=== PATIENT | female | born 1940 | race Caucasian/White ===

== ENCOUNTER 2023-11-26 23:47 | Inpatient (IN) | payer MEDICARE ==
--- NOTE | 2023-11-27 00:02 | ED ---
General Adult HPI - General Chief complaint: Chest Pain Stated complaint: chest pain Time Seen by Provider: 11/26/23 23:49 Source: patient, RN notes reviewed, old records reviewed Mode of arrival: EMS Limitations: no limitations - History of Present Illness Initial comments: 83-year-old female presenting for evaluation of intermittent chest pain over the past 1 week. This is associated with dyspnea. She has a history of COPD, she denies history of CHF. She does report trying both diuretics and albuterol without significant relief. She states her pain is minimal at the time my evaluation. No abdominal pain. She denies vomiting. Denies fever. Denies diaphoresis. - Related Data Allergies Allergy/AdvReac Type Severity Reaction Status Date / Time No Known Allergies Allergy Verified 11/26/23 23:58 Review of Systems ROS Statement: Those systems with pertinent positive or pertinent negative responses have been documented in the HPI. ROS Other: All systems not noted in ROS Statement are negative. Past Medical History Past Medical History: COPD, Hypertension History of Any Multi-Drug Resistant Organisms: None Reported Past Surgical History: Hysterectomy Past Psychological History: Anxiety, Depression Smoking Status: Current every day smoker Past Alcohol Use History: None Reported Past Drug Use History: None Reported General Exam Limitations: no limitations General appearance: alert, in no apparent distress Head exam: Present: atraumatic, normocephalic Eye exam: Present: normal appearance, PERRL Neck exam: Present: normal inspection. Absent: tenderness Respiratory exam: Present: rales, decreased breath sounds. Absent: respiratory distress Cardiovascular Exam: Present: normal rhythm, tachycardia GI/Abdominal exam: Present: soft. Absent: distended, tenderness Extremities exam: Present: pedal edema. Absent: calf tenderness Neurological exam: Present: alert, oriented X3 Psychiatric exam: Present: normal affect, normal mood Skin exam: Present: warm, dry, intact Course Vital Signs 11/26/23 11/26/23 11/27/23 23:49 23:58 01:17 Temperature 97.7 F 97.7 F Pulse Rate 97 101 H 95 Respiratory 18 18 18 Rate Blood Pressure 187/110 187/110 151/101 O2 Sat by Pulse 93 L 92 L 94 L Oximetry - Reevaluation(s) Reevaluation #1: 11/27/23 01:30 Patient had been given aspirin by paramedics during transport Medical Decision Making - Medical Decision Making Was pt. sent in by a medical professional or institution ([facility], [facility], urgent care, hospital, or half-way...) When possible be specific @ -No Did you speak to anyone other than the patient for history (EMS, parent, family, police, friend...)? What history was obtained from this source @ -No Did you review nursing and triage notes (agree or disagree)? Why? @ -I reviewed and agree with nursing and triage notes Were old charts reviewed (outside hosp., previous admission, EMS record, old EKG, old radiological studies, urgent care reports/EKG's, half-way records)? Report findings @ -No old charts were reviewed Differential Diagnosis (chest pain, altered mental status, abdominal pain women, abdominal pain men, vaginal bleeding, weakness, fever, dyspnea, syncope, headache, dizziness, GI bleed, back pain, seizure, CVA, palpatations, mental health, musculoskeletal)? @ -Differential Dyspnea: Coronary syndrome, arrhythmia, tamponade, asthma, COPD, pulmonary embolism, pneumonia, pneumothorax, pulmonary effusion, anaphylaxis, diabetic ketoacidosis, flailed chest, pulmonary contusion, diaphragmatic rupture, anemia, neuromuscular, this is not meant to be an all-inclusive list. EKG interpreted by me (3pts min.). @ -Sinus tachycardia rate of 103, AK interval 164, QRS duration 94, QTc [address] segment elevation, ST segment depression in the lateral precordial leads. X-rays interpreted by me (1pt min.). @Chest x-ray showing venous congestion, CHF CT interpreted by me (1pt min.). @ -None done U/S interpreted by me (1pt. min.). @ -None done What testing was considered but not performed or refused? (CT, X-rays, U/S, labs)? Why? @ -None What meds were considered but not given or refused? Why? @ -None Did you discuss the management of the patient with other professionals (professionals i.e. [facility], [facility], lab, RT, psych nurse, social media community manager, cement production plant operator, teacher, investigation officer, case specialist)? Give summary @ -No Was smoking cessation discussed for >3mins.? @ -No Was critical care preformed (if so, how long)? @ -[Yes, 35 minutes Were there social determinants of health that impacted care today? How? (Homelessness, low income, unemployed, alcoholism, drug addiction, transportation, low edu. Level, literacy, decrease access to med. care, [place] [facility], rehab)? @ -No Was there de-escalation of care discussed even if they declined (Discuss DNR or withdrawal of care, Hospice)? DNR status @ -No What co-morbidities impacted this encounter? (DM, HTN, Smoking, COPD, CAD, Cancer, CVA, ARF, Chemo, Hep., AIDS, mental health diagnosis, sleep apnea, morbid obesity)? @ -[Hypertension, COPD Was patient admitted / discharged? Hospital course, mention meds given and route, prescriptions, significant lab abnormalities, going to OR and other pertinent info. @ -83-year-old female with intermittent chest pain over the past 1 week. Patient is hypertensive and hypoxic on arrival. Requiring supplemental oxygen. Given Lasix, and nitroglycerin. Had been given aspirin by paramedics. She has no chest pain at the time my evaluation. EKG shows ST segment depression in the lateral precordial leads, no ST segment elevation. Chest x-ray shows CHF. Patient has stable hemoglobin, hypokalemia which is corrected orally. Patient's troponin is elevated 0.118 consistent with non-ST segment elevated DE. Patient is continued on nitroglycerin, heparin is initiated in the emergency department. She will be admitted to internal medicine with cardiology on consultation. Undiagnosed new problem with uncertain prognosis? @ -No Drug Therapy requiring intensive monitoring for toxicity (Heparin, Nitro, Insulin, Cardizem)? @ -No Were any procedures done? @ -No Diagnosis/symptom? @ -[NSTEMI, CHF Acute, or Chronic, or Acute on Chronic? @ -Acute Uncomplicated (without systemic symptoms) or Complicated (systemic symptoms)? @ -[default Side effects of treatment? @ -No Exacerbation, Progression, or Severe Exacerbation? @ -No Poses a threat to life or bodily function? How? (Chest pain, USA, DE, pneumonia, PE, COPD, DKA, ARF, appy, cholecystitis, CVA, Diverticulitis, Homicidal, Suicidal, threat to staff... and all critical care pts) @ -[Yes, ACS - Lab Data Result diagrams: 11/27/23 00:03 11/27/23 00:03 Lab Results 11/27/23 11/27/23 11/27/23 Range/Units 00:03 00:03 00:03 WBC 13.3 H (3.8-10.6) k/uL RBC 4.93 (3.80-5.40) m/uL Hgb 15.4 (11.4-16.0) gm/dL Hct 47.4 H (34.0-46.0) % MCV 96.1 (80.0-100.0) fL MCH 31.3 (25.0-35.0) pg MCHC 32.6 (31.0-37.0) g/dL RDW 14.9 (11.5-15.5) % Plt Count 222 (150-450) k/uL MPV 8.7 Neutrophils % 79 % Lymphocytes % 12 % Monocytes % 7 % Eosinophils % 1 % Basophils % 0 % Neutrophils # 10.4 H (1.3-7.7) k/uL Lymphocytes # 1.5 (1.0-4.8) k/uL Monocytes # 0.9 (0-1.0) k/uL Eosinophils # 0.1 (0-0.7) k/uL Basophils # 0.0 (0-0.2) k/uL PT 10.4 (10.0-12.5) sec INR 0.9 (<1.2) APTT 23.6 (22.0-30.0) sec Sodium 133 L (137-145) mmol/L Potassium 3.2 L (3.5-5.1) mmol/L Chloride 91 L (98-107) mmol/L Carbon Dioxide 36 H (22-30) mmol/L Anion Gap 6 mmol/L BUN 22 H (7-17) mg/dL Creatinine 0.62 (0.52-1.04) mg/dL Est GFR (CKD-EPI)AfAm >90 (>60 ml/min/1.73 sqM) Est GFR (CKD-EPI)NonAf 85 (>60 ml/min/1.73 sqM) Glucose 131 H (74-99) mg/dL Calcium 9.3 (8.4-10.2) mg/dL Magnesium 1.8 (1.6-2.3) mg/dL Total Bilirubin 0.9 (0.2-1.3) mg/dL AST 30 (14-36) U/L ALT 18 (4-34) U/L Alkaline Phosphatase 83 (38-126) U/L Troponin I (0.000-0.034) ng/mL NT-Pro-B Natriuret Pep 842 pg/mL Total Protein 6.7 (6.3-8.2) g/dL Albumin 3.5 (3.5-5.0) g/dL 11/27/23 Range/Units 00:03 WBC (3.8-10.6) k/uL RBC (3.80-5.40) m/uL Hgb (11.4-16.0) gm/dL Hct (34.0-46.0) % MCV (80.0-100.0) fL MCH (25.0-35.0) pg MCHC (31.0-37.0) g/dL RDW (11.5-15.5) % Plt Count (150-450) k/uL MPV Neutrophils % % Lymphocytes % % Monocytes % % Eosinophils % % Basophils % % Neutrophils # (1.3-7.7) k/uL Lymphocytes # (1.0-4.8) k/uL Monocytes # (0-1.0) k/uL Eosinophils # (0-0.7) k/uL Basophils # (0-0.2) k/uL PT (10.0-12.5) sec INR (<1.2) APTT (22.0-30.0) sec Sodium (137-145) mmol/L Potassium (3.5-5.1) mmol/L Chloride (98-107) mmol/L Carbon Dioxide (22-30) mmol/L Anion Gap mmol/L BUN (7-17) mg/dL Creatinine (0.52-1.04) mg/dL Est GFR (CKD-EPI)AfAm (>60 ml/min/1.73 sqM) Est GFR (CKD-EPI)NonAf (>60 ml/min/1.73 sqM) Glucose (74-99) mg/dL Calcium (8.4-10.2) mg/dL Magnesium (1.6-2.3) mg/dL Total Bilirubin (0.2-1.3) mg/dL AST (14-36) U/L ALT (4-34) U/L Alkaline Phosphatase (38-126) U/L Troponin I 0.118 H* (0.000-0.034) ng/mL NT-Pro-B Natriuret Pep pg/mL Total Protein (6.3-8.2) g/dL Albumin (3.5-5.0) g/dL Critical Care Time Critical Care Time: Yes Total Critical Care Time: 35 Disposition Clinical Impression: Acute non-ST elevation myocardial infarction (NSTEMI) Disposition: ADMITTED IP TO THIS HOSP Condition: Stable Is patient prescribed a controlled substance at d/c from ED?: No Referrals: Christopher Wood DO [Primary Care Provider] - 1-2 days Time of Disposition: 01:32
[2023-11-27 00:25] LABS: Basophils % (A) 0 %; Eosinophils # (A) 0.1 k/uL (0-0.7); Eosinophils % (A) 1 %; HCT 47.4 % (34.0-46.0); HGB 15.4 gm/dL (11.4-16.0); Lymphocytes # (A) 1.5 k/uL (1.0-4.8); Lymphocytes % (A) 12 %; MCH 31.3 pg (25.0-35.0); MCHC 32.6 g/dL (31.0-37.0); MCV 96.1 fL (80.0-100.0); Mean Platelet Volume 8.7; Monocytes # (A) 0.9 k/uL (0-1.0); Monocytes % (A) 7 %; Neutrophils # (A) 10.4 k/uL (1.3-7.7); Neutrophils % (A) 79 %; Platelet Count 222 k/uL (150-450); RBC 4.93 m/uL (3.80-5.40); RDW 14.9 % (11.5-15.5); WBC 13.3 k/uL (3.8-10.6)
[2023-11-27] MEDS: FUROSEMIDE 10 MG/ML 4 ML VIAL IV STA (00:32)
[2023-11-27] MEDS: NITROGLYCERIN SL TABS 0.4 MG TAB SUBLINGUAL PRN (00:33)
[2023-11-27 00:38] LABS: ALT 18 U/L (4-34); AST 30 U/L (14-36); African American GFR (CKD) >90 (>60 ml/min/1.73 sqM); Albumin 3.5 g/dL (3.5-5.0); Alkaline Phosphatase 83 U/L (38-126); Blood Urea Nitrogen 22 mg/dL (7-17); Calcium 9.3 mg/dL (8.4-10.2); Chloride 91 mmol/L (98-107); Glucose 131 mg/dL (74-99); Magnesium 1.8 mg/dL (1.6-2.3); Non-African American GFR(CKD) 85 (>60 ml/min/1.73 sqM); Potassium 3.2 mmol/L (3.5-5.1); Sodium 133 mmol/L (137-145); Total Bilirubin 0.9 mg/dL (0.2-1.3); Total Protein 6.7 g/dL (6.3-8.2)
[2023-11-27 00:44] LABS: Anion Gap 6 mmol/L; Carbon Dioxide 36 mmol/L (22-30)
[2023-11-27 00:45] LABS: NT-Pro-B-Type Natriuretic Pept 842 pg/mL
--- NOTE | 2023-11-27 00:47 | XR ---
EXAM: XR Chest, 2 Views CLINICAL HISTORY: ITS.REASON XR Reason: Chest Pain TECHNIQUE: Frontal and lateral views of the chest. COMPARISON: No relevant prior studies available. FINDINGS: Lungs: No consolidation or mass. Mild vascular congestion Pleural space: No effusion. Heart: No cardiomegaly. Bones/joints: No acute findings. IMPRESSION: Mild vascular congestion
[2023-11-27 00:48] LABS: INR 0.9 (<1.2); Partial Thromboplastin Time 23.6 sec (22.0-30.0); Prothrombin Time 10.4 sec (10.0-12.5)
[2023-11-27] MEDS: POTASSIUM CHLORIDE ER 20 MEQ TAB.ER PO STA (01:47)
[2023-11-27] MEDS: HEPARIN SODIUM 1,000 UN/ML (10ML VL) IV ONE (01:50)
[2023-11-27] MEDS: HEPARIN SOD,PORK IN 0.45% NACL 25,000 UNIT in 0.45% NACL 1 250ML.BAG IV SCH (01:52)
--- NOTE | 2023-11-27 02:57 | P.HPIM ---
History of Present Illness H&P Date: 11/27/23 Patient is a 83-year-old female with a PMH of COPD and hypertension who presents to the emergency room with complaints of chest pain and shortness of breath. Patient reports experiencing substernal chest tightness with associated shortness of breath over the past 1 week, nonpleuritic, nonexertional, lasting for several minutes at a time and then resolving spontaneously, increasing in frequency over the past few days. She also reports experiencing mild bilateral lower extremity edema which is new for her. She denies experiencing cough, fever, chills, abdominal pain, diarrhea. Chest x-ray in the emergency room revealed mild vascular congestion with EKG showing sinus tachycardia at 103 bpm with a left anterior fascicular block as reviewed by me. Laboratory evaluation was remarkable for WBC count 13.3, troponin 0.118, proBNP 842, sodium 133, potassium 3.2, chloride 91, CO2 36, BUN 22, and creatinine 0.62. ED documentation reviewed and case discussed with ED provider. Review of systems: Pertinent positives and negatives as discussed in HPI, a complete review of systems was performed and all other systems are negative. Physical examination: Vital signs reviewed General: non toxic, no distress, appears at stated age, obese Derm: no unusual rashes/lesions, warm Head: atraumatic, normocephalic, symmetric Eyes: EOMI, no lid lag, anicteric sclera, pupils equal round reactive to light ENT: Nose and ears atraumatic Neck: No cervical lymphadenopathy, trachea midline, supple Mouth: no lip lesion, mucus membranes moist Cardiovascular: S1S2 reg, no murmur, positive dorsalis pedis pulse bilateral, 1+ bilateral lower extremity pitting edema Lungs: Bibasilar rales with some wheezing, no accessory muscle use Abdominal: soft, nontender to palpation, no guarding Ext: muscle strength 5 out of 5 in all 4 extremities grossly, no gross muscle atrophy, no contractures, Neuro: CN II-XI grossly intact, no gross focal neuro deficits Psych: Alert, oriented, appropriate affect Assessment: Non-ST elevation MD CHF exacerbation, newly diagnosed Hypokalemia Leukocytosis, likely due to acute stressor, rule out pneumonia Alkalosis, suspect due to chronic hypercapnia in setting of COPD Chronic conditions: COPD, hypertension Imaging: Chest x-ray in the emergency room revealed mild vascular congestion with EKG showing sinus tachycardia at 103 bpm with a left anterior fascicular block as reviewed by me. Data Review: Laboratory evaluation was remarkable for WBC count 13.3, troponin 0.118, proBNP 842, sodium 133, potassium 3.2, chloride 91, CO2 36, BUN 22, and creatinine 0.62. Plan: Continue with heparin infusion Continue aspirin Cardiology consulted Cardiac monitoring Obtain echocardiogram Trend troponin Continue with Lasix 40 mg IV every 12 hourly Intake and output Daily weights Replace potassium Follow-up procalcitonin levels DVT prophylaxis: Heparin infusion The patient is admitted with an anticipated greater than 2 midnight stay for evaluation of non-ST elevation MD CODE STATUS: Full Code Discussed with: Patient Anticipated discharge place: Home Past Medical History Past Medical History: COPD, Hypertension History of Any Multi-Drug Resistant Organisms: None Reported Past Surgical History: Hysterectomy Past Psychological History: Anxiety, Depression Smoking Status: Current every day smoker Past Alcohol Use History: None Reported Past Drug Use History: None Reported Medications and Allergies Allergies Allergy/AdvReac Type Severity Reaction Status Date / Time No Known Allergies Allergy Verified 11/26/23 23:58 Physical Exam Vitals: Vital Signs Temp Pulse Resp BP Pulse Ox 11/27/23 02:02 97.8 F 96 18 148/90 97 11/27/23 01:17 95 18 151/101 94 L 11/26/23 23:58 97.7 F 101 H 18 187/110 92 L 11/26/23 23:49 97.7 F 97 18 187/110 93 L Intake and Output 11/26/23 11/26/23 11/27/23 14:59 22:59 06:59 Other: Weight 72.575 kg Results CBC & Chem 7: 11/27/23 00:03 11/27/23 00:03 Labs: Abnormal Lab Results - Last 24 Hours (Table) 11/27/23 11/27/23 11/27/23 Range/Units 00:03 00:03 00:03 WBC 13.3 H (3.8-10.6) k/uL Hct 47.4 H (34.0-46.0) % Neutrophils # 10.4 H (1.3-7.7) k/uL Sodium 133 L (137-145) mmol/L Potassium 3.2 L (3.5-5.1) mmol/L Chloride 91 L (98-107) mmol/L Carbon Dioxide 36 H (22-30) mmol/L BUN 22 H (7-17) mg/dL Glucose 131 H (74-99) mg/dL Troponin I 0.118 H* (0.000-0.034) ng/mL
[2023-11-27 03:56] LABS: African American GFR (CKD) >90 (>60 ml/min/1.73 sqM); Blood Urea Nitrogen 20 mg/dL (7-17); Chloride 90 mmol/L (98-107); Glucose 129 mg/dL (74-99); Non-African American GFR(CKD) 84 (>60 ml/min/1.73 sqM); Potassium 3.4 mmol/L (3.5-5.1); Sodium 135 mmol/L (137-145)
[2023-11-27 04:02] LABS: Anion Gap 7 mmol/L; Carbon Dioxide 38 mmol/L (22-30)
[2023-11-27 04:03] LABS: HGB 15.9 gm/dL (11.4-16.0); MCH 31.4 pg (25.0-35.0); MCHC 32.4 g/dL (31.0-37.0); MCV 97.1 fL (80.0-100.0); Mean Platelet Volume 8.5; Platelet Count 233 k/uL (150-450); RBC 5.04 m/uL (3.80-5.40); RDW 14.6 % (11.5-15.5); WBC 14.1 k/uL (3.8-10.6)
[2023-11-27] MEDS: NITROGLYCERIN OINT 1 INCH/GM PACKET TOPICAL SCH (05:01)
[2023-11-27] MEDS: IPRATROPIUM-ALBUTEROL 3 ML NEB INHALATION SCH (07:58)
[2023-11-27] MEDS: FUROSEMIDE 10 MG/ML 4 ML VIAL IV SCH (09:10)
--- NOTE | 2023-11-27 10:14 | CA ---
Transthoracic Echo Report Name: Gavi Avila Age: 83 Gender: F : 1940 Exam Date: 11/27/2023 08:26 Exam Location: [facility] Ht (in): 61 Wt (lb): 160 Ordering Physician: Olegario Lay MD Attending/Referring Phys: [id number], Rosanne Cold Roll Operator Hilda Montalvo RDCS Procedure CPT: Indications: nstemi Cardiac Hx: smoker, COPD, HTN Technical Quality: Fair Contrast 1: Total Dose (mL): Contrast 2: Total Dose (mL): MEASUREMENTS (Male / Female) Normal Values 2D ECHO LV Diastolic Diameter PLAX 3.3 cm 4.2 - 5.9 / 3.9 - 5.3 cm LV Systolic Diameter PLAX 2.2 cm IVS Diastolic Thickness 1.2 cm 0.6 - 1.0 / 0.6 - 0.9 cm LVPW Diastolic Thickness 1.3 cm 0.6 - 1.0 / 0.6 - 0.9 cm LV Relative Wall Thickness 0.8 RV Internal Dim ED PLAX 3.3 cm LA Systolic Diameter LX 3.5 cm 3.0 - 4.0 / 2.7 - 3.8 cm LV Diastolic Volume MOD 4C 97.5 cm??? LV Systolic Volume MOD 4C 46.6 cm??? LV Ejection Fraction MOD 4C 52.2 % LV Cardiac Index MOD 4C 2662.7 cm???/min???m??? LV Diastolic Length 4C 7.7 cm LV Systolic Length 4C 6.1 cm LV Diastolic Volume MOD 2C 92.8 cm??? LV Systolic Volume MOD 2C 47.8 cm??? LV Ejection Fraction MOD 2C 48.5 % LV Cardiac Index MOD 2C 2357.5 cm???/min???m??? LV Diastolic Length 2C 8.4 cm LV Systolic Length 2C 7.2 cm LA Volume 45.7 cm??? 18 - 58 / 22 - 52 cm??? LA Volume Index 25.5 cm???/m??? 16 - 28 cm???/m??? DOPPLER AV Peak Velocity 143.3 cm/s AV Peak Gradient 8.2 mmHg MV Area PHT 2.8 cm??? Mitral E Point Velocity 96.3 cm/s Mitral A Point Velocity 163.3 cm/s Mitral E to A Ratio 0.6 MV Deceleration Time 270.4 ms FINDINGS Left Ventricle Left ventricular ejection fraction is estimated at 55-60 %. Small left ventricular cavity. Mildly increased septal wall thickness. Mildly increased posterior wall thickness. No obvious regional wall motion abnormalities. Right Ventricle Normal right ventricular size. Unable to estimate the right ventricular systolic pressure. Right Atrium Normal right atrial size. Left Atrium Normal left atrial size. Mitral Valve Mitral valve thickened. Mild mitral annular calcification. No mitral stenosis, regurgitation or prolapse. Aortic Valve Trileaflet aortic valve. Thickened aortic valve without stenosis. Tricuspid Valve Structurally normal tricuspid valve. No tricuspid stenosis, regurgitation or prolapse. Pulmonic Valve Structurally normal pulmonic valve. No pulmonic regurgitation. Pericardium No pericardial effusion. Aorta Normal size aortic root and proximal ascending aorta. CONCLUSIONS Normal LV function Mitral annular calcification Aortic sclerosis without any stenosis Previewed by: Dr. Cristobal Lacy MD (Electronically Signed) Final Date: 27 November 2023 10:14
[2023-11-27] MEDS: HEPARIN SODIUM 1,000 UN/ML (10ML VL) IV PRN (10:34)
[2023-11-27] MEDS ORDERED: NITROGLYCERIN SL TABS 0.4 MG TAB SUBLINGUAL PRN (13:12)
--- NOTE | 2023-11-27 13:14 | P.CRDCN ---
History of Present Illness Consult date: 11/27/23 Reason for Consult (text): NSTEMI History of present illness: History of present illness: This is an 85-year-old female with past medical history of hypertension, COPD. We have been asked to evaluate the patient for non-ST elevated myocardial infarction. Patient presented to the hospital due to chest pain and shortness of breath. Patient gives history that she has had chest pain over the past month on and off that is getting more severe and occurring more often especially for the past 3 days. She also has sweats and increased lower extremity edema. She has had no previous stents or heart surgery. She denies history of diabetes. She is an active smoker. Patient is status post IV Lasix 40 mg times once and continued on every 12 hours, started on heparin drip, potassium replaced and 1 Nitrostat given. Discussed option of cardiac catheterization and patient is agreeable and this will be scheduled for tomorrow. EKG sinus rhythm 103 bpm Chest x-ray: Mild vascular congestion. WBC 14.1, hemoglobin 15.9, platelet count 233. Sodium 135, potassium 3.4, chloride 90, CO2 38, BUN 20 creatinine 0.64. Blood sugar 129. Troponin 0.118 and 2.2 Echocardiogram performed 11/27/2023 reveals EF 55 to 60%, mitral annular calcification, aortic sclerosis without stenosis. Home cardiac medications: Coreg 6.25 mg twice daily, Bumex 0.5 mg daily. Review Of Systems: At the time of my exam: CONSTITUTIONAL: Denies fever or chills. HEENT: Denies blurred vision, vision changes, or eye pain. Denies hemoptysis CARDIOVASCULAR: Denies chest pain. Denies orthopnea. Denies PND. Denies palpitations RESPIRATORY: Denies shortness of breath. GASTROINTESTINAL: Denies abdominal pain. Denies nausea or vomiting. HEMATOLOGIC: Denies bleeding disorders. GENITOURINARY: Denies any blood in urine. SKIN: Denies pruitis. Denies rash. Physical examination: Gen: This is an 83-year-old female in no acute distress VS: reviewed HEENT: Head is atraumatic, normocephalic. Pupils equal, round. Sclerae is anicteric. NECK: Supple. No JVD. LUNGS: Bilateral crackles. No intercostal retractions. HEART: Regular rate and rhythm. No murmur. ABDOMEN: Soft No tenderness. EXTREMITIES: No pedal edema. No calf tenderness. NEUROLOGICAL: Patient is awake, alert and oriented x3. Assessment: Non-ST elevated myocardial infarction Acute heart failure Hypokalemia status post replacement Leukocytosis Hypertension COPD Plan: Resume patient's home cardiac medications Continue aspirin changed to 81 mg daily, atorvastatin 40 mg daily Continue IV Lasix 40 mg every 12 hours Continue heparin drip another 24 hours Schedule patient for cardiac catheterization tomorrow with Dr. Davalos Monitor I&O, daily weights, electrolytes and renal function Further recommendations to follow based upon clinical course Thank you kindly for this consultation. Nurse practitioner note has been reviewed, I agree with documented findings and plan of care. Patient was seen and examined. 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 History of Any Multi-Drug Resistant Organisms: None Reported Past Surgical History: Hysterectomy Past Psychological History: Anxiety, Depression Smoking Status: Current every day smoker Past Alcohol Use History: None Reported Past Drug Use History: None Reported Additional Drug Use History / Comment(s): 10-15 a day - Past Family History Mother Family Medical History: Myocardial Infarction (CT) Father Family Medical History: CVA/TIA Medications and Allergies Home Medications Medication Instructions Recorded Confirmed Type Bumetanide [BUMEX] 0.5 mg PO DAILY 11/27/23 11/27/23 History carvediloL [Coreg] 6.25 tablet PO BID 11/27/23 11/27/23 History Allergies Allergy/AdvReac Type Severity Reaction Status Date / Time codeine AdvReac Itching Verified 11/27/23 08:48 Physical Exam Vitals: Vital Signs Temp Pulse Resp BP BP Pulse Ox 11/27/23 04:05 24 11/27/23 02:56 97.8 F 22 154/95 95 11/27/23 02:02 97.8 F 96 18 148/90 97 11/27/23 01:17 95 18 151/101 94 L 11/26/23 23:58 97.7 F 101 H 18 187/110 92 L 11/26/23 23:49 97.7 F 97 18 187/110 93 L Intake and Output 11/26/23 11/27/23 11/27/23 22:59 06:59 14:59 Other: Voiding Method Toilet # Voids 1 Weight 75.5 kg Results 11/27/23 03:30 11/27/23 03:30 Cardiac Enzymes 11/27/23 11/27/23 11/27/23 Range/Units 00:03 00:03 03:30 AST 30 (14-36) U/L Troponin I 0.118 H* 2.200 H* (0.000-0.034) ng/mL Coagulation 11/27/23 Range/Units 00:03 PT 10.4 (10.0-12.5) sec APTT 23.6 (22.0-30.0) sec CBC 11/27/23 11/27/23 Range/Units 00:03 03:30 WBC 13.3 H 14.1 H (3.8-10.6) k/uL RBC 4.93 5.04 (3.80-5.40) m/uL Hgb 15.4 15.9 (11.4-16.0) gm/dL Hct 47.4 H 49.0 H (34.0-46.0) % Plt Count 222 233 (150-450) k/uL Comprehensive Metabolic Panel 11/27/23 11/27/23 Range/Units 00:03 03:30 Sodium 133 L 135 L (137-145) mmol/L Potassium 3.2 L 3.4 L (3.5-5.1) mmol/L Chloride 91 L 90 L (98-107) mmol/L Carbon Dioxide 36 H 38 H (22-30) mmol/L BUN 22 H 20 H (7-17) mg/dL Creatinine 0.62 0.64 (0.52-1.04) mg/dL Glucose 131 H 129 H (74-99) mg/dL Calcium 9.3 9.0 (8.4-10.2) mg/dL AST 30 (14-36) U/L ALT 18 (4-34) U/L Alkaline Phosphatase 83 (38-126) U/L Total Protein 6.7 (6.3-8.2) g/dL Albumin 3.5 (3.5-5.0) g/dL Current Medications Generic Name Dose Route Start Last Admin Trade Name Freq PRN Reason Stop Dose Admin Albuterol/Ipratropium 3 ml 11/27/23 04:00 Ipratropium-Albuterol 3 Ml Neb INHALATION RT-Q4H [facility] Aspirin 325 mg 11/28/23 09:00 Aspirin 325 Mg Tab PO DAILY [facility] Atorvastatin Calcium 40 mg 11/27/23 21:00 Atorvastatin 40 Mg Tab PO HS [facility] Furosemide 40 mg 11/27/23 09:00 Furosemide 10 Mg/Ml 4 Ml Vial IV Q12HR [facility] Heparin Sodium/Sodium Chloride 250 mls @ 8.709 mls/hr 11/27/23 01:30 11/27/23 01:52 25,000 unit/ Sodium Chloride IV 12 units/kg/hr .Q24H EMPERATRIZ 8.709 mls/hr Administration Protocol 12 UNITS/KG/HR Nitroglycerin 1 inch 11/27/23 06:00 11/27/23 05:01 Nitroglycerin Oint 1 Inch/Gm Packet TOPICAL Not Given Q6HR [facility] Intake and Output 11/26/23 11/27/23 11/27/23 22:59 06:59 14:59 Other: Voiding Method Toilet # Voids 1 Weight 75.5 kg 11/27/23 03:30 11/27/23 03:30
[2023-11-27] MEDS: ALBUTEROL HFA INHALER INHALATION SCH (16:06)
[2023-11-27] MEDS: ONDANSETRON 4 MG/2 ML VIAL IVP PRN (18:25)
[2023-11-27] MEDS: ATORVASTATIN 40 MG TAB PO SCH (19:54)
[2023-11-27] MEDS: ALPRAZolam 0.25 MG TAB PO PRN (23:30)
[2023-11-28] MEDS: ASPIRIN 325 MG TAB PO ONE (06:29)
[2023-11-28] MEDS: ATORVASTATIN 80 MG TAB PO ONE (06:29)
[2023-11-28] MEDS ORDERED: HEPARIN SODIUM,PORCINE 10,000 UNIT in SODIUM CHLORIDE 0.9% 1,000 ML IRRIGATION PRN (07:00)
[2023-11-28] MEDS ORDERED: HEPARIN SODIUM,PORCINE (1 ML) 2,500 UNIT in SODIUM CHLORIDE 0.9% 250 ML IRRIGATION PRN (07:00)
[2023-11-28 07:15] LABS: HCT 44.6 % (34.0-46.0); HGB 14.4 gm/dL (11.4-16.0); MCH 31.9 pg (25.0-35.0); MCHC 32.3 g/dL (31.0-37.0); MCV 98.6 fL (80.0-100.0); Mean Platelet Volume 8.5; Platelet Count 213 k/uL (150-450); RBC 4.53 m/uL (3.80-5.40); RDW 14.6 % (11.5-15.5); WBC 14.8 k/uL (3.8-10.6)
[2023-11-28 07:47] LABS: African American GFR (CKD) 87 (>60 ml/min/1.73 sqM); Blood Urea Nitrogen 26 mg/dL (7-17); Calcium 8.9 mg/dL (8.4-10.2); Chloride 88 mmol/L (98-107); Glucose 106 mg/dL (74-99); Non-African American GFR(CKD) 75 (>60 ml/min/1.73 sqM); Potassium 3.4 mmol/L (3.5-5.1); Sodium 134 mmol/L (137-145)
[2023-11-28] MEDS: TIOTROPIUM 2.5 MCG INHALER INHALATION SCH (07:50)
[2023-11-28 07:55] LABS: Anion Gap 8 mmol/L
[2023-11-28] MEDS: ASPIRIN 81 MG PO SCH (07:58)
[2023-11-28 08:08] LABS: Carbon Dioxide 38 mmol/L (22-30)
[2023-11-28] MEDS ORDERED: ASPIRIN 325 MG TAB PO SCH (09:00)
[2023-11-28] MEDS: POTASSIUM CHLORIDE ER 20 MEQ TAB.ER PO STA (09:30)
[2023-11-28] MEDS: dexAMETHasone 2 MG TAB PO SCH (09:30)
--- NOTE | 2023-11-28 12:15 | P.PN ---
Subjective Progress Note Date: 11/28/23 Patient is a 83-year-old female with a PMH of COPD and hypertension who presents to the emergency room with complaints of chest pain and shortness of breath. Patient reports experiencing substernal chest tightness with associated shortness of breath over the past 1 week. She also reports experiencing mild bilateral lower extremity edema which is new for her. Chest x-ray in the emergency room revealed mild vascular congestion with EKG showing sinus tachycardia at 103 bpm with a left anterior fascicular block. Laboratory evaluation was remarkable for WBC count 13.3, troponin 0.118, proBNP 842, sodium 133, potassium 3.2, chloride 91, CO2 36, BUN 22, and creatinine 0.62. Patient was started on a Heparin drip and Lasix IV, admitted for NSTEMI and CHF exacerbation. Troponin 2.200, 4.780. Echocardiogram showed EF 55-60% with no regional wall motion abnormalities. Cardiology consulted, cardiac cath scheduled for . COVID 19 test ordered and positive. Patient was started on Decadron. Patient was seen and examined. No more chest pain. SOB improving. Daughter at bedside. CBC WBC 14.8. APTT 37.6. BMP Na 134, K 3.4, Cl 88, bicarb 38, BUN 26, glu 106. Plans for cardiac cath today. Vital signs reviewed General: Nontoxic, no distress, appears at stated age Cardiovascular: S1S2 reg, no murmur Lungs: Decreased bs bilateral, no rhonchi, no rales, no accessory muscle use Abdominal: Soft, nontender to palpation, no guarding Ext: No gross muscle atrophy, 2+ edema b/l lower extremities, no contractures Neuro: no focal neuro deficits Psych: Alert, oriented, appropriate affect Based on my assessment of this patient, this patient meets a high complexity level of care. Patient has an acute diagnosis of NSTEMI with AHRF secondary to pulmonary edema and COVID 19 that poses a threat to life or bodily function. Non-ST elevation [place]: Continue Heparin drip at 12 units/kg/hr. ASA 81 mg PO QD. Lipitor 40 mg PO QHS. Telemetry monitoring. Echo shows EF 60-65% without regional wall motion abnormalities. Plans for cardiac cath. Cardiology consult. Acute hypoxic respiratory failure due to below. COVID 19: Decadron 6 mg PO QD. CHF exacerbation, newly diagnosed: Lasix 40 mg IV BID. Strict intake and outtake. Daily weights. Hypokalemia: KCl 40 meq PO x 1. Monitor while on Lasix. Leukocytosis, likely due to acute stressor, rule out pneumonia: Procal negative. Alkalosis, suspect due to chronic hypercapnia in setting of COPD Chronic conditions: COPD, hypertension CODE STATUS: FULL CODE DVT Prophylaxis: Heparin drip GI Prophylaxis: Designated medical POA if patient is not able to make medical decisions for themselves: Daughter. I have reviewed the following tour consultant notes: Cardiology. I have reviewed the results of the following tests: Echo. CBC, BMP. APTT. I have ordered the following tests: CBC, BMP. APTT. I have discussed the care of this patient with the following independent historian: Discussed with BRIDGER Ledesma. I have independently interpreted the following test below: I have discussed the management of this patient with the following physician: Objective - Vital Signs Vital signs: Vital Signs Temp 98.7 F 11/28/23 04:00 Pulse 89 11/28/23 04:00 Resp 19 11/28/23 04:00 BP 146/95 11/28/23 04:00 Pulse Ox 94 L 11/28/23 08:01 FiO2 Intake & Output 11/27/23 11/28/23 11/28/23 18:59 06:59 18:59 Intake Total 914.607 175.393 Balance 914.607 175.393 Weight 75.5 kg 74.5 kg Intake: Intake, IV Titration 74.607 175.393 Amount Heparin Sod,Pork in 0.45% 74.607 175.393 NaCl 25,000 unit In 0.45 % NaCl 1 250ml.bag @ 12 UNITS/KG/HR 8.709 mls/hr IV .Q24H [facility] Rx#: [id number] Oral 840 Other: # Voids 1 - Labs CBC & Chem 7: 11/28/23 06:57 11/28/23 06:57 Labs: Abnormal Lab Results - Last 24 Hours (Table) 11/27/23 11/27/23 11/28/23 Range/Units 13:38 16:28 06:57 WBC (3.8-10.6) k/uL APTT 62.8 H 37.6 H (22.0-30.0) sec Sodium (137-145) mmol/L Potassium (3.5-5.1) mmol/L Chloride (98-107) mmol/L Carbon Dioxide (22-30) mmol/L BUN (7-17) mg/dL Glucose (74-99) mg/dL SARS-CoV-2 (PCR) Detected A (Not Detectd) 11/28/23 11/28/23 Range/Units 06:57 06:57 WBC 14.8 H (3.8-10.6) k/uL APTT (22.0-30.0) sec Sodium 134 L (137-145) mmol/L Potassium 3.4 L (3.5-5.1) mmol/L Chloride 88 L (98-107) mmol/L Carbon Dioxide 38 H (22-30) mmol/L BUN 26 H (7-17) mg/dL Glucose 106 H (74-99) mg/dL SARS-CoV-2 (PCR) (Not Detectd)
--- NOTE | 2023-11-28 13:19 | P.PN ---
Subjective Progress Note Date: 11/28/23 Reason for Consult (text): NSTEMI History of present illness: History of present illness: This is an 85-year-old female with past medical history of hypertension, COPD. We have been asked to evaluate the patient for non-ST elevated myocardial infarction. Patient presented to the hospital due to chest pain and shortness of breath. Patient gives history that she has had chest pain over the past month on and off that is getting more severe and occurring more often especially for the past 3 days. She also has sweats and increased lower extremity edema. She has had no previous stents or heart surgery. She denies history of diabetes. She is an active smoker. Patient is status post IV Lasix 40 mg times once and continued on every 12 hours, started on heparin drip, potassium replaced and 1 Nitrostat given. Discussed option of cardiac catheterization and patient is agreeable and this will be scheduled for tomorrow. EKG sinus rhythm 103 bpm Chest x-ray: Mild vascular congestion. WBC 14.1, hemoglobin 15.9, platelet count 233. Sodium 135, potassium 3.4, chloride 90, CO2 38, BUN 20 creatinine 0.64. Blood sugar 129. Troponin 0.118 and 2.2 Echocardiogram performed 11/27/2023 reveals EF 55 to 60%, mitral annular calcification, aortic sclerosis without stenosis. Home cardiac medications: Coreg 6.25 mg twice daily, Bumex 0.5 mg daily. Patient is scheduled for cardiac catheterization today with Dr. Davalos. Blood pressure 125/70, heart rate in the 80s. Repeat blood work reveals WBC 13.8, hemoglobin 14.4. Sodium 134, potassium 3.4, chloride 88, CO2 38. BUN 26 and creatinine is 0.75. Physical examination: Gen: This is an 83-year-old female in no acute distress VS: reviewed HEENT: Head is atraumatic, normocephalic. Pupils equal, round. Sclerae is anicteric. NECK: Supple. No JVD. LUNGS: Bilateral crackles. No intercostal retractions. HEART: Regular rate and rhythm. No murmur. ABDOMEN: Soft No tenderness. EXTREMITIES: No pedal edema. No calf tenderness. NEUROLOGICAL: Patient is awake, alert and oriented x3. Assessment: Non-ST elevated myocardial infarction Acute heart failure Hypokalemia status post replacement Leukocytosis Hypertension COPD Plan: Continue patient's home cardiac medications Continue aspirin delete 81 mg daily, atorvastatin 40 mg daily Continue IV Lasix 40 mg every 12 hours Continue heparin drip another 24 hours Schedule patient for cardiac catheterization with Dr. Davalos Monitor I&O, daily weights, electrolytes and renal function Further recommendations to follow based upon clinical course Nurse practitioner note has been reviewed, I agree with documented findings and plan of care. Patient was seen and examined. Objective - Vital Signs Vital signs: Vital Signs Temp 98.7 F 11/28/23 04:00 Pulse 89 11/28/23 04:00 Resp 19 11/28/23 04:00 BP 146/95 11/28/23 04:00 Pulse Ox 94 L 11/28/23 08:01 FiO2 Intake & Output 11/27/23 11/28/23 11/28/23 18:59 06:59 18:59 Intake Total 914.607 Balance 914.607 Weight 75.5 kg 74.5 kg Intake: Intake, IV Titration 74.607 Amount Heparin Sod,Pork in 0.45% 74.607 NaCl 25,000 unit In 0.45 % NaCl 1 250ml.bag @ 12 UNITS/KG/HR 8.709 mls/hr IV .Q24H [facility] Rx#: [id number] Oral 840 - Labs CBC & Chem 7: 11/28/23 06:57 11/28/23 06:57 Labs: Abnormal Lab Results - Last 24 Hours (Table) 11/27/23 11/27/23 11/27/23 Range/Units 08:17 08:17 13:38 WBC (3.8-10.6) k/uL APTT 35.1 H (22.0-30.0) sec Sodium (137-145) mmol/L Potassium (3.5-5.1) mmol/L Chloride (98-107) mmol/L Carbon Dioxide (22-30) mmol/L BUN (7-17) mg/dL Glucose (74-99) mg/dL Troponin I 4.780 H* (0.000-0.034) ng/mL SARS-CoV-2 (PCR) Detected A (Not Detectd) 11/27/23 11/28/23 11/28/23 Range/Units 16:28 06:57 06:57 WBC 14.8 H (3.8-10.6) k/uL APTT 62.8 H 37.6 H (22.0-30.0) sec Sodium (137-145) mmol/L Potassium (3.5-5.1) mmol/L Chloride (98-107) mmol/L Carbon Dioxide (22-30) mmol/L BUN (7-17) mg/dL Glucose (74-99) mg/dL Troponin I (0.000-0.034) ng/mL SARS-CoV-2 (PCR) (Not Detectd) 11/28/23 Range/Units 06:57 WBC (3.8-10.6) k/uL APTT (22.0-30.0) sec Sodium 134 L (137-145) mmol/L Potassium 3.4 L (3.5-5.1) mmol/L Chloride 88 L (98-107) mmol/L Carbon Dioxide 38 H (22-30) mmol/L BUN 26 H (7-17) mg/dL Glucose 106 H (74-99) mg/dL Troponin I (0.000-0.034) ng/mL SARS-CoV-2 (PCR) (Not Detectd)
[2023-11-28 16:07] LABS: LDL Cholesterol,Calculated 88.6 mg/dL (0.0-131.0); VLDL Calculation 19.48 mg/dL (5.00-40.00)
[2023-11-28] MEDS ORDERED: ZINC OXIDE PASTE (Z-GUARD) 1 APPLIC TOPICAL PRN (19:05)
[2023-11-29 00:05] LABS: Appearance,Urine Clear (Clear); Bacteria,Urine Rare /hpf; Bilirubin,Urine Negative (Negative); Blood,Urine Negative (Negative); Color,Urine Colorless; Glucose,Urine (UA) Negative (Negative); Ketones,Urine Negative (Negative); Leukocyte Esterase,Urine Negative (Negative); Nitrite,Urine Positive (Negative); PH, Urine 7.5 (5.0-8.0); Protein,Urine Negative (Negative); RBC,Urine 1 /hpf (0-5); Specific Gravity,Urine 1.006 (1.001-1.035); Squamous Epithelial Cell,Urine 1 /hpf (0-4); Urobilinogen,Urine <2.0 mg/dL (<2.0); WBC,Urine <1 /hpf (0-5)
[2023-11-29] MEDS: ALPRAZolam 0.5 MG TAB PO PRN (01:21)
[2023-11-29] MEDS: ATORVASTATIN 80 MG TAB PO ONE (06:11)
[2023-11-29] MEDS: ASPIRIN 81 MG PO ONE (06:12)
[2023-11-29 09:33] LABS: HCT 42.7 % (34.0-46.0); HGB 14.3 gm/dL (11.4-16.0); MCH 32.3 pg (25.0-35.0); MCHC 33.4 g/dL (31.0-37.0); MCV 96.7 fL (80.0-100.0); Mean Platelet Volume 8.8; Platelet Count 212 k/uL (150-450); RBC 4.41 m/uL (3.80-5.40); RDW 15.1 % (11.5-15.5); WBC 15.1 k/uL (3.8-10.6)
[2023-11-29 09:42] LABS: African American GFR (CKD) >90 (>60 ml/min/1.73 sqM); Blood Urea Nitrogen 29 mg/dL (7-17); Calcium 8.8 mg/dL (8.4-10.2); Chloride 91 mmol/L (98-107); Glucose 119 mg/dL (74-99); Non-African American GFR(CKD) 82 (>60 ml/min/1.73 sqM); Potassium 3.7 mmol/L (3.5-5.1); Sodium 131 mmol/L (137-145)
[2023-11-29 09:51] LABS: Anion Gap 2 mmol/L
[2023-11-29 09:56] LABS: Carbon Dioxide 38 mmol/L (22-30)
[2023-11-29] MEDS ORDERED: LIDOCAINE 1% INJ 10MG/ML (20 ML MDV) ONE (09:59)
[2023-11-29] MEDS ORDERED: VERAPAMIL 2.5 MG/ML 2 ML AMP ONE (09:59)
[2023-11-29] MEDS ORDERED: HEPARIN SODIUM 1,000 UN/ML (10ML VL) ONE (10:14)
[2023-11-29] MEDS: IV FLUID CONTINUATION 1,000 ML IV ONE (10:15)
[2023-11-29] MEDS ORDERED: fentaNYL (PF) 50 MCG/ML 2 ML AMP ONE (10:38)
[2023-11-29] MEDS: MIDAZOLAM 2 MG/2 ML VIAL IVP ONE (10:38)
[2023-11-29] MEDS: fentaNYL (PF) 50 MCG/ML 2 ML AMP IVP ONE (10:38)
[2023-11-29] MEDS: LIDOCAINE 1% INJ 10MG/ML (5 ML VIAL-PF) SQ ONE (10:40)
[2023-11-29] MEDS: HEPARIN SODIUM 1,000 UN/ML (10ML VL) IV ONE (10:50)
[2023-11-29] MEDS ORDERED: FUROSEMIDE 10 MG/ML 4 ML VIAL ONE (11:05)
[2023-11-29] MEDS ORDERED: MORPHINE SULFATE 4 MG/ML SYRINGE ONE (11:06)
[2023-11-29] MEDS: FUROSEMIDE 10 MG/ML 4 ML VIAL IVP ONE (11:08)
[2023-11-29] MEDS: MORPHINE SULFATE 4 MG/ML SYRINGE IVP ONE (11:08)
[2023-11-29] MEDS ORDERED: CLOPIDOGREL 75 MG TAB ONE (11:12)
[2023-11-29] MEDS: CLOPIDOGREL 75 MG TAB PO ONE (11:19)
[2023-11-29] MEDS: IOPAMIDOL-370 100ML BTL INJ ONE ×2 (11:37→11:54)
[2023-11-29] MEDS ORDERED: MAG HYDROX/AL HYDROX/SIMETH 30 ML CUP PO PRN (12:07)
[2023-11-29] MEDS ORDERED: RX INFO: IV CONTRAST WAS GIVEN 1 EACH MISC MISCELLANE PRN (12:07)
[2023-11-29] MEDS ORDERED: ZOLPIDEM 5 MG TAB PO PRN (12:07)
[2023-11-29] MEDS ORDERED: ATROPINE SULFATE 0.1 MG/ML 10ML SYRINGE IV PRN (12:07)
--- NOTE | 2023-11-29 13:04 | P.PN ---
Subjective Progress Note Date: 11/29/23 Reason for Consult (text): NSTEMI History of present illness: History of present illness: This is an 85-year-old female with past medical history of hypertension, COPD. We have been asked to evaluate the patient for non-ST elevated myocardial infarction. Patient presented to the hospital due to chest pain and shortness of breath. Patient gives history that she has had chest pain over the past month on and off that is getting more severe and occurring more often especially for the past 3 days. She also has sweats and increased lower extremity edema. She has had no previous stents or heart surgery. She denies history of diabetes. She is an active smoker. Patient is status post IV Lasix 40 mg times once and continued on every 12 hours, started on heparin drip, potassium replaced and 1 Nitrostat given. Discussed option of cardiac catheterization and patient is agreeable and this will be scheduled for tomorrow. EKG sinus rhythm 103 bpm Chest x-ray: Mild vascular congestion. WBC 14.1, hemoglobin 15.9, platelet count 233. Sodium 135, potassium 3.4, chloride 90, CO2 38, BUN 20 creatinine 0.64. Blood sugar 129. Troponin 0.118 and 2.2 Echocardiogram performed 11/27/2023 reveals EF 55 to 60%, mitral annular calcification, aortic sclerosis without stenosis. Home cardiac medications: Coreg 6.25 mg twice daily, Bumex 0.5 mg daily. Patient is scheduled for cardiac catheterization today with Dr. Davalos. Blood pressure 125/70, heart rate in the 80s. Repeat blood work reveals WBC 13.8, hemoglobin 14.4. Sodium 134, potassium 3.4, chloride 88, CO2 38. BUN 26 and creatinine is 0.75. 12/28 Patient is scheduled for cardiac catheterization today. Blood pressure 132/72, heart rate 82, pulse ox 90% on 4 L nasal cannula. BUN 29, creatinine 0.7, potassium 3.7, WBC 15.1, hemoglobin 14.3. Physical examination: Gen: This is an 83-year-old female in no acute distress VS: reviewed HEENT: Head is atraumatic, normocephalic. Pupils equal, round. Sclerae is anicteric. NECK: Supple. No JVD. LUNGS: Bilateral crackles. No intercostal retractions. HEART: Regular rate and rhythm. No murmur. ABDOMEN: Soft No tenderness. EXTREMITIES: No pedal edema. No calf tenderness. NEUROLOGICAL: Patient is awake, alert and oriented x3. Assessment: Non-ST elevated myocardial infarction Acute heart failure Hypokalemia status post replacement Leukocytosis Hypertension COPD Plan: Continue patient's home cardiac medications Continue aspirin delete 81 mg daily, atorvastatin 40 mg daily Continue IV Lasix 40 mg every 12 hours Continue heparin drip another 24 hours Schedule patient for cardiac catheterization with Dr. Davalos Monitor I&O, daily weights, electrolytes and renal function Further recommendations to follow based upon clinical course Nurse practitioner note has been reviewed, I agree with documented findings and plan of care. Patient was seen and examined. Objective - Vital Signs Vital signs: Vital Signs Temp 98.1 F 11/29/23 08:00 Pulse 82 11/29/23 08:00 Resp 18 11/29/23 08:00 BP 132/73 11/29/23 08:00 Pulse Ox 90 L 11/29/23 08:00 FiO2 Intake & Output 11/28/23 11/29/23 11/29/23 18:59 06:59 18:59 Intake Total 209.147 200 Balance 209.147 200 Weight 72 kg 72 kg Intake: IV 200 Intake, IV Titration 209.147 Amount Heparin Sod,Pork in 0.45% 209.147 NaCl 25,000 unit In 0.45 % NaCl 1 250ml.bag @ 12 UNITS/KG/HR 8.709 mls/hr IV .Q24H [facility] Rx#: [id number] Other: Voiding Method Bedside Commode Bedside Commode # Voids 2 1 # Bowel Movements 1 - Labs CBC & Chem 7: 11/29/23 08:57 11/29/23 08:57 Labs: Abnormal Lab Results - Last 24 Hours (Table) 11/28/23 11/28/23 11/29/23 Range/Units 18:10 18:37 08:57 WBC 15.1 H (3.8-10.6) k/uL APTT 51.7 H (22.0-30.0) sec Sodium (137-145) mmol/L Chloride (98-107) mmol/L Carbon Dioxide (22-30) mmol/L BUN (7-17) mg/dL Glucose (74-99) mg/dL Urine Nitrite Positive H (Negative) Urine Bacteria Rare H (None) /hpf 11/29/23 Range/Units 08:57 WBC (3.8-10.6) k/uL APTT (22.0-30.0) sec Sodium 131 L (137-145) mmol/L Chloride 91 L (98-107) mmol/L Carbon Dioxide 38 H (22-30) mmol/L BUN 29 H (7-17) mg/dL Glucose 119 H (74-99) mg/dL Urine Nitrite (Negative) Urine Bacteria (None) /hpf
--- NOTE | 2023-11-29 15:32 | P.PN ---
Subjective Progress Note Date: 11/29/23 Patient is a 83-year-old female with a PMH of COPD and hypertension who presents to the emergency room with complaints of chest pain and shortness of breath. Patient reports experiencing substernal chest tightness with associated shortness of breath over the past 1 week. She also reports experiencing mild bilateral lower extremity edema which is new for her. Chest x-ray in the emergency room revealed mild vascular congestion with EKG showing sinus tachycardia at 103 bpm with a left anterior fascicular block. Laboratory evaluation was remarkable for WBC count 13.3, troponin 0.118, proBNP 842, sodium 133, potassium 3.2, chloride 91, CO2 36, BUN 22, and creatinine 0.62. Patient was started on a Heparin drip and Lasix IV, admitted for NSTEMI and CHF exacerbation. Troponin 2.200, 4.780. Echocardiogram showed EF 55-60% with no regional wall motion abnormalities. Cardiology consulted, cardiac cath scheduled for . COVID 19 test ordered and positive. Patient was started on Decadron. Patient was seen and examined. No more chest pain. SOB improving. Daughter at bedside. CBC WBC 14.8. APTT 37.6. BMP Na 134, K 3.4, Cl 88, bicarb 38, BUN 26, glu 106. Plans for cardiac cath today. 11/28 Patient was seen and examined. No more chest pain. Underwent cardiac cath, official report pending but stents were placed. Still on 4L NC. UA + nitrite. CBC WBC 15.1. BMP Na 131, Cl 91, bicarb 38, BUN 29, glu 119. Vital signs reviewed General: Nontoxic, no distress, appears at stated age Cardiovascular: S1S2 reg, no murmur Lungs: Decreased bs bilateral, no rhonchi, no rales, no accessory muscle use Abdominal: Soft, nontender to palpation, no guarding Ext: No gross muscle atrophy, 2+ edema b/l lower extremities, no contractures Neuro: no focal neuro deficits Psych: Alert, oriented, appropriate affect Based on my assessment of this patient, this patient meets a high complexity level of care. Patient has an acute diagnosis of NSTEMI with AHRF secondary to pulmonary edema and COVID 19 that poses a threat to life or bodily function. Non-ST elevation [place]: Underwent cardiac cath 11/28. ASA 81 mg PO QD. Lipitor 40 mg PO QHS. Metoprolol 25 mg PO BID. Telemetry monitoring. Echo shows EF 60-65% without regional wall motion abnormalities. Cardiology consult. Acute hypoxic respiratory failure due to below. Obtain D-Dimer. COVID 19: Decadron 6 mg PO QD. Leukocytosis: Steroid induced. Meets SIRS criteria. UA + nitrite. Empirically start Rocephin 2g IV QD. Follow UCx. CHF exacerbation, newly diagnosed: Lasix 40 mg IV BID. Strict intake and outtake. Daily weights. Alkalosis, suspect due to chronic hypercapnia in setting of COPD Chronic conditions: COPD, hypertension CODE STATUS: FULL CODE DVT Prophylaxis: Lovenox. GI Prophylaxis: Designated medical POA if patient is not able to make medical decisions for themselves: Daughter. I have reviewed the following licensed tax consultant notes: Cardiology. Cath report I have reviewed the results of the following tests: BMP I have ordered the following tests: BMP. D-Dimer I have discussed the care of this patient with the following independent histo irish: Discussed with BRIDGER Ledesma. I have independently interpreted the following test below: I have discussed the management of this patient with the following physician: Objective - Vital Signs Vital signs: Vital Signs Temp 98.1 F 11/29/23 08:00 Pulse 82 11/29/23 08:00 Resp 18 11/29/23 13:54 BP 128/75 11/29/23 13:23 Pulse Ox 90 L 11/29/23 13:23 FiO2 Intake & Output 11/28/23 11/29/23 11/29/23 18:59 06:59 18:59 Intake Total 209.147 200 Balance 209.147 200 Weight 72 kg 72 kg Intake: IV 200 Intake, IV Titration 209.147 Amount Heparin Sod,Pork in 0.45% 209.147 NaCl 25,000 unit In 0.45 % NaCl 1 250ml.bag @ 12 UNITS/KG/HR 8.709 mls/hr IV .Q24H [facility] Rx#: [id number] Other: Voiding Method Bedside Commode Bedside Commode # Voids 2 1 3 # Bowel Movements 1 - Labs CBC & Chem 7: 11/29/23 08:57 11/29/23 08:57 Labs: Abnormal Lab Results - Last 24 Hours (Table) 11/28/23 11/28/23 11/29/23 Range/Units 18:10 18:37 08:57 WBC 15.1 H (3.8-10.6) k/uL APTT 51.7 H (22.0-30.0) sec Sodium (137-145) mmol/L Chloride (98-107) mmol/L Carbon Dioxide (22-30) mmol/L BUN (7-17) mg/dL Glucose (74-99) mg/dL Urine Nitrite Positive H (Negative) Urine Bacteria Rare H (None) /hpf 11/29/23 Range/Units 08:57 WBC (3.8-10.6) k/uL APTT (22.0-30.0) sec Sodium 131 L (137-145) mmol/L Chloride 91 L (98-107) mmol/L Carbon Dioxide 38 H (22-30) mmol/L BUN 29 H (7-17) mg/dL Glucose 119 H (74-99) mg/dL Urine Nitrite (Negative) Urine Bacteria (None) /hpf
[2023-11-29] MEDS: SODIUM CHLORIDE 0.9% 1,000 ML in EMPTY BAG 1 BAG IV SCH (19:56)
[2023-11-29] MEDS: METOPROLOL TARTRATE 25 MG TAB PO SCH (19:59)
[2023-11-30] MEDS: ENOXAPARIN 40 MG/0.4 ML SYRINGE SQ SCH (08:16)
[2023-11-30] MEDS: CLOPIDOGREL 75 MG TAB PO SCH (08:16)
[2023-11-30] MEDS: ALBUTEROL HFA INHALER INHALATION SCH (08:28)
[2023-11-30 09:05] LABS: Basophils # (A) 0.1 k/uL (0-0.2); Basophils % (A) 0 %; Eosinophils % (A) 0 %; HCT 45.3 % (34.0-46.0); HGB 14.8 gm/dL (11.4-16.0); Lymphocytes # (A) 2.1 k/uL (1.0-4.8); Lymphocytes % (A) 14 %; MCH 31.7 pg (25.0-35.0); MCHC 32.6 g/dL (31.0-37.0); MCV 97.3 fL (80.0-100.0); Mean Platelet Volume 8.5; Monocytes # (A) 1.2 k/uL (0-1.0); Monocytes % (A) 8 %; Neutrophils # (A) 11.6 k/uL (1.3-7.7); Neutrophils % (A) 76 %; Platelet Count 228 k/uL (150-450); RBC 4.66 m/uL (3.80-5.40); RDW 14.7 % (11.5-15.5); WBC 15.3 k/uL (3.8-10.6)
[2023-11-30 09:06] LABS: HCT 43.8 % (34.0-46.0); HGB 14.1 gm/dL (11.4-16.0); MCH 31.4 pg (25.0-35.0); MCHC 32.3 g/dL (31.0-37.0); MCV 97.3 fL (80.0-100.0); Mean Platelet Volume 8.7; Platelet Count 238 k/uL (150-450); RDW 14.8 % (11.5-15.5); WBC 17.5 k/uL (3.8-10.6)
--- NOTE | 2023-11-30 09:07 | XR ---
EXAMINATION TYPE: XR chest 1V portable DATE OF EXAM: 11/30/2023 CLINICAL HISTORY: Difficulty breathing and hypoxia. TECHNIQUE: Single AP portable upright view of the chest is obtained. COMPARISON: Chest x-ray from 3 days earlier FINDINGS: Elevated left hemidiaphragm redemonstrated. New left basilar opacity. Right lung remains c lear. Cardiac silhouette size stable and within normal limits with atherosclerotic thoracic aorta red emonstrated. Osseous structures are intact. IMPRESSION: New Left basilar atelectasis and/or developing acute infiltrate.
--- NOTE | 2023-11-30 09:17 | P.PN ---
Subjective Progress Note Date: 11/30/23 Principal diagnosis: ACS The patient is a pleasant 83-year-old female patient with hypertension and dyslipidemia who was admitted to the hospital with acute coronary syndrome comp licated by heart failure. She underwent a heart catheterization yesterday and stenting of the right coronary artery and PLV branch of the RCA. The echo showed normal LV systolic function. November 30, 2023 The patient was seen and evaluated this morning. Overall she is doing slightly better but she continues to have shortness of breath and she continues to have congestion on examination. No pain in the chest and no dizziness or lightheadedness and no feeling of heart racing or fluttering. She has been maintaining normal sinus mechanism. She continues to be on dual antiplatelet therapy along with a statin. The examination revealed crackles bilateral and diminished breathing sounds over the left lung base with regular rate and rhythm and mild bilateral lower extremities edema Assessment Acute coronary syndrome Status post PCI of the RCA as described above Heart failure with preserved ejection fraction Multiple comorbid conditions including hypertension and dyslipidemia Plan Continue the current medical regimen Continue Lasix IV for additional 24 hours Continue monitor the kidney function and electrolyte Continue antibiotic by the internal medicine Follow-up with the patient Objective - Vital Signs Vital signs: Vital Signs Temp 98.1 F 11/29/23 08:00 Pulse 86 11/30/23 03:59 Resp 16 11/30/23 03:59 BP 146/86 11/30/23 03:59 Pulse Ox 90 L 11/30/23 03:59 FiO2 Intake & Output 11/29/23 11/30/23 11/30/23 18:59 06:59 18:59 Intake Total 200 Balance 200 Weight 72 kg 69.2 kg Intake: IV 200 Other: Voiding Method Bedside Commode Bedside Commode # Voids 3 2 # Bowel Movements 1 - Labs CBC & Chem 7: 11/30/23 07:58 11/29/23 08:57 Labs: Abnormal Lab Results - Last 24 Hours (Table) 11/29/23 11/29/23 11/30/23 Range/Units 08:57 08:57 07:58 WBC 15.1 H 17.5 H (3.8-10.6) k/uL D-Dimer (<0.60) mg/L FEU Sodium 131 L (137-145) mmol/L Chloride 91 L (98-107) mmol/L Carbon Dioxide 38 H (22-30) mmol/L BUN 29 H (7-17) mg/dL Glucose 119 H (74-99) mg/dL 11/30/23 Range/Units 07:58 WBC (3.8-10.6) k/uL D-Dimer 0.84 H (<0.60) mg/L FEU Sodium (137-145) mmol/L Chloride (98-107) mmol/L Carbon Dioxide (22-30) mmol/L BUN (7-17) mg/dL Glucose (74-99) mg/dL
[2023-11-30 09:20] LABS: African American GFR (CKD) 79 (>60 ml/min/1.73 sqM); Anion Gap 7 mmol/L; Blood Urea Nitrogen 33 mg/dL (7-17); Carbon Dioxide 38 mmol/L (22-30); Chloride 85 mmol/L (98-107); Glucose 168 mg/dL (74-99); Non-African American GFR(CKD) 69 (>60 ml/min/1.73 sqM); Potassium 3.5 mmol/L (3.5-5.1); Sodium 130 mmol/L (137-145)
--- NOTE | 2023-11-30 11:38 | P.PN ---
Subjective Progress Note Date: 11/30/23 Patient is a 83-year-old female with a PMH of COPD and hypertension who presents to the emergency room with complaints of chest pain and shortness of breath. Patient reports experiencing substernal chest tightness with associated shortness of breath over the past 1 week. She also reports experiencing mild bilateral lower extremity edema which is new for her. Chest x-ray in the emergency room revealed mild vascular congestion with EKG showing sinus tachycardia at 103 bpm with a left anterior fascicular block. Laboratory evaluation was remarkable for WBC count 13.3, troponin 0.118, proBNP 842, sodium 133, potassium 3.2, chloride 91, CO2 36, BUN 22, and creatinine 0.62. Patient was started on a Heparin drip and Lasix IV, admitted for NSTEMI and CHF exacerbation. Troponin 2.200, 4.780. Echocardiogram showed EF 55-60% with no regional wall motion abnormalities. Cardiology consulted, cardiac cath scheduled for . COVID 19 test ordered and positive. Patient was started on Decadron. Patient was seen and examined. No more chest pain. SOB improving. Daughter at bedside. CBC WBC 14.8. APTT 37.6. BMP Na 134, K 3.4, Cl 88, bicarb 38, BUN 26, glu 106. Plans for cardiac cath today. 11/28 Patient was seen and examined. No more chest pain. Underwent cardiac cath, official report pending but stents were placed. Still on 4L NC. UA + nitrite. CBC WBC 15.1. BMP Na 131, Cl 91, bicarb 38, BUN 29, glu 119. 11/29 Patient was seen and examined. Currently on 6L NC with O2 saturation of 90%. Underwent stenting of the right coronary artery and PLV branch of the RCA yesterday. D-Dimer slightly elevated at 0.84, we will obtain CTA chest to rule out PE. Started on Rocephin 2g IV QD yesterday for possible UTI. CBC WBC 15.3. BMP Na 130, Cl 85, bicarb 38, BUN 33, glu 168. CXR shows left basilar in filtrate. Case discussed extensively with daughter. She does not believe the patient has decision making capacity and is safe to live at home by herself. She reports her house is cluttered and has mold. Willing for her mom to move in with her but patient seems reluctant. Willing to apply for guardianship. We will consult psychiatry for decision making capacity. Vital signs reviewed General: Nontoxic, no distress, appears at stated age Cardiovascular: S1S2 reg, no murmur Lungs: Decreased bs bilateral, no rhonchi, no rales, no accessory muscle use Abdominal: Soft, nontender to palpation, no guarding Ext: No gross muscle atrophy, 2+ edema b/l lower extremities, no contractures Neuro: no focal neuro deficits Psych: Alert, oriented, appropriate affect Based on my assessment of this patient, this patient meets a high complexity level of care. Patient has an acute diagnosis of NSTEMI with AHRF secondary to pulmonary edema and COVID 19 that poses a threat to life or bodily function. Non-ST elevation [place]: Underwent cardiac cath 11/28. ASA 81 mg PO QD. Lipitor 40 mg PO QHS. Metoprolol 25 mg PO BID. Telemetry monitoring. Echo shows EF 60-65% without regional wall motion abnormalities. Cardiology consult. Acute hypoxic respiratory failure due to below. Obtain CTA chest to rule out PE. COVID 19: Decadron 6 mg PO QD. Albuterol PRN for SOB/wheezing. Leukocytosis: Steroid induced. Meets SIRS criteria. UA + nitrite. Empirically start Rocephin 2g IV QD. Follow UCx. CHF exacerbation, newly diagnosed: Lasix 40 mg IV BID. Strict intake and outtake. Daily weights. Alkalosis, suspect due to chronic hypercapnia in setting of COPD Chronic conditions: COPD, hypertension CODE STATUS: FULL CODE DVT Prophylaxis: Lovenox. GI Prophylaxis: Designated medical POA if patient is not able to make medical decisions for themselves: Daughter. I have reviewed the following senior product consultant notes: Cardiology. I have reviewed the results of the following tests: CBC, BMP, D-Dimer I have ordered the following tests: CTA chest I have discussed the care of this patient with the following independent his polly: Daughter. I have independently interpreted the following test below: CXR. I have discussed the management of this patient with the following physician: Objective - Vital Signs Vital signs: Vital Signs Temp 98.1 F 11/29/23 08:00 Pulse 86 11/30/23 03:59 Resp 16 11/30/23 03:59 BP 146/86 11/30/23 03:59 Pulse Ox 90 L 11/30/23 03:59 FiO2 Intake & Output 11/29/23 11/30/23 11/30/23 18:59 06:59 18:59 Intake Total 200 Balance 200 Weight 72 kg 69.2 kg Intake: IV 200 Other: Voiding Method Bedside Commode Bedside Commode # Voids 3 2 # Bowel Movements 1 - Labs CBC & Chem 7: 11/30/23 07:58 11/30/23 07:58 Labs: Abnormal Lab Results - Last 24 Hours (Table) 11/29/23 11/29/23 Range/Units 08:57 08:57 WBC 15.1 H (3.8-10.6) k/uL Sodium 131 L (137-145) mmol/L Chloride 91 L (98-107) mmol/L Carbon Dioxide 38 H (22-30) mmol/L BUN 29 H (7-17) mg/dL Glucose 119 H (74-99) mg/dL
[2023-11-30] MEDS: NICOTINE 14MG/24HR PATCH TRANSDERM SCH (12:08)
--- NOTE | 2023-11-30 12:49 | CT ---
EXAMINATION TYPE: CT chest angio for PE DATE OF EXAM: 11/30/2023 COMPARISON: Chest x-ray earlier today HISTORY: Hypoxia, covid CT DLP: 269.8 mGycm. Automated Exposure Control for Dose Reduction was Utilized. CONTRAST: CTA scan of the thorax is performed with IV Contrast, patient injected with 100 mL of Isovue 300, pul monary embolism protocol. MIP Images are created on CT scanner and reviewed. FINDINGS: LUNGS: There is dependent right basilar atelectasis and/or consolidation. Lingula has 2 areas of grou ndglass opacity and organizing consolidation. Left lower lobe has linear scarring and/or atelectasis with more prominent atelectasis and/or consolidation in the posterior lung base. No pleural effusion or pneumothorax is seen bilaterally. Upper lungs are clear with mild edematous change. MEDIASTINUM: There is satisfactory enhancement of the pulmonary artery and its branches, there is no CT evidence for pulmonary embolism. There are no greater than 1 cm hilar or mediastinal lymph nodes. No cardiomegaly or pericardial effusion is seen. Severe coronary artery calcification and/or stent s are present. Some contrast opacification of the aorta with mild to moderate peripheral plaque but n o dissection. Ascending aorta measures up to 3.7 cm in diameter. OTHER: Low-density thickening of both adrenal glands suggests bilateral hyperplasia. There are 2 near 1.0 cm round low density lesions in the left hepatic lobe presumed simple cysts. Some benign calcifi cations centrally are present. There is a partially exophytic 1.7 cm simple appearing thin-walled cys t posteriorly in the upper pole right kidney. There is S-shaped scoliosis in the spine with multileve l spurring and disc space narrowing greatest in the lower thoracic levels. IMPRESSION: 1. No CT evidence for acute pulmonary embolism. 2. Mild emphysematous change with areas of scarring and/or atelectasis seen bilaterally. Lingula has 2 focal areas of groundglass opacity and organizing consolidation suspicious for acute infectious pro cess.
[2023-12-01] MEDS: AZITHROMYCIN 500 MG in SODIUM CHLORIDE 0.9% 250 ML IVPB SCH (08:46)
--- NOTE | 2023-12-01 10:21 | P.PN ---
Subjective Progress Note Date: 12/01/23 Principal diagnosis: ACS The patient is a pleasant 83-year-old female patient with hypertension and dyslipidemia who was admitted to the hospital with acute coronary syndrome comp licated by heart failure. She underwent a heart catheterization yesterday and stenting of the right coronary artery and PLV branch of the RCA. The echo showed normal LV systolic function. November 30, 2023 The patient was seen and evaluated this morning. Overall she is doing slightly better but she continues to have shortness of breath and she continues to have congestion on examination. No pain in the chest and no dizziness or lightheadedness and no feeling of heart racing or fluttering. She has been maintaining normal sinus mechanism. She continues to be on dual antiplatelet therapy along with a statin. The examination revealed crackles bilateral and diminished breathing sounds over the left lung base with regular rate and rhythm and mild bilateral lower extremities edema December 01, 2023 The patient was seen and evaluated this morning she continues to be on oxygen and she continues to have shortness of breath with exertion which has not improved. She underwent a CT scan of the chest yesterday and that showed no evidence of pulmonary embolism. No pain in the chest. Hemodynamically she is stable. She is on dual antiplatelet therapy along with a statin and she continues to be on Lasix IV as well. On examination she has extensive bilateral expiratory wheezing noted. She has very mild bilateral lower extremities edema. Please note that the patient also tested positive for COVID. The echo showed normal LV systolic function. Assessment Acute coronary syndrome Status post PCI of the RCA as described above Heart failure with preserved ejection fraction Multiple comorbid conditions including hypertension and dyslipidemia COVID-19 infection Plan Continue the current medical regimen Continue Lasix IV for additional 24 hours Continue monitor the kidney function and electrolyte Continue antibiotic by the internal medicine Follow-up with the patient Objective - Vital Signs Vital signs: Vital Signs Temp 98.0 F 12/01/23 08:42 Pulse 104 H 12/01/23 08:42 Resp 20 12/01/23 08:42 BP 111/69 12/01/23 08:42 Pulse Ox 90 L 12/01/23 09:43 FiO2 Intake & Output 11/30/23 12/01/23 12/01/23 18:59 06:59 18:59 Intake Total 956 598 Output Total 1050 Balance -94 598 Intake: Oral 956 598 Output: Urine 1050 Other: Voiding Method Bedside Commode Bedside Commode # Voids 1 1 # Bowel Movements 1 - Labs CBC & Chem 7: 11/30/23 07:58 11/30/23 07:58
[2023-12-01 12:39] LABS: African American GFR (CKD) 70 (>60 ml/min/1.73 sqM); Blood Urea Nitrogen 36 mg/dL (7-17); Calcium 8.8 mg/dL (8.4-10.2); Chloride 84 mmol/L (98-107); Glucose 90 mg/dL (74-99); Non-African American GFR(CKD) 60 (>60 ml/min/1.73 sqM); Potassium 3.3 mmol/L (3.5-5.1); Sodium 130 mmol/L (137-145)
[2023-12-01 12:47] LABS: Anion Gap 7 mmol/L; Carbon Dioxide 39 mmol/L (22-30)
--- NOTE | 2023-12-01 14:18 | P.PN ---
Subjective Progress Note Date: 12/01/23 Patient is a 83-year-old female with a PMH of COPD and hypertension who presents to the emergency room with complaints of chest pain and shortness of breath. Patient reports experiencing substernal chest tightness with associated shortness of breath over the past 1 week. She also reports experiencing mild bilateral lower extremity edema which is new for her. Chest x-ray in the emergency room revealed mild vascular congestion with EKG showing sinus tachycardia at 103 bpm with a left anterior fascicular block. Laboratory evaluation was remarkable for WBC count 13.3, troponin 0.118, proBNP 842, sodium 133, potassium 3.2, chloride 91, CO2 36, BUN 22, and creatinine 0.62. Patient was started on a Heparin drip and Lasix IV, admitted for NSTEMI and CHF exacerbation. Troponin 2.200, 4.780. Echocardiogram showed EF 55-60% with no regional wall motion abnormalities. Cardiology consulted, cardiac cath scheduled for . COVID 19 test ordered and positive. Patient was started on Decadron. Patient was seen and examined. No more chest pain. SOB improving. Daughter at bedside. CBC WBC 14.8. APTT 37.6. BMP Na 134, K 3.4, Cl 88, bicarb 38, BUN 26, glu 106. Plans for cardiac cath today. 11/28 Patient was seen and examined. No more chest pain. Underwent cardiac cath, official report pending but stents were placed. Still on 4L NC. UA + nitrite. CBC WBC 15.1. BMP Na 131, Cl 91, bicarb 38, BUN 29, glu 119. 11/29 Patient was seen and examined. Currently on 6L NC with O2 saturation of 90%. Underwent stenting of the right coronary artery and PLV branch of the RCA yesterday. D-Dimer slightly elevated at 0.84, we will obtain CTA chest to rule out PE. Started on Rocephin 2g IV QD yesterday for possible UTI. CBC WBC 15.3. BMP Na 130, Cl 85, bicarb 38, BUN 33, glu 168. CXR shows left basilar in filtrate. Case discussed extensively with daughter. She does not believe the patient has decision making capacity and is safe to live at home by herself. She reports her house is cluttered and has mold. Willing for her mom to move in with her but patient seems reluctant. Willing to apply for guardianship. We will consult psychiatry for decision making capacity. 11/30 Patient was seen and examined. Currently on 6L with O2 saturation of 90%. Cardiology recommends continuing Lasix. BMP Na 130, K 3.3, Cl 84, bicarb 39, BUN 36. CTA chest negative for PE, 2 areas of ground glass opacity and organizing consolidation suspicious for acute process. Started on Azithromycin 500 mg IV QD. Vital signs reviewed General: Nontoxic, no distress, appears at stated age Cardiovascular: S1S2 reg, no murmur Lungs: Decreased bs bilateral, no rhonchi, no rales, no accessory muscle use Abdominal: Soft, nontender to palpation, no guarding Ext: No gross muscle atrophy, 2+ edema b/l lower extremities, no contractures Neuro: no focal neuro deficits Psych: Alert, oriented, appropriate affect Based on my assessment of this patient, this patient meets a high complexity level of care. Patient has an acute diagnosis of NSTEMI with AHRF secondary to pulmonary edema and COVID 19 that poses a threat to life or bodily function. Non-ST elevation [place]: Underwent cardiac cath 11/28. ASA 81 mg PO QD. Lipitor 40 mg PO QHS. Metoprolol 25 mg PO BID. Telemetry monitoring. Echo shows EF 60-65% without regional wall motion abnormalities. Cardiology consult. Acute hypoxic respiratory failure due to below. PE ruled out. COVID 19: Decadron 6 mg PO QD. Albuterol PRN for SOB/wheezing. Leukocytosis: Steroid induced. Meets SIRS criteria. UA + nitrite. Empirically start Rocephin 2g IV QD. Ass Azithromycin 500 mg IV QD. Obtain repeat procal. Follow UCx. CHF exacerbation, newly diagnosed: Lasix 40 mg IV BID. Strict intake and outtake. Daily weights. Alkalosis, suspect due to chronic hypercapnia in setting of COPD Chronic conditions: COPD, hypertension CODE STATUS: FULL CODE DVT Prophylaxis: Lovenox. GI Prophylaxis: Designated medical POA if patient is not able to make medical decisions for themselves: Daughter. I have reviewed the following dynamics ax consultant notes: Cardiology. I have reviewed the results of the following tests: CBC, BMP, CTA chest I have ordered the following tests: BMP. I have discussed the care of this patient with the following independent historian: Daughter. I have independently interpreted the following test below: I have discussed the management of this patient with the following physician: Objective - Vital Signs Vital signs: Vital Signs Temp 97.9 F 12/01/23 12:27 Pulse 78 12/01/23 12:27 Resp 22 12/01/23 12:27 BP 139/78 12/01/23 12:27 Pulse Ox 90 L 12/01/23 12:30 FiO2 Intake & Output 11/30/23 12/01/23 12/01/23 18:59 06:59 18:59 Intake Total 956 716 Output Total 1050 1050 Balance -94 -334 Intake: Oral 956 716 Output: Urine 1050 1050 Other: Voiding Method Bedside Commode Bedside Commode Bedside Commode # Voids 1 1 # Bowel Movements 1 - Labs CBC & Chem 7: 11/30/23 07:58 12/01/23 11:50 Labs: Abnormal Lab Results - Last 24 Hours (Table) 12/01/23 Range/Units 11:50 Sodium 130 L (137-145) mmol/L Potassium 3.3 L (3.5-5.1) mmol/L Chloride 84 L (98-107) mmol/L Carbon Dioxide 39 H (22-30) mmol/L BUN 36 H (7-17) mg/dL
[2023-12-01] MEDS: POTASSIUM CHLORIDE ER 20 MEQ TAB.ER PO STA (15:43)
--- NOTE | 2023-12-02 00:15 | P.CN ---
Psychiatric Consult - . Consult date: 12/01/23 Consult:: IDENTIFYING DATA: This patient is an 83 year old female with 2 living adult daughters, who lives alone in a trailer home. REASON FOR REFERRAL: Psychiatry was consulted for "decision making capacity". HISTORY OF PRESENT ILLNESS: Per medical note by Dr. Mckenzie dated 11/30/23, patient is a "83-year-old female with a PMH of COPD and hypertension who presents to the emergency room with complaints of chest pain and shortness of breath. Patient reports experiencing substernal chest tightness with associated shortness of breath over the past 1 week. She also reports experiencing mild bilateral lower extremity edema which is new for her. Chest x-ray in the emergency room revealed mild vascular congestion with EKG showing sinus tachycardia at 103 bpm with a left anterior fascicular block. Laboratory evaluation was remarkable for WBC count 13.3, troponin 0.118, proBNP 842, sodium 133, potassium 3.2, chloride 91, CO2 36, BUN 22, and creatinine 0.62. Patient was started on a Heparin drip and Lasix IV, admitted for NSTEMI and CHF exacerbation. Troponin 2.200, 4.780. Echocardiogram showed EF 55-60% with no regional wall motion abnormalities. Cardiology consulted, cardiac cath scheduled for . COVID 19 test ordered and positive. Patient was started on Decadron. Patient was seen and examined. No more chest pain. SOB improving. Daughter at bedside. CBC WBC 14.8. APTT 37.6. BMP Na 134, K 3.4, Cl 88, bicarb 38, BUN 26, glu 106. Plans for cardiac cath today. 11/28 Patient was seen and examined. No more chest pain. Underwent cardiac cath, official report pending but stents were placed. Still on 4L NC. UA + nitrite. CBC WBC 15.1. BMP Na 131, Cl 91, bicarb 38, BUN 29, glu 119. 11/29 Patient was seen and examined. Currently on 6L NC with O2 saturation of 90%. Underwent stenting of the right coronary artery and PLV branch of the RCA yesterday. D-Dimer slightly elevated at 0.84, we will obtain CTA chest to rule out PE. Started on Rocephin 2g IV QD yesterday for possible UTI. CBC WBC 15.3. BMP Na 130, Cl 85, bicarb 38, BUN 33, glu 168. CXR shows left basilar infiltrate. Case discussed extensively with daughter. She does not believe the patient has decision making capacity and is safe to live at home by herself. She reports her house is cluttered and has mold. Willing for her mom to move in with her but patient seems reluctant. Willing to apply for guardianship. We will consult psychiatry for decision making capacity." I evaluated patient this afternoon on the medical floor. She was found sitting up in bed just having finished eating a meal. She appears disheveled, is wearing O2 nasal cannula. She is pleasant and attempts to cooperate, but also appears easily confused and distracted. She appears to be a fair historian. She is alert and oriented to person, place, time and situation. She was provided with a IVORY (Self-Administered Gerocognitive Examination) and given sufficient time to complete it but had difficulty performing the more complex tasks, became flustered at times, and scored 12/22, indicating a more severe memory or thinking impairment. In regards to her understanding of her medical condition, she states is in the hospital because she had a "stroke", but later is able to state she has a "heart problem" and "had 3 stents put in yesterday". She states she and her doctor have not discussed discharge plans yet or where she would go after discharge. She states her goal is to "go home" to her own house where she has supportive neighbors, and is not ready to give up her "independence", does not want to go to a "facility". Per chart, she had chest pain for a week prior to coming to the hospital, and called her neighbor who then called 911. When asked why she waited a week to notify someone she was having chest pain, she could not provide an answer and derailed to another topic. She eventually does admit that she feels too weak to go straight home if she were to discharge soon, and would be agreeable to go to a rehab, facility or stay with her daughter for the short term until she is stronger, however she does not want to go to a facility permanently. She claims she is still "capable of taking care of myself", and would like to be able to get in her car and go to the grocery store. She has some insight into her current mental state, repeatedly states she is not herself currently because she is getting over COVID and other medical ailments that are causing to be confused. In regards to her living conditions at home, she believes her mobile is cluttered due to the amount of food people brought to her house to show their support, so she has a lot of cleaning to do when she gets home. She appears to overestimate her physical abilities to go up the steps of her mobile home, to clean her home, and to perform her ADLs since she appears very frail currently. In regards to the mold in her home, she reports she had black mold at one point but she had that fixed and there is currently no black mold in her home. She currently states she is willing to work with her doctor to identify the appropriate step-down level of care for her for after discharge. She denies depressed mood. She states she wants to keep on living. She is future-oriented. She does admit to a long history of anxiety, takes Xanax as needed, and talks to a therapist on the phone about every 2 weeks. She denies any suicidal or homicidal ideations, intent or plan. She denies any auditory, visual hallucinations, and denies any paranoia or delusions. Patients denies any drug or alcohol use. She does smoke about 10-15 cigarettes today. PAST PSYCHIATRIC HISTORY: Patient has a a history of anxiety. She denies having a history of depression but depression is listed in her Psychiatric medications: Xanax as needed, has taken for many years, states she takes it rarely. Has been taking it about 1-2 times daily here in the hospital. Patient denies any previous psychiatric hospitalizations. Patient denies any psychiatric outpatient follow-up. She does talk to therapist over the phone every 2 weeks. Patient denies any history of suicide attempts in the past. PAST MEDICAL HISTORY: Past Medical History: COPD, Hypertension History of Any Multi-Drug Resistant Organisms: None Reported Past Surgical History: Hysterectomy Past Psychological History: Anxiety, Depression Smoking Status: Current every day smoker Past Alcohol Use History: None Reported Past Drug Use History: None Reported ALLERGIES: as per EMR. CHEMICAL DEPENDENCY HISTORY: as per HPI. FAMILY PSYCHIATRIC/SUBSTANCE USE HISTORY: One daughter with bipolar disorder. SOCIAL HISTORY: twice. Had three adult daughters, one in 2011 due to motorcycle accident. Lives alone in a mobile home. Reports neighbors are supportive. Daughter Karo Nickerson lives about 20 minutes away. She has grandkids that she would like to see more often. MENTAL STATUS EXAM: General Appearance: Patient appears to be stated age, disheveled, fair hygiene and grooming, wearing hospital gown, with good eye contact. Behavior: Patient is calmly sitting up in bed without any agitated behavior. Speech: Patient's speech is fluent and non-pressured. Mood/Affect: Patient reports their mood is "good", affect is congruent Suicidality/Homicidality: Patient denies having any suicidal or homicidal ideation intent or plan. Perceptions: Patient denies any visual hallucinations and denies any auditory hallucinations. Though content/process: There is no evidence of any delusional thought content and thought process derails frequently. Memory and concentration: She is alert and oriented to person, place, time and situation, however she has impaired immediate and recent recall. Has difficulty concentrating. Judgment and insight: Fair IMPRESSIONS: Delirium, multifactorial (NSTEMI with acute heart failure s/p stent placement, acute hypoxic respiratory failure, COPD, COVID-19 requiring steroid treatment, Xanax use, polypharmacy) Unspecified anxiety disorder Rule out unspecified depressive disorder Tobacco use disorder PLAN: -At this time patient DOES NOT meet criteria for inpatient psychiatric admission. -Patient DOES NOT have decision making capacity at this time due to the severity of her delirium related to her multiple underlying co-morbidities. At this time, patient is unable to fully reason through the risks of continuing to live independently since she appears to overestimate her physical abilities at this time. -While physicians may determine capacity for medical decision making, only a block mechanic can determine competency and need for a guardian. -Delirium precautions recommended with patient including - avoiding use of narcotics and CORPORATE REPRESENTATIVE sedatives, limit anticholinergic medications when possible, frequent re-orientation, minimize use of restraints, open window shades during the day and close them at night -Continue to treat underlying medical conditions as you are. -Would recommend the following medication changes/additions: Taper down Xanax due to risk of falls and memory impairment. Discontinue Xanax 0.5 mg Q6H PRN and can continue Xanax 0.25 mg Q6H PRN for anxiety for now, with plan to gradually taper and discontinue on an outpatient basis. -Continue to reevaluate safety and instate sitter if safety concerns arise. -Falls precaution. -Cannot leave AMA at this time. Patient will need a petition and certification if attempting to leave AMA. -Recommend PT/OT evaluation. -Recommend family meeting with patient, daughter and doctor to discuss discharge options to physical rehab, etc. -Psychiatry will sign off at this time, however please feel free to contact us with questions or notify us if condition worsens or fails to improve. -Please contact with any questions.
--- NOTE | 2023-12-02 07:50 | PTCA ---
PERCUTANEOUSTRANS CORORONARY ANGIOGRAPHY PERFORMING PHYSICIAN: Urban Davalos MD. PROCEDURES PERFORMED: 1. Selective right and left coronary angiogram. 2. Left heart catheterization. 3. Successful stenting of the mid and proximal right coronary artery using 3.5 x 48 and 4.0 x 15 mm Xience drug-eluting stent with excellent angiographic results. 4. Successful stenting of the PLV branch of the right coronary artery using 3.0 x 15 mm Xience drug-eluting stent with an excellent angiographic result. 5. Intravascular ultrasound of the right coronary artery. 6. Ultrasound-guided access of the right radial artery. INDICATIONS: Acute [id number]-oebttiiyc myocardial infarction. COMPLICATION: None. LEVEL OF SEDATION: Moderate, with sedation length of 74 minutes. PROCEDURE DESCRIPTION: After obtaining informed consent, the patient was brought to cardiac research laboratory manager. The right radial artery was cannulated using micropuncture technique under ultrasound guidance, the micropuncture wire passed easily. Then I placed a 6-Kazakh at the right radial artery and gave the patient 2 mg of verapamil intra-arterial and 5000 units of heparin intravenous. Continuous ACT monitoring was performed throughout the case. Selective right and left coronary angiogram performed using JR4 and JL3.5 catheters. After that, left heart catheterization was performed using the JR4 catheter. After that, I did intervene on the right coronary artery. The procedure was completed with no complication. SELECTIVE CORONARY ANGIOGRAM: 1. The right coronary artery is a large-caliber vessel and a dominant vessel and calcified vessel with tight lesion involving the ostium and midportion. The PLV branch of the RCA has a critical lesion. 2. The left main has mild disease only. It bifurcates into LCX and LAD. 3. The LCX is a medium caliber vessel, nondominant vessel with [id number] diffuse disease. 4. The LAD is a large-caliber vessel also with [id number] diffuse disease as well. Gives rise into a large diagonal branch which seems to be angiographically normal. HEMODYNAMICS: 1. The LVEDP was 24 mmHg. 2. PCI of the RCA. 3. Anticoagulation was initiated using heparin with continuous ACT monitoring. Subsequently, I did engage the left RCA using JR4 guiding catheter. I did wire the RCA from the distal using 2 wires including run-through and whisper wire knowing how tortuous and calcified. Predilatation was performed using 3-mm balloon and subsequently 3.5 mm noncompliant balloon. After that, I was able to deploy 3.5 x 48 and 4.0 x 15 mm stent in the mid and ostial/proximal RCA. Postdilatation was performed using 4-mm noncompliant balloon. After that, I did balloon angioplasty of the PLV branch using 3-mm balloon before I deployed 3.0 x 15 mm stent. Final angiogram showed excellent angiographic results and the procedure was completed without complication. POSTPROCEDURE MANAGEMENT: 1. Dual anti-platelet therapy using aspirin and Plavix for 1 year. 2. Aggressive cholesterol control. 3. Risk factor modifications. MMODL / IJN: [id number] /
[2023-12-02 12:35] VITALS: BMI 30.4
--- NOTE | 2023-12-02 13:26 | P.PN ---
Subjective Progress Note Date: 12/02/23 Patient is a 83-year-old female with a PMH of COPD and hypertension who presents to the emergency room with complaints of chest pain and shortness of breath. Patient reports experiencing substernal chest tightness with associated shortness of breath over the past 1 week. She also reports experiencing mild bilateral lower extremity edema which is new for her. Chest x-ray in the emergency room revealed mild vascular congestion with EKG showing sinus tachycardia at 103 bpm with a left anterior fascicular block. Laboratory evaluation was remarkable for WBC count 13.3, troponin 0.118, proBNP 842, sodium 133, potassium 3.2, chloride 91, CO2 36, BUN 22, and creatinine 0.62. Patient was started on a Heparin drip and Lasix IV, admitted for NSTEMI and CHF exacerbation. Troponin 2.200, 4.780. Echocardiogram showed EF 55-60% with no regional wall motion abnormalities. Cardiology consulted, underwent stenting of the right coronary artery and PLV branch of the RCA on 11/28. COVID 19 test ordered and positive. Patient was started on Decadron. Due to persistent need for O2 6-8L, D-Dimer was ordered and was positive. CTA chest negative for PE, 2 areas of ground glass opacity and organizing consolidation suspicious for acute process. Started on Rocephin and Azithromycin and repeat pro-calcitonin was ordered. Case discussed extensively with daughter. She does not believe the patient has decision making capacity and is safe to live at home by herself. She reports her house is cluttered and has mold. Willing for her mom to move in with her but patient seems reluctant. Willing to apply for guardianship. Psychiatry was consulted for decision making capacity. Psychiatry determined that patient does not have decision making capacity at this time. 12/01 Patient was seen and examined. Niece at bedside. Advised to inform her aunt about the Psyc evaluation and need for medial POA/guardianship. Tentative plan is for SNF on discharge, hopefully family can convince the patient. She is currently on 8L HFNC. Continued on Decadron for treatment of COVID 19 and Rocephin/Azithromycin for treatment of pneumonia while repeat pro-boston is pending. Vital signs reviewed General: Nontoxic, no distress, appears at stated age Cardiovascular: S1S2 reg, no murmur Lungs: Decreased bs bilateral, no rhonchi, no rales, no accessory muscle use Abdominal: Soft, nontender to palpation, no guarding Ext: No gross muscle atrophy, 1+ edema b/l lower extremities, no contractures Neuro: no focal neuro deficits Psych: Alert, oriented, appropriate affect Based on my assessment of this patient, this patient meets a moderate complexity level of care. Patient has an acute diagnosis of NSTEMI with AHRF secondary to pulmonary edema and COVID 19 that poses a threat to life or bodily function. Non-ST elevation KS: Underwent cardiac cath 11/28, stenting of the right coronary artery and PLV branch of the RCA. ASA 81 mg PO QD. Lipitor 40 mg PO QHS. Metoprolol 25 mg PO BID. Telemetry monitoring. Echo shows EF 60-65% without regional wall motion abnormalities. Cardiology on board. Acute hypoxic respiratory failure due to below. PE ruled out. COVID 19: Decadron 6 mg PO QD. Albuterol PRN for SOB/wheezing. Leukocytosis: Steroid induced. Meets SIRS criteria. UA + nitrite. Empirically start Rocephin 2g IV QD and Azithromycin 500 mg IV QD. Obtain repeat procal. Follow UCx. CHF exacerbation, newly diagnosed: Lasix 40 mg IV BID discontinued today by Cardiology. Strict intake and outtake. Daily weights. Alkalosis, suspect due to chronic hypercapnia in setting of COPD Chronic conditions: COPD, hypertension CODE STATUS: FULL CODE DVT Prophylaxis: Lovenox. GI Prophylaxis: Designated medical POA if patient is not able to make medical decisions for themselves: Daughter. I have reviewed the following managed services consultant notes: Cardiology, Psychiatry. I have ordered the following tests: CBC, BMP. Procal is pending. I have discussed the care of this patient with the following independent historian: Pj. Case management. Objective - Vital Signs Vital signs: Vital Signs Temp 97.7 F 12/02/23 11:22 Pulse 76 12/02/23 11:22 Resp 20 12/02/23 11:22 BP 108/68 12/02/23 11:22 Pulse Ox 93 L 12/02/23 11:22 FiO2 Intake & Output 12/01/23 12/02/23 12/02/23 18:59 06:59 18:59 Intake Total 716 460 Output Total 1050 1800 600 Balance -334 -1340 -600 Weight 70.7 kg 70.7 kg Intake: Oral 716 460 Output: Urine 1050 1800 600 Other: Voiding Method Bedside Commode Bedside Commode Bedside Commode # Bowel Movements 1 - Labs CBC & Chem 7: 11/30/23 07:58 12/01/23 11:50
--- NOTE | 2023-12-02 14:24 | P.PN ---
Subjective HISTORY OF PRESENT ILLNESS: The patient is a pleasant 83-year-old female patient with hypertension and dyslipidemia who was admitted to the hospital with acute coronary syndrome complicated by heart failure. She underwent a heart catheterization yesterday and stenting of the right coronary artery and PLV branch of the RCA. The echo showed normal LV systolic function. November 30, 2023 The patient was seen and evaluated this morning. Overall she is doing slightly better but she continues to have shortness of breath and she continues to have congestion on examination. No pain in the chest and no dizziness or lightheadedness and no feeling of heart racing or fluttering. She has been maintaining normal sinus mechanism. She continues to be on dual antiplatelet therapy along with a statin. The examination revealed crackles bilateral and diminished breathing sounds over the left lung base with regular rate and rhythm and mild bilateral lower extremities edema December 01, 2023 The patient was seen and evaluated this morning she continues to be on oxygen and she continues to have shortness of breath with exertion which has not improved. She underwent a CT scan of the chest yesterday and that showed no evidence of pulmonary embolism. No pain in the chest. Hemodynamically she is stable. She is on dual antiplatelet therapy along with a statin and she continues to be on Lasix IV as well. On examination she has extensive bilateral expiratory wheezing noted. She has very mild bilateral lower extremities edema. Please note that the patient also tested positive for COVID. The echo showed normal LV systolic function. 12/02/2023 Patient examined this morning at the bedside. Patient currently denies chest pain or pressure. She denies shortness of breath. She remains on IV diuretics. BUN 36. Creatinine 0.90. Vital signs are stable. She remains on 8 L high flow nasal cannula with oxygen saturations greater than 92%. Blood pressure 108/68. PHYSICAL EXAM: VITAL SIGNS: Reviewed. GENERAL: Well-developed in no acute distress. NECK: Supple. No JVD or thyromegaly LUNGS: Respirations even and unlabored. Lungs essentially clear to auscultation bilaterally. HEART: Regular rate and rhythm. S1 and S2 heard. EXTREMITIES: Normal range of motion. No clubbing or cyanosis. Peripheral pulses intact. No lower extremity edema ASSESSMENT: Non-STEMI, status post cardiac catheterization with stenting of the RCA and PLV branch of the RCA Acute heart failure with preserved EF COVID-19 Acute hypoxic respiratory failure, currently on 8 L Hypertension Hyperlipidemia Nicotine dependence Hyponatremia Hypokalemia PLAN: Discontinue IV diuretics. Resume home dose of Bumex Continue dual antiplatelet therapy with aspirin and Plavix Continue additional cardiac medications Wean oxygen as tolerated to maintain oxygen saturations greater than 92% Walking cessation encouraged Patient is stable from a cardiac perspective Patient is to follow-up postdischarge with Dr. Davalos Nurse practitioner note has been reviewed by physician. Signing provider agrees with the documented findings, assessment, and plan of care documented by GUYLINE OPERATOR as a scribe. Objective - Vital Signs Vital signs: Vital Signs Temp 97.7 F 12/02/23 11:22 Pulse 76 12/02/23 11:22 Resp 20 12/02/23 11:22 BP 108/68 12/02/23 11:22 Pulse Ox 93 L 12/02/23 11:22 FiO2 Intake & Output 12/01/23 12/02/23 12/02/23 18:59 06:59 18:59 Intake Total 716 460 240 Output Total 1050 1800 1300 Balance -334 -1340 -1060 Weight 70.7 kg 70.7 kg Intake: Oral 716 460 240 Output: Urine 1050 1800 1300 Other: Voiding Method Bedside Commode Bedside Commode Bedside Commode # Bowel Movements 1 - Labs CBC & Chem 7: 11/30/23 07:58 12/01/23 11:50
[2023-12-02] MEDS: POTASSIUM CHLORIDE ER 20 MEQ TAB.ER PO STA (15:50)
[2023-12-02] MEDS: NYSTATIN 100,000 UNIT/GM POWD 15 GM TOPICAL SCH (19:59)
[2023-12-03] MEDS: BUMETANIDE 0.5 MG TABLET PO SCH (09:32)
[2023-12-03 10:00] LABS: HGB 13.5 gm/dL (11.4-16.0); MCV 97.1 fL (80.0-100.0); Mean Platelet Volume 9.3; Platelet Count 210 k/uL (150-450); RBC 4.23 m/uL (3.80-5.40); RDW 14.5 % (11.5-15.5)
[2023-12-03 10:08] LABS: African American GFR (CKD) 83 (>60 ml/min/1.73 sqM); Anion Gap 4 mmol/L; Blood Urea Nitrogen 35 mg/dL (7-17); Calcium 9.1 mg/dL (8.4-10.2); Carbon Dioxide 37 mmol/L (22-30); Chloride 89 mmol/L (98-107); Glucose 156 mg/dL (74-99); Non-African American GFR(CKD) 72 (>60 ml/min/1.73 sqM); Potassium 3.6 mmol/L (3.5-5.1); Sodium 130 mmol/L (137-145)
--- NOTE | 2023-12-03 12:41 | P.PN ---
Subjective HISTORY OF PRESENT ILLNESS: The patient is a pleasant 83-year-old female patient with hypertension and dyslipidemia who was admitted to the hospital with acute coronary syndrome complicated by heart failure. She underwent a heart catheterization yesterday and stenting of the right coronary artery and PLV branch of the RCA. The echo showed normal LV systolic function. November 30, 2023 The patient was seen and evaluated this morning. Overall she is doing slightly better but she continues to have shortness of breath and she continues to have congestion on examination. No pain in the chest and no dizziness or lightheadedness and no feeling of heart racing or fluttering. She has been maintaining normal sinus mechanism. She continues to be on dual antiplatelet therapy along with a statin. The examination revealed crackles bilateral and diminished breathing sounds over the left lung base with regular rate and rhythm and mild bilateral lower extremities edema December 01, 2023 The patient was seen and evaluated this morning she continues to be on oxygen and she continues to have shortness of breath with exertion which has not improved. She underwent a CT scan of the chest yesterday and that showed no evidence of pulmonary embolism. No pain in the chest. Hemodynamically she is stable. She is on dual antiplatelet therapy along with a statin and she continues to be on Lasix IV as well. On examination she has extensive bilateral expiratory wheezing noted. She has very mild bilateral lower extremities edema. Please note that the patient also tested positive for COVID. The echo showed normal LV systolic function. 12/02/2023 Patient examined this morning at the bedside. Patient currently denies chest pain or pressure. She denies shortness of breath. She remains on IV diuretics. BUN 36. Creatinine 0.90. Vital signs are stable. She remains on 8 L high flow nasal cannula with oxygen saturations greater than 92%. Blood pressure 108/68. 12/03/2023 Patient examined this morning at the bedside. Patient currently denies chest pain or pressure. She denies shortness of breath. She remains on oral diuretics. Vital signs are stable. PHYSICAL EXAM: VITAL SIGNS: Reviewed. GENERAL: Well-developed in no acute distress. NECK: Supple. No JVD or thyromegaly LUNGS: Respirations even and unlabored. Lungs essentially clear to auscultation bilaterally. HEART: Regular rate and rhythm. S1 and S2 heard. EXTREMITIES: Normal range of motion. No clubbing or cyanosis. Peripheral pulses intact. No lower extremity edema ASSESSMENT: Non-STEMI, status post cardiac catheterization with stenting of the RCA and PLV branch of the RCA Acute heart failure with preserved EF COVID-19 Acute hypoxic respiratory failure, currently on 8 L Hypertension Hyperlipidemia Nicotine dependence Hyponatremia Hypokalemia PLAN: Continue dual antiplatelet therapy with aspirin and Plavix Continue additional cardiac medications Wean oxygen as tolerated to maintain oxygen saturations greater than 92% Smoking cessation encouraged Patient is stable from a cardiac perspective Patient is to follow-up postdischarge with Dr. Davalos We will sign off. Please reconsult if needed. Nurse practitioner note has been reviewed by physician. Signing provider agrees with the documented findings, assessment, and plan of care documented by [employer]ICE OFFICER as a scribe. Objective - Vital Signs Vital signs: Vital Signs Temp 98.3 F 12/03/23 09:27 Pulse 69 12/03/23 11:53 Resp 20 12/03/23 11:53 BP 136/79 12/03/23 11:53 Pulse Ox 95 12/03/23 11:53 FiO2 Intake & Output 12/02/23 12/03/23 12/03/23 18:59 06:59 18:59 Intake Total 240 118 Output Total 1300 Balance -1060 118 Weight 70.7 kg 72.892 kg Intake: Oral 240 118 Output: Urine 1300 Other: Voiding Method Bedside Commode Bedside Commode Bedside Commode # Bowel Movements 1 - Labs CBC & Chem 7: 12/03/23 09:39 12/03/23 09:39 Labs: Abnormal Lab Results - Last 24 Hours (Table) 12/03/23 12/03/23 Range/Units 09:39 09:39 WBC 16.0 H (3.8-10.6) k/uL Sodium 130 L (137-145) mmol/L Chloride 89 L (98-107) mmol/L Carbon Dioxide 37 H (22-30) mmol/L BUN 35 H (7-17) mg/dL Glucose 156 H (74-99) mg/dL
--- NOTE | 2023-12-03 13:59 | P.PN ---
Subjective Progress Note Date: 12/03/23 Hospital course Patient is a 83-year-old female with a PMH of COPD and hypertension who presents to the emergency room with complaints of chest pain and shortness of breath. Patient reports experiencing substernal chest tightness with associated shortness of breath over the past 1 week. She also reports experiencing mild bilateral lower extremity edema which is new for her. Chest x-ray in the emergency room revealed mild vascular congestion with EKG showing sinus tachycardia at 103 bpm with a left anterior fascicular block. Laboratory evaluation was remarkable for WBC count 13.3, troponin 0.118, proBNP 842, sodium 133, potassium 3.2, chloride 91, CO2 36, BUN 22, and creatinine 0.62. Patient was started on a Heparin drip and Lasix IV, admitted for NSTEMI and CHF exacerbation. Patient's echocardiogram showed EF of 55 to 60%. Patient had a heart catheterization done and underwent stenting of the right coronary artery and PLV branch of the RCA on 11/28. Patient also found to be positive for COVID-19. Patient started on Decadron. CTA chest was negative for PE. It did show 2 areas of groundglass opacity with organizing consolidation suspicious for acute process. Patient was started on Rocephin and azithromycin for possible superimposed bacterial pneumonia. Patient was seen today. She is complaining that she feels weak and tired. She also states that the bed is uncomfortable and causing her to have back pain. She states that she is also not sleeping well at night. She is requesting for something to help her sleep. 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 Assessment and plan Acute hypoxic respiratory failure COVID-19 Superimposed bacterial pneumonia Continue with Decadron 6 mg daily Continue with inhalers as needed Continue with current antibiotics Rocephin and azithromycin Patient currently on 8 L nasal cannula Pulmonology consult Patient denies being on home oxygen I instructed to nurse to titrate patient's oxygen to keep goal above 92% Non-ST elevation [place] Status post PCI on this admission Continue dual antiplatelet therapy aspirin Plavix Patient counseled on medication compliance Acute on chronic diastolic heart failure Patient currently on oral Bumex 0.5 mg p.o. daily Metabolic alkalosis likely due to diuretics Continue to monitor BMP Acute on chronic debility Patient wants to go home Family believes that she needs to go to half-way facility Per psychiatry patient does not have capacity to make medical decisions Insomnia Patient on Xanax as needed for anxiety Will start the patient on melatonin Chronic conditions COPD and hypertension -Stable CODE STATUS: FULL CODE DVT Prophylaxis: Lovenox. Objective - Vital Signs Vital signs: Vital Signs Temp 98.3 F 12/03/23 09:27 Pulse 69 12/03/23 11:53 Resp 20 12/03/23 11:53 BP 136/79 12/03/23 11:53 Pulse Ox 95 12/03/23 11:53 FiO2 Intake & Output 12/02/23 12/03/23 12/03/23 18:59 06:59 18:59 Intake Total 240 118 Output Total 1300 Balance -1060 118 Weight 70.7 kg 72.892 kg Intake: Oral 240 118 Output: Urine 1300 Other: Voiding Method Bedside Commode Bedside Commode Bedside Commode # Bowel Movements 1 - Labs CBC & Chem 7: 12/03/23 09:39 12/03/23 09:39 Labs: Abnormal Lab Results - Last 24 Hours (Table) 12/03/23 12/03/23 Range/Units 09:39 09:39 WBC 16.0 H (3.8-10.6) k/uL Sodium 130 L (137-145) mmol/L Chloride 89 L (98-107) mmol/L Carbon Dioxide 37 H (22-30) mmol/L BUN 35 H (7-17) mg/dL Glucose 156 H (74-99) mg/dL
--- NOTE | 2023-12-03 14:54 | P.CNPUL ---
History of Present Illness Consult date: 12/03/23 Reason for consult: pneumonia Chief complaint: Chest pain and shortness of breath History of present illness: This is AN 83-year-old female known history of hypertension and COPD, patient was admitted on 01/26/2024, when she presented with chest pain and shortness of breath. Apparently her pain has been going on over the past month on and off, and became worse 3 days prior to her admission. Patient was also complaining of increased swelling in her lower extremities. Patient is an active smoker, patient was seen by cardiology on consultation, felt that the patient had non-ST elevation myocardial infarction and acute congestive heart failure with preserved LV function. Hence the patient was placed on Lasix 40 mg IV push every 12 hours, she was also placed on heparin initially, scheduled to undergo cardiac catheterization which was done on 11/29/2023, patient underwent successful stenting of the mid and proximal right coronary artery. She also had stenting of PLV branch of the right coronary artery, and she was advised to continue dual antiplatelet therapy using aspirin and Plavix for 1 year. 11/30/2023, patient continues to have shortness of breath and she had a CT angiogram of the chest which showed no evidence of pulmonary embolism, but she did have mild emphysematous changes and scarring bilaterally, with nonspecific groundglass opacity in the lingula. The finding is very limited, could be secondary to pneumonia. Hence this consult was initiated. In the meantime the patient is receiving Rocephin empirically. Patient clearly describes intermittent cough and wheezing, cough is dry cough mostly, no fever no chills no hemoptysis. In addition to her cardiac meds, patient is receiving bronchodilators in the form of Symbicort which we added today, she is also on albuterol updraft 4 times daily and as needed, and on Spiriva Respimat which is an appropriate regimen for her underlying COPD. Review of Systems CONSTITUTIONAL: No fever no chills no weight loss no major constitutional symptoms HEENT: Negative. CARDIOVASCULAR: As noted in HPI RESPIRATORY: As noted in HPI mostly shortness of breath, intermittent cough and wheezing GASTROINTESTINAL: Negative. 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 History of Any Multi-Drug Resistant Organisms: None Reported Past Surgical History: Hysterectomy Past Psychological History: Anxiety, Depression Smoking Status: Current every day smoker Past Alcohol Use History: None Reported Past Drug Use History: None Reported Additional Drug Use History / Comment(s): 10-15 a day - Past Family History Mother Family Medical History: Myocardial Infarction ([place]) Father Family Medical History: CVA/TIA Medications and Allergies Home Medications Medication Instructions Recorded Confirmed Type Bumetanide [BUMEX] 0.5 mg PO DAILY 11/27/23 11/27/23 History carvediloL [Coreg] 6.25 tablet PO BID 11/27/23 11/27/23 History Allergies Allergy/AdvReac Type Severity Reaction Status Date / Time codeine AdvReac Itching Verified 11/27/23 08:48 Physical Exam Vitals: Vital Signs Temp Pulse Resp BP Pulse Ox 12/03/23 11:53 69 20 136/79 95 12/03/23 09:27 98.3 F 96 20 99/64 94 L 12/03/23 04:00 98.1 F 70 20 133/75 95 12/03/23 02:00 84 20 12/03/23 00:44 92 L 12/03/23 00:00 84 20 118/68 92 L 12/02/23 20:00 97.7 F 90 20 147/71 94 L 12/02/23 15:30 97.9 F 90 20 122/72 93 L Intake and Output 12/02/23 12/03/23 12/03/23 22:59 06:59 14:59 Intake Total 118 Balance 118 Intake: Oral 118 Other: Voiding Method Bedside Commode Bedside Commode Bedside Commode Weight 72.892 kg General: Revealed 83-year-old female in no distress, on 7 L high flow nasal cannula O2 saturation 95% Skin: Skin is warm and dry and no rashes or lesions are noted. Eye: Pupils are equal, round and reactive to light, extra-ocular movements are intact; there is normal conjunctiva bilaterally. Ears, nose, mouth and throat: There are moist mucous membranes and no oral lesions. Neck: The neck is supple, there is no tenderness or JVD. Cardiovascular: There is a regular rate and rhythm. No murmur, rub or gallop is appreciated. Respiratory: Clear and wheezes noted bilaterally. Gastrointestinal: Soft, non-distended, non-tender abdomen without masses or organomegaly noted. There is no rebound or guarding present. Bowel sounds are unremarkable. Back: There is no tenderness to palpation in the midline. There is no obvious deformity. Musculoskeletal: Normal ROM, no tenderness, There is no pedal edema. There is no calf tenderness or swelling. No cords were appreciated. Neurological: CN II-XII intact, Cranial nerves III through XII are intact. There are no obvious motor or sensory deficits. Coordination appears grossly intact. Speech is normal. Psychiatric: Cooperative, appropriate mood & affect, normal judgment. Results - Laboratory Findings CBC and BMP: 12/03/23 09:39 12/03/23 09:39 PT/INR, D-dimer PT 10.4 sec (10.0-12.5) 11/27/23 00:03 INR 0.9 (<1.2) 11/27/23 00:03 D-Dimer 0.84 mg/L FEU (<0.60) H 11/30/23 07:58 Abnormal lab findings: Abnormal Labs 11/27/23 11/27/23 11/27/23 00:03 00:03 00:03 WBC 13.3 H Hct 47.4 H Neutrophils # 10.4 H Monocytes # APTT D-Dimer Sodium 133 L Potassium 3.2 L Chloride 91 L Carbon Dioxide 36 H BUN 22 H Glucose 131 H Troponin I 0.118 H* Urine Nitrite Urine Bacteria SARS-CoV-2 (PCR) 11/27/23 11/27/23 11/27/23 03:30 03:30 03:30 WBC 14.1 H Hct 49.0 H Neutrophils # Monocytes # APTT D-Dimer Sodium 135 L Potassium 3.4 L Chloride 90 L Carbon Dioxide 38 H BUN 20 H Glucose 129 H Troponin I 2.200 H* Urine Nitrite Urine Bacteria SARS-CoV-2 (PCR) 11/27/23 11/27/23 11/27/23 08:17 08:17 13:38 WBC Hct Neutrophils # Monocytes # APTT 35.1 H D-Dimer Sodium Potassium Chloride Carbon Dioxide BUN Glucose Troponin I 4.780 H* Urine Nitrite Urine Bacteria SARS-CoV-2 (PCR) Detected A 11/27/23 11/28/23 11/28/23 16:28 06:57 06:57 WBC 14.8 H Hct Neutrophils # Monocytes # APTT 62.8 H 37.6 H D-Dimer Sodium Potassium Chloride Carbon Dioxide BUN Glucose Troponin I Urine Nitrite Urine Bacteria SARS-CoV-2 (PCR) 11/28/23 11/28/23 11/28/23 06:57 18:10 18:37 WBC Hct Neutrophils # Monocytes # APTT 51.7 H D-Dimer Sodium 134 L Potassium 3.4 L Chloride 88 L Carbon Dioxide 38 H BUN 26 H Glucose 106 H Troponin I Urine Nitrite Positive H Urine Bacteria Rare H SARS-CoV-2 (PCR) 11/29/23 11/29/23 11/30/23 08:57 08:57 07:58 WBC 15.1 H 17.5 H Hct Neutrophils # Monocytes # APTT D-Dimer Sodium 131 L Potassium Chloride 91 L Carbon Dioxide 38 H BUN 29 H Glucose 119 H Troponin I Urine Nitrite Urine Bacteria SARS-CoV-2 (PCR) 11/30/23 11/30/23 11/30/23 07:58 07:58 07:58 WBC 15.3 H Hct Neutrophils # 11.6 H Monocytes # 1.2 H APTT D-Dimer 0.84 H Sodium 130 L Potassium Chloride 85 L Carbon Dioxide 38 H BUN 33 H Glucose 168 H Troponin I Urine Nitrite Urine Bacteria SARS-CoV-2 (PCR) 12/01/23 12/03/23 12/03/23 11:50 09:39 09:39 WBC 16.0 H Hct Neutrophils # Monocytes # APTT D-Dimer Sodium 130 L 130 L Potassium 3.3 L Chloride 84 L 89 L Carbon Dioxide 39 H 37 H BUN 36 H 35 H Glucose 156 H Troponin I Urine Nitrite Urine Bacteria SARS-CoV-2 (PCR) - Diagnostic Findings CT scan - chest: image reviewed (As noted in HPI) Assessment and Plan Assessment: Impression: Acute hypoxic respiratory failure Acute exacerbation of COPD Suspect community-acquired pneumonia involving the lingula Acute COVID-19 infection, diagnosis was made on 11/27, doubt pneumonia secondary to COVID-19 infection Acute non-ST elevation myocardial infarction Acute diastolic congestive heart failure Benign essential hypertension Coronary arteriosclerosis Tobacco dependence syndrome Status post cardiac catheterization on this admission and multiple stents placement Recommendation: Agree with the present treatment plan Continue diuretics Continue antibiotics/Rocephin Continue bronchodilators including albuterol, Spiriva, Symbicort was added Add steroids, patient is already on Decadron, will go ahead and increase the dose to 6 mg twice daily Continue aspirin and Plavix and atorvastatin Will continue to follow Titrate oxygen accordingly. Time with Patient: Greater than 30
[2023-12-03] MEDS: MELATONIN 3 MG TABLET PO SCH (20:33)
[2023-12-03] MEDS: dexAMETHasone 2 MG TAB PO SCH (20:33)
[2023-12-04] MEDS: SYMBICORT 160-4.5 MCG INHALER INHALATION SCH (00:24)
[2023-12-04 09:17] LABS: Basophils % (A) 0 %; Eosinophils # (A) 0.1 k/uL (0-0.7); Eosinophils % (A) 0 %; HCT 38.7 % (34.0-46.0); HGB 13.1 gm/dL (11.4-16.0); Lymphocytes % (A) 13 %; MCH 32.7 pg (25.0-35.0); MCHC 33.7 g/dL (31.0-37.0); MCV 97.1 fL (80.0-100.0); Mean Platelet Volume 9.5; Monocytes # (A) 1.1 k/uL (0-1.0); Monocytes % (A) 7 %; Neutrophils # (A) 12.2 k/uL (1.3-7.7); Neutrophils % (A) 78 %; Platelet Count 196 k/uL (150-450); RBC 3.99 m/uL (3.80-5.40); RDW 14.3 % (11.5-15.5); WBC 15.7 k/uL (3.8-10.6)
[2023-12-04 09:42] LABS: African American GFR (CKD) >90 (>60 ml/min/1.73 sqM); Anion Gap 5 mmol/L; Blood Urea Nitrogen 39 mg/dL (7-17); Calcium 8.8 mg/dL (8.4-10.2); Carbon Dioxide 34 mmol/L (22-30); Chloride 92 mmol/L (98-107); Glucose 80 mg/dL (74-99); Magnesium 1.8 mg/dL (1.6-2.3); Non-African American GFR(CKD) 82 (>60 ml/min/1.73 sqM); Potassium 4.1 mmol/L (3.5-5.1); Sodium 131 mmol/L (137-145)
--- NOTE | 2023-12-04 13:23 | P.PN ---
Subjective Progress Note Date: 12/04/23 Hospital course Patient is a 83-year-old female with a PMH of COPD and hypertension who presents to the emergency room with complaints of chest pain and shortness of breath. Patient reports experiencing substernal chest tightness with associated shortness of breath over the past 1 week. She also reports experiencing mild bilateral lower extremity edema which is new for her. Chest x-ray in the emergency room revealed mild vascular congestion with EKG showing sinus tachycardia at 103 bpm with a left anterior fascicular block. Laboratory evaluation was remarkable for WBC count 13.3, troponin 0.118, proBNP 842, sodium 133, potassium 3.2, chloride 91, CO2 36, BUN 22, and creatinine 0.62. Patient was started on a Heparin drip and Lasix IV, admitted for NSTEMI and CHF exacerbation. Patient's echocardiogram showed EF of 55 to 60%. Patient had a heart catheterization done and underwent stenting of the right coronary artery and PLV branch of the RCA on 11/28. Patient also found to be positive for COVID-19. Patient started on Decadron. CTA chest was negative for PE. It did show 2 areas of groundglass opacity with organizing consolidation suspicious for acute process. Patient was started on Rocephin and azithromycin for possible superimposed bacterial pneumonia. Patient seen this morning. She states that she still feels very tired. While resting in bed she is denying any shortness of breath. She states that yesterday she did sit in the chair for a few hours. 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 Patient was on 8 L nasal cannula yesterday Pulmonology following Patient denies being on home oxygen I instructed to nurse to titrate patient's oxygen to keep goal above 92% Non-ST elevation [place] Status post PCI on this admission Continue dual antiplatelet therapy aspirin Plavix Patient counseled on medication compliance Acute on chronic diastolic heart failure Patient currently on oral Bumex 0.5 mg p.o. daily Metabolic alkalosis likely due to diuretics Continue to monitor BMP Acute on chronic debility Patient wants to go home Family believes that she needs to go to custodial facility Per psychiatry patient does not have capacity to make medical decisions Insomnia Patient on Xanax as needed for anxiety Will start the patient on melatonin Chronic conditions COPD and hypertension -Stable CODE STATUS: FULL CODE DVT Prophylaxis: Lovenox. Objective - Vital Signs Vital signs: Vital Signs Temp 97.4 F L 12/04/23 11:20 Pulse 79 12/04/23 11:20 Resp 18 12/04/23 11:20 BP 109/66 12/04/23 11:20 Pulse Ox 92 L 12/04/23 11:20 FiO2 Intake & Output 12/03/23 12/04/23 12/04/23 18:59 06:59 18:59 Intake Total 476 358 Balance 476 358 Intake: Oral 476 358 Other: Voiding Method Bedside Commode Bedside Commode Toilet # Voids 1 # Bowel Movements 1 - Labs CBC & Chem 7: 12/04/23 08:05 12/04/23 08:05 Labs: Abnormal Lab Results - Last 24 Hours (Table) 12/04/23 12/04/23 Range/Units 08:05 08:05 WBC 15.7 H (3.8-10.6) k/uL Neutrophils # 12.2 H (1.3-7.7) k/uL Monocytes # 1.1 H (0-1.0) k/uL Sodium 131 L (137-145) mmol/L Chloride 92 L (98-107) mmol/L Carbon Dioxide 34 H (22-30) mmol/L BUN 39 H (7-17) mg/dL
--- NOTE | 2023-12-04 15:26 | P.PN ---
Subjective Progress Note Date: 12/04/23 Principal diagnosis: Acute hypoxic respiratory failure secondary to COPD exacerbation and community- acquired pneumonia as well as COVID-19 infection but no clear-cut evidence of CO VID-19 pneumonia This is AN 83-year-old female known history of hypertension and COPD, patient was admitted on 01/26/2024, when she presented with chest pain and shortness of breath. Apparently her pain has been going on over the past month on and off, and became worse 3 days prior to her admission. Patient was also complaining of increased swelling in her lower extremities. Patient is an active smoker, patient was seen by cardiology on consultation, felt that the patient had non-ST elevation myocardial infarction and acute congestive heart failure with preserved LV function. Hence the patient was placed on Lasix 40 mg IV push every 12 hours, she was also placed on heparin initially, scheduled to undergo cardiac catheterization which was done on 11/29/2023, patient underwent successful stenting of the mid and proximal right coronary artery. She also had stenting of PLV branch of the right coronary artery, and she was advised to continue dual antiplatelet therapy using aspirin and Plavix for 1 year. 11/30/2023, patient continues to have shortness of breath and she had a CT angiogram of the chest which showed no evidence of pulmonary embolism, but she did have mild emphysematous changes and scarring bilaterally, with nonspecific groundglass opacity in the lingula. The finding is very limited, could be secondary to pneumonia. Hence this consult was initiated. In the meantime the patient is receiving Rocephin empirically. Patient clearly describes intermittent cough and wheezing, cough is dry cough mostly, no fever no chills no hemoptysis. In addition to her cardiac meds, patient is receiving bronchodilators in the form of Symbicort which we added today, she is also on albuterol updraft 4 times daily and as needed, and on Spiriva Respimat which is an appropriate regimen for her underlying COPD. Patient was reevaluated today on 12/04/2023, patient is feeling better, breathing easier, does not seem to be in much distress. However the patient remains on relatively high flow oxygen at 7 L/min with O2 sats of 92% hardly any cough, less wheezing, WBC count is 15.7 hemoglobin 13.1 basic metabolic profile is normal except for sodium of 131 and her renal profile showed a BUN of 39 creatinine 0.68. Patient remains on antibiotics bronchodilators and she is also on Decadron. Antibiotics ramos she is on Rocephin. Objective - Vital Signs Vital signs: Vital Signs Temp 97.4 F L 12/04/23 11:20 Pulse 79 12/04/23 11:20 Resp 18 12/04/23 11:20 BP 109/66 12/04/23 11:20 Pulse Ox 92 L 12/04/23 11:20 FiO2 Intake & Output 12/03/23 12/04/23 12/04/23 18:59 06:59 18:59 Intake Total 476 476 Balance 476 476 Intake: Oral 476 476 Other: Voiding Method Bedside Commode Bedside Commode Toilet # Voids 1 # Bowel Movements 1 - Exam General: Revealed 83-year-old female in no distress, on 7 L high flow nasal cannula O2 saturation 95% Skin: Skin is warm and dry and no rashes or lesions are noted. Eye: Pupils are equal, round and reactive to light, extra-ocular movements are intact; there is normal conjunctiva bilaterally. Ears, nose, mouth and throat: There are moist mucous membranes and no oral lesions. Neck: The neck is supple, there is no tenderness or JVD. Cardiovascular: There is a regular rate and rhythm. No murmur, rub or gallop is appreciated. Respiratory: Clear today, no crackles rhonchi or wheezes Gastrointestinal: Soft, non-distended, non-tender abdomen without masses or organomegaly noted. There is no rebound or guarding present. Bowel sounds are unremarkable. Back: There is no tenderness to palpation in the midline. There is no obvious deformity. Musculoskeletal: Normal ROM, no tenderness, There is no pedal edema. There is no calf tenderness or swelling. No cords were appreciated. Neurological: CN II-XII intact, Cranial nerves III through XII are intact. T here are no obvious motor or sensory deficits. Coordination appears grossly intact. Speech is normal. Psychiatric: Cooperative, appropriate mood & affect, normal judgment. - Labs CBC & Chem 7: 12/04/23 08:05 12/04/23 08:05 Labs: Abnormal Lab Results - Last 24 Hours (Table) 12/04/23 12/04/23 Range/Units 08:05 08:05 WBC 15.7 H (3.8-10.6) k/uL Neutrophils # 12.2 H (1.3-7.7) k/uL Monocytes # 1.1 H (0-1.0) k/uL Sodium 131 L (137-145) mmol/L Chloride 92 L (98-107) mmol/L Carbon Dioxide 34 H (22-30) mmol/L BUN 39 H (7-17) mg/dL Assessment and Plan Assessment: Impression: Acute hypoxic respiratory failure Acute exacerbation of COPD Suspect community-acquired pneumonia involving the lingula Acute COVID-19 infection, diagnosis was made on 11/27, doubt pneumonia secondary to COVID-19 infection Acute non-ST elevation myocardial infarction Acute diastolic congestive heart failure Benign essential hypertension Coronary arteriosclerosis Tobacco dependence syndrome Status post cardiac catheterization on this admission and multiple stents placement Recommendation: Continue diuretics Continue antibiotics/Rocephin Continue bronchodilators including albuterol, Spiriva, Symbicort Continue Decadron at 6 mg IV push twice daily for now Continue aspirin and Plavix and atorvastatin Will continue to follow Titrate oxygen accordingly. Need to get her FiO2 down to 5 L at least. Time with Patient: Less than 30
[2023-12-05 09:45] LABS: Basophils % (A) 0 %; Eosinophils % (A) 0 %; HGB 13.9 gm/dL (11.4-16.0); Lymphocytes # (A) 1.2 k/uL (1.0-4.8); Lymphocytes % (A) 8 %; MCH 31.4 pg (25.0-35.0); MCHC 31.7 g/dL (31.0-37.0); Mean Platelet Volume 9.6; Monocytes # (A) 0.7 k/uL (0-1.0); Monocytes % (A) 4 %; Neutrophils % (A) 87 %; Platelet Count 230 k/uL (150-450); RBC 4.44 m/uL (3.80-5.40); RDW 14.3 % (11.5-15.5); WBC 16.1 k/uL (3.8-10.6)
[2023-12-05 10:18] LABS: African American GFR (CKD) >90 (>60 ml/min/1.73 sqM); Anion Gap 4 mmol/L; Blood Urea Nitrogen 37 mg/dL (7-17); Calcium 8.9 mg/dL (8.4-10.2); Carbon Dioxide 34 mmol/L (22-30); Chloride 91 mmol/L (98-107); Glucose 235 mg/dL (74-99); Non-African American GFR(CKD) 83 (>60 ml/min/1.73 sqM); Potassium 4.9 mmol/L (3.5-5.1); Sodium 129 mmol/L (137-145)
--- NOTE | 2023-12-05 10:47 | P.PN ---
Subjective Progress Note Date: 12/05/23 No new complaints today. Breathing is stable in terms of oxygenation and symptoms. Gen: In NAD, non-toxic HEENT: normocephalic, atraumatic, hearing acuity is intant, mucous membranes moist CVS: perfusing all extremities well, no pitting edema, Respiratory: symmetric chest expansion, no accessory muscle use, GI: soft, NTTP, ND, : no suprapubic tenderness, no CVA tenderness MSK/Derm: no rashes, cyanosis Neuro: CN II-XII intact, no motor weakness, Psych: cooperative, euthymic mood, judgment and insight is intact Hospital course Patient is a 83-year-old female with a PMH of COPD and hypertension who presents to the emergency room with complaints of chest pain and shortness of breath. Patient reports experiencing substernal chest tightness with associated shortness of breath over the past 1 week. She also reports experiencing mild bilateral lower extremity edema which is new for her. Chest x-ray in the emergency room revealed mild vascular congestion with EKG showing sinus tachycardia at 103 bpm with a left anterior fascicular block. Laboratory evaluation was remarkable for WBC count 13.3, troponin 0.118, proBNP 842, sodium 133, potassium 3.2, chloride 91, CO2 36, BUN 22, and creatinine 0.62. Patient was started on a Heparin drip and Lasix IV, admitted for NSTEMI and CHF exacerbation. Patient's echocardiogram showed EF of 55 to 60%. Patient had a heart catheterization done and underwent stenting of the right coronary artery and PLV branch of the RCA on 11/28. Patient also found to be positive for COVID-19. Patient started on Decadron. CTA chest was negative for PE. It did show 2 areas of groundglass opacity with organizing consolidation suspicious for acute process. Patient was started on Rocephin and azithromycin for possible superimposed bacterial pneumonia. Assessment and plan Acute hypoxic respiratory failure COVID-19 Superimposed bacterial pneumonia Pulmonology increase Decadron to 6 mg twice daily Continue with inhalers as needed Continue with current antibiotics Rocephin and azithromycin Patient currently on 7 L nasal cannula, wean as tolerated Pulmonology following Patient denies being on home oxygen I instructed to nurse to titrate patient's oxygen to keep goal above 92% Non-ST elevation [place] Status post PCI on this admission Continue dual antiplatelet therapy aspirin Plavix Patient counseled on medication compliance Acute on chronic diastolic heart failure Patient currently on oral Bumex 0.5 mg p.o. daily Metabolic alkalosis likely due to diuretics Continue to monitor BMP Acute on chronic debility Patient wants to go home Family believes that she needs to go to [facility] facility Per psychiatry patient does not have capacity to make medical decisions Insomnia Patient on Xanax as needed for anxiety Will start the patient on melatonin Chronic conditions COPD and hypertension -Stable CODE STATUS: FULL CODE DVT Prophylaxis: Lovenox. Objective - Vital Signs Vital signs: Vital Signs Temp 97.9 F 12/05/23 08:00 Pulse 92 12/05/23 08:00 Resp 20 12/05/23 08:00 BP 113/78 12/05/23 08:00 Pulse Ox 93 L 12/05/23 08:00 FiO2 Intake & Output 12/04/23 12/05/23 12/05/23 18:59 06:59 18:59 Intake Total 594 120 Balance 594 120 Intake: Oral 594 120 Other: Voiding Method Toilet Toilet Toilet # Voids 3 1 # Bowel Movements 1 - Labs CBC & Chem 7: 12/05/23 08:31 12/05/23 08:31 Labs: Abnormal Lab Results - Last 24 Hours (Table) 12/05/23 12/05/23 Range/Units 08:31 08:31 WBC 16.1 H (3.8-10.6) k/uL Neutrophils # 14.0 H (1.3-7.7) k/uL Sodium 129 L (137-145) mmol/L Chloride 91 L (98-107) mmol/L Carbon Dioxide 34 H (22-30) mmol/L BUN 37 H (7-17) mg/dL Glucose 235 H (74-99) mg/dL
--- NOTE | 2023-12-05 11:05 | XR ---
EXAMINATION TYPE: XR chest 1V portable DATE OF EXAM: 12/05/2023 Comparison: 11/30/2023 Clinical History: 83-year-old female Pneumonia, Covid Findings: Heart upper limits of normal in size. Mild patchy bibasilar opacities are present. Visualized upper a nd mid lungs are clear. Tortuous thoracic aorta. No pleural effusion. Impression: Mild patchy bibasilar atelectasis versus infiltrates.
[2023-12-05 11:21] LABS: Basophils % (A) 0 %; Eosinophils % (A) 0 %; HCT 41.2 % (34.0-46.0); HGB 13.5 gm/dL (11.4-16.0); Lymphocytes # (A) 1.1 k/uL (1.0-4.8); Lymphocytes % (A) 6 %; MCH 32.3 pg (25.0-35.0); MCHC 32.9 g/dL (31.0-37.0); MCV 98.1 fL (80.0-100.0); Mean Platelet Volume 9.6; Monocytes # (A) 1.1 k/uL (0-1.0); Monocytes % (A) 6 %; Neutrophils # (A) 15.6 k/uL (1.3-7.7); Neutrophils % (A) 87 %; Platelet Count 204 k/uL (150-450); RDW 14.3 % (11.5-15.5); WBC 17.9 k/uL (3.8-10.6)
[2023-12-05 11:41] LABS: African American GFR (CKD) >90 (>60 ml/min/1.73 sqM); Anion Gap 6 mmol/L; Blood Urea Nitrogen 39 mg/dL (7-17); Calcium 8.9 mg/dL (8.4-10.2); Carbon Dioxide 32 mmol/L (22-30); Chloride 92 mmol/L (98-107); Glucose 219 mg/dL (74-99); Non-African American GFR(CKD) 82 (>60 ml/min/1.73 sqM); Sodium 130 mmol/L (137-145)
--- NOTE | 2023-12-05 15:10 | P.PN ---
Subjective Progress Note Date: 12/05/23 Principal diagnosis: Acute hypoxic respiratory failure secondary to COPD exacerbation and community- acquired pneumonia as well as COVID-19 infection but no clear-cut evidence of CO VID-19 pneumonia This is AN 83-year-old female known history of hypertension and COPD, patient was admitted on 01/26/2024, when she presented with chest pain and shortness of breath. Apparently her pain has been going on over the past month on and off, and became worse 3 days prior to her admission. Patient was also complaining of increased swelling in her lower extremities. Patient is an active smoker, patient was seen by cardiology on consultation, felt that the patient had non-ST elevation myocardial infarction and acute congestive heart failure with preserved LV function. Hence the patient was placed on Lasix 40 mg IV push every 12 hours, she was also placed on heparin initially, scheduled to undergo cardiac catheterization which was done on 11/29/2023, patient underwent successful stenting of the mid and proximal right coronary artery. She also had stenting of PLV branch of the right coronary artery, and she was advised to continue dual antiplatelet therapy using aspirin and Plavix for 1 year. 11/30/2023, patient continues to have shortness of breath and she had a CT angiogram of the chest which showed no evidence of pulmonary embolism, but she did have mild emphysematous changes and scarring bilaterally, with nonspecific groundglass opacity in the lingula. The finding is very limited, could be secondary to pneumonia. Hence this consult was initiated. In the meantime the patient is receiving Rocephin empirically. Patient clearly describes intermittent cough and wheezing, cough is dry cough mostly, no fever no chills no hemoptysis. In addition to her cardiac meds, patient is receiving bronchodilators in the form of Symbicort which we added today, she is also on albuterol updraft 4 times daily and as needed, and on Spiriva Respimat which is an appropriate regimen for her underlying COPD. Patient was reevaluated today on 12/04/2023, patient is feeling better, breathing easier, does not seem to be in much distress. However the patient remains on relatively high flow oxygen at 7 L/min with O2 sats of 92% hardly any cough, less wheezing, WBC count is 15.7 hemoglobin 13.1 basic metabolic profile is normal except for sodium of 131 and her renal profile showed a BUN of 39 creatinine 0.68. Patient remains on antibiotics bronchodilators and she is also on Decadron. Antibiotics ramos she is on Rocephin. Patient was reevaluated today on 12/05/2023, patient is gradually getting better, breathing easier, I was able to titrate the patient down to 5 L nasal cannula, and she maintained O2 saturation above 96%, patient could be titrated further down, and she will eventually possibly require home O2 for a while. Meantime the patient is receiving treatment for her underlying COPD, and receiving treatment for presumptive pneumonia in addition to her COVID-19 infection and pneumonia, patient had acute diastolic congestive heart failure, and has been diuresed. Overall I believe the patient is making a significant progress, and the plan is to continue titrating her oxygen down and decide whether she needs to be on oxygen upon dischargeWBC count today is 17.9 hemoglobin is 13.5 basic metabolic profile is normal sodium remains a bit low at 130 Objective - Vital Signs Vital signs: Vital Signs Temp 97.6 F 12/05/23 11:18 Pulse 72 12/05/23 11:18 Resp 20 12/05/23 11:18 BP 148/82 12/05/23 11:18 Pulse Ox 98 12/05/23 11:47 FiO2 Intake & Output 12/04/23 12/05/23 12/05/23 18:59 06:59 18:59 Intake Total 594 120 Output Total 1 Balance 594 119 Intake: Oral 594 120 Output: Urine 1 Other: Voiding Method Toilet Toilet Toilet # Voids 3 1 # Bowel Movements 1 - Exam General: Revealed 83-year-old female in no distress, on 5 L nasal cannula with O2 sats of 98% Skin: Skin is warm and dry and no rashes or lesions are noted. Eye: Pupils are equal, round and reactive to light, extra-ocular movements are intact; there is normal conjunctiva bilaterally. Ears, nose, mouth and throat: There are moist mucous membranes and no oral lesions. Neck: The neck is supple, there is no tenderness or JVD. Cardiovascular: There is a regular rate and rhythm. No murmur, rub or gallop is appreciated. Respiratory: Diminished breath sound bilaterally no rhonchi no wheezes Gastrointestinal: Soft, non-distended, non-tender abdomen without masses or organomegaly noted. There is no rebound or guarding present. Bowel sounds are unremarkable. Back: There is no tenderness to palpation in the midline. There is no obvious deformity. Musculoskeletal: Normal ROM, no tenderness, There is no pedal edema. There is no calf tenderness or swelling. No cords were appreciated. Neurological: CN II-XII intact, Cranial nerves III through XII are intact. There are no obvious motor or sensory deficits. Coordination appears grossly intact. Speech is normal. Psychiatric: Cooperative, appropriate mood & affect, normal judgment. - Labs CBC & Chem 7: 12/05/23 10:52 12/05/23 10:52 Labs: Abnormal Lab Results - Last 24 Hours (Table) 12/05/23 12/05/23 12/05/23 Range/Units 08:31 08:31 10:52 WBC 16.1 H 17.9 H (3.8-10.6) k/uL Neutrophils # 14.0 H 15.6 H (1.3-7.7) k/uL Monocytes # 1.1 H (0-1.0) k/uL Sodium 129 L (137-145) mmol/L Chloride 91 L (98-107) mmol/L Carbon Dioxide 34 H (22-30) mmol/L BUN 37 H (7-17) mg/dL Glucose 235 H (74-99) mg/dL 12/05/23 Range/Units 10:52 WBC (3.8-10.6) k/uL Neutrophils # (1.3-7.7) k/uL Monocytes # (0-1.0) k/uL Sodium 130 L (137-145) mmol/L Chloride 92 L (98-107) mmol/L Carbon Dioxide 32 H (22-30) mmol/L BUN 39 H (7-17) mg/dL Glucose 219 H (74-99) mg/dL Assessment and Plan Assessment: Impression: Acute hypoxic respiratory failure Acute exacerbation of COPD Suspect community-acquired pneumonia involving the lingula Acute COVID-19 infection, diagnosis was made on 11/27, doubt pneumonia secondary to COVID-19 infection Acute non-ST elevation myocardial infarction Acute diastolic congestive heart failure Benign essential hypertension Coronary arteriosclerosis Tobacco dependence syndrome Status post cardiac catheterization on this admission and multiple stents placement Recommendation: Continue to titrate oxygen down as tolerated maintaining O2 saturation of 90% Continue diuretics Continue antibiotics/Rocephin Continue bronchodilators including albuterol, Spiriva, Symbicort Continue Decadron Continue aspirin and Plavix and atorvastatin Will continue to follow Consider possible discharge in the next 24 hours Time with Patient: Less than 30
[2023-12-06] MEDS: dexAMETHasone 2 MG TAB PO SCH (08:07)
[2023-12-06 09:42] LABS: Basophils % (A) 0 %; Eosinophils # (A) 0.1 k/uL (0-0.7); Eosinophils % (A) 0 %; HCT 38.5 % (34.0-46.0); HGB 13.3 gm/dL (11.4-16.0); Lymphocytes # (A) 2.1 k/uL (1.0-4.8); Lymphocytes % (A) 11 %; MCH 33.3 pg (25.0-35.0); MCHC 34.6 g/dL (31.0-37.0); MCV 96.2 fL (80.0-100.0); Mean Platelet Volume 10.3; Monocytes # (A) 1.4 k/uL (0-1.0); Monocytes % (A) 7 %; Neutrophils # (A) 14.8 k/uL (1.3-7.7); Neutrophils % (A) 80 %; Platelet Count 217 k/uL (150-450); RBC 4.01 m/uL (3.80-5.40); RDW 14.6 % (11.5-15.5); WBC 18.6 k/uL (3.8-10.6)
[2023-12-06 09:52] LABS: African American GFR (CKD) 80 (>60 ml/min/1.73 sqM); Anion Gap 7 mmol/L; Blood Urea Nitrogen 47 mg/dL (7-17); Calcium 8.8 mg/dL (8.4-10.2); Carbon Dioxide 32 mmol/L (22-30); Chloride 90 mmol/L (98-107); Glucose 97 mg/dL (74-99); Magnesium 1.9 mg/dL (1.6-2.3); Non-African American GFR(CKD) 70 (>60 ml/min/1.73 sqM); Potassium 4.3 mmol/L (3.5-5.1); Sodium 129 mmol/L (137-145)
[2023-12-06] MEDS: SODIUM CHLORIDE 0.9% 1,000 ML IV ONE (11:33)
--- NOTE | 2023-12-06 13:16 | P.PN ---
Subjective Progress Note Date: 12/06/23 Principal diagnosis: Acute hypoxic respiratory failure secondary to COPD exacerbation and community- acquired pneumonia as well as COVID-19 infection but no clear-cut evidence of CO VID-19 pneumonia This is AN 83-year-old female known history of hypertension and COPD, patient was admitted on 01/26/2024, when she presented with chest pain and shortness of breath. Apparently her pain has been going on over the past month on and off, and became worse 3 days prior to her admission. Patient was also complaining of increased swelling in her lower extremities. Patient is an active smoker, patient was seen by cardiology on consultation, felt that the patient had non-ST elevation myocardial infarction and acute congestive heart failure with preserved LV function. Hence the patient was placed on Lasix 40 mg IV push every 12 hours, she was also placed on heparin initially, scheduled to undergo cardiac catheterization which was done on 11/29/2023, patient underwent successful stenting of the mid and proximal right coronary artery. She also had stenting of PLV branch of the right coronary artery, and she was advised to continue dual antiplatelet therapy using aspirin and Plavix for 1 year. 11/30/2023, patient continues to have shortness of breath and she had a CT angiogram of the chest which showed no evidence of pulmonary embolism, but she did have mild emphysematous changes and scarring bilaterally, with nonspecific groundglass opacity in the lingula. The finding is very limited, could be secondary to pneumonia. Hence this consult was initiated. In the meantime the patient is receiving Rocephin empirically. Patient clearly describes intermittent cough and wheezing, cough is dry cough mostly, no fever no chills no hemoptysis. In addition to her cardiac meds, patient is receiving bronchodilators in the form of Symbicort which we added today, she is also on albuterol updraft 4 times daily and as needed, and on Spiriva Respimat which is an appropriate regimen for her underlying COPD. Patient was reevaluated today on 12/04/2023, patient is feeling better, breathing easier, does not seem to be in much distress. However the patient remains on relatively high flow oxygen at 7 L/min with O2 sats of 92% hardly any cough, less wheezing, WBC count is 15.7 hemoglobin 13.1 basic metabolic profile is normal except for sodium of 131 and her renal profile showed a BUN of 39 creatinine 0.68. Patient remains on antibiotics bronchodilators and she is also on Decadron. Antibiotics ramos she is on Rocephin. Patient was reevaluated today on 12/05/2023, patient is gradually getting better, breathing easier, I was able to titrate the patient down to 5 L nasal cannula, and she maintained O2 saturation above 96%, patient could be titrated further down, and she will eventually possibly require home O2 for a while. Meantime the patient is receiving treatment for her underlying COPD, and receiving treatment for presumptive pneumonia in addition to her COVID-19 infection and pneumonia, patient had acute diastolic congestive heart failure, and has been diuresed. Overall I believe the patient is making a significant progress, and the plan is to continue titrating her oxygen down and decide whether she needs to be on oxygen upon dischargeWBC count today is 17.9 hemoglobin is 13.5 basic metabolic profile is normal sodium remains a bit low at 130 Patient was seen and examined today on 12/06/2023, patient is doing great. Her oxygen has been titrated down to 2 L nasal cannula, and the patient seems to be quite comfortable with 2 L O2 sat is 94% his WBC is 18.6, hemoglobin 13.3, sodium is 129, rest of the electrolytes and renal profile is normal. Patient remains on diuretics, and that is contributing to her low sodium and elevated BUN clinically however the patient is doing great, and I will clear the patient for discharge home, and follow-up on outpatient basis. Will need home O2 at least at 2 L, and this will be addressed on outpatient basis. Chest x-ray yesterday showed minimal patchy atelectasis at the bases Objective - Vital Signs Vital signs: Vital Signs Temp 98.4 F 12/06/23 07:52 Pulse 81 12/06/23 13:04 Resp 20 12/06/23 11:06 BP 111/65 12/06/23 11:06 Pulse Ox 94 L 12/06/23 11:06 FiO2 Intake & Output 12/05/23 12/06/23 12/06/23 18:59 06:59 18:59 Intake Total 230 120 Output Total 1 Balance 229 120 Intake: Oral 230 120 Output: Urine 1 Other: Voiding Method Toilet Toilet Toilet # Voids 1 1 # Bowel Movements 1 - Exam General: Revealed 83-year-old female in no distress, on 2 L nasal cannula. Skin: Skin is warm and dry and no rashes or lesions are noted. Eye: Pupils are equal, round and reactive to light, extra-ocular movements are intact; there is normal conjunctiva bilaterally. Ears, nose, mouth and throat: There are moist mucous membranes and no oral lesions. Neck: The neck is supple, there is no tenderness or JVD. Cardiovascular: There is a regular rate and rhythm. No murmur, rub or gallop is appreciated. Respiratory: Diminished breath sound bilaterally no rhonchi no wheezes Gastrointestinal: Soft, non-distended, non-tender abdomen without masses or organomegaly noted. There is no rebound or guarding present. Bowel sounds are unremarkable. Back: There is no tenderness to palpation in the midline. There is no obvious deformity. Musculoskeletal: Normal ROM, no tenderness, There is no pedal edema. There is n o calf tenderness or swelling. No cords were appreciated. Neurological: CN II-XII intact, Cranial nerves III through XII are intact. There are no obvious motor or sensory deficits. Coordination appears grossly intact. Speech is normal. Psychiatric: Cooperative, appropriate mood & affect, normal judgment. - Labs CBC & Chem 7: 12/06/23 08:24 03 08:24 Labs: Abnormal Lab Results - Last 24 Hours (Table) 12/06/23 12/06/23 Range/Units 08:24 08:24 WBC 18.6 H (3.8-10.6) k/uL Neutrophils # 14.8 H (1.3-7.7) k/uL Monocytes # 1.4 H (0-1.0) k/uL Sodium 129 L (137-145) mmol/L Chloride 90 L (98-107) mmol/L Carbon Dioxide 32 H (22-30) mmol/L BUN 47 H (7-17) mg/dL Assessment and Plan Assessment: Impression: Acute hypoxic respiratory failure Acute exacerbation of COPD Suspect community-acquired pneumonia involving the lingula Acute COVID-19 infection, diagnosis was made on 11/27, doubt pneumonia secondary to COVID-19 infection Acute non-ST elevation myocardial infarction Acute diastolic congestive heart failure Benign essential hypertension Coronary arteriosclerosis Tobacco dependence syndrome Status post cardiac catheterization on this admission and multiple stents placement Recommendation: Cleared the patient to be discharged home if cleared by other consultants Arrange for home O2 at 2 L Continue gentle diuresis Patient finished full course of antibiotics need for oral antibiotics at home Continue bronchodilators including albuterol, Spiriva, Symbicort Discontinue Decadron Continue aspirin and Plavix and atorvastatin Follow-up on outpatient basis postdischarge Time with Patient: Less than 30
--- NOTE | 2023-12-06 14:55 | P.PN ---
Subjective Progress Note Date: 12/06/23 No new complaints today. Breathing is improving, oxygen requirement is improving Gen: In NAD, non-toxic HEENT: normocephalic, atraumatic, hearing acuity is intant, mucous membranes moist CVS: perfusing all extremities well, no pitting edema, Respiratory: symmetric chest expansion, no accessory muscle use, GI: soft, NTTP, ND, : no suprapubic tenderness, no CVA tenderness MSK/Derm: no rashes, cyanosis Neuro: CN II-XII intact, no motor weakness, Psych: cooperative, euthymic mood, judgment and insight is intact Hospital course Patient is a 83-year-old female with a PMH of COPD and hypertension who presents to the emergency room with complaints of chest pain and shortness of breath. Patient reports experiencing substernal chest tightness with associated shortness of breath over the past 1 week. She also reports experiencing mild bilateral lower extremity edema which is new for her. Chest x-ray in the emergency room revealed mild vascular congestion with EKG s howing sinus tachycardia at 103 bpm with a left anterior fascicular block. Laboratory evaluation was remarkable for WBC count 13.3, troponin 0.118, proBNP 842, sodium 133, potassium 3.2, chloride 91, CO2 36, BUN 22, and creatinine 0.62. Patient was started on a Heparin drip and Lasix IV, admitted for NSTEMI and CHF exacerbation. Patient's echocardiogram showed EF of 55 to 60%. Patient had a heart catheterization done and underwent stenting of the right coronary artery and PLV branch of the RCA on 11/28. Patient also found to be positive for COVID-19. Patient started on Decadron. CTA chest was negative for PE. It did show 2 areas of groundglass opacity with organizing consolidation suspicious for acute process. Patient was started on Rocephin and azithromycin for possible superimposed bacterial pneumonia. Assessment and plan Acute hypoxic respiratory failure COVID-19 Superimposed bacterial pneumonia COPD exacerbation Pulmonology increase Decadron to 6 mg twice daily Continue with inhalers as needed Continue with current antibiotics Rocephin and azithromycin Patient currently on 3 L nasal cannula, wean as tolerated Pulmonology following Patient denies being on home oxygen I instructed to nurse to titrate patient's oxygen to keep goal above 92% Patient needs home oxygen and walker due to COPD and unsteady gait Non-ST elevation OR Status post PCI on this admission Continue dual antiplatelet therapy aspirin Plavix Patient counseled on medication compliance Acute on chronic diastolic heart failure Patient currently on oral Bumex 0.5 mg p.o. daily Metabolic alkalosis likely due to diuretics Continue to monitor BMP Acute on chronic debility Patient wants to go home Family believes that she needs to go to longterm facility Per psychiatry patient does not have capacity to make medical decisions Insomnia Patient on Xanax as needed for anxiety Will start the patient on melatonin Chronic conditions COPD and hypertension -Stable CODE STATUS: FULL CODE DVT Prophylaxis: Lovenox. Objective - Vital Signs Vital signs: Vital Signs Temp 98.4 F 12/06/23 07:52 Pulse 81 12/06/23 13:04 Resp 20 12/06/23 11:06 BP 111/65 12/06/23 11:06 Pulse Ox 93 L 12/06/23 14:00 FiO2 Intake & Output 12/05/23 12/06/23 12/06/23 18:59 06:59 18:59 Intake Total 230 120 Output Total 1 Balance 229 120 Intake: Oral 230 120 Output: Urine 1 Other: Voiding Method Toilet Toilet Toilet # Voids 1 1 # Bowel Movements 1 - Labs CBC & Chem 7: 12/06/23 08:24 12/06/23 08:24 Labs: Abnormal Lab Results - Last 24 Hours (Table) 12/06/23 12/06/23 Range/Units 08:24 08:24 WBC 18.6 H (3.8-10.6) k/uL Neutrophils # 14.8 H (1.3-7.7) k/uL Monocytes # 1.4 H (0-1.0) k/uL Sodium 129 L (137-145) mmol/L Chloride 90 L (98-107) mmol/L Carbon Dioxide 32 H (22-30) mmol/L BUN 47 H (7-17) mg/dL
[2023-12-07 05:08] VITALS: RESP 18
[2023-12-07 10:45] VITALS: BP 138/79; PULSE 90; TEMP 98.3
--- NOTE | 2023-12-07 11:01 | P.DS ---
Providers Date of admission: 11/27/23 01:27 Expected date of discharge: 12/07/23 Attending physician: Dawn Ramsey MD Consults: 11/30/23 11:36 Consult Physician Routine Consulting Provider: Felix Ledesma Consult Reason/Comments: decision making capacity Do you want consulting provider notified?: Yes 12/03/23 09:39 Consult Physician Routine Consulting Provider: Olegario Baig Consult Reason/Comments: hypoxia Do you want consulting provider notified?: Yes [facility] Course: Acute hypoxic respiratory failure COVID-19 Superimposed bacterial pneumonia COPD exacerbation Non-ST elevation CT Acute on chronic diastolic heart failure Metabolic alkalosis likely due to diuretics Acute on chronic debility Insomnia Gen: In NAD, non-toxic HEENT: normocephalic, atraumatic, hearing acuity is intant, mucous membranes moist CVS: perfusing all extremities well, no pitting edema, Respiratory: symmetric chest expansion, no accessory muscle use, GI: soft, NTTP, ND, : no suprapubic tenderness, no CVA tenderness MSK/Derm: no rashes, cyanosis Neuro: CN II-XII intact, no motor weakness, Psych: cooperative, euthymic mood, judgment and insight is intact Hospital course Patient is a 83-year-old female with a PMH of COPD and hypertension who presents to the emergency room with complaints of chest pain and shortness of breath. Patient reports experiencing substernal chest tightness with associated shortness of breath over the past 1 week. She also reports experiencing mild bilateral lower extremity edema which is new for her. Chest x-ray in the emergency room revealed mild vascular congestion with EKG showing sinus tachycardia at 103 bpm with a left anterior fascicular block. Laboratory evaluation was remarkable for WBC count 13.3, troponin 0.118, proBNP 842, sodium 133, potassium 3.2, chloride 91, CO2 36, BUN 22, and creatinine 0.62. Patient was started on a Heparin drip and Lasix IV, admitted for NSTEMI and CHF exacerbation. Patient's echocardiogram showed EF of 55 to 60%. Patient had a heart catheterization done and underwent stenting of the right coronary artery and PLV branch of the RCA on 11/28. Patient also found to be positive for COVID-19. Patient started on Decadron. CTA chest was negative for PE. It did show 2 areas of groundglass opacity with organizing consolidation suspicious for acute process. Patient was started on Rocephin and azithromycin for possible superimposed bacterial pneumonia. Pts oxygenation did improve down to 2-3L at rest, however, pt was requiring ambulatory oxygen on discharge and these supplies were arranged by CM. Pt was prescribed medications to her home pharmacy and instructed to maintain oxygen until f/u with PCP and pulmonology. I spent 40 minutes coordinating this discharge on 12/06 Patient Condition at Discharge: Stable Plan - Discharge Summary Discharge Rx Participant: Yes New Discharge Prescriptions: New Metoprolol Tartrate [Lopressor] 25 mg PO BID #60 tab Nitroglycerin Sl Tabs [Nitrostat] 0.4 mg SUBLINGUAL Q5M PRN #5 tab PRN Reason: Chest Pain Albuterol Inhaler [Ventolin Hfa Inhaler] 2 puff INHALATION RT-QID PRN #1 each PRN Reason: Dyspnea Aspirin 81 mg PO DAILY #30 tab Atorvastatin [Lipitor] 40 mg PO HS #30 tab Clopidogrel [Plavix] 75 mg PO DAILY #30 tab Tiotropium 2.5 Mcg/Puff [Spiriva Respimat 2.5 Mcg] 2 puff INHALATION RT-DAILY #1 each Budesonide-Formot 160-4.5 Mcg [Symbicort 160-4.5 Mcg Inhaler] 2 puff INHALATION RT-BID #1 each Continue Bumetanide [BUMEX] 0.5 mg PO DAILY Discontinued carvediloL [Coreg] 6.25 tablet PO BID Discharge Medication List Bumetanide [BUMEX] 0.5 mg PO DAILY 11/27/23 [History] Albuterol Inhaler [Ventolin Hfa Inhaler] 2 puff INHALATION RT-QID PRN #1 each 12/07/23 [Rx] Aspirin 81 mg PO DAILY #30 tab 12/07/23 [Rx] Atorvastatin [Lipitor] 40 mg PO HS #30 tab 12/07/23 [Rx] Budesonide-Formot 160-4.5 Mcg [Symbicort 160-4.5 Mcg Inhaler] 2 puff INHALATION RT-BID #1 each 12/07/23 [Rx] Clopidogrel [Plavix] 75 mg PO DAILY #30 tab 12/07/23 [Rx] Metoprolol Tartrate [Lopressor] 25 mg PO BID #60 tab 12/07/23 [Rx] Nitroglycerin Sl Tabs [Nitrostat] 0.4 mg SUBLINGUAL Q5M PRN #5 tab 12/07/23 [Rx] Tiotropium 2.5 Mcg/Puff [Spiriva Respimat 2.5 Mcg] 2 puff INHALATION RT-DAILY #1 each 12/07/23 [Rx] Follow up Appointment(s)/Referral(s): Chucky Horne MD [STAFF PHYSICIAN] - 1 Week Urban Davalos MD [STAFF PHYSICIAN] - 1 Week Christopher Wood DO [Primary Care Provider] - 1-2 days Patient Instructions/Handouts: Heart Attack (DC), Heart Failure (DC), Heart Healthy Diet (DC) Discharge Disposition: HOME WITH HOME HEALTH SERVICES
[2023-12-07 11:16] LABS: African American GFR (CKD) 87 (>60 ml/min/1.73 sqM); Anion Gap 9 mmol/L; Blood Urea Nitrogen 45 mg/dL (7-17); Calcium 8.5 mg/dL (8.4-10.2); Carbon Dioxide 27 mmol/L (22-30); Chloride 92 mmol/L (98-107); Glucose 177 mg/dL (74-99); Magnesium 1.7 mg/dL (1.6-2.3); Non-African American GFR(CKD) 75 (>60 ml/min/1.73 sqM); Potassium 4.2 mmol/L (3.5-5.1); Sodium 128 mmol/L (137-145)
[2023-12-07 11:58] LABS: Basophils % (A) 0 %; Eosinophils # (A) 0.1 k/uL (0-0.7); Eosinophils % (A) 1 %; HCT 38.6 % (34.0-46.0); HGB 12.8 gm/dL (11.4-16.0); Lymphocytes # (A) 2.3 k/uL (1.0-4.8); Lymphocytes % (A) 12 %; MCH 32.3 pg (25.0-35.0); MCHC 33.1 g/dL (31.0-37.0); MCV 97.6 fL (80.0-100.0); Mean Platelet Volume 10.1; Monocytes # (A) 1.2 k/uL (0-1.0); Monocytes % (A) 7 %; Neutrophils # (A) 14.5 k/uL (1.3-7.7); Neutrophils % (A) 79 %; Platelet Count 228 k/uL (150-450); RBC 3.95 m/uL (3.80-5.40); RDW 14.4 % (11.5-15.5); WBC 18.3 k/uL (3.8-10.6)
--- NOTE | 2023-12-07 13:54 | P.PN ---
Subjective Progress Note Date: 12/07/23 Principal diagnosis: Acute hypoxic respiratory failure secondary to COPD exacerbation and community- acquired pneumonia as well as COVID-19 infection but no clear-cut evidence of CO VID-19 pneumonia This is AN 83-year-old female known history of hypertension and COPD, patient was admitted on 01/26/2024, when she presented with chest pain and shortness of breath. Apparently her pain has been going on over the past month on and off, and became worse 3 days prior to her admission. Patient was also complaining of increased swelling in her lower extremities. Patient is an active smoker, patient was seen by cardiology on consultation, felt that the patient had non-ST elevation myocardial infarction and acute congestive heart failure with preserved LV function. Hence the patient was placed on Lasix 40 mg IV push every 12 hours, she was also placed on heparin initially, scheduled to undergo cardiac catheterization which was done on 11/29/2023, patient underwent successful stenting of the mid and proximal right coronary artery. She also had stenting of PLV branch of the right coronary artery, and she was advised to continue dual antiplatelet therapy using aspirin and Plavix for 1 year. 11/30/2023, patient continues to have shortness of breath and she had a CT angiogram of the chest which showed no evidence of pulmonary embolism, but she did have mild emphysematous changes and scarring bilaterally, with nonspecific groundglass opacity in the lingula. The finding is very limited, could be secondary to pneumonia. Hence this consult was initiated. In the meantime the patient is receiving Rocephin empirically. Patient clearly describes intermittent cough and wheezing, cough is dry cough mostly, no fever no chills no hemoptysis. In addition to her cardiac meds, patient is receiving bronchodilators in the form of Symbicort which we added today, she is also on albuterol updraft 4 times daily and as needed, and on Spiriva Respimat which is an appropriate regimen for her underlying COPD. Patient was reevaluated today on 12/04/2023, patient is feeling better, breathing easier, does not seem to be in much distress. However the patient remains on relatively high flow oxygen at 7 L/min with O2 sats of 92% hardly any cough, less wheezing, WBC count is 15.7 hemoglobin 13.1 basic metabolic profile is normal except for sodium of 131 and her renal profile showed a BUN of 39 creatinine 0.68. Patient remains on antibiotics bronchodilators and she is also on Decadron. Antibiotics ramos she is on Rocephin. Patient was reevaluated today on 12/05/2023, patient is gradually getting better, breathing easier, I was able to titrate the patient down to 5 L nasal cannula, and she maintained O2 saturation above 96%, patient could be titrated further down, and she will eventually possibly require home O2 for a while. Meantime the patient is receiving treatment for her underlying COPD, and receiving treatment for presumptive pneumonia in addition to her COVID-19 infection and pneumonia, patient had acute diastolic congestive heart failure, and has been diuresed. Overall I believe the patient is making a significant progress, and the plan is to continue titrating her oxygen down and decide whether she needs to be on oxygen upon dischargeWBC count today is 17.9 hemoglobin is 13.5 basic metabolic profile is normal sodium remains a bit low at 130 Patient was seen and examined today on 12/06/2023, patient is doing great. Her oxygen has been titrated down to 2 L nasal cannula, and the patient seems to be quite comfortable with 2 L O2 sat is 94% his WBC is 18.6, hemoglobin 13.3, sodium is 129, rest of the electrolytes and renal profile is normal. Patient remains on diuretics, and that is contributing to her low sodium and elevated BUN clinically however the patient is doing great, and I will clear the patient for discharge home, and follow-up on outpatient basis. Will need home O2 at least at 2 L, and this will be addressed on outpatient basis. Chest x-ray yesterday showed minimal patchy atelectasis at the bases Patient was reevaluated today on 12/07/2023, I have cleared the patient for discharge actually yesterday, for some reason there was a delay in delivering oxygen to her house or getting her oxygen equipment, patient continues to do well, she is on room air and O2 sats is 95%, patient is doing great compared to how she was few days ago. Continues to improve, and I will clear the patient again for discharge today Objective - Vital Signs Vital signs: Vital Signs Temp 98.3 F 12/07/23 08:20 Pulse 90 12/07/23 08:20 Resp 18 12/07/23 08:20 BP 138/79 12/07/23 08:20 Pulse Ox 95 12/07/23 08:20 FiO2 Intake & Output 12/06/23 12/07/23 12/07/23 18:59 06:59 18:59 Intake Total 340 480 Balance 340 480 Intake: Oral 340 480 Other: Voiding Method Toilet Toilet Toilet # Voids 1 # Bowel Movements 1 1 - Exam General: Revealed 83-year-old female in no distress, on 2 L nasal cannula. Skin: Skin is warm and dry and no rashes or lesions are noted. Eye: Pupils are equal, round and reactive to light, extra-ocular movements are intact; there is normal conjunctiva bilaterally. Ears, nose, mouth and throat: There are moist mucous membranes and no oral lesions. Neck: The neck is supple, there is no tenderness or JVD. Cardiovascular: There is a regular rate and rhythm. No murmur, rub or gallop is appreciated. Respiratory: Diminished breath sound bilaterally no rhonchi no wheezes Gastrointestinal: Soft, non-distended, non-tender abdomen without masses or organomegaly noted. There is no rebound or guarding present. Bowel sounds are unremarkable. Back: There is no tenderness to palpation in the midline. There is no obvious deformity. Musculoskeletal: Normal ROM, no tenderness, There is no pedal edema. There is no calf tenderness or swelling. No cords were appreciated. Neurological: CN II-XII intact, Cranial nerves III through XII are intact. There are no obvious motor or sensory deficits. Coordination appears grossly intact. Speech is normal. Psychiatric: Cooperative, appropriate mood & affect, normal judgment. - Labs CBC & Chem 7: 12/07/23 09:10 12/07/23 09:10 Labs: Abnormal Lab Results - Last 24 Hours (Table) 12/07/23 12/07/23 Range/Units 09:10 09:10 WBC 18.3 H (3.8-10.6) k/uL Neutrophils # 14.5 H (1.3-7.7) k/uL Monocytes # 1.2 H (0-1.0) k/uL Sodium 128 L (137-145) mmol/L Chloride 92 L (98-107) mmol/L BUN 45 H (7-17) mg/dL Glucose 177 H (74-99) mg/dL Assessment and Plan Assessment: Impression: Acute hypoxic respiratory failure Acute exacerbation of COPD Suspect community-acquired pneumonia involving the lingula Acute COVID-19 infection, diagnosis was made on 11/27, doubt pneumonia secondary to COVID-19 infection Acute non-ST elevation myocardial infarction Acute diastolic congestive heart failure Benign essential hypertension Coronary arteriosclerosis Tobacco dependence syndrome Status post cardiac catheterization on this admission and multiple stents placement Recommendation: Cleared the patient to be discharged home if cleared by other consultants Continue diuretics on outpatient basis No need for antibiotics at this point Continue bronchodilators including albuterol, Spiriva, Symbicort Continue aspirin and Plavix and atorvastatin Follow-up on outpatient basis postdischarge Time with Patient: Less than 30
== END 2023-12-07 11:46 | disposition home health service (06) | DRG 321 ==
LOC: EC 23:47 → 3SCARD 11-27 01:27
PROVIDERS: ADMIT Internal Medicine; ATTEND Internal Medicine
PROC: 027136Z Dilation of Coronary Artery, Two Arteries with Three Drug-eluting Intraluminal Devices, Percutaneous Approach (ICD-10-PCS; principal; 2023-11-29 08:30)
PROC: B240ZZ3 Ultrasonography of Single Coronary Artery, Intravascular (ICD-10-PCS; principal; 2023-11-29 08:30)
PROC: B2111ZZ Fluoroscopy of Multiple Coronary Arteries using Low Osmolar Contrast (ICD-10-PCS; principal; 2023-11-29 08:30)
PROC: 4A023N7 Measurement of Cardiac Sampling and Pressure, Left Heart, Percutaneous Approach (ICD-10-PCS; principal; 2023-11-29 08:30)
DX: I21.4 Non-ST elevation (NSTEMI) myocardial infarction (principal); I50.33 Acute on chronic diastolic (congestive) heart failure; J15.9 Unspecified bacterial pneumonia; J96.01 Acute respiratory failure with hypoxia; U07.1 COVID-19; E87.1 Hypo-osmolality and hyponatremia; E87.3 Alkalosis; J44.1 Chronic obstructive pulmonary disease with (acute) exacerbation; I11.0 Hypertensive heart disease with heart failure; I25.10 Atherosclerotic heart disease of native coronary artery without angina pectoris; F32.A Depression, unspecified; F17.200 Nicotine dependence, unspecified, uncomplicated; I70.0 Atherosclerosis of aorta; E78.5 Hyperlipidemia, unspecified; E87.6 Hypokalemia; F41.9 Anxiety disorder, unspecified; G47.00 Insomnia, unspecified; I34.81 Nonrheumatic mitral (valve) annulus calcification; I44.4 Left anterior fascicular block; D72.829 Elevated white blood cell count, unspecified; R00.0 Tachycardia, unspecified; T38.0X5A Adverse effect of glucocorticoids and synthetic analogues, initial encounter; M54.9 Dorsalgia, unspecified; T50.2X5A Adverse effect of carbonic-anhydrase inhibitors, benzothiadiazides and other diuretics, initial encounter; Z79.82 Long term (current) use of aspirin; Z79.899 Other long term (current) drug therapy; Z82.49 Family history of ischemic heart disease and other diseases of the circulatory system; Z88.5 Allergy status to narcotic agent; Z63.5 Disruption of family by separation and divorce; Z60.2 Problems related to living alone; Z85.828 Personal history of other malignant neoplasm of skin; Z81.8 Family history of other mental and behavioral disorders
CPT/HCPCS: 36415; 71045; 71046; 71275; 76937; 80048; 80053; 80061; 81001; 83735; 83880; 84145; 84484; 85025; 85027; 85379; 85610; 85730; 87449; 87636; 92978; 93005; 93306; 93458; 94640; 94760; 96374; 96375; 99291

== ENCOUNTER 2023-12-24 12:09 | Emergency (ER) | payer MEDICARE ==
--- NOTE | 2023-12-24 12:33 | ED ---
General Adult HPI - General Chief complaint: Shortness of Breath Stated complaint: DEJUAN Time Seen by Provider: 12/24/23 12:13 Source: patient, EMS, RN notes reviewed Mode of arrival: EMS Limitations: no limitations - History of Present Illness Initial comments: Patient is a pleasant 83-year-old female presenting to the emergency department with concerns with shortness of breath. Onset of symptoms was yesterday. Patient does have occasional cough, nonproductive. No fever. Patient does have some leg swelling. Patient does have history of similar symptoms previously associated with COPD. Patient was admitted last month with pneumonia and COVID and needed 3 cardiac stents. - Related Data Home Medications Medication Instructions Recorded Confirmed Bumetanide [BUMEX] 0.5 mg PO DAILY 11/27/23 12/24/23 Albuterol Nebulized [Ventolin 2.5 mg INHALATION RT-Q6H PRN 12/24/23 12/24/23 Nebulized] traZODone HCL [Desyrel] 50 - 100 mg PO DIRECTED PRN 12/24/23 12/24/23 Previous Rx's Medication Instructions Recorded Albuterol Inhaler [Ventolin Hfa 2 puff INHALATION RT-QID PRN #1 12/07/23 Inhaler] each Aspirin 81 mg PO DAILY #30 tab 12/07/23 Atorvastatin [Lipitor] 40 mg PO HS #30 tab 12/07/23 Budesonide-Formot 160-4.5 Mcg 2 puff INHALATION RT-BID #1 each 12/07/23 [Symbicort 160-4.5 Mcg Inhaler] Clopidogrel [Plavix] 75 mg PO DAILY #30 tab 12/07/23 Metoprolol Tartrate [Lopressor] 25 mg PO BID #60 tab 12/07/23 Nitroglycerin Sl Tabs [Nitrostat] 0.4 mg SUBLINGUAL Q5M PRN #5 tab 12/07/23 Tiotropium 2.5 Mcg/Puff [Spiriva 2 puff INHALATION RT-DAILY #1 each 12/07/23 Respimat 2.5 Mcg] Allergies Allergy/AdvReac Type Severity Reaction Status Date / Time codeine AdvReac Itching Verified 12/24/23 12:56 Review of Systems ROS Statement: Those systems with pertinent positive or pertinent negative responses have been documented in the HPI. ROS Other: All systems not noted in ROS Statement are negative. Constitutional: Denies: fever Eyes: Denies: eye pain ENT: Denies: ear pain Respiratory: Reports: as per HPI, cough, dyspnea Cardiovascular: Reports: edema. 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 History of Any Multi-Drug Resistant Organisms: None Reported Past Surgical History: Hysterectomy Past Psychological History: Anxiety, Depression Smoking Status: Current every day smoker Past Alcohol Use History: None Reported Past Drug Use History: None Reported Additional Drug Use History / Comment(s): 10-15 a day - Past Family History Mother Family Medical History: Myocardial Infarction ([place]) Father Family Medical History: CVA/TIA General Exam Limitations: no limitations General appearance: alert, in no apparent distress Head exam: Present: normocephalic Eye exam: Present: normal appearance Neck exam: Present: normal inspection Respiratory exam: Present: wheezes Cardiovascular Exam: Present: regular rate, normal rhythm GI/Abdominal exam: Present: soft. Absent: tenderness Extremities exam: Present: pedal edema. Absent: calf tenderness Neurological exam: Present: alert Psychiatric exam: Present: normal affect, normal mood Skin exam: Present: normal color Course Vital Signs 12/24/23 12/24/23 12:09 13:33 Temperature 97.3 F L Pulse Rate 90 86 Respiratory 22 21 Rate Blood Pressure 150/78 119/60 O2 Sat by Pulse 95 93 L Oximetry EKG Findings - EKG Results: EKG: interpreted by ERMD (Left axis. Motion artifact present.), normal QRS, normal ST/T Medical Decision Making - Medical Decision Making Was pt. sent in by a medical professional or institution (, PA, SIDE STITCHING MACHINE OPERATOR, urgent care, hospital, or prison...) When possible be specific @ -Patient was sent in by visiting nurse. Patient did not have her oxygen on Did you speak to anyone other than the patient for history (EMS, parent, family, police, friend...)? What history was obtained from this source @ -No Did you review nursing and triage notes (agree or disagree)? Why? @ -I reviewed and agree with nursing and triage notes Were old charts reviewed (outside hosp., previous admission, EMS record, old EKG, old radiological studies, urgent care reports/EKG's, prison records)? Report findings @ -Previous chest x-ray reviewed Differential Diagnosis (chest pain, altered mental status, abdominal pain women, abdominal pain men, vaginal bleeding, weakness, fever, dyspnea, syncope, headache, dizziness, GI bleed, back pain, seizure, CVA, palpatations, mental health, musculoskeletal)? @ -Differential Dyspnea: Coronary syndrome, arrhythmia, tamponade, asthma, COPD, pulmonary embolism, pneumonia, pneumothorax, pulmonary effusion, anaphylaxis, diabetic ketoacidosis, flailed chest, pulmonary contusion, diaphragmatic rupture, anemia, neuromuscu lar, this is not meant to be an all-inclusive list. EKG interpreted by me (3pts min.). @ -As above X-rays interpreted by me (1pt min.). @ -Chest x-ray shows minimal effusions, improved from previous CT interpreted by me (1pt min.). @ -None done U/S interpreted by me (1pt. min.). @ -None done What testing was considered but not performed or refused? (CT, X-rays, U/S, labs)? Why? @ -None What meds were considered but not given or refused? Why? @ -None Did you discuss the management of the patient with other professionals (professionals i.e. , PA, SIDE STITCHING MACHINE OPERATOR, lab, RT, psych nurse, criminal justice social worker, cash register balancer, teacher, fisheries enforcement officer, director case management)? Give summary @ -No Was smoking cessation discussed for >3mins.? @ -No Was critical care preformed (if so, how long)? @ -No Were there social determinants of health that impacted care today? How? (Homelessness, low income, unemployed, alcoholism, drug addiction, transportation, low edu. Level, literacy, decrease access to med. care, long-term, rehab)? @ -No Was there de-escalation of care discussed even if they declined (Discuss DNR or withdrawal of care, Hospice)? DNR status @ -No What co-morbidities impacted this encounter? (DM, HTN, Smoking, COPD, CAD, Cancer, CVA, ARF, Chemo, Hep., AIDS, mental health diagnosis, sleep apnea, morbid obesity)? @ -None Was patient admitted / discharged? Hospital course, mention meds given and route, prescriptions, significant lab abnormalities, going to OR and other pertinent info. @ -Patient reevaluated and resting comfortably in bed. Patient denies any dyspnea. Patient does feel comfortable with discharge home. Patient is updated on results and plan. Patient will be transferred home and she is agreeable to continue using her oxygen. Pulse ox is 94% on oxygen Undiagnosed new problem with uncertain prognosis? @ -No Drug Therapy requiring intensive monitoring for toxicity (Heparin, Nitro, Insulin, Cardizem)? @ -No Were any procedures done? @ -No Diagnosis/symptom? @ -COPD, dyspnea Acute, or Chronic, or Acute on Chronic? @ -Acute on chronic, acute on chronic Uncomplicated (without systemic symptoms) or Complicated (systemic symptoms)? @ -Complicated with out being on her oxygen Side effects of treatment? @ -No Exacerbation, Progression, or Severe Exacerbation? @ -No Poses a threat to life or bodily function? How? (Chest pain, [place], [place], pneumonia, PE, COPD, DKA, ARF, appy, cholecystitis, CVA, Diverticulitis, Homicidal, Suicidal, threat to staff... and all critical care pts) @ -No - Lab Data Result diagrams: 12/24/23 12:32 12/24/23 12:32 Lab Results 12/24/23 12/24/23 12/24/23 Range/Units 12:32 12:32 12:32 WBC 10.9 H (3.8-10.6) k/uL RBC 3.54 L (3.80-5.40) m/uL Hgb 11.5 (11.4-16.0) gm/dL Hct 35.4 (34.0-46.0) % MCV 100.0 (80.0-100.0) fL MCH 32.5 (25.0-35.0) pg MCHC 32.5 (31.0-37.0) g/dL RDW 16.0 H (11.5-15.5) % Plt Count 198 (150-450) k/uL MPV 8.0 Neutrophils % 76 % Lymphocytes % 16 % Monocytes % 5 % Eosinophils % 1 % Basophils % 0 % Neutrophils # 8.2 H (1.3-7.7) k/uL Lymphocytes # 1.7 (1.0-4.8) k/uL Monocytes # 0.6 (0-1.0) k/uL Eosinophils # 0.1 (0-0.7) k/uL Basophils # 0.0 (0-0.2) k/uL Hypochromasia Slight Macrocytosis Slight PT 9.7 L (10.0-12.5) sec INR 0.9 (<1.2) APTT 23.8 (22.0-30.0) sec Sodium (137-145) mmol/L Potassium (3.5-5.1) mmol/L Chloride (98-107) mmol/L Carbon Dioxide (22-30) mmol/L Anion Gap mmol/L BUN (7-17) mg/dL Creatinine (0.52-1.04) mg/dL Est GFR (CKD-EPI)AfAm (>60 ml/min/1.73 sqM) Est GFR (CKD-EPI)NonAf (>60 ml/min/1.73 sqM) Glucose (74-99) mg/dL Plasma Lactic Acid Bryan (0.7-2.0) mmol/L Calcium (8.4-10.2) mg/dL Magnesium (1.6-2.3) mg/dL Total Bilirubin (0.2-1.3) mg/dL AST (14-36) U/L ALT (4-34) U/L Alkaline Phosphatase (38-126) U/L Troponin I (0.000-0.034) ng/mL NT-Pro-B Natriuret Pep pg/mL Total Protein (6.3-8.2) g/dL Albumin (3.5-5.0) g/dL Influenza Type A (PCR) Not Detected (Not Detectd) Influenza Type B (PCR) Not Detected (Not Detectd) RSV (PCR) Not Detected (Not Detectd) SARS-CoV-2 (PCR) Not Detected (Not Detectd) 12/24/23 12/24/23 12/24/23 Range/Units 12:32 12:32 12:32 WBC (3.8-10.6) k/uL RBC (3.80-5.40) m/uL Hgb (11.4-16.0) gm/dL Hct (34.0-46.0) % MCV (80.0-100.0) fL MCH (25.0-35.0) pg MCHC (31.0-37.0) g/dL RDW (11.5-15.5) % Plt Count (150-450) k/uL MPV Neutrophils % % Lymphocytes % % Monocytes % % Eosinophils % % Basophils % % Neutrophils # (1.3-7.7) k/uL Lymphocytes # (1.0-4.8) k/uL Monocytes # (0-1.0) k/uL Eosinophils # (0-0.7) k/uL Basophils # (0-0.2) k/uL Hypochromasia Macrocytosis PT (10.0-12.5) sec INR (<1.2) APTT (22.0-30.0) sec Sodium 139 (137-145) mmol/L Potassium 4.1 (3.5-5.1) mmol/L Chloride 94 L (98-107) mmol/L Carbon Dioxide 34 H (22-30) mmol/L Anion Gap 11 mmol/L BUN 42 H (7-17) mg/dL Creatinine 0.55 (0.52-1.04) mg/dL Est GFR (CKD-EPI)AfAm >90 (>60 ml/min/1.73 sqM) Est GFR (CKD-EPI)NonAf 88 (>60 ml/min/1.73 sqM) Glucose 154 H (74-99) mg/dL Plasma Lactic Acid Bryan 1.3 (0.7-2.0) mmol/L Calcium 8.7 (8.4-10.2) mg/dL Magnesium 2.0 (1.6-2.3) mg/dL Total Bilirubin 0.7 (0.2-1.3) mg/dL AST 34 (14-36) U/L ALT 43 H (4-34) U/L Alkaline Phosphatase 94 (38-126) U/L Troponin I 0.016 (0.000-0.034) ng/mL NT-Pro-B Natriuret Pep 789 pg/mL Total Protein 6.0 L (6.3-8.2) g/dL Albumin 3.1 L (3.5-5.0) g/dL Influenza Type A (PCR) (Not Detectd) Influenza Type B (PCR) (Not Detectd) RSV (PCR) (Not Detectd) SARS-CoV-2 (PCR) (Not Detectd) Disposition Clinical Impression: Hypoxia, COPD (chronic obstructive pulmonary disease) Disposition: HOME SELF-CARE Condition: Stable Instructions (If sedation given, give patient instructions): Hypoxia (ED) Additional Instructions: Please do follow-up with your primary care physician in the next 1 or 2 days for recheck. Return for difficulty breathing, fever, worsening or changing symptoms or any other concerns. Is patient prescribed a controlled substance at d/c from ED?: No Referrals: Christopher Wood DO [Primary Care Provider] - 1-2 days Time of Disposition: 13:53
[2023-12-24 12:48] LABS: Basophils % (A) 0 %; Eosinophils # (A) 0.1 k/uL (0-0.7); Eosinophils % (A) 1 %; HCT 35.4 % (34.0-46.0); HGB 11.5 gm/dL (11.4-16.0); Hypochromasia Slight; Lymphocytes # (A) 1.7 k/uL (1.0-4.8); Lymphocytes % (A) 16 %; MCH 32.5 pg (25.0-35.0); MCHC 32.5 g/dL (31.0-37.0); Macrocytosis Slight; Monocytes # (A) 0.6 k/uL (0-1.0); Monocytes % (A) 5 %; Neutrophils # (A) 8.2 k/uL (1.3-7.7); Neutrophils % (A) 76 %; Platelet Count 198 k/uL (150-450); RBC 3.54 m/uL (3.80-5.40); WBC 10.9 k/uL (3.8-10.6)
[2023-12-24 13:02] LABS: ALT 43 U/L (4-34); AST 34 U/L (14-36); African American GFR (CKD) >90 (>60 ml/min/1.73 sqM); Albumin 3.1 g/dL (3.5-5.0); Alkaline Phosphatase 94 U/L (38-126); Blood Urea Nitrogen 42 mg/dL (7-17); Calcium 8.7 mg/dL (8.4-10.2); Chloride 94 mmol/L (98-107); Glucose 154 mg/dL (74-99); Non-African American GFR(CKD) 88 (>60 ml/min/1.73 sqM); Potassium 4.1 mmol/L (3.5-5.1); Sodium 139 mmol/L (137-145); Total Bilirubin 0.7 mg/dL (0.2-1.3)
[2023-12-24 13:04] VITALS: TEMP 97.3
[2023-12-24 13:07] LABS: Anion Gap 11 mmol/L; Carbon Dioxide 34 mmol/L (22-30)
--- NOTE | 2023-12-24 13:08 | XR ---
EXAMINATION TYPE: XR chest 2V DATE OF EXAM: 12/24/2023 COMPARISON: 12/05/2023 TECHNIQUE: PA and lateral views submitted. HISTORY: Shortness of breath FINDINGS: The lungs are clear and there is no pneumothorax, pleural effusion, or focal pneumonia. Heart size normal and no overt failure. Osseous structures demonstrate hypertrophic and degenerative changes of the spine. Atherosclerotic change aorta. Diffuse osteopenia. Limited inspiration with basilar atelect asis favored over pneumonia. IMPRESSION: 1. Improving bilateral atelectasis\infiltrate.
[2023-12-24 13:11] LABS: NT-Pro-B-Type Natriuretic Pept 789 pg/mL
[2023-12-24 13:13] LABS: INR 0.9 (<1.2); Partial Thromboplastin Time 23.8 sec (22.0-30.0); Prothrombin Time 9.7 sec (10.0-12.5)
[2023-12-24 13:41] VITALS: BP 119/60; RESP 21
[2023-12-24] MEDS: IPRATROPIUM-ALBUTEROL 3 ML NEB INHALATION STA (13:53)
[2023-12-24 14:17] VITALS: PULSE 96
== END 2023-12-24 14:26 | disposition home or self-care (01) ==
LOC: EC 12:09
DX: J44.9 Chronic obstructive pulmonary disease, unspecified (principal); R09.02 Hypoxemia; J90 Pleural effusion, not elsewhere classified; F17.200 Nicotine dependence, unspecified, uncomplicated; Z79.51 Long term (current) use of inhaled steroids; Z88.5 Allergy status to narcotic agent
CPT/HCPCS: 36415; 71046; 80053; 83605; 83735; 83880; 84484; 85025; 85610; 85730; 87636; 93005; 94640; 99285

== ENCOUNTER 2023-12-29 22:44 | Inpatient (IN) | payer MEDICARE ==
[2023-12-29 23:35] LABS: Anisocytosis Slight; Basophils # (A) 0.1 k/uL (0-0.2); Basophils % (A) 0 %; Eosinophils # (A) 0.1 k/uL (0-0.7); Eosinophils % (A) 1 %; HCT 21.6 % (34.0-46.0); Hypochromasia Moderate; Lymphocytes # (A) 1.5 k/uL (1.0-4.8); Lymphocytes % (A) 11 %; MCH 32.8 pg (25.0-35.0); MCHC 32.3 g/dL (31.0-37.0); MCV 101.7 fL (80.0-100.0); Macrocytosis Moderate; Mean Platelet Volume 8.5; Monocytes # (A) 0.7 k/uL (0-1.0); Monocytes % (A) 5 %; Neutrophils # (A) 11.5 k/uL (1.3-7.7); Neutrophils % (A) 81 %; Platelet Count 272 k/uL (150-450); Poikilocytosis Slight; RBC 2.12 m/uL (3.80-5.40); RDW 18.7 % (11.5-15.5); WBC 14.2 k/uL (3.8-10.6)
[2023-12-29 23:42] LABS: ALT 25 U/L (4-34); AST 24 U/L (14-36); African American GFR (CKD) >90 (>60 ml/min/1.73 sqM); Albumin 2.8 g/dL (3.5-5.0); Alkaline Phosphatase 75 U/L (38-126); Anion Gap 1 mmol/L; Blood Urea Nitrogen 36 mg/dL (7-17); Calcium 8.5 mg/dL (8.4-10.2); Carbon Dioxide 38 mmol/L (22-30); Chloride 97 mmol/L (98-107); Glucose 127 mg/dL (74-99); Non-African American GFR(CKD) 86 (>60 ml/min/1.73 sqM); Potassium 4.3 mmol/L (3.5-5.1); Sodium 136 mmol/L (137-145); Total Bilirubin 0.5 mg/dL (0.2-1.3); Total Protein 5.5 g/dL (6.3-8.2)
[2023-12-29 23:50] LABS: NT-Pro-B-Type Natriuretic Pept 499 pg/mL
[2023-12-29 23:51] LABS: INR 0.9 (<1.2); Prothrombin Time 9.9 sec (10.0-12.5)
[2023-12-29 23:55] LABS: Partial Thromboplastin Time 20.9 sec (22.0-30.0)
--- NOTE | 2023-12-30 02:36 | ED ---
SOB HPI - General Chief Complaint: Shortness of Breath Stated Complaint: Weakness Time Seen by Provider: 12/29/23 22:55 Source: EMS Mode of arrival: EMS - History of Present Illness Initial Comments: 83-year-old female presents to the emergency department for shortness of breath. States that she was recently hospitalized at the end of October for shortness of breath. She was diagnosed with COPD exacerbation and CHF. She required 3 stents. She was discharged home on aspirin and Plavix. She came into the emergency department on the complaining of weakness and shortness of breath. Laboratory studies were within normal limits and the patient went home. Today the patient states that she has been so weak that she was unable to get up and ambulate on her own from her chair. She has lower extremity swelling which is now starting to involve her upper extremities. She has been taking her diuretic as directed as well as her aspirin and Plavix. She denies any black or bloody stools. No hematemesis. Denies any urinary complaints. She denies that she uses her inhalers. No other alleviating, precipitating modifying factors - Related Data Home Medications Medication Instructions Recorded Confirmed Bumetanide [BUMEX] 0.5 mg PO DAILY 11/27/23 12/30/23 Albuterol Nebulized [Ventolin 2.5 mg INHALATION RT-Q6H PRN 12/24/23 12/30/23 Nebulized] traZODone HCL [Desyrel] 50 - 100 mg PO HS PRN 12/24/23 12/30/23 Nitroglycerin Sl Tabs [Nitrostat] 0.4 mg SL Q5M PRN 12/30/23 12/30/23 Previous Rx's Medication Instructions Recorded Albuterol Inhaler [Ventolin Hfa 2 puff INHALATION RT-QID PRN #1 12/07/23 Inhaler] each Aspirin 81 mg PO DAILY #30 tab 12/07/23 Atorvastatin [Lipitor] 40 mg PO HS #30 tab 12/07/23 Budesonide-Formot 160-4.5 Mcg 2 puff INHALATION RT-BID #1 each 12/07/23 [Symbicort 160-4.5 Mcg Inhaler] Clopidogrel [Plavix] 75 mg PO DAILY #30 tab 12/07/23 Metoprolol Tartrate [Lopressor] 25 mg PO BID #60 tab 12/07/23 Tiotropium 2.5 Mcg/Puff [Spiriva 2 puff INHALATION RT-DAILY #1 each 12/07/23 Respimat 2.5 Mcg] ALPRAZolam [Xanax] 0.5 mg PO BID PRN #6 tab 01/02/24 Acetaminophen Tab [Tylenol] 650 mg PO Q6HR PRN tab 01/02/24 Pantoprazole [Protonix] 40 mg PO AC-BRKFST tab 01/02/24 Allergies Allergy/AdvReac Type Severity Reaction Status Date / Time codeine AdvReac Itching Verified 12/30/23 06:27 Review of Systems ROS Statement: Those systems with pertinent positive or pertinent negative responses have been documented in the HPI. ROS Other: All systems not noted in ROS Statement are negative. 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 Absent: scleral icterus, conjunctival injection, periorbital swelling ENT exam: Present: normal exam, mucous membranes moist Neck exam: Present: normal inspection. Absent: tenderness, meningismus, lymphadenopathy Respiratory exam: Present: normal lung sounds bilaterally. Absent: respiratory distress, wheezes, rales, rhonchi, stridor Cardiovascular Exam: Present: regular rate, normal rhythm, normal heart sounds. Absent: systolic murmur, diastolic murmur, rubs, gallop, clicks GI/Abdominal exam: Present: soft, normal bowel sounds. Absent: distended, tenderness, guarding, rebound, rigid Rectal exam: Present: heme (+) stool, other (minimal stool obtained on rectal exam). Absent: black stool, bloody stool Extremities exam: Present: normal inspection, full ROM, normal capillary refill. Absent: tenderness, pedal edema, joint swelling, calf tenderness Back exam: Present: normal inspection Neurological exam: Present: alert, oriented X3, CN II-XII intact Psychiatric exam: Present: normal affect, normal mood Skin exam: Present: warm, dry, intact, normal color. Absent: rash Course Vital Signs 12/29/23 12/29/23 12/30/23 22:48 22:53 00:00 Temperature 97.7 F Pulse Rate 80 80 Respiratory 22 22 20 Rate Blood Pressure 107/70 106/61 O2 Sat by Pulse 94 L 97 Oximetry 12/30/23 12/30/23 12/30/23 03:00 04:00 05:45 Temperature 97.7 F Pulse Rate 80 77 87 Respiratory 18 18 18 Rate Blood Pressure 118/56 110/75 134/64 O2 Sat by Pulse 100 100 96 Oximetry 12/30/23 12/30/23 12/30/23 05:54 06:14 07:40 Temperature 97.5 F L 97.7 F 97.5 F L Pulse Rate 89 91 89 Respiratory 18 18 16 Rate Blood Pressure 133/67 128/63 103/52 O2 Sat by Pulse 95 95 92 L Oximetry 12/30/23 12/30/23 12/30/23 08:00 09:00 09:24 Temperature 98.1 F Pulse Rate 89 Respiratory 18 18 18 Rate Blood Pressure 113/73 132/74 O2 Sat by Pulse 97 95 Oximetry 12/30/23 12/30/23 12/30/23 09:57 11:12 12:00 Temperature 97.0 F L Pulse Rate 91 77 80 Respiratory 20 18 18 Rate Blood Pressure 156/75 118/48 95/58 O2 Sat by Pulse 98 99 94 L Oximetry 12/30/23 12/30/23 13:45 14:36 Temperature 97.5 F L Pulse Rate 87 87 Respiratory 18 18 Rate Blood Pressure 106/63 104/60 O2 Sat by Pulse 93 L 95 Oximetry Medical Decision Making - Medical Decision Making Was pt. sent in by a medical professional or institution (, PA, FEED MILL LAB TECHNICIAN, urgent care, hospital, or group home...) When possible be specific @ -No Did you speak to anyone other than the patient for history (EMS, parent, family, police, friend...)? What history was obtained from this source @ -Spoke with patient's granddaughter Did you review nursing and triage notes (agree or disagree)? Why? @ -I reviewed and agree with nursing and triage notes Were old charts reviewed (outside hosp., previous admission, EMS record, old EKG, old radiological studies, urgent care reports/EKG's, group home records)? Report findings @ -I reviewed patient's chart from recent hospitalization including her discharge summary Differential Diagnosis (chest pain, altered mental status, abdominal pain women, abdominal pain men, vaginal bleeding, weakness, fever, dyspnea, syncope, headache, dizziness, GI bleed, back pain, seizure, CVA, palpatations, mental health, musculoskeletal)? @ -Differential Dyspnea: Coronary syndrome, arrhythmia, tamponade, asthma, COPD, pulmonary embolism, pneumonia, pneumothorax, pulmonary effusion, anaphylaxis, diabetic ketoacidosis, flailed chest, pulmonary contusion, diaphragmatic rupture, anemia, neuromuscular, this is not meant to be an all-inclusive list. EKG interpreted by me (3pts min.). @ -Yes and demonstrates sinus rhythm with a rate of 82. [place] interval 191. QRS 64. QTc of 409. No acute ST segment elevation or depression. Significant baseline artifact X-rays interpreted by me (1pt min.). @ -Yes, no acute findings CT interpreted by me (1pt min.). @ -None done U/S interpreted by me (1pt. min.). @ -None done What testing was considered but not performed or refused? (CT, X-rays, U/S, labs)? Why? @ -None What meds were considered but not given or refused? Why? @ -None Did you discuss the management of the patient with other professionals (professionals i.e. , PA, [employer] M[employer] LAB TECHNICIAN, lab, RT, psych nurse, clinical social work aide, customs and immigration officer, teacher, health promotion officer, rn case mgr)? Give summary @ -Spoke with Dr. Ramsey for admission Was smoking cessation discussed for >3mins.? @ -No Was critical care preformed (if so, how long)? @ -Yes, 35 minutes for blood transfusion Were there social determinants of health that impacted care today? How? (Homelessness, low income, unemployed, alcoholism, drug addiction, transportation, low edu. Level, literacy, decrease access to med. care, nursing home, rehab)? @ -No Was there de-escalation of care discussed even if they declined (Discuss DNR or withdrawal of care, Hospice)? DNR status @ -No What co-morbidities impacted this encounter? (DM, HTN, Smoking, COPD, CAD, Cancer, CVA, ARF, Chemo, Hep., AIDS, mental health diagnosis, sleep apnea, morbid obesity)? @ -CHF, coronary disease, COPD Was patient admitted / discharged? Hospital course, mention meds given and route, prescriptions, significant lab abnormalities, going to OR and other pertinent info. @ -Upon arrival patient was seen and evaluated in room 5. Thorough history and physical exam was performed. IV was established and laboratory studies are conducted. Patient is anemic. She denies any black or bloody stools however occult is performed and does demonstrate microscopic blood. Patient will be transfused 1 unit of PRBCs. She will be admitted. Spoke with Dr. Ramsey who is agreeable to admission Undiagnosed new problem with uncertain prognosis? @ -Yes Drug Therapy requiring intensive monitoring for toxicity (Heparin, Nitro, Insulin, Cardizem)? @ -Blood products Were any procedures done? @ -No Diagnosis/symptom? @ -Acute dyspnea, acute anemia, occult positive Acute, or Chronic, or Acute on Chronic? @ -Acute Uncomplicated (without systemic symptoms) or Complicated (systemic symptoms)? @ -Complicated Side effects of treatment? @ -No Exacerbation, Progression, or Severe Exacerbation? @ -No Poses a threat to life or bodily function? How? (Chest pain, [place], [place], pneumonia, PE, COPD, DKA, ARF, appy, cholecystitis, CVA, Diverticulitis, Homicidal, Suicidal, threat to staff... and all critical care pts) @ -Yes as patient is severely anemic requiring blood transfusion - Lab Data Result diagrams: 01/02/24 12:13 01/01/24 04:54 Lab Results 12/29/23 12/29/23 12/29/23 Range/Units 22:55 22:55 22:55 WBC 14.2 H (3.8-10.6) k/uL RBC 2.12 L (3.80-5.40) m/uL Hgb 7.0 L D (11.4-16.0) gm/dL Hct 21.6 L (34.0-46.0) % MCV 101.7 H (80.0-100.0) fL MCH 32.8 (25.0-35.0) pg MCHC 32.3 (31.0-37.0) g/dL RDW 18.7 H (11.5-15.5) % Plt Count 272 (150-450) k/uL MPV 8.5 Neutrophils % 81 % Lymphocytes % 11 % Monocytes % 5 % Eosinophils % 1 % Basophils % 0 % Neutrophils # 11.5 H (1.3-7.7) k/uL Lymphocytes # 1.5 (1.0-4.8) k/uL Monocytes # 0.7 (0-1.0) k/uL Eosinophils # 0.1 (0-0.7) k/uL Basophils # 0.1 (0-0.2) k/uL Hypochromasia Moderate Poikilocytosis Slight Anisocytosis Slight Macrocytosis Moderate PT 9.9 L (10.0-12.5) sec INR 0.9 (<1.2) APTT 20.9 L (22.0-30.0) sec Sodium 136 L (137-145) mmol/L Potassium 4.3 (3.5-5.1) mmol/L Chloride 97 L (98-107) mmol/L Carbon Dioxide 38 H (22-30) mmol/L Anion Gap 1 mmol/L BUN 36 H (7-17) mg/dL Creatinine 0.59 (0.52-1.04) mg/dL Est GFR (CKD-EPI)AfAm >90 (>60 ml/min/1.73 sqM) Est GFR (CKD-EPI)NonAf 86 (>60 ml/min/1.73 sqM) Glucose 127 H (74-99) mg/dL Plasma Lactic Acid Bryan (0.7-2.0) mmol/L Calcium 8.5 (8.4-10.2) mg/dL Iron (50-170) UG/DL TIBC (228-460) UG/DL % Saturation (12.00-45.00) Transferrin (204.0-354.0) mg/dL Ferritin (10.0-291.0) ng/mL Total Bilirubin 0.5 (0.2-1.3) mg/dL AST 24 (14-36) U/L ALT 25 (4-34) U/L Alkaline Phosphatase 75 (38-126) U/L Troponin I (0.000-0.034) ng/mL NT-Pro-B Natriuret Pep 499 pg/mL Total Protein 5.5 L (6.3-8.2) g/dL Albumin 2.8 L (3.5-5.0) g/dL Stool Occult Blood (Negative) Influenza Type A (PCR) (Not Detectd) Influenza Type B (PCR) (Not Detectd) RSV (PCR) (Not Detectd) SARS-CoV-2 (PCR) (Not Detectd) Blood Type Blood Type Confirm Blood Type Recheck Bld Type Recheck Status Antibody Screen Crossmatch Spec Expiration Date 12/29/23 12/29/23 12/29/23 Range/Units 22:55 22:55 22:55 WBC (3.8-10.6) k/uL RBC (3.80-5.40) m/uL Hgb (11.4-16.0) gm/dL Hct (34.0-46.0) % MCV (80.0-100.0) fL MCH (25.0-35.0) pg MCHC (31.0-37.0) g/dL RDW (11.5-15.5) % Plt Count (150-450) k/uL MPV Neutrophils % % Lymphocytes % % Monocytes % % Eosinophils % % Basophils % % Neutrophils # (1.3-7.7) k/uL Lymphocytes # (1.0-4.8) k/uL Monocytes # (0-1.0) k/uL Eosinophils # (0-0.7) k/uL Basophils # (0-0.2) k/uL Hypochromasia Poikilocytosis Anisocytosis Macrocytosis PT (10.0-12.5) sec INR (<1.2) APTT (22.0-30.0) sec Sodium (137-145) mmol/L Potassium (3.5-5.1) mmol/L Chloride (98-107) mmol/L Carbon Dioxide (22-30) mmol/L Anion Gap mmol/L BUN (7-17) mg/dL Creatinine (0.52-1.04) mg/dL Est GFR (CKD-EPI)AfAm (>60 ml/min/1.73 sqM) Est GFR (CKD-EPI)NonAf (>60 ml/min/1.73 sqM) Glucose (74-99) mg/dL Plasma Lactic Acid Bryan 1.2 (0.7-2.0) mmol/L Calcium (8.4-10.2) mg/dL Iron 35 L (50-170) UG/DL TIBC 419 (228-460) UG/DL % Saturation 8.35 L (12.00-45.00) Transferrin 299.0 (204.0-354.0) mg/dL Ferritin 23.6 (10.0-291.0) ng/mL Total Bilirubin (0.2-1.3) mg/dL AST (14-36) U/L ALT (4-34) U/L Alkaline Phosphatase (38-126) U/L Troponin I <0.012 (0.000-0.034) ng/mL NT-Pro-B Natriuret Pep pg/mL Total Protein (6.3-8.2) g/dL Albumin (3.5-5.0) g/dL Stool Occult Blood (Negative) Influenza Type A (PCR) (Not Detectd) Influenza Type B (PCR) (Not Detectd) RSV (PCR) (Not Detectd) SARS-CoV-2 (PCR) (Not Detectd) Blood Type Blood Type Confirm Blood Type Recheck Bld Type Recheck Status Antibody Screen Crossmatch Spec Expiration Date 12/29/23 12/30/23 12/30/23 Range/Units 23:57 02:29 02:35 WBC (3.8-10.6) k/uL RBC (3.80-5.40) m/uL Hgb (11.4-16.0) gm/dL Hct (34.0-46.0) % MCV (80.0-100.0) fL MCH (25.0-35.0) pg MCHC (31.0-37.0) g/dL RDW (11.5-15.5) % Plt Count (150-450) k/uL MPV Neutrophils % % Lymphocytes % % Monocytes % % Eosinophils % % Basophils % % Neutrophils # (1.3-7.7) k/uL Lymphocytes # (1.0-4.8) k/uL Monocytes # (0-1.0) k/uL Eosinophils # (0-0.7) k/uL Basophils # (0-0.2) k/uL Hypochromasia Poikilocytosis Anisocytosis Macrocytosis PT (10.0-12.5) sec INR (<1.2) APTT (22.0-30.0) sec Sodium (137-145) mmol/L Potassium (3.5-5.1) mmol/L Chloride (98-107) mmol/L Carbon Dioxide (22-30) mmol/L Anion Gap mmol/L BUN (7-17) mg/dL Creatinine (0.52-1.04) mg/dL Est GFR (CKD-EPI)AfAm (>60 ml/min/1.73 sqM) Est GFR (CKD-EPI)NonAf (>60 ml/min/1.73 sqM) Glucose (74-99) mg/dL Plasma Lactic Acid Bryan (0.7-2.0) mmol/L Calcium (8.4-10.2) mg/dL Iron (50-170) UG/DL TIBC (228-460) UG/DL % Saturation (12.00-45.00) Transferrin (204.0-354.0) mg/dL Ferritin (10.0-291.0) ng/mL Total Bilirubin (0.2-1.3) mg/dL AST (14-36) U/L ALT (4-34) U/L Alkaline Phosphatase (38-126) U/L Troponin I (0.000-0.034) ng/mL NT-Pro-B Natriuret Pep pg/mL Total Protein (6.3-8.2) g/dL Albumin (3.5-5.0) g/dL Stool Occult Blood Positive H (Negative) Influenza Type A (PCR) Not Detected (Not Detectd) Influenza Type B (PCR) Not Detected (Not Detectd) RSV (PCR) Not Detected (Not Detectd) SARS-CoV-2 (PCR) Not Detected (Not Detectd) Blood Type AB Positive Blood Type Confirm Blood Type Recheck No Previous Record Bld Type Recheck Status CABO Indicated Antibody Screen NEGATIVE Crossmatch See Detail Spec Expiration Date 01/02/2024 - 233412/30/23 12/30/23 Range/Units 02:42 02:42 WBC 13.6 H (3.8-10.6) k/uL RBC 1.95 L (3.80-5.40) m/uL Hgb 6.3 L* (11.4-16.0) gm/dL Hct 19.9 L* (34.0-46.0) % MCV 102.4 H (80.0-100.0) fL MCH 32.2 (25.0-35.0) pg MCHC 31.4 (31.0-37.0) g/dL RDW 18.2 H (11.5-15.5) % Plt Count 255 (150-450) k/uL MPV 8.6 Neutrophils % % Lymphocytes % % Monocytes % % Eosinophils % % Basophils % % Neutrophils # (1.3-7.7) k/uL Lymphocytes # (1.0-4.8) k/uL Monocytes # (0-1.0) k/uL Eosinophils # (0-0.7) k/uL Basophils # (0-0.2) k/uL Hypochromasia Moderate Poikilocytosis Slight Anisocytosis Slight Macrocytosis Moderate PT (10.0-12.5) sec INR (<1.2) APTT (22.0-30.0) sec Sodium (137-145) mmol/L Potassium (3.5-5.1) mmol/L Chloride (98-107) mmol/L Carbon Dioxide (22-30) mmol/L Anion Gap mmol/L BUN (7-17) mg/dL Creatinine (0.52-1.04) mg/dL Est GFR (CKD-EPI)AfAm (>60 ml/min/1.73 sqM) Est GFR (CKD-EPI)NonAf (>60 ml/min/1.73 sqM) Glucose (74-99) mg/dL Plasma Lactic Acid Bryan (0.7-2.0) mmol/L Calcium (8.4-10.2) mg/dL Iron (50-170) UG/DL TIBC (228-460) UG/DL % Saturation (12.00-45.00) Transferrin (204.0-354.0) mg/dL Ferritin (10.0-291.0) ng/mL Total Bilirubin (0.2-1.3) mg/dL AST (14-36) U/L ALT (4-34) U/L Alkaline Phosphatase (38-126) U/L Troponin I (0.000-0.034) ng/mL NT-Pro-B Natriuret Pep pg/mL Total Protein (6.3-8.2) g/dL Albumin (3.5-5.0) g/dL Stool Occult Blood (Negative) Influenza Type A (PCR) (Not Detectd) Influenza Type B (PCR) (Not Detectd) RSV (PCR) (Not Detectd) SARS-CoV-2 (PCR) (Not Detectd) Blood Type Blood Type Confirm AB Positive Blood Type Recheck Bld Type Recheck Status Antibody Screen Crossmatch Spec Expiration Date Disposition Clinical Impression: Acute respiratory insufficiency, Anemia Disposition: ADMITTED IP TO THIS HOSP Condition: Good Is patient prescribed a controlled substance at d/c from ED?: No Time of Disposition: 02:48 Decision to Admit Reason: Admit from EC Decision Date: 12/30/23 Decision Time: 02:48
[2023-12-30 03:04] LABS: Anisocytosis Slight; Hypochromasia Moderate; MCH 32.2 pg (25.0-35.0); MCHC 31.4 g/dL (31.0-37.0); MCV 102.4 fL (80.0-100.0); Macrocytosis Moderate; Mean Platelet Volume 8.6; Platelet Count 255 k/uL (150-450); Poikilocytosis Slight; RBC 1.95 m/uL (3.80-5.40); RDW 18.2 % (11.5-15.5); WBC 13.6 k/uL (3.8-10.6)
[2023-12-30 03:15] LABS: HGB 6.3 gm/dL (11.4-16.0)
[2023-12-30 03:16] LABS: HCT 19.9 % (34.0-46.0)
[2023-12-30] MEDS ORDERED: NALOXONE 0.4 MG/ML 1 ML VIAL IV PRN (03:32)
--- NOTE | 2023-12-30 04:36 | P.HPIM ---
History of Present Illness H&P Date: 12/30/23 Patient is a 83-year-old female with a PMH of chronic diastolic CHF, recent non- ST elevation [place] status post 2 stents on 11/29/2023, COPD, hypertension, and chronic debility who presents to the emergency room with complaints of shortness of breath, lower extremity swelling and generalized fatigue. Patient reports the swelling has progressed quickly over the past 1 week and she also reports not having the energy to perform her ADLs which is new for her. She denied experiencing chest discomfort, nausea, vomiting, diarrhea, black tarry stools, blood in stools, diaphoresis, or dizziness. EKG in the emergency room revealed sinus rhythm at 82 bpm with APCs as reviewed by me. Chest x-ray revealed findings consistent with fluid overload as reviewed with the ED provider. Laboratory evaluation was remarkable for hemoglobin 7.0 and subsequently 6.3 (baseline 12.8 upon discharge from hospital on 12/06), proBNP 499, troponin less than 0.012, stool occult blood positive, albumin 2.8, sodium 136, chloride 97, CO2 38, BUN 36, creatinine 0.59, glucose 127. ED documentation reviewed and case discussed with ED provider. Review of systems: Pertinent positives and negatives as discussed in HPI, a complete review of systems was performed and all other systems are negative. Physical examination: Vital signs reviewed General: non toxic, no distress, appears at stated age, normal weight Derm: no unusual rashes/lesions, warm Head: atraumatic, normocephalic, symmetric Eyes: EOMI, no lid lag, anicteric sclera, pupils equal round reactive to light ENT: Nose and ears atraumatic Neck: No cervical lymphadenopathy, trachea midline, supple Mouth: no lip lesion, mucus membranes moist Cardiovascular: S1S2 reg, no murmur, positive dorsalis pedis pulse bilateral, 2+ bilateral lower extremity pitting edema to thighs Lungs: CTA bilateral, no rhonchi, no rales, no accessory muscle use Abdominal: soft, nontender to palpation, no guarding Ext: muscle strength 4 out of 5 in all 4 extremities grossly, no gross muscle atrophy, no contractures, Neuro: CN II-XI grossly intact, no gross focal neuro deficits Psych: Alert, oriented, appropriate affect Assessment: Acute diastolic CHF exacerbation Severe anemia, suspect GI bleeding Chronic conditions: CAD status post multiple recent stents, COPD, hypertension Imaging: EKG in the emergency room revealed sinus rhythm at 82 bpm with APCs as reviewed by me. Chest x-ray revealed findings consistent with fluid overload as reviewed with the ED provider. Data Review: Laboratory evaluation was remarkable for hemoglobin 7.0 and subsequently 6.3 (baseline 12.8 upon discharge from hospital on 12/06), proBNP 499, troponin less than 0.012, stool occult blood positive, albumin 2.8, sodium 136, chloride 97, CO2 38, BUN 36, creatinine 0.59, glucose 127. Plan: Continue patient on Lasix 40 mg IV every 12 hourly Cardiology consulted, c/w cardiac monitoring, daily weights Intake and output 1 unit PRBCs ordered GI consult Continue Protonix IV N.p.o. 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 History of Any Multi-Drug Resistant Organisms: None Reported Past Surgical History: Hysterectomy Past Psychological History: Anxiety, Depression Smoking Status: Current every day smoker Past Alcohol Use History: None Reported Past Drug Use History: None Reported - Past Family History Mother Family Medical History: Myocardial Infarction ([place]) Father Family Medical History: CVA/TIA Medications and Allergies Home Medications Medication Instructions Recorded Confirmed Type Bumetanide [BUMEX] 0.5 mg PO DAILY 11/27/23 12/24/23 History Albuterol Inhaler [Ventolin Hfa 2 puff INHALATION RT-QID PRN #1 12/07/23 12/24/23 Rx Inhaler] each Aspirin 81 mg PO DAILY #30 tab 12/07/23 12/24/23 Rx Atorvastatin [Lipitor] 40 mg PO HS #30 tab 12/07/23 12/24/23 Rx Budesonide-Formot 160-4.5 Mcg 2 puff INHALATION RT-BID #1 each 12/07/23 12/24/23 Rx [Symbicort 160-4.5 Mcg Inhaler] Clopidogrel [Plavix] 75 mg PO DAILY #30 tab 12/07/23 12/24/23 Rx Metoprolol Tartrate [Lopressor] 25 mg PO BID #60 tab 12/07/23 12/24/23 Rx Nitroglycerin Sl Tabs [Nitrostat] 0.4 mg SUBLINGUAL Q5M PRN #5 tab 12/07/23 12/24/23 Rx Tiotropium 2.5 Mcg/Puff [Spiriva 2 puff INHALATION RT-DAILY #1 each 12/07/23 12/24/23 Rx Respimat 2.5 Mcg] Albuterol Nebulized [Ventolin 2.5 mg INHALATION RT-Q6H PRN 12/24/23 12/24/23 History Nebulized] traZODone HCL [Desyrel] 50 - 100 mg PO DIRECTED PRN 12/24/23 12/24/23 History Allergies Allergy/AdvReac Type Severity Reaction Status Date / Time codeine AdvReac Itching Verified 12/29/23 22:51 Physical Exam Vitals: Vital Signs Temp Pulse Resp BP Pulse Ox 12/30/23 04:00 77 18 110/75 100 12/30/23 03:00 80 18 118/56 100 12/30/23 00:00 80 20 106/61 97 12/29/23 22:53 22 12/29/23 22:48 97.7 F 80 22 107/70 94 L Intake and Output 12/29/23 12/29/23 12/30/23 14:59 22:59 06:59 Other: Weight 75.296 kg Results CBC & Chem 7: 12/30/23 02:42 12/29/23 22:55 Labs: Abnormal Lab Results - Last 24 Hours (Table) 12/29/23 12/29/23 12/29/23 Range/Units 22:55 22:55 22:55 WBC 14.2 H (3.8-10.6) k/uL RBC 2.12 L (3.80-5.40) m/uL Hgb 7.0 L D (11.4-16.0) gm/dL Hct 21.6 L (34.0-46.0) % MCV 101.7 H (80.0-100.0) fL RDW 18.7 H (11.5-15.5) % Neutrophils # 11.5 H (1.3-7.7) k/uL PT 9.9 L (10.0-12.5) sec APTT 20.9 L (22.0-30.0) sec Sodium 136 L (137-145) mmol/L Chloride 97 L (98-107) mmol/L Carbon Dioxide 38 H (22-30) mmol/L BUN 36 H (7-17) mg/dL Glucose 127 H (74-99) mg/dL Total Protein 5.5 L (6.3-8.2) g/dL Albumin 2.8 L (3.5-5.0) g/dL Stool Occult Blood (Negative) Crossmatch 12/30/23 12/30/23 12/30/23 Range/Units 02:29 02:35 02:42 WBC 13.6 H (3.8-10.6) k/uL RBC 1.95 L (3.80-5.40) m/uL Hgb 6.3 L* (11.4-16.0) gm/dL Hct 19.9 L* (34.0-46.0) % MCV 102.4 H (80.0-100.0) fL RDW 18.2 H (11.5-15.5) % Neutrophils # (1.3-7.7) k/uL PT (10.0-12.5) sec APTT (22.0-30.0) sec Sodium (137-145) mmol/L Chloride (98-107) mmol/L Carbon Dioxide (22-30) mmol/L BUN (7-17) mg/dL Glucose (74-99) mg/dL Total Protein (6.3-8.2) g/dL Albumin (3.5-5.0) g/dL Stool Occult Blood Positive H (Negative) Crossmatch See Detail
[2023-12-30] MEDS: FUROSEMIDE 10 MG/ML 4 ML VIAL IV STA (05:26)
[2023-12-30] MEDS: PANTOPRAZOLE 40 MG/10 ML VIAL IVP ONE (05:29)
--- NOTE | 2023-12-30 06:33 | XR ---
EXAM: XR Chest, 2 Views CLINICAL HISTORY: difficulty breathing TECHNIQUE: Frontal and lateral views of the chest. COMPARISON: November 27, 2023 FINDINGS: Lungs: Unremarkable. No infiltration, atelectasis or mass density. Pleural space: Unremarkable. No pneumothorax. No pleural fluid. Heart: Unremarkable. No cardiomegaly. Mediastinum: Unremarkable. Normal mediastinal contour. Bones/joints: Unremarkable. No acute abnormalities. IMPRESSION: No acute findings.
[2023-12-30 06:57] LABS: Appearance,Urine Clear (Clear); Bilirubin,Urine Negative (Negative); Blood,Urine Negative (Negative); Color,Urine Colorless; Glucose,Urine (UA) Negative (Negative); Ketones,Urine Negative (Negative); Leukocyte Esterase,Urine Negative (Negative); Nitrite,Urine Negative (Negative); PH, Urine 6.5 (5.0-8.0); Protein,Urine Negative (Negative); Specific Gravity,Urine 1.009 (1.001-1.035); Urobilinogen,Urine <2.0 mg/dL (<2.0)
[2023-12-30] MEDS ORDERED: BUMETANIDE 0.5 MG TABLET PO SCH (09:00)
[2023-12-30] MEDS: PANTOPRAZOLE 40 MG/10 ML VIAL IVP SCH (09:44)
[2023-12-30] MEDS: FUROSEMIDE 10 MG/ML 4 ML VIAL IV SCH (09:44)
[2023-12-30] MEDS: METOPROLOL TARTRATE 25 MG TAB PO SCH (09:45)
--- NOTE | 2023-12-30 10:58 | P.CRDCN ---
History of Present Illness History of present illness: HISTORY OF PRESENT ILLNESS: This is a 83-year-old female with a past medical history significant for coronary artery disease with recent stenting, COPD, and hyperlipidemia. Patient follows in the office with Dr. Davalos. We have been asked to see the patient in consultation for CHF and recent stenting. Patient examined at the bedside in the emergency room. Patient was recently in the hospital and underwent cardiac catheterization on 11/27/2023 with stenting of the mid and proximal RCA and the PLV branch of the RCA. The patient was discharged home on aspirin and Plavix. She presented back to the hospital with a chief complaint of generalized weakness. Patient was found to be significantly anemic with a hemoglobin of 7.5 which is down from 11.5 on 12/24/2023. Patient reports she has been taking Aleve once or twice a week at home secondary to generalized pain. She denies having any black stools or blood in her stools. She denies having any chest pain or pressure. She denies any shortness of breath. She has been evaluated by GI service with plans to undergo endoscopy tomorrow. DIAGNOSTICS: - EKG reveals sinus mechanism. - Chest xray negative for acute process - Laboratory data: WBC 13.6. Hemoglobin 6.3. Platelet count 255. Sodium 136. Potassium 4.3. BUN 36. Creatinine 0.59. Troponin negative x 1. proBNP 499. - Current home cardiac medications include Lipitor 40 mg at night, aspirin 81 mg daily, Bumex 0.5 mg daily, metoprolol tartrate 25 mg twice a day - Most recent echocardiogram obtained in 11/23/2023 revealing ejection fraction 55 to 60% with no significant valvular abnormalities noted - Cardiac catheterization history: 11/27/2023 with stenting of the mid and proximal RCA and stenting of the PLV branch of the RCA. REVIEW OF SYSTEMS: At the time of my exam: CONSTITUTIONAL: Denies fever or chills. HEENT: Denies blurred vision, vision changes, or eye pain. Denies hemoptysis CARDIOVASCULAR: Denies chest pain. Denies orthopnea. Denies PND. Denies palpitations RESPIRATORY: Denies shortness of breath. GASTROINTESTINAL: Denies abdominal pain. Denies nausea or vomiting. HEMATOLOGIC: Denies bleeding disorders. GENITOURINARY: Denies any blood in urine. SKIN: Denies pruitis. Denies rash. PHYSICAL EXAM: VITAL SIGNS: Reviewed. GENERAL: Well-developed in no acute distress. HEENT: Head is normocephalic. Pupils are equal, round. Sclerae anicteric. Mucous membranes of the mouth are moist. Neck supple. No JVD or thyromegaly LUNGS: Respirations even and unlabored. Lungs essentially clear to auscultation bilaterally. HEART: Regular rate and rhythm. S1 and S2 heard. ABDOMEN: Soft. Nondistended. Nontender. EXTREMITIES: Normal range of motion. No clubbing or cyanosis. Peripheral pulses intact. No lower extremity edema NEUROLOGIC: Awake and alert. Oriented x 3. ASSESSMENT: Severe anemia, rule out GI bleed Coronary artery disease with recent stenting of the mid and proximal RCA and PLV branch of the RCA, 11/27/2023 Chronic heart failure with preserved EF, currently euvolemic History of hyperlipidemia History of COPD PLAN: No need to repeat echocardiogram as this was performed in October 2023 Resume aspirin. Hold Plavix. Continue additional cardiac medications Discontinue IV Lasix as patient is clinically not volume overloaded. Resume home dose of oral Bumex GI has been consulted for evaluation. Patient scheduled for endoscopy tomorrow. Further recommendations pending patient course Nurse practitioner note has been reviewed by physician. Signing provider agrees with the documented findings, assessment, and plan of care documented by METAL MELTER as a scribe. 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 History of Any Multi-Drug Resistant Organisms: None Reported Past Surgical History: Hysterectomy Past Psychological History: Anxiety, Depression Smoking Status: Current every day smoker Past Alcohol Use History: None Reported Past Drug Use History: None Reported - Past Family History Mother Family Medical History: Myocardial Infarction ([place]) Father Family Medical History: CVA/TIA Medications and Allergies Home Medications Medication Instructions Recorded Confirmed Type Bumetanide [BUMEX] 0.5 mg PO DAILY 11/27/23 12/30/23 History Albuterol Inhaler [Ventolin Hfa 2 puff INHALATION RT-QID PRN #1 12/07/23 12/30/23 Rx Inhaler] each Aspirin 81 mg PO DAILY #30 tab 12/07/23 12/30/23 Rx Atorvastatin [Lipitor] 40 mg PO HS #30 tab 12/07/23 12/30/23 Rx Budesonide-Formot 160-4.5 Mcg 2 puff INHALATION RT-BID #1 each 12/07/23 12/30/23 Rx [Symbicort 160-4.5 Mcg Inhaler] Clopidogrel [Plavix] 75 mg PO DAILY #30 tab 12/07/23 12/30/23 Rx Metoprolol Tartrate [Lopressor] 25 mg PO BID #60 tab 12/07/23 12/30/23 Rx Tiotropium 2.5 Mcg/Puff [Spiriva 2 puff INHALATION RT-DAILY #1 each 12/07/23 12/30/23 Rx Respimat 2.5 Mcg] Albuterol Nebulized [Ventolin 2.5 mg INHALATION RT-Q6H PRN 12/24/23 12/30/23 History Nebulized] traZODone HCL [Desyrel] 50 - 100 mg PO HS PRN 12/24/23 12/30/23 History ALPRAZolam [Xanax] 0.5 mg PO BID PRN 12/30/23 12/30/23 History Naproxen Sodium [Aleve] 220 mg PO BID PRN 12/30/23 12/30/23 History Nitroglycerin Sl Tabs [Nitrostat] 0.4 mg SL Q5M PRN 12/30/23 12/30/23 History Allergies Allergy/AdvReac Type Severity Reaction Status Date / Time codeine AdvReac Itching Verified 12/30/23 06:27 Physical Exam Vitals: Vital Signs Temp Pulse Resp BP Pulse Ox 12/30/23 09:57 91 20 156/75 98 12/30/23 09:24 18 12/30/23 09:00 98.1 F 89 18 132/74 95 12/30/23 08:00 18 113/73 97 12/30/23 07:40 97.5 F L 89 16 103/52 92 L 12/30/23 06:14 97.7 F 91 18 128/63 95 12/30/23 05:54 97.5 F L 89 18 133/67 95 12/30/23 05:45 97.7 F 87 18 134/64 96 12/30/23 04:00 77 18 110/75 100 12/30/23 03:00 80 18 118/56 100 12/30/23 00:00 80 20 106/61 97 03/31/24 22:53 22 12/29/23 22:48 97.7 F 80 22 107/70 94 L Intake and Output 12/29/23 12/30/23 12/30/23 22:59 06:59 14:59 Intake Total 0 310 Balance 0 310 Intake: Blood Product 0 310 Rc Irr As1 Unit 0 310 [id number] Other: Weight 75.296 kg Results 12/30/23 02:42 12/29/23 22:55 Cardiac Enzymes 12/29/23 12/29/23 Range/Units 22:55 22:55 AST 24 (14-36) U/L Troponin I <0.012 (0.000-0.034) ng/mL Coagulation 12/29/23 Range/Units 22:55 PT 9.9 L (10.0-12.5) sec APTT 20.9 L (22.0-30.0) sec CBC 12/29/23 12/30/23 Range/Units 22:55 02:42 WBC 14.2 H 13.6 H (3.8-10.6) k/uL RBC 2.12 L 1.95 L (3.80-5.40) m/uL Hgb 7.0 L D 6.3 L* (11.4-16.0) gm/dL Hct 21.6 L 19.9 L* (34.0-46.0) % Plt Count 272 255 (150-450) k/uL Comprehensive Metabolic Panel 12/29/23 Range/Units 22:55 Sodium 136 L (137-145) mmol/L Potassium 4.3 (3.5-5.1) mmol/L Chloride 97 L (98-107) mmol/L Carbon Dioxide 38 H (22-30) mmol/L BUN 36 H (7-17) mg/dL Creatinine 0.59 (0.52-1.04) mg/dL Glucose 127 H (74-99) mg/dL Calcium 8.5 (8.4-10.2) mg/dL AST 24 (14-36) U/L ALT 25 (4-34) U/L Alkaline Phosphatase 75 (38-126) U/L Total Protein 5.5 L (6.3-8.2) g/dL Albumin 2.8 L (3.5-5.0) g/dL Current Medications Generic Name Dose Route Start Last Admin Trade Name Freq PRN Reason Stop Dose Admin Acetaminophen 650 mg 12/30/23 10:03 Acetaminophen Tab 325 Mg Tab PO Q6HR PRN Fever and/ or Pain Albuterol Sulfate 2.5 mg 12/30/23 08:41 Albuterol Nebulized 2.5 Mg/3 Ml INHALATION RT-Q6H PRN Shortness Of Breath Atorvastatin Calcium 40 mg 12/30/23 21:00 Atorvastatin 40 Mg Tab PO HS EMPERATRIZ Budesonide/Formoterol Fumarate 2 puff 12/30/23 20:00 Symbicort 160-4.5 Mcg Inhaler INHALATION RT-BID EMPERATRIZ Furosemide 40 mg 12/30/23 09:00 12/30/23 09:44 Furosemide 10 Mg/Ml 4 Ml Vial IV 40 mg Q12HR EMPERATRIZ Administration Ipratropium [place] 0.5 mg 12/31/23 09:00 Ipratropium 0.5 Mg/2.5 Ml Nebu INHALATION RT-QID EMPERATRIZ Metoprolol Tartrate 25 mg 12/30/23 09:00 12/30/23 09:45 Metoprolol Tartrate 25 Mg Tab PO 25 mg BID EMPERATRIZ Administration Naloxone HCl 0.2 mg 12/30/23 03:32 Naloxone 0.4 Mg/Ml 1 Ml Vial IV Q2M PRN Opioid Reversal Ondansetron HCl 4 mg 12/30/23 10:02 Ondansetron 4 Mg/2 Ml Vial IVP Q6HR PRN Nausea And Vomiting Pantoprazole Sodium 40 mg 12/30/23 09:00 12/30/23 09:44 Pantoprazole 40 Mg/10 Ml Vial IVP 40 mg BID EMPERATRIZ Administration Intake and Output 12/29/23 12/30/23 12/30/23 22:59 06:59 14:59 Intake Total 0 310 Balance 0 310 Intake: Blood Product 0 310 Rc Irr As1 Unit 0 310 [id number] Other: Weight 75.296 kg 12/30/23 02:42 12/29/23 22:55
[2023-12-30] MEDS: ACETAMINOPHEN TAB 325 MG TAB PO PRN (11:17)
[2023-12-30] MEDS: ASPIRIN 81 MG PO SCH (11:17)
[2023-12-30] MEDS: ONDANSETRON 4 MG/2 ML VIAL IVP PRN (11:18)
--- NOTE | 2023-12-30 12:26 | P.CONS ---
History of Present Illness - Reason for Consult Consult date: 12/30/23 Anemia, positive occult stool Requesting physician: Debbie Ramos - Chief Complaint Weakness - History of Present Illness This is a pleasant 83-year-old female who presented to the emergency department early this morning with complaints of shortness of breath and weakness. She has a past medical history of COPD oxygen dependent, congestive heart failure and coronary artery disease requiring recent stenting in November of this year. She was discharged at that time on aspirin and Plavix. When she presented to the emergency department she was noted to be anemic with a hemoglobin of 7.0 with a drop in her hemoglobin to 6.3. She was transfused 1 unit of blood. She had a positive occult stool. Gastroenterology was consulted for anemia or. Patient states no history of GI bleed. She had normal hemoglobin on 12/24/2023 with her last blood draw. Denies any history of peptic ulcer disease, states last colonoscopy was 8 to 10 years ago and she had to go down to [facility] for CT colonoscopy. She did have a colonoscopy with Dr. Lacy in 2013 which was incomplete due to tortuosity and she was recommended for a CT colonography which was normal. She denies any abdominal pain, she does state that she is nauseated but no vomiting. Denies any recent significant weight loss. Unsure if she has black stool or blood in her stool as she states she does not look. She does report taking 2 Aleve daily at least 3 times a week. Review of Systems REVIEW OF SYSTEMS: CARDIOPULMONARY: No chest pain, chronic shortness of breath dependent on oxygen at home. Dyspnea with exertion. Gastrointestinal: Burning sensation in epigastric region, no associated abdominal pain. Nausea with no vomiting. No hematemesis, coffee-ground emesis. No rectal bleeding, or melena reported. GENITOURINARY: No dysuria or hematuria. MUSCULOSKELETAL: Reports normal range of motion., Joint pain. SKIN: No rashes. No jaundice. ENDOCRINE: No chills, fevers. No excessive weight gain or loss. No polydipsia or polyuria. PSYCHIATRIC: Unremarkable. NEUROLOGY: No change in mental status. Denies dizziness, headache. ENT: Vision unremarkable. CONSTITUTIONAL: No recent weight loss. No fever, chills, night sweats. 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 History of Any Multi-Drug Resistant Organisms: None Reported Past Surgical History: Hysterectomy Past Psychological History: Anxiety, Depression Smoking Status: Current every day smoker Past Alcohol Use History: None Reported Past Drug Use History: None Reported - Past Family History Mother Family Medical History: Myocardial Infarction ([place]) Father Family Medical History: CVA/TIA Medications and Allergies Home Medications Medication Instructions Recorded Confirmed Type Bumetanide [BUMEX] 0.5 mg PO DAILY 11/27/23 12/30/23 History Albuterol Inhaler [Ventolin Hfa 2 puff INHALATION RT-QID PRN #1 12/07/23 12/30/23 Rx Inhaler] each Aspirin 81 mg PO DAILY #30 tab 12/07/23 12/30/23 Rx Atorvastatin [Lipitor] 40 mg PO HS #30 tab 12/07/23 12/30/23 Rx Budesonide-Formot 160-4.5 Mcg 2 puff INHALATION RT-BID #1 each 12/07/23 12/30/23 Rx [Symbicort 160-4.5 Mcg Inhaler] Clopidogrel [Plavix] 75 mg PO DAILY #30 tab 12/07/23 12/30/23 Rx Metoprolol Tartrate [Lopressor] 25 mg PO BID #60 tab 12/07/23 12/30/23 Rx Tiotropium 2.5 Mcg/Puff [Spiriva 2 puff INHALATION RT-DAILY #1 each 12/07/23 12/30/23 Rx Respimat 2.5 Mcg] Albuterol Nebulized [Ventolin 2.5 mg INHALATION RT-Q6H PRN 12/24/23 12/30/23 History Nebulized] traZODone HCL [Desyrel] 50 - 100 mg PO HS PRN 12/24/23 12/30/23 History ALPRAZolam [Xanax] 0.5 mg PO BID PRN 12/30/23 12/30/23 History Naproxen Sodium [Aleve] 220 mg PO BID PRN 12/30/23 12/30/23 History Nitroglycerin Sl Tabs [Nitrostat] 0.4 mg SL Q5M PRN 12/30/23 12/30/23 History Allergies Allergy/AdvReac Type Severity Reaction Status Date / Time codeine AdvReac Itching Verified 12/30/23 06:27 Physical Exam Vitals: Vital Signs Temp Pulse Resp BP Pulse Ox 12/30/23 09:57 91 20 156/75 98 12/30/23 09:24 18 12/30/23 09:00 98.1 F 89 18 132/74 95 12/30/23 08:00 18 113/73 97 12/30/23 07:40 97.5 F L 89 16 103/52 92 L 12/30/23 06:14 97.7 F 91 18 128/63 95 12/30/23 05:54 97.5 F L 89 18 133/67 95 12/30/23 05:45 97.7 F 87 18 134/64 96 12/30/23 04:00 77 18 110/75 100 12/30/23 03:00 80 18 118/56 100 12/30/23 00:00 80 20 106/61 97 12/29/23 22:53 22 12/29/23 22:48 97.7 F 80 22 107/70 94 L Intake and Output 12/29/23 12/30/23 12/30/23 22:59 06:59 14:59 Intake Total 0 310 Balance 0 310 Intake: Blood Product 0 310 Rc Irr As1 Unit 0 310 [id number] Other: Weight 75.296 kg General appearance: The patient is alert, oriented, appears in no acute distress. HET: Head is normocephalic and atraumatic. Conjunctiva pink. Sclera anicteric. Neck: Supple without lymphadenopathy. Trachea midline. Heart: Regular. Lungs: Equal expansion, normal respiratory effort. Abdomen: Soft, nontender, nondistended with bowel sounds. No guarding or rigidity. Skin: No rashes. No jaundice. Extremities: Normal skin color and turgor. No pedal edema. Neurological: No focal deficits. Alert and oriented x3. Results CBC & Chem 7: 12/30/23 02:42 12/29/23 22:55 Labs: Abnormal Lab Results - Last 24 Hours (Table) 12/29/23 12/29/23 12/29/23 Range/Units 22:55 22:55 22:55 WBC 14.2 H (3.8-10.6) k/uL RBC 2.12 L (3.80-5.40) m/uL Hgb 7.0 L D (11.4-16.0) gm/dL Hct 21.6 L (34.0-46.0) % MCV 101.7 H (80.0-100.0) fL RDW 18.7 H (11.5-15.5) % Neutrophils # 11.5 H (1.3-7.7) k/uL PT 9.9 L (10.0-12.5) sec APTT 20.9 L (22.0-30.0) sec Sodium 136 L (137-145) mmol/L Chloride 97 L (98-107) mmol/L Carbon Dioxide 38 H (22-30) mmol/L BUN 36 H (7-17) mg/dL Glucose 127 H (74-99) mg/dL Total Protein 5.5 L (6.3-8.2) g/dL Albumin 2.8 L (3.5-5.0) g/dL Stool Occult Blood (Negative) Crossmatch 12/30/23 12/30/23 12/30/23 Range/Units 02:29 02:35 02:42 WBC 13.6 H (3.8-10.6) k/uL RBC 1.95 L (3.80-5.40) m/uL Hgb 6.3 L* (11.4-16.0) gm/dL Hct 19.9 L* (34.0-46.0) % MCV 102.4 H (80.0-100.0) fL RDW 18.2 H (11.5-15.5) % Neutrophils # (1.3-7.7) k/uL PT (10.0-12.5) sec APTT (22.0-30.0) sec Sodium (137-145) mmol/L Chloride (98-107) mmol/L Carbon Dioxide (22-30) mmol/L BUN (7-17) mg/dL Glucose (74-99) mg/dL Total Protein (6.3-8.2) g/dL Albumin (3.5-5.0) g/dL Stool Occult Blood Positive H (Negative) Crossmatch See Detail Assessment and Plan (1) Anemia Narrative/Plan: 83-year-old female presenting with shortness of breath and dyspnea on exertion noted to be anemic after recently starting aspirin and Plavix for recent stent placement less than a month ago. Hemoglobin with a drop down to 6.3 status post 1 unit of blood with elevated BUN and history of frequent NSAID use. Possibility dealing with an upper GI bleed and will plan to hold Plavix and proceed with upper endoscopy tomorrow. Avoid NSAIDs. Protonix 40 mg daily. Current Visit: Yes Status: Acute Code(s): D64.9 - ANEMIA, UNSPECIFIED SNOMED Code(s): 919853602 (2) Positive occult stool blood test Current Visit: Yes Status: Acute Code(s): R19.5 - OTHER FECAL ABNORMALITIES SNOMED Code(s): 77806875 (3) Coronary artery disease Narrative/Plan: Status post recent stents on aspirin 81 mg and Plavix 75 mg daily Current Visit: Yes Status: Acute Code(s): I25.10 - ATHSCL HEART DISEASE OF [place] CORONARY ARTERY W/O ANG PCTRS SNOMED Code(s): 42354612 (4) COPD (chronic obstructive pulmonary disease) Current Visit: No Status: Acute Code(s): J44.9 - CHRONIC OBSTRUCTIVE PULMONARY DISEASE, UNSPECIFIED SNOMED Code(s): 20250054 Plan: 1. Continue symptomatic and supportive care 2. Patient may have clear liquid diet, n.p.o. after midnight 3. May continue aspirin, hold Plavix 4. Avoid NSAIDs 5. Protonix 40 mg daily for GI prophylaxis 6. Zofran added for nausea 7. Plan for upper endoscopy tomorrow, if no findings to explain anemia will consider colonoscopy on Saturday. Thank you for this consultation, we will continue to follow. Dr. Audi Lacy I agree with the dictator's note, documented as a scribe by Jazmyne Lindsay.
[2023-12-30 14:15] LABS: Anisocytosis Slight; HCT 21.6 % (34.0-46.0); Hypochromasia Slight; MCH 31.1 pg (25.0-35.0); MCHC 31.8 g/dL (31.0-37.0); MCV 97.8 fL (80.0-100.0); Macrocytosis Slight; Mean Platelet Volume 8.3; Platelet Count 257 k/uL (150-450); Poikilocytosis Slight; RBC 2.21 m/uL (3.80-5.40); RDW 19.1 % (11.5-15.5); WBC 11.9 k/uL (3.8-10.6)
[2023-12-30 14:27] LABS: HGB 6.9 gm/dL (11.4-16.0)
[2023-12-30 17:15] LABS: % Iron Saturation 8.35 (12.00-45.00); Ferritin 23.6 ng/mL (10.0-291.0)
[2023-12-30] MEDS: ALPRAZolam 0.5 MG TAB PO PRN (17:46)
[2023-12-30] MEDS: ATORVASTATIN 40 MG TAB PO SCH (19:56)
[2023-12-30] MEDS: SYMBICORT 160-4.5 MCG INHALER INHALATION SCH (20:49)
[2023-12-31 08:08] LABS: Anisocytosis Moderate; Basophils % (A) 0 %; Eosinophils # (A) 0.3 k/uL (0-0.7); Eosinophils % (A) 2 %; HCT 25.6 % (34.0-46.0); Hypochromasia Slight; Lymphocytes # (A) 2.3 k/uL (1.0-4.8); Lymphocytes % (A) 22 %; MCHC 32.6 g/dL (31.0-37.0); Macrocytosis Slight; Mean Platelet Volume 8.9; Monocytes # (A) 0.8 k/uL (0-1.0); Monocytes % (A) 7 %; Neutrophils % (A) 66 %; Platelet Count 243 k/uL (150-450); Poikilocytosis Slight; RBC 2.78 m/uL (3.80-5.40); RDW 22.8 % (11.5-15.5); WBC 10.6 k/uL (3.8-10.6)
[2023-12-31] MEDS: ALBUTEROL NEBULIZED 2.5 MG/3 ML INHALATION PRN (08:08)
[2023-12-31] MEDS: IPRATROPIUM 0.5 MG/2.5 ML NEBU INHALATION SCH (08:12)
[2023-12-31 08:17] LABS: HGB 8.3 gm/dL (11.4-16.0)
[2023-12-31 08:22] LABS: African American GFR (CKD) 90 (>60 ml/min/1.73 sqM); Anion Gap 2 mmol/L; Blood Urea Nitrogen 21 mg/dL (7-17); Calcium 7.9 mg/dL (8.4-10.2); Carbon Dioxide 39 mmol/L (22-30); Chloride 89 mmol/L (98-107); Glucose 79 mg/dL (74-99); Non-African American GFR(CKD) 78 (>60 ml/min/1.73 sqM); Potassium 3.8 mmol/L (3.5-5.1); Sodium 130 mmol/L (137-145)
[2023-12-31] MEDS: BUMETANIDE 0.5 MG TABLET PO SCH (09:02)
--- NOTE | 2023-12-31 10:49 | P.PN ---
Subjective Progress Note Date: 12/31/23 83-year-old female with a PMH of chronic diastolic CHF, recent non-ST elevation [place] status post 2 stents on 11/29/2023, COPD, hypertension, and chronic debility who presents to the emergency room with complaints of shortness of breath, lower extremity swelling and generalized fatigue. Patient reports the swelling has progressed quickly over the past 1 week and she also reports not having the energy to perform her ADLs which is new for her. She denied experiencing chest discomfort, nausea, vomiting, diarrhea, black tarry stools, blood in stools, diaphoresis, or dizziness. EKG in the emergency room revealed sinus rhythm at 82 bpm with APCs. Chest x- ray revealed findings consistent with fluid overload as reviewed with the ED provider. Laboratory evaluation was remarkable for hemoglobin 7.0 and sub sequently 6.3 (baseline 12.8 upon discharge from hospital on 12/06), proBNP 499, troponin less than 0.012, stool occult blood positive, albumin 2.8, sodium 136, chloride 97, CO2 38, BUN 36, creatinine 0.59, glucose 127. Patient was started on Lasix IV BID and transfused 1 unit PRBC and admitted for further management. Cardiology consulted, Lasix discontinued. GI consulted, plans for endoscopy today and C-scope later if endoscopy unrevealing. Repeat Hg was 6.9 after 1 unit PRBC and another unit was ordered. 12/30 Patient was seen and examined. Anxiety better controlled. Complains of fatigue. Plans for endoscopy today pending pulmonary clearance. CBC Hg 8.3 Hct 25.6. BMP Na 130, Cl 89, bicarb 39, BUN 31, Ca 7.9. Iron studies shows low Fe 36, % sat 8.35. General: anxious, no distress, appears at stated age Derm: warm, dry Head: atraumatic, normocephalic, symmetric Eyes: EOMI, no lid lag, anicteric sclera Mouth: no lip lesion, mucus membranes moist Cardiovascular: S1S2 reg, no murmur Lungs: Decreased BS bilateral, no rhonchi, no rales , no accessory muscle use GI: Soft, nontender to palpation Ext: no gross muscle atrophy, no edema, no contractures Neuro: no focal neuro deficits Psych: Alert, oriented, appropriate affect Based on my assessment of this patient, this patient meets a high complexity level of care. Patient has an acute diagnosis of symptomatic anemia requiring multiple transfusions that poses a threat to life or bodily function. Symptomatic anemia: Stool occult positive. Status post 2 unit PRBC. Iron studies indicate Fe def anemia. Hold Plavix. Protonix 40 mg IV BID. Zofran 4 mg IV Q6H PRN N/V. Continue ASA 81 mg PO QD per GI. Telemetry monitoring. Plans for e ndoscopy today pending pulmonary clearance. Hyponatremia: HypoCl. Received Lasix IV on admission. Takes Bumex at home. Likely diuretic induced. Trend. Metabolic alkalosis: Could also be related to diuretics. Possible compensation for COPD. Monitor. Prerenal azotemia: Possible GI bleed. Improving. Resolved: Leukocytosis Chronic conditions: chronic diastolic CHF, recent non-ST elevation [place] status p ost 2 stents on 11/29/2023, COPD, hypertension, and chronic debility CODE STATUS: FULL CODE DVT Prophylaxis: SCD GI Prophylaxis: Protonix Designated medical POA if patient is not able to make medical decisions for themselves: I have reviewed the following medical sales consultant notes: GI, Cardiology note. I have reviewed the results of the following tests: CBC, BMP. I have ordered the following tests: CBC and BMP ordered for tomorrow morning. I have discussed the care of this patient with the following independent historian: I have independently interpreted the following test below: I have discussed the management of this patient with the following physician: Objective - Vital Signs Vital signs: Vital Signs Temp 97.6 F 12/31/23 08:00 Pulse 82 12/31/23 08:08 Resp 18 12/31/23 08:08 BP 108/65 12/31/23 08:00 Pulse Ox 99 12/31/23 08:08 FiO2 Intake & Output 12/30/23 12/31/23 12/31/23 18:59 06:59 18:59 Intake Total 310 1430 Balance 310 1430 Weight 75.296 kg 78.2 kg Intake: Oral 1120 Blood Product 310 310 Rc As-1 Unit 0 310 [id number] Rc Irr As1 Unit 310 [id number] Other: Voiding Method Toilet Toilet # Voids 1 - Labs CBC & Chem 7: 12/31/23 06:31 12/31/23 06:31 Labs: Abnormal Lab Results - Last 24 Hours (Table) 12/29/23 12/30/23 12/30/23 Range/Units 22:55 02:35 13:52 WBC 11.9 H (3.8-10.6) k/uL RBC 2.21 L (3.80-5.40) m/uL Hgb 6.9 L* (11.4-16.0) gm/dL Hct 21.6 L (34.0-46.0) % RDW 19.1 H (11.5-15.5) % Iron 35 L (50-170) UG/DL % Saturation 8.35 L (12.00-45.00) Crossmatch See Detail 12/31/23 Range/Units 06:31 WBC (3.8-10.6) k/uL RBC 2.78 L (3.80-5.40) m/uL Hgb 8.3 L (11.4-16.0) gm/dL Hct 25.6 L (34.0-46.0) % RDW 22.8 H (11.5-15.5) % Iron (50-170) UG/DL % Saturation (12.00-45.00) Crossmatch
--- NOTE | 2023-12-31 11:30 | P.PN ---
Subjective Progress Note Date: 12/31/23 Principal diagnosis: Anemia This is a pleasant 83-year-old female who presented to the emergency department early this morning with complaints of shortness of breath and weakness. She has a past medical history of COPD oxygen dependent, congestive heart failure and coronary artery disease requiring recent stenting in November of this year. She was discharged at that time on aspirin and Plavix. When she presented to the emergency department she was noted to be anemic with a hemoglobin of 7.0 with a drop in her hemoglobin to 6.3. She was transfused 1 unit of blood. She had a positive occult stool. Gastroenterology was consulted for anemia or. Patient states no history of GI bleed. She had normal hemoglobin on 12/24/2023 with her last blood draw. Denies any history of peptic ulcer disease, states last colonoscopy was 8 to 10 years ago and she had to go down to [facility] for CT colonoscopy. She did have a colonoscopy with Dr. Lacy in 2013 which was incomplete due to tortuosity and she was recommended for a CT colonography which was normal. She denies any abdominal pain, she does state that she is nauseated but no vomiting. Denies any recent significant weight loss. Unsure if she has black stool or blood in her stool as she states she does not look. She does report taking 2 Aleve daily at least 3 times a week. 01-21 Patient seen and examined today as a follow-up. She was initially scheduled to undergo EGD today however she had complaints of shortness of breath this morning and was noted to be hypoxic with her oxygen saturation in the 80s. She is currently on a nonrebreather. She did require another unit of blood as her hemoglobin had only come up to 6.9 yesterday after her first unit of blood. This morning's repeat hemoglobin 8.3. She denies any abdominal pain, no chest pain, still has some shortness of breath but better with the nonrebreather on. Objective - Vital Signs Vital signs: Vital Signs Temp 97.6 F 12/31/23 08:00 Pulse 88 12/31/23 08:18 Resp 18 12/31/23 08:18 BP 108/65 12/31/23 08:00 Pulse Ox 94 L 12/31/23 09:49 FiO2 Intake & Output 04/01/24 04/02/24 04/02/24 18:59 06:59 18:59 Intake Total 310 1430 Balance 310 1430 Weight 75.296 kg 78.2 kg Intake: Oral 1120 Blood Product 310 310 Rc As-1 Unit 0 310 [id number] Rc Irr As1 Unit 310 [id number] Other: Voiding Method Toilet Toilet # Voids 1 - Exam General appearance: The patient is alert, oriented, appears in no acute distress. HET: Head is normocephalic and atraumatic. Conjunctiva pink. Sclera anicteric. Neck: Supple without lymphadenopathy. Trachea midline. Heart: Regular. Lungs: Equal expansion, normal respiratory effort. Abdomen: Soft, nontender, nondistended. Skin: No rashes. No jaundice. Extremities: Normal skin color and turgor. No pedal edema. Neurological: No focal deficits. Alert and oriented x3. - Labs CBC & Chem 7: 12/31/23 06:31 12/31/23 06:31 Labs: Abnormal Lab Results - Last 24 Hours (Table) 12/29/23 12/30/23 12/30/23 Range/Units 22:55 02:35 13:52 WBC 11.9 H (3.8-10.6) k/uL RBC 2.21 L (3.80-5.40) m/uL Hgb 6.9 L* (11.4-16.0) gm/dL Hct 21.6 L (34.0-46.0) % RDW 19.1 H (11.5-15.5) % Sodium (137-145) mmol/L Chloride (98-107) mmol/L Carbon Dioxide (22-30) mmol/L BUN (7-17) mg/dL Calcium (8.4-10.2) mg/dL Iron 35 L (50-170) UG/DL % Saturation 8.35 L (12.00-45.00) Crossmatch See Detail 12/31/23 12/31/23 Range/Units 06:31 06:31 WBC (3.8-10.6) k/uL RBC 2.78 L (3.80-5.40) m/uL Hgb 8.3 L (11.4-16.0) gm/dL Hct 25.6 L (34.0-46.0) % RDW 22.8 H (11.5-15.5) % Sodium 130 L (137-145) mmol/L Chloride 89 L (98-107) mmol/L Carbon Dioxide 39 H (22-30) mmol/L BUN 21 H (7-17) mg/dL Calcium 7.9 L (8.4-10.2) mg/dL Iron (50-170) UG/DL % Saturation (12.00-45.00) Crossmatch Assessment and Plan (1) Anemia Narrative/Plan: 83-year-old female presenting with shortness of breath and dyspnea on exertion noted to be anemic after recently starting aspirin and Plavix for recent stent placement less than a month ago. Hemoglobin with a drop down to 6.3 status post 1 unit of blood with elevated BUN and history of frequent NSAID use. Possibility dealing with an upper GI bleed and will plan to hold Plavix and pr oceed with upper endoscopy tomorrow. Avoid NSAIDs. Protonix 40 mg daily. Current Visit: Yes Status: Acute Code(s): D64.9 - ANEMIA, UNSPECIFIED SNOMED Code(s): 095885274 (2) Positive occult stool blood test Current Visit: Yes Status: Acute Code(s): R19.5 - OTHER FECAL ABNORMALITIES SNOMED Code(s): 22830813 (3) Coronary artery disease Narrative/Plan: Status post recent stents on aspirin 81 mg and Plavix 75 mg daily Current Visit: Yes Status: Acute Code(s): I25.10 - ATHSCL HEART DISEASE OF [place] CORONARY ARTERY W/O ANG PCTRS SNOMED Code(s): 72168905 (4) COPD (chronic obstructive pulmonary disease) Narrative/Plan: Patient with shortness of breath and became hypoxic with oxygen saturations in in the 80s. Was on nonrebreather. Recommend pulmonology consultation to ev aluate if patient is stable to undergo EGD. EGD canceled and rescheduled for tomorrow Current Visit: No Status: Acute Code(s): J44.9 - CHRONIC OBSTRUCTIVE PULMONARY DISEASE, UNSPECIFIED SNOMED Code(s): 26346723 Plan: 1. Continue symptomatic and supportive care 2. Patient may have clear liquid diet, n.p.o. after midnight 3. May continue aspirin, hold Plavix 4. Avoid NSAIDs 5. Protonix 40 mg daily for GI prophylaxis 6. Zofran added for nausea 7. EGD canceled for today due to respiratory status. Rescheduled for tomorrow pending pulmonology clearance 8. Consult to pulmonology Thank you for this consultation, we will continue to follow. Dr. Audi Lacy I agree with the dictator's note, documented as a scribe by Jazmyne SINGLETON C.
--- NOTE | 2023-12-31 12:22 | P.PN ---
Subjective HISTORY OF PRESENT ILLNESS: This is a 83-year-old female with a past medical history significant for coronary artery disease with recent stenting, COPD, and hyperlipidemia. Patient follows in the office with Dr. Davalos. We have been asked to see the patient in consultation for CHF and recent stenting. Patient examined at the bedside in the emergency room. Patient was recently in the hospital and underwent cardiac catheterization on 11/27/2023 with stenting of the mid and proximal RCA and the PLV branch of the RCA. The patient was discharged home on aspirin and Plavix. She presented back to the hospital with a chief complaint of generalized weakness. Patient was found to be significantly anemic with a hemoglobin of 7.5 which is down from 11.5 on 12/24/2023. Patient reports she has been taking Aleve once or twice a week at home secondary to generalized pain. She denies having any black stools or blood in her stools. She denies having any chest pain or pressure. She denies any shortness of breath. She has been evaluated by GABE wilcox with plans to undergo endoscopy tomorrow. DIAGNOSTICS: - EKG reveals sinus mechanism. - Chest xray negative for acute process - Laboratory data: WBC 13.6. Hemoglobin 6.3. Platelet count 255. Sodium 136. Potassium 4.3. BUN 36. Creatinine 0.59. Troponin negative x 1. proBNP 499. - Current home cardiac medications include Lipitor 40 mg at night, aspirin 81 mg daily, Bumex 0.5 mg daily, metoprolol tartrate 25 mg twice a day - Most recent echocardiogram obtained in 11/23/2023 revealing ejection fraction 55 to 60% with no significant valvular abnormalities noted - Cardiac catheterization history: 11/27/2023 with stenting of the mid and proximal RCA and stenting of the PLV branch of the RCA. 12/31/2023 Patient examined this morning. She is sitting up in the chair. She continues to feel tired although improved. She denies any chest pain or pressure. Apparently overnight the patient had an episode of respiratory distress and required a nonrebreather for short period of time. However she is on a nasal cannula at this time and denies any shortness of breath. PHYSICAL EXAM: VITAL SIGNS: Reviewed. GENERAL: Well-developed in no acute distress. HEENT: Head is normocephalic. Pupils are equal, round. Sclerae anicteric. Mucous membranes of the mouth are moist. Neck supple. No JVD or thyromegaly LUNGS: Respirations even and unlabored. Lungs essentially clear to auscultation bilaterally. HEART: Regular rate and rhythm. S1 and S2 heard. ABDOMEN: Soft. Nondistended. Nontender. EXTREMITIES: Normal range of motion. No clubbing or cyanosis. Peripheral pulses intact. No lower extremity edema NEUROLOGIC: Awake and alert. Oriented x 3. ASSESSMENT: Severe anemia, rule out GI bleed Coronary artery disease with recent stenting of the mid and proximal RCA and PLV branch of the RCA, 11/27/2023 Chronic heart failure with preserved EF, currently euvolemic History of hyperlipidemia History of COPD PLAN: No need to repeat echocardiogram as this was performed in October 2023 Continue aspirin. Hold Plavix. Continue additional cardiac medications No need for IV diuresis. Continue with oral diuretics at this time GI has been consulted for evaluation. Patient scheduled for endoscopy tomorrow. Further recommendations pending patient course Nurse practitioner note has been reviewed by physician. Signing provider agrees with the documented findings, assessment, and plan of care documented by TACO MAKER as a scribe. Objective - Vital Signs Vital signs: Vital Signs Temp 97.6 F 12/31/23 11:46 Pulse 70 12/31/23 11:46 Resp 19 12/31/23 11:46 BP 103/62 12/31/23 11:46 Pulse Ox 98 12/31/23 11:46 FiO2 Intake & Output 12/30/23 12/31/23 12/31/23 18:59 06:59 18:59 Intake Total 310 1430 Balance 310 1430 Weight 75.296 kg 78.2 kg Intake: Oral 1120 Blood Product 310 310 Rc As-1 Unit 0 310 [id number] Rc Irr As1 Unit 310 [id number] Other: Voiding Method Toilet Toilet # Voids 1 - Labs CBC & Chem 7: 12/31/23 06:31 12/31/23 06:31 Labs: Abnormal Lab Results - Last 24 Hours (Table) 12/29/23 12/30/23 12/30/23 Range/Units 22:55 02:35 13:52 WBC 11.9 H (3.8-10.6) k/uL RBC 2.21 L (3.80-5.40) m/uL Hgb 6.9 L* (11.4-16.0) gm/dL Hct 21.6 L (34.0-46.0) % RDW 19.1 H (11.5-15.5) % Sodium (137-145) mmol/L Chloride (98-107) mmol/L Carbon Dioxide (22-30) mmol/L BUN (7-17) mg/dL Calcium (8.4-10.2) mg/dL Iron 35 L (50-170) UG/DL % Saturation 8.35 L (12.00-45.00) Crossmatch See Detail 12/31/23 12/31/23 Range/Units 06:31 06:31 WBC (3.8-10.6) k/uL RBC 2.78 L (3.80-5.40) m/uL Hgb 8.3 L (11.4-16.0) gm/dL Hct 25.6 L (34.0-46.0) % RDW 22.8 H (11.5-15.5) % Sodium 130 L (137-145) mmol/L Chloride 89 L (98-107) mmol/L Carbon Dioxide 39 H (22-30) mmol/L BUN 21 H (7-17) mg/dL Calcium 7.9 L (8.4-10.2) mg/dL Iron (50-170) UG/DL % Saturation (12.00-45.00) Crossmatch
--- NOTE | 2023-12-31 13:09 | P.CNPUL ---
History of Present Illness Consult date: 12/31/23 Requesting physician: Dawn Ramsey Reason for consult: dyspnea, COPD, other Chief complaint: Shortness of breath. History of present illness: Pulmonary consult dated December 31, 2023. 83-year-old female who presented to the emergency department, on December 28, complaining of shortness of breath, and weakness. The patient was recently hospitalized, for shortness of breath, CHF, COPD, and had a cardiac catheterization, and required 3 stents. The patient was recently seen in the ER, on 23 December, evaluated, and discharged. She came back in, on the , still complaining of shortness of breath, and weakness. She apparently complained of swelling, including the lower extremities and upper extremities. She was evaluated, and admitted, with a diagnosis of respiratory insufficiency, and anemia. She has a history of COPD, hypertension, skin cancer, and anxiety. The patient does continue to smoke cigarettes, but she states that she is cut back significantly. Current labs include a white count of 10.6, hemoglobin that was 6 3 on admission, but now 8.3, hematocrit 25.6, and a platelet count 243,000. Sodium 130, potassium 3.8, chlorides 89, CO2 39, BUN 21, creatinine 0.73. Calcium is 7.9. Stools for occult blood were positive. Urinalysis was negative. Chest x-ray was interpreted as normal. Review of Systems REVIEW OF SYSTEMS: CONSTITUTIONAL: Weakness. NEUROLOGIC: [ Negative.] HEENT: [ Negative.] CARDIAC: [Negative.] PULMONARY: Shortness of breath. GI: [Negative.] : [Negative.] RHEUMATOLOGIC: [ Negative.] IMMUNOLOGIC: [ Negative.] ENDOCRINE: [Negative. 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, covid Last Myocardial Infarction Date:: 11/23 History of Any Multi-Drug Resistant Organisms: None Reported Past Surgical History: Heart Catheterization With Stent, Hysterectomy Past Anesthesia/Blood Transfusion Reactions: No Reported Reaction Date of Last Stent Placement:: 11/27/23 Past Psychological History: Anxiety, Depression Smoking Status: Current some day smoker Past Alcohol Use History: None Reported Past Drug Use History: None Reported Additional Drug Use History / Comment(s): occasional smoker - Past Family History Mother Family Medical History: Myocardial Infarction ([place]) Father Family Medical History: CVA/TIA Medications and Allergies Home Medications Medication Instructions Recorded Confirmed Type Bumetanide [BUMEX] 0.5 mg PO DAILY 11/27/23 12/30/23 History Albuterol Inhaler [Ventolin Hfa 2 puff INHALATION RT-QID PRN #1 12/07/23 12/30/23 Rx Inhaler] each Aspirin 81 mg PO DAILY #30 tab 12/07/23 12/30/23 Rx Atorvastatin [Lipitor] 40 mg PO HS #30 tab 12/07/23 12/30/23 Rx Budesonide-Formot 160-4.5 Mcg 2 puff INHALATION RT-BID #1 each 12/07/23 12/30/23 Rx [Symbicort 160-4.5 Mcg Inhaler] Clopidogrel [Plavix] 75 mg PO DAILY #30 tab 12/07/23 12/30/23 Rx Metoprolol Tartrate [Lopressor] 25 mg PO BID #60 tab 12/07/23 12/30/23 Rx Tiotropium 2.5 Mcg/Puff [Spiriva 2 puff INHALATION RT-DAILY #1 each 12/07/23 12/30/23 Rx Respimat 2.5 Mcg] Albuterol Nebulized [Ventolin 2.5 mg INHALATION RT-Q6H PRN 12/24/23 12/30/23 History Nebulized] traZODone HCL [Desyrel] 50 - 100 mg PO HS PRN 12/24/23 12/30/23 History ALPRAZolam [Xanax] 0.5 mg PO BID PRN 12/30/23 12/30/23 History Naproxen Sodium [Aleve] 220 mg PO BID PRN 12/30/23 12/30/23 History Nitroglycerin Sl Tabs [Nitrostat] 0.4 mg SL Q5M PRN 12/30/23 12/30/23 History Allergies Allergy/AdvReac Type Severity Reaction Status Date / Time codeine AdvReac Itching Verified 12/30/23 06:27 Physical Exam Osteopathic Statement: *. No significant issues noted on an osteopathic structural exam other than those noted in the History and Physical/Consult. Vitals: Vital Signs Temp Pulse Pulse Resp BP BP Pulse Ox 12/31/23 11:46 97.6 F 70 19 103/62 98 12/31/23 09:49 94 L 12/31/23 08:47 88 L 12/31/23 08:18 88 18 12/31/23 08:08 82 18 99 12/31/23 08:04 71 18 12/31/23 08:00 97.6 F 71 18 108/65 100 12/31/23 04:00 97.5 F L 84 18 109/73 93 L 12/31/23 00:00 97.7 F 72 16 116/67 94 L 12/30/23 20:22 97.9 F 78 18 131/75 95 12/30/23 20:21 97.9 F 78 18 131/75 95 12/30/23 20:00 97.8 F 83 18 129/69 96 12/30/23 17:48 97.5 F L 76 20 111/54 97 12/30/23 17:28 98.3 F 85 21 117/65 12/30/23 17:18 98.5 F 84 18 132/69 93 L 12/30/23 15:30 97.7 F 84 21 123/65 95 12/30/23 14:36 87 18 104/60 95 12/30/23 13:45 97.5 F L 87 18 106/63 93 L Intake and Output 12/30/23 12/31/23 12/31/23 22:59 06:59 14:59 Intake Total 1430 Balance 1430 Intake: Oral 1120 Blood Product 310 Rc As-1 Unit 310 [id number] Other: Voiding Method Toilet Toilet # Voids 1 Weight 75.296 kg 78.2 kg No acute distress, oriented 3. The patient is currently on 5 L of oxygen, with saturations of 98%. There is no conversational dyspnea or use of accessory muscles. HEENT examination is grossly unremarkable. Mucous membranes are moist. No oral lesions. Neck supple. Full range of motion. No adenopathy thyromegaly or neck vein distention. Cardiovascular examination reveals regular rhythm rate. S1-S2 normal. No S3 or S4. No discernible murmur noted. Heart sounds are distant. Heart rate 70 bpm. Lungs reveal mostly clear breath sounds. Scattered rhonchi are noted. No wheezes or crackles. Breath sounds are equal bilaterally. 5 L saturation is 98%. Abdomen soft bowel sounds are heard. No masses or tenderness. Extremities are intact. No cyanosis or clubbing. Trace lower extremity edema is noted. Skin is without rash or lesion. Neurologic examination is brief but nonfocal. Results - Laboratory Findings CBC and BMP: 12/31/23 06:31 12/31/23 06:31 PT/INR, D-dimer PT 9.9 sec (10.0-12.5) L 12/29/23 22:55 INR 0.9 (<1.2) 12/29/23 22:55 Abnormal lab findings: Abnormal Labs 12/29/23 12/29/23 12/29/23 22:55 22:55 22:55 WBC 14.2 H RBC 2.12 L Hgb 7.0 L D Hct 21.6 L MCV 101.7 H RDW 18.7 H Neutrophils # 11.5 H PT 9.9 L APTT 20.9 L Sodium 136 L Chloride 97 L Carbon Dioxide 38 H BUN 36 H Glucose 127 H Calcium Iron % Saturation Total Protein 5.5 L Albumin 2.8 L Stool Occult Blood Crossmatch 12/29/23 12/30/23 12/30/23 22:55 02:29 02:35 WBC RBC Hgb Hct MCV RDW Neutrophils # PT APTT Sodium Chloride Carbon Dioxide BUN Glucose Calcium Iron 35 L % Saturation 8.35 L Total Protein Albumin Stool Occult Blood Positive H Crossmatch See Detail 12/30/23 12/30/23 12/31/23 02:42 13:52 06:31 WBC 13.6 H 11.9 H RBC 1.95 L 2.21 L 2.78 L Hgb 6.3 L* 6.9 L* 8.3 L Hct 19.9 L* 21.6 L 25.6 L MCV 102.4 H RDW 18.2 H 19.1 H 22.8 H Neutrophils # PT APTT Sodium Chloride Carbon Dioxide BUN Glucose Calcium Iron % Saturation Total Protein Albumin Stool Occult Blood Crossmatch 12/31/23 06:31 WBC RBC Hgb Hct MCV RDW Neutrophils # PT APTT Sodium 130 L Chloride 89 L Carbon Dioxide 39 H BUN 21 H Glucose Calcium 7.9 L Iron % Saturation Total Protein Albumin Stool Occult Blood Crossmatch - Diagnostic Findings Chest x-ray: image reviewed Assessment and Plan Assessment: Shortness of breath, likely multifactorial, in part related to COPD exacerbation, and anemia. Coronary artery disease, with recent stenting, on November 29, 2023. Ongoing tobacco use with nicotine addiction. History of hypertension. History of skin cancer. History of anxiety/depression. History of ongoing tobacco use with nicotine addiction. History of hyperlipidemia. Plan: Plan dated December 31, 2023. The patient is seen today, in room 356. The patient is currently on 5 L of oxygen, but her saturations are 98 to 99%, and the oxygen can be titrated downward. In addition, the patient is on Symbicort 160/4.5, 2 puffs twice a day, and is also receiving breathing treatments with albuterol sulfate and ipratropium bromide. In my opinion, the patient does not require corticosteroids at this time. The patient is still smoking, and she is counseled about the importance of smoking cessation. She states that she has cut down recently. She was recently in the hospital, in November, and at that time, had a PCI, with stent placement. We will continue to follow make recommendations along the way. Prognosis is guarded. Time with Patient: Greater than 30
[2023-12-31] MEDS ORDERED: LIDOCAINE 1% (10MG/ML) FOR IV START INTRADERMA PRN (18:39)
[2024-01-01] MEDS: LACTATED RINGERS 1,000 ML IV SCH (04:34)
[2024-01-01 05:14] LABS: Anisocytosis Moderate; HCT 26.9 % (34.0-46.0); HGB 8.6 gm/dL (11.4-16.0); Hypochromasia Slight; MCH 29.9 pg (25.0-35.0); MCHC 32.2 g/dL (31.0-37.0); MCV 92.9 fL (80.0-100.0); Macrocytosis Slight; Mean Platelet Volume 8.8; Platelet Count 297 k/uL (150-450); Poikilocytosis Slight; RBC 2.89 m/uL (3.80-5.40); RDW 21.4 % (11.5-15.5); WBC 10.6 k/uL (3.8-10.6)
[2024-01-01 05:24] LABS: African American GFR (CKD) 89 (>60 ml/min/1.73 sqM); Anion Gap 3 mmol/L; Blood Urea Nitrogen 14 mg/dL (7-17); Calcium 8.4 mg/dL (8.4-10.2); Carbon Dioxide 37 mmol/L (22-30); Chloride 91 mmol/L (98-107); Glucose 90 mg/dL (74-99); Non-African American GFR(CKD) 77 (>60 ml/min/1.73 sqM); Potassium 3.7 mmol/L (3.5-5.1); Sodium 131 mmol/L (137-145)
--- NOTE | 2024-01-01 06:39 | P.PN ---
Subjective Progress Note Date: 01/01/24 83-year-old female with a PMH of chronic diastolic CHF, recent non-ST elevation RI status post 2 stents on 11/29/2023, COPD, hypertension, and chronic debility who presents to the emergency room with complaints of shortness of breath, lower extremity swelling and generalized fatigue. Patient reports the swelling has progressed quickly over the past 1 week and she also reports not having the energy to perform her ADLs which is new for her. She denied experiencing chest discomfort, nausea, vomiting, diarrhea, black tarry stools, blood in stools, diaphoresis, or dizziness. EKG in the emergency room revealed sinus rhythm at 82 bpm with APCs. Chest x- ray revealed findings consistent with fluid overload as reviewed with the ED provider. Laboratory evaluation was remarkable for hemoglobin 7.0 and sub sequently 6.3 (baseline 12.8 upon discharge from hospital on 12/06), proBNP 499, troponin less than 0.012, stool occult blood positive, albumin 2.8, sodium 136, chloride 97, CO2 38, BUN 36, creatinine 0.59, glucose 127. Patient was started on Lasix IV BID and transfused 1 unit PRBC and admitted for further management. Cardiology consulted, Lasix discontinued. GI consulted, plans for endoscopy today and C-scope later if endoscopy unrevealing. Repeat Hg was 6.9 after 1 unit PRBC and another unit was ordered. 12/30 Patient was seen and examined. Anxiety better controlled. Complains of fatigue. She was on a non rebreather mask this morning for a short time for O2 saturation in the 80s. Plans for endoscopy today pending pulmonary clearance. CBC Hg 8.3 Hct 25.6. BMP Na 130, Cl 89, bicarb 39, BUN 31, Ca 7.9. Iron studies shows low Fe 36, % sat 8.35. 12/31 Patient was seen and examined. Complains of some anxiety. Endoscopy cancelled yesterday due to respiratory status. Currently on 5L NC saturating 92%. Pulmonary has been consulted. CBC Hg 8.6 Hct 26.9. BMP Na 131, Cl 91, bicarb 37. General: anxious, no distress, appears at stated age Derm: warm, dry Head: atraumatic, normocephalic, symmetric Eyes: EOMI, no lid lag, anicteric sclera Mouth: no lip lesion, mucus membranes moist Cardiovascular: S1S2 reg, no murmur Lungs: Decreased BS bilateral, scattered rhonchi, no rales , no accessory muscle use GI: Soft, nontender to palpation Ext: no gross muscle atrophy, no edema, no contractures Neuro: no focal neuro deficits Psych: Alert, oriented, appropriate affect Based on my assessment of this patient, this patient meets a high complexity level of care. Patient has an acute diagnosis of symptomatic anemia requiring multiple transfusions that poses a threat to life or bodily function. Symptomatic anemia: Stool occult positive. Status post 2 unit PRBC. Iron studies indicate Fe def anemia. Hold Plavix. Protonix 40 mg IV BID. Zofran 4 mg IV Q6H PRN N/V. Continue ASA 81 mg PO QD per GI. Telemetry monitoring. Plans for endoscopy today pending pulmonary clearance. Hyponatremia: HypoCl. Received Lasix IV on admission. Takes Bumex at home. Likely diuretic induced. Trend. Metabolic alkalosis: Could also be related to diuretics. Possible compensation for COPD. Monitor. Prerenal azotemia: Possible GI bleed. Improving. Resolved: Leukocytosis Chronic conditions: chronic diastolic CHF, recent non-ST elevation RI status post 2 stents on 11/29/2023, COPD, hypertension, and chronic debility CODE STATUS: FULL CODE DVT Prophylaxis: SCD GI Prophylaxis: Protonix Designated medical POA if patient is not able to make medical decisions for themselves: I have reviewed the following real estate consultant notes: GI, Pulmonary, Cardiology note. I have reviewed the results of the following tests: CBC, BMP. I have ordered the following tests: I have discussed the care of this patient with the following independent historian: I have independently interpreted the following test below: I have discussed the management of this patient with the following physician: Objective - Vital Signs Vital signs: Vital Signs Temp 98.0 F 12/31/23 20:00 Pulse 77 01/01/24 04:00 Resp 18 01/01/24 04:00 BP 113/65 01/01/24 04:00 Pulse Ox 92 L 01/01/24 04:00 FiO2 Intake & Output 12/31/23 12/31/23 01/01/24 06:59 18:59 06:59 Intake Total 1430 1858 480 Balance 1430 1858 480 Weight 78.2 kg Intake: Oral 1120 1858 480 Blood Product 310 Rc As-1 Unit 310 [id number] Other: Voiding Method Toilet Toilet # Voids 1 3 2 # Bowel Movements 1 1 - Labs CBC & Chem 7: 01/01/24 04:54 01/01/24 04:54 Labs: Abnormal Lab Results - Last 24 Hours (Table) 12/31/23 12/31/23 Range/Units 06:31 06:31 RBC 2.78 L (3.80-5.40) m/uL Hgb 8.3 L (11.4-16.0) gm/dL Hct 25.6 L (34.0-46.0) % RDW 22.8 H (11.5-15.5) % Sodium 130 L (137-145) mmol/L Chloride 89 L (98-107) mmol/L Carbon Dioxide 39 H (22-30) mmol/L BUN 21 H (7-17) mg/dL Calcium 7.9 L (8.4-10.2) mg/dL
--- NOTE | 2024-01-01 10:57 | P.PN ---
Subjective HISTORY OF PRESENT ILLNESS: This is a 83-year-old female with a past medical history significant for coronary artery disease with recent stenting, COPD, and hyperlipidemia. Patient follows in the office with Dr. Davalos. We have been asked to see the patient in consultation for CHF and recent stenting. Patient examined at the bedside in the emergency room. Patient was recently in the hospital and underwent cardiac catheterization on 11/27/2023 with stenting of the mid and proximal RCA and the PLV branch of the RCA. The patient was discharged home on aspirin and Plavix. She presented back to the hospital with a chief complaint of generalized weakness. Patient was found to be significantly anemic with a hemoglobin of 7.5 which is down from 11.5 on 12/24/2023. Patient reports she has been taking Aleve once or twice a week at home secondary to generalized pain. She denies having any black stools or blood in her stools. She denies having any chest pain or pressure. She denies any shortness of breath. She has been evaluated by GABE wilcox with plans to undergo endoscopy tomorrow. DIAGNOSTICS: - EKG reveals sinus mechanism. - Chest xray negative for acute process - Laboratory data: WBC 13.6. Hemoglobin 6.3. Platelet count 255. Sodium 136. Potassium 4.3. BUN 36. Creatinine 0.59. Troponin negative x 1. proBNP 499. - Current home cardiac medications include Lipitor 40 mg at night, aspirin 81 mg daily, Bumex 0.5 mg daily, metoprolol tartrate 25 mg twice a day - Most recent echocardiogram obtained in 11/23/2023 revealing ejection fraction 55 to 60% with no significant valvular abnormalities noted - Cardiac catheterization history: 11/27/2023 with stenting of the mid and proximal RCA and stenting of the PLV branch of the RCA. 12/31/2023 Patient examined this morning. She is sitting up in the chair. She continues to feel tired although improved. She denies any chest pain or pressure. Apparently overnight the patient had an episode of respiratory distress and required a nonrebreather for short period of time. However she is on a nasal cannula at this time and denies any shortness of breath. 01/01/2024 Patient examined this morning at the bedside. Patient denies chest pain or pressure. She denies shortness of breath. She remains on aspirin. Plavix continues to remain on hold. Hemoglobin is stable today 8.6. She is scheduled to undergo endoscopy today. PHYSICAL EXAM: VITAL SIGNS: Reviewed. GENERAL: Well-developed in no acute distress. HEENT: Head is normocephalic. Pupils are equal, round. Sclerae anicteric. Mucous membranes of the mouth are moist. Neck supple. No JVD or thyromegaly LUNGS: Respirations even and unlabored. Lungs essentially clear to auscultation bilaterally. HEART: Regular rate and rhythm. S1 and S2 heard. ABDOMEN: Soft. Nondistended. Nontender. EXTREMITIES: Normal range of motion. No clubbing or cyanosis. Peripheral pulses intact. No lower extremity edema NEUROLOGIC: Awake and alert. Oriented x 3. ASSESSMENT: Severe anemia, rule out GI bleed Coronary artery disease with recent stenting of the mid and proximal RCA and PLV branch of the RCA, 11/27/2023 Chronic heart failure with preserved EF, currently euvolemic History of hyperlipidemia History of COPD PLAN: No need to repeat echocardiogram as this was performed in October 2023 Continue aspirin. Hold Plavix. Continue additional cardiac medications No need for IV diuresis. Continue with oral diuretics at this time Patient scheduled for endoscopy today with GI services Further recommendations pending patient course Nurse practitioner note has been reviewed by physician. Signing provider agrees with the documented findings, assessment, and plan of care documented by REPEAT CHIEF as a scribe. Objective - Vital Signs Vital signs: Vital Signs Temp 98.0 F 01/01/24 08:00 Pulse 77 01/01/24 08:50 Resp 17 01/01/24 08:50 BP 115/70 01/01/24 08:00 Pulse Ox 93 L 01/01/24 08:00 FiO2 Intake & Output 12/31/23 01/01/24 01/01/24 18:59 06:59 18:59 Intake Total 1858 480 Balance 1858 480 Intake: Oral 1858 480 Other: Voiding Method Toilet # Voids 3 2 1 # Bowel Movements 1 1 - Labs CBC & Chem 7: 01/01/24 04:54 01/01/24 04:54 Labs: Abnormal Lab Results - Last 24 Hours (Table) 01/01/24 01/01/24 Range/Units 04:54 04:54 RBC 2.89 L (3.80-5.40) m/uL Hgb 8.6 L (11.4-16.0) gm/dL Hct 26.9 L (34.0-46.0) % RDW 21.4 H (11.5-15.5) % Sodium 131 L (137-145) mmol/L Chloride 91 L (98-107) mmol/L Carbon Dioxide 37 H (22-30) mmol/L
--- NOTE | 2024-01-01 11:09 | P.PN ---
Subjective Progress Note Date: 01/01/24 Principal diagnosis: Respiratory distress. Pulmonary consult dated December 31, 2023. 83-year-old female who presented to the emergency department, on December 28, complaining of shortness of breath, and weakness. The patient was recently hospitalized, for shortness of breath, CHF, COPD, and had a cardiac catheterization, and required 3 stents. The patient was recently seen in the ER, on 23 December, evaluated, and discharged. She came back in, on the , still complaining of shortness of breath, and weakness. She apparently complained of swelling, including the lower extremities and upper extremities. She was evaluated, and admitted, with a diagnosis of respiratory insufficiency, and anemia. She has a history of COPD, hypertension, skin cancer, and anxiety. The patient does continue to smoke cigarettes, but she states that she is cut back significantly. Current labs include a white count of 10.6, hemoglobin that was 6 3 on admission, but now 8.3, hematocrit 25.6, and a platelet count 243,000. Sodium 130, potassium 3.8, chlorides 89, CO2 39, BUN 21, creatinine 0 .73. Calcium is 7.9. Stools for occult blood were positive. Urinalysis was negative. Chest x-ray was interpreted as normal. Progress note dated January 28, 2024. The patient is seen today in room 356. She continues on oxygen by nasal cannula at 4 L. She is not receiving any IV fluids. Because of her anemia, on presentation, and her hemoglobin is 6.3, the patient is scheduled for an EGD today. Current laboratory data includes a white count 10.6, hemoglobin 8.6, hematocrit 26.9, and a platelet count of 297,000. Sodium 131, potassium 3.7, chlorides 91, CO2 37, BUN 14, creatinine 0.74. Calcium is 8.4. Objective - Vital Signs Vital signs: Vital Signs Temp 98.0 F 01/01/24 08:00 Pulse 77 01/01/24 08:50 Resp 17 01/01/24 08:50 BP 115/70 01/01/24 08:00 Pulse Ox 93 L 01/01/24 08:00 FiO2 Intake & Output 12/31/23 01/01/24 01/01/24 18:59 06:59 18:59 Intake Total 1858 480 Balance 1858 480 Intake: Oral 1858 480 Other: Voiding Method Toilet # Voids 3 2 1 # Bowel Movements 1 1 - Exam No acute distress, oriented 3. The patient is currently on 4 L of oxygen, with saturations of 95 %. There is no conversational dyspnea or use of accessory muscles. HEENT examination is grossly unremarkable. Mucous membranes are moist. No oral lesions. Neck supple. Full range of motion. No adenopathy thyromegaly or neck vein distention. Cardiovascular examination reveals regular rhythm rate. S1-S2 normal. No S3 or S4. No discernible murmur noted. Heart sounds are distant. Heart rate 77 bpm. Lungs reveal mostly clear breath sounds. Scattered rhonchi are noted. No wheezes or crackles. Breath sounds are equal bilaterally. 4 L saturation is 95%. Abdomen soft bowel sounds are heard. No masses or tenderness. Extremities are intact. No cyanosis or clubbing. Trace lower extremity edema is noted. Skin is without rash or lesion. Neurologic examination is brief but nonfocal. - Labs CBC & Chem 7: 01/01/24 04:54 01/01/24 04:54 Labs: Abnormal Lab Results - Last 24 Hours (Table) 01/01/24 01/01/24 Range/Units 04:54 04:54 RBC 2.89 L (3.80-5.40) m/uL Hgb 8.6 L (11.4-16.0) gm/dL Hct 26.9 L (34.0-46.0) % RDW 21.4 H (11.5-15.5) % Sodium 131 L (137-145) mmol/L Chloride 91 L (98-107) mmol/L Carbon Dioxide 37 H (22-30) mmol/L Assessment and Plan Assessment: Shortness of breath, likely multifactorial, in part related to COPD exacerbation, and anemia. Coronary artery disease, with recent stenting, on November 29, 2023. Ongoing tobacco use with nicotine addiction. History of hypertension. History of skin cancer. History of anxiety/depression. History of ongoing tobacco use with nicotine addiction. History of hyperlipidemia. Plan: Plan dated December 31, 2023. The patient is seen today, in room 356. The patient is currently on 5 L of oxygen, but her saturations are 98 to 99%, and the oxygen can be titrated downward. In addition, the patient is on Symbicort 160/4.5, 2 puffs twice a day, and is also receiving breathing treatments with albuterol sulfate and ipratropium bromide. In my opinion, the patient does not require corticosteroids at this time. The patient is still smoking, and she is counseled about the importance of smoking cessation. She states that she has cut down recently. She was recently in the hospital, in November, and at that time, had a PCI, with stent placement. We will continue to follow make recommendations along the way. Prognosis is guarded. Plan dated January 01, 2024. The patient is seen today in room 356. The patient is currently on 4 L of oxygen. The patient is scheduled to have an EGD today. When she was admitted, her hemoglobin was 6.3. She received 2 units of packed red blood cells. Labs, x-rays, and medications are reviewed. We will continue to follow, make recommendations along the way. From the pulmonary standpoint, the patient is on Symbicort, and albuterol, and ipratropium bromide. I did not feel the patient needed corticosteroids. Prognosis is guarded. Time with Patient: Less than 30
[2024-01-01] MEDS ORDERED: PROPOFOL 10 MG/ML 20 ML VIAL IV ONE (12:54)
[2024-01-01] MEDS ORDERED: LIDOCAINE 1% INJ 10MG/ML (20 ML MDV) ONE (12:54)
[2024-01-01] MEDS: LACTATED RINGERS 1,000 ML IV ONE (12:55)
--- NOTE | 2024-01-01 13:03 | P.PCN ---
Date of Procedure: 01/01/24 Procedure(s) Performed: BRIEF HISTORY: Patient is a 83-year-old, pleasant, white female admitted hospital with severe symptomatic anemia and hemoglobin of 6.3 g/dL. Iron indices are consistent with iron deficiency anemia. She is been having dark colored stools. Her hemoglobin was normal in November of this year. She underwent angioplasty with cardiac stent placement ,and since then has been on aspirin and Plavix.. PROCEDURE PERFORMED: Esophagogastroduodenoscopy with biopsy. PREOPERATIVE DIAGNOSIS: Severe symptomatic iron deficiency anemia. IV sedation per anesthesia. PROCEDURE: After informed consent was obtained, the patient was brought into the endoscopy unit. IV sedation was administered by Anesthesia under continuous monitoring. Initially the Olympus GIF-140 video endoscope was inserted into the mouth. Esophagus intubated without any difficulty. It was gradually advanced into the stomach and duodenum and carefully examined. The bulb and the second part of the duodenum appeared normal. The scope at this time was withdrawn to the stomach, adequately insufflated with air, and upon careful examination, mucosa of the antrum, had a 1 cm clean-based antral ulcer with no active bleeding. Scattered erosions noted in the antrum with gastritis and biopsies were done from this area. Mucosa of the body, cardia and the fundus appeared normal. The scope was then withdrawn into the esophagus.small hiatal hernia noted.The GE junction was located at 39 cm from the incisors. The esophagus appeared normal. There were no erosions or ulcerations seen and the patient tolerated the procedure well. IMPRESSION: 1. 1 cm clean-based antral ulcer with no active bleeding. 2. Antral erosive gastritis 3. Small hiatal hernia RECOMMENDATIONS: The findings of this examination were discussed with the patient as well as a family. She will continue with Protonix 40 mg daily and avoid NSAIDs. Resume aspirin and Plavix today.. Monitor CBC on a daily basis.
[2024-01-01 23:45] VITALS: RESP 16
[2024-01-02 08:57] VITALS: TEMP 97.6
--- NOTE | 2024-01-02 10:53 | P.PN ---
Subjective Progress Note Date: 01/02/24 Principal diagnosis: Respiratory distress. Pulmonary consult dated December 31, 2023. 83-year-old female who presented to the emergency department, on December 28, complaining of shortness of breath, and weakness. The patient was recently hospitalized, for shortness of breath, CHF, COPD, and had a cardiac catheterization, and required 3 stents. The patient was recently seen in the ER, on 23 December, evaluated, and discharged. She came back in, on the , still complaining of shortness of breath, and weakness. She apparently complained of swelling, including the lower extremities and upper extremities. She was evaluated, and admitted, with a diagnosis of respiratory insufficiency, and anemia. She has a history of COPD, hypertension, skin cancer, and anxiety. The patient does continue to smoke cigarettes, but she states that she is cut back significantly. Current labs include a white count of 10.6, hemoglobin that was 6 3 on admission, but now 8.3, hematocrit 25.6, and a platelet count 243,000. Sodium 130, potassium 3.8, chlorides 89, CO2 39, BUN 21, creatinine 0 .73. Calcium is 7.9. Stools for occult blood were positive. Urinalysis was negative. Chest x-ray was interpreted as normal. Progress note dated January 01, 2024. The patient is seen today in room 356. She continues on oxygen by nasal cannula at 4 L. She is not receiving any IV fluids. Because of her anemia, on presentation, and her hemoglobin is 6.3, the patient is scheduled for an EGD today. Current laboratory data includes a white count 10.6, hemoglobin 8.6, hematocrit 26.9, and a platelet count of 297,000. Sodium 131, potassium 3.7, chlorides 91, CO2 37, BUN 14, creatinine 0.74. Calcium is 8.4. Progress note dated January 02, 2024. This is an 83-year-old female seen today in room 356. The patient is currently on 4 L of oxygen. The patient is not receiving any IV fluids. Yesterday, the patient had an EGD, because of her anemia. They found a nonbleeding antral ulcer, antral gastritis, and a small hiatal hernia. The patient is clinically stable, and today's hemoglobin is pending. Her hemoglobin yesterday was 8.6. No new labs today as yet. Objective - Vital Signs Vital signs: Vital Signs Temp 97.6 F 01/02/24 08:00 Pulse 95 01/02/24 08:00 Resp 16 01/02/24 08:00 BP 125/71 01/02/24 08:00 Pulse Ox 97 01/02/24 08:00 FiO2 Intake & Output 01/01/24 01/02/24 01/02/24 18:59 06:59 18:59 Intake Total 200 540 358 Balance 200 540 358 Intake: IV 200 Oral 540 358 Other: Voiding Method Toilet Toilet # Voids 1 - Exam No acute distress, oriented 3. The patient is currently on 4 L of oxygen, with saturations of 97 %. There is no conversational dyspnea or use of accessory muscles. HEENT examination is grossly unremarkable. Mucous membranes are moist. No oral lesions. Neck supple. Full range of motion. No adenopathy thyromegaly or neck vein distention. Cardiovascular examination reveals regular rhythm rate. S1-S2 normal. No S3 or S4. No discernible murmur noted. Heart sounds are distant. Heart rate 95 bpm. Lungs reveal mostly clear breath sounds. Scattered rhonchi are noted. No wheezes or crackles. Breath sounds are equal bilaterally. 4 L saturation is 97 %. Abdomen soft bowel sounds are heard. No masses or tenderness. Extremities are intact. No cyanosis or clubbing. Trace lower extremity edema is noted. Skin is without rash or lesion. Neurologic examination is brief but nonfocal. - Labs CBC & Chem 7: 01/01/24 04:54 01/01/24 04:54 Assessment and Plan Assessment: Shortness of breath, likely multifactorial, in part related to COPD exacerb ation, and anemia. S/P EGD, which revealed antral ulcer, that was not bleeding, antral gastritis, a nd a small hiatal hernia, January 01, 2024. Coronary artery disease, with recent stenting, on November 29, 2023. Ongoing tobacco use with nicotine addiction. History of hypertension. History of skin cancer. History of anxiety/depression. History of ongoing tobacco use with nicotine addiction. History of hyperlipidemia. Plan: Plan dated December 31, 2023. The patient is seen today, in room 356. The patient is currently on 5 L of oxygen, but her saturations are 98 to 99%, and the oxygen can be titrated downward. In addition, the patient is on Symbicort 160/4.5, 2 puffs twice a day, and is also receiving breathing treatments with albuterol sulfate and ipr atropium bromide. In my opinion, the patient does not require corticosteroids at this time. The patient is still smoking, and she is counseled about the importance of smoking cessation. She states that she has cut down recently. She was recently in the hospital, in November, and at that time, had a PCI, with stent placement. We will continue to follow make recommendations along the way. Prognosis is guarded. Plan dated January 01, 2024. The patient is seen today in room 356. The patient is currently on 4 L of oxygen. The patient is scheduled to have an EGD today. When she was admitted, her hemoglobin was 6.3. She received 2 units of packed red blood cells. Labs, x-rays, and medications are reviewed. We will continue to follow, make recommendations along the way. From the pulmonary standpoint, the patient is on Symbicort, and albuterol, and ipratropium bromide. I did not feel the patient needed corticosteroids. Prognosis is guarded. Plan dated January 02, 2024. The patient had an EGD yesterday, which showed an antral ulcer, that was not actively bleeding, antral gastritis, and a small hiatal hernia. Clinically, the patient appears to be relatively stable. Her hemoglobin today is pending. Her hemoglobin yesterday was 8.6. Currently, she is on 4 L of oxygen. Saturations are 98%. Labs, x-rays, medications are reviewed. The patient's overall prognosis remains guarded. We will continue to follow the patient, make recommendations along the way. Time with Patient: Less than 30
--- NOTE | 2024-01-02 11:41 | P.PN ---
Subjective HISTORY OF PRESENT ILLNESS: This is a 83-year-old female with a past medical history significant for coronary artery disease with recent stenting, COPD, and hyperlipidemia. Patient follows in the office with Dr. Davalos. We have been asked to see the patient in consultation for CHF and recent stenting. Patient examined at the bedside in the emergency room. Patient was recently in the hospital and underwent cardiac catheterization on 11/27/2023 with stenting of the mid and proximal RCA and the PLV branch of the RCA. The patient was discharged home on aspirin and Plavix. She presented back to the hospital with a chief complaint of generalized weakness. Patient was found to be significantly anemic with a hemoglobin of 7.5 which is down from 11.5 on 12/24/2023. Patient reports she has been taking Aleve once or twice a week at home secondary to generalized pain. She denies having any black stools or blood in her stools. She denies having any chest pain or pressure. She denies any shortness of breath. She has been evaluated by GABE wilcox with plans to undergo endoscopy tomorrow. DIAGNOSTICS: - EKG reveals sinus mechanism. - Chest xray negative for acute process - Laboratory data: WBC 13.6. Hemoglobin 6.3. Platelet count 255. Sodium 136. Potassium 4.3. BUN 36. Creatinine 0.59. Troponin negative x 1. proBNP 499. - Current home cardiac medications include Lipitor 40 mg at night, aspirin 81 mg daily, Bumex 0.5 mg daily, metoprolol tartrate 25 mg twice a day - Most recent echocardiogram obtained in 11/23/2023 revealing ejection fraction 55 to 60% with no significant valvular abnormalities noted - Cardiac catheterization history: 11/27/2023 with stenting of the mid and proximal RCA and stenting of the PLV branch of the RCA. 12/31/2023 Patient examined this morning. She is sitting up in the chair. She continues to feel tired although improved. She denies any chest pain or pressure. Apparently overnight the patient had an episode of respiratory distress and required a nonrebreather for short period of time. However she is on a nasal cannula at this time and denies any shortness of breath. 01/01/2024 Patient examined this morning at the bedside. Patient denies chest pain or pressure. She denies shortness of breath. She remains on aspirin. Plavix continues to remain on hold. Hemoglobin is stable today 8.6. She is scheduled to undergo endoscopy today. 01/02/2024 Patient is status post endoscopy revealing 1 cm clean-based antral ulcer with no active bleeding. Antral erosive gastritis and small hiatal hernia. Patient has been cleared to continue with aspirin and Plavix. Plavix will be reordered for today. Patient denies chest pain or pressure. She denies shortness of breath. Vital signs are stable. PHYSICAL EXAM: VITAL SIGNS: Reviewed. GENERAL: Well-developed in no acute distress. HEENT: Head is normocephalic. Pupils are equal, round. Sclerae anicteric. Mucous membranes of the mouth are moist. Neck supple. No JVD or thyromegaly LUNGS: Respirations even and unlabored. Lungs essentially clear to auscultation bilaterally. HEART: Regular rate and rhythm. S1 and S2 heard. ABDOMEN: Soft. Nondistended. Nontender. EXTREMITIES: Normal range of motion. No clubbing or cyanosis. Peripheral pulses intact. No lower extremity edema NEUROLOGIC: Awake and alert. Oriented x 3. ASSESSMENT: Severe anemia, status post endoscopy revealing 1 cm clean-based antral ulcer with no active bleeding. Antral erosive gastritis and small hiatal hernia. Coronary artery disease with recent stenting of the mid and proximal RCA and PLV branch of the RCA, 11/27/2023 Chronic heart failure with preserved EF, currently euvolemic History of hyperlipidemia History of COPD PLAN: Continue aspirin Resume Plavix Continue additional cardiac medications Patient is stable for discharge today from a cardiac standpoint Nurse practitioner note has been reviewed by physician. Signing provider agrees with the documented findings, assessment, and plan of care documented by SAFE TECHNICIAN as a scribe. Objective - Vital Signs Vital signs: Vital Signs Temp 97.6 F 01/02/24 08:00 Pulse 92 01/02/24 11:34 Resp 16 01/02/24 08:00 BP 125/71 01/02/24 08:00 Pulse Ox 96 01/02/24 11:36 FiO2 Intake & Output 01/01/24 01/02/24 01/02/24 18:59 06:59 18:59 Intake Total 200 540 358 Balance 200 540 358 Intake: IV 200 Oral 540 358 Other: Voiding Method Toilet Toilet Toilet # Voids 1 - Labs CBC & Chem 7: 01/01/24 04:54 01/01/24 04:54
[2024-01-02] MEDS: CLOPIDOGREL 75 MG TAB PO SCH (12:30)
[2024-01-02 12:48] LABS: Anisocytosis Moderate; Basophils % (A) 0 %; Eosinophils # (A) 0.2 k/uL (0-0.7); Eosinophils % (A) 2 %; HCT 31.4 % (34.0-46.0); HGB 9.6 gm/dL (11.4-16.0); Hypochromasia Moderate; Lymphocytes # (A) 1.3 k/uL (1.0-4.8); Lymphocytes % (A) 14 %; MCH 29.8 pg (25.0-35.0); MCHC 30.5 g/dL (31.0-37.0); MCV 97.6 fL (80.0-100.0); Macrocytosis Moderate; Monocytes # (A) 0.8 k/uL (0-1.0); Monocytes % (A) 8 %; Neutrophils # (A) 7.1 k/uL (1.3-7.7); Neutrophils % (A) 74 %; Platelet Count 329 k/uL (150-450); RBC 3.22 m/uL (3.80-5.40); RDW 20.4 % (11.5-15.5); WBC 9.6 k/uL (3.8-10.6)
[2024-01-02 13:01] VITALS: BP 107/59
--- NOTE | 2024-01-02 13:33 | P.DS ---
Providers Date of admission: 12/30/23 03:32 Expected date of discharge: 01/02/24 Attending physician: Dawn Ramsey MD Consults: 12/30/23 03:32 Consult Physician Urgent Consulting Provider: Anjelica Lacy Consult Reason/Comments: acute anemia, occult positive Do you want consulting provider notified?: Yes 12/30/23 04:34 Consult Physician Urgent Consulting Provider: Urban Davalos Consult Reason/Comments: CHF, recent stents Do you want consulting provider notified?: Yes 12/31/23 07:58 Consult Physician Urgent Consulting Provider: Olegario Baig Consult Reason/Comments: COPD, shortness of breath. Clearance for EGD Do you want consulting provider notified?: Yes Primary care physician: Christopher Wood Hospital Course: Symptomatic Acute Blood Loss Anemia: Upper GI BLeed Antral Gastric Ulcer Hyponatremia Metabolic alkalosis Prerenal azotemia Chronic conditions: chronic diastolic CHF, recent non-ST elevation RI status post 2 stents on 11/29/2023, COPD, hypertension, and chronic debility Hospital Course: 83-year-old female with a PMH of chronic diastolic CHF, recent non-ST elevation RI status post 2 stents on 11/29/2023, COPD, hypertension, and chronic debility who presented to the emergency room with complaints of shortness of breath, lower extremity swelling and generalized fatigue. EKG in the emergency room revealed sinus rhythm at 82 bpm with APCs. Chest x- ray revealed findings consistent with fluid overload as reviewed with the ED provider. Laboratory evaluation was remarkable for hemoglobin 7.0 and subsequently 6.3 (baseline 12.8 upon discharge from hospital on 12/06), proBNP 499, troponin less than 0.012, stool occult blood positive, albumin 2.8, sodium 136, chloride 97, CO2 38, BUN 36, creatinine 0.59, glucose 127. Patient was started on Lasix IV BID and transfused 1 unit PRBC and admitted for further management. Cardiology consulted, Lasix discontinued. GI consulted, plans for endoscopy and C-scope later if endoscopy unrevealing. Repeat Hg was 6.9 after 1 unit PRBC and another unit was ordered. 12/30 Patient was seen and examined. Anxiety better controlled. Complains of fatigue. She was on a non rebreather mask this morning for a short time for O2 saturation in the 80s. Plans for endoscopy today pending pulmonary clearance. CBC Hg 8.3 Hct 25.6. BMP Na 130, Cl 89, bicarb 39, BUN 31, Ca 7.9. Iron studies shows low Fe 36, % sat 8.35. 12/31 Patient was seen and examined. Complains of some anxiety. Endoscopy cancelled yesterday due to respiratory status. Currently on 5L NC saturating 92%. Pulmonary has been consulted. CBC Hg 8.6 Hct 26.9. BMP Na 131, Cl 91, bicarb 37. 01/01 Patients CBC noted to be stable, and pt was cleared for discharge. Cardiology recommended resumption of DAPT. Protonix was continued on d/c. Instructions were given to patient to avoid use of all NSAIDs while on ASA/plavix. Gen: In NAD, non-toxic HEENT: normocephalic, atraumatic, hearing acuity is intant, mucous membranes moist CVS: perfusing all extremities well, no pitting edema, Respiratory: symmetric chest expansion, no accessory muscle use, GI: soft, NTTP, ND, : no suprapubic tenderness, no CVA tenderness MSK/Derm: no rashes, cyanosis Neuro: CN II-XII intact, no motor weakness, Psych: cooperative, euthymic mood, judgment and insight is intact I spent 38 minutes coordinating this discharge on 01/01 Patient Condition at Discharge: Good Plan - Discharge Summary Discharge Rx Participant: No New Discharge Prescriptions: New Pantoprazole [Protonix] 40 mg PO AC-BRKFST tab Acetaminophen Tab [Tylenol] 650 mg PO Q6HR PRN tab PRN Reason: Fever And/ Or Pain Continue Metoprolol Tartrate [Lopressor] 25 mg PO BID #60 tab Albuterol Inhaler [Ventolin Hfa Inhaler] 2 puff INHALATION RT-QID PRN #1 each PRN Reason: Dyspnea traZODone HCL [Desyrel] 50 - 100 mg PO HS PRN PRN Reason: Insomnia ALPRAZolam [Xanax] 0.5 mg PO BID PRN PRN Reason: Anxiety Bumetanide [BUMEX] 0.5 mg PO DAILY Aspirin 81 mg PO DAILY #30 tab Atorvastatin [Lipitor] 40 mg PO HS #30 tab Clopidogrel [Plavix] 75 mg PO DAILY #30 tab Tiotropium 2.5 Mcg/Puff [Spiriva Respimat 2.5 Mcg] 2 puff INHALATION RT-DAILY #1 each Budesonide-Formot 160-4.5 Mcg [Symbicort 160-4.5 Mcg Inhaler] 2 puff INHALATION RT-BID #1 each Albuterol Nebulized [Ventolin Nebulized] 2.5 mg INHALATION RT-Q6H PRN PRN Reason: Shortness Of Breath Nitroglycerin Sl Tabs [Nitrostat] 0.4 mg SL Q5M PRN PRN Reason: Chest Pain Discontinued Naproxen Sodium [Aleve] 220 mg PO BID PRN PRN Reason: Pain Discharge Medication List Bumetanide [BUMEX] 0.5 mg PO DAILY 11/27/23 [History] Albuterol Inhaler [Ventolin Hfa Inhaler] 2 puff INHALATION RT-QID PRN #1 each 12/07/23 [Rx] Aspirin 81 mg PO DAILY #30 tab 12/07/23 [Rx] Atorvastatin [Lipitor] 40 mg PO HS #30 tab 12/07/23 [Rx] Budesonide-Formot 160-4.5 Mcg [Symbicort 160-4.5 Mcg Inhaler] 2 puff INHALATION RT-BID #1 each 12/07/23 [Rx] Clopidogrel [Plavix] 75 mg PO DAILY #30 tab 12/07/23 [Rx] Metoprolol Tartrate [Lopressor] 25 mg PO BID #60 tab 12/07/23 [Rx] Tiotropium 2.5 Mcg/Puff [Spiriva Respimat 2.5 Mcg] 2 puff INHALATION RT-DAILY #1 each 12/07/23 [Rx] Albuterol Nebulized [Ventolin Nebulized] 2.5 mg INHALATION RT-Q6H PRN 12/24/23 [History] traZODone HCL [Desyrel] 50 - 100 mg PO HS PRN 12/24/23 [History] ALPRAZolam [Xanax] 0.5 mg PO BID PRN 12/30/23 [History] Nitroglycerin Sl Tabs [Nitrostat] 0.4 mg SL Q5M PRN 12/30/23 [History] Acetaminophen Tab [Tylenol] 650 mg PO Q6HR PRN tab 01/02/24 [Rx] Pantoprazole [Protonix] 40 mg PO AC-BRKFST tab 01/02/24 [Rx] Follow up Appointment(s)/Referral(s): Urban Davalos MD [STAFF PHYSICIAN] - 1 Week Christopher Wood DO [Primary Care Provider] - 1-2 days Activity/Diet/Wound Care/Special Instructions: Very very important that you do NOT use any drugs in the NSAID class while on Aspirin and Plavix. These include but are not limited to: -Ibuprofen, Motrin, Advil -Naproxen, Aleve -Indomethacin -Diclofenac -Celecoxib Discharge Disposition: TRANSFER TO SNF/ECF
[2024-01-02 15:42] VITALS: PULSE 82
[2024-01-02] MEDS ORDERED: PANTOPRAZOLE 40 MG TABLET PO SCH (17:30)
[2024-01-03] MEDS ORDERED: PANTOPRAZOLE 40 MG TABLET PO SCH (07:30)
--- NOTE | 2024-01-06 09:32 | CDI ---
Documentation Clarification Form Date: 01/06/2024 From: Mary Gruber Admit Date: 12/30/2023 03:32:00 AM Patient Name: Gavi Avila Visit Number: [id number] Discharge Date: 01/02/2024 04:55:00 PM ATTENTION: The Clinical Documentation Specialists (CDI) and [facility] Coding Staff appreciate your assistance in clarifying documentation. Please respond to the clarification below the line at the bottom and electronically sign. The CDI & [facility] Coding staff will review the response and follow-up if needed. Please note: Queries are made part of the Legal Health Record. If you have any questions, please contact the author of this message via ITS. Dr. Layla Betancur, GI bleed is documented in the H&P & DS. Additional clarification regarding the etiology of the GI bleed is requested. History/risk factors: HTN w acute on chronic diastolic CHF, COPD w acute exacerbation, HLD, hyponatremia Clinical Indicators: Presents with complaints ofshortness of breath,lower extremity swellingand generalizedfatigue. EGD/colonoscopy performed and findings:1 cm clean-basedantral ulcerwith no activebleeding. Antralerosive gastritis. Smallhiatal hernia 12/28-12/29 Labs: H/H: 7.0/21.6,6.3/19.9, 6.9/21.6 Stool Occult Blood: positive Treatment: Transfusions x 2, EGD w bx Medication: Protonix 40mg Please clarify the etiology of the GI bleed, if known: [x] GIB due to gastric ulcer [ ] GIB, etiology unknown [ ] Other, please specify [ ] Unable to determine MTDD
== END 2024-01-02 16:55 | DRG 377 ==
LOC: EC 22:44 → 3SCARD 12-30 03:32
PROVIDERS: ADMIT Internal Medicine; ATTEND Internal Medicine
PROC: 30233N1 Transfusion of Nonautologous Red Blood Cells into Peripheral Vein, Percutaneous Approach (ICD-10-PCS; 2023-12-30)
PROC: 0DB78ZX Excision of Stomach, Pylorus, Via Natural or Artificial Opening Endoscopic, Diagnostic (ICD-10-PCS; principal; 2024-01-01 11:45)
DX: K25.4 Chronic or unspecified gastric ulcer with hemorrhage (principal); I50.33 Acute on chronic diastolic (congestive) heart failure; D62 Acute posthemorrhagic anemia; E87.3 Alkalosis; E87.1 Hypo-osmolality and hyponatremia; J44.1 Chronic obstructive pulmonary disease with (acute) exacerbation; Z99.81 Dependence on supplemental oxygen; I11.0 Hypertensive heart disease with heart failure; F32.A Depression, unspecified; K29.60 Other gastritis without bleeding; E78.5 Hyperlipidemia, unspecified; T50.2X5A Adverse effect of carbonic-anhydrase inhibitors, benzothiadiazides and other diuretics, initial encounter; I25.10 Atherosclerotic heart disease of native coronary artery without angina pectoris; F41.9 Anxiety disorder, unspecified; K44.9 Diaphragmatic hernia without obstruction or gangrene; I25.2 Old myocardial infarction; F17.210 Nicotine dependence, cigarettes, uncomplicated; Z71.6 Tobacco abuse counseling; Z79.82 Long term (current) use of aspirin; Z79.51 Long term (current) use of inhaled steroids; Z79.02 Long term (current) use of antithrombotics/antiplatelets; Z79.899 Other long term (current) drug therapy; Z85.828 Personal history of other malignant neoplasm of skin; Z95.5 Presence of coronary angioplasty implant and graft; Z88.5 Allergy status to narcotic agent
CPT/HCPCS: 36415; 43239; 71046; 80048; 80053; 81003; 82272; 82728; 83540; 83550; 83605; 83880; 84484; 85025; 85027; 85610; 85730; 86850; 86900; 86901; 86920; 87636; 88305; 88342; 93005; 94640; 94760; 96374; 96375; 96376; 99291

== ENCOUNTER 2025-03-03 16:20 | Inpatient (IN) | payer MEDICARE ==
--- NOTE | 2025-03-03 16:40 | ED ---
General Adult HPI - General Chief complaint: Shortness of Breath Stated complaint: DEJUAN Time Seen by Provider: 03/03/25 16:25 Source: patient, EMS, RN notes reviewed, old records reviewed Mode of arrival: EMS Limitations: no limitations - History of Present Illness Initial comments: This is an 84-year-old female who presents to the emergency department c omplaining of difficulty breathing. Patient states she still smokes. Patient states she has a longstanding history of COPD and chronic cellulitis to bilateral legs. Patient states she has had no fever but she has had a cough. Patient denies any chest pain or palpitation. Patient denies any abdominal pain patient has nausea vomiting diarrhea. - Related Data Home Medications Medication Instructions Recorded Confirmed Bumetanide [BUMEX] 0.5 mg PO DAILY 11/27/23 12/30/23 Albuterol Nebulized [Ventolin 2.5 mg INHALATION RT-Q6H PRN 12/24/23 12/30/23 Nebulized] traZODone HCL [Desyrel] 50 - 100 mg PO HS PRN 12/24/23 12/30/23 Nitroglycerin Sl Tabs [Nitrostat] 0.4 mg SL Q5M PRN 12/30/23 12/30/23 Previous Rx's Medication Instructions Recorded Albuterol Inhaler [Ventolin Hfa 2 puff INHALATION RT-QID PRN #1 12/07/23 Inhaler] each Aspirin 81 mg PO DAILY #30 tab 12/07/23 Atorvastatin [Lipitor] 40 mg PO HS #30 tab 12/07/23 Budesonide-Formot 160-4.5 Mcg 2 puff INHALATION RT-BID #1 each 12/07/23 [Symbicort 160-4.5 Mcg Inhaler] Clopidogrel [Plavix] 75 mg PO DAILY #30 tab 12/07/23 Metoprolol Tartrate [Lopressor] 25 mg PO BID #60 tab 12/07/23 Tiotropium 2.5 Mcg/Puff [Spiriva 2 puff INHALATION RT-DAILY #1 each 12/07/23 Respimat 2.5 Mcg] ALPRAZolam [Xanax] 0.5 mg PO BID PRN #6 tab 01/02/24 Acetaminophen Tab [Tylenol] 650 mg PO Q6HR PRN tab 01/02/24 Pantoprazole [Protonix] 40 mg PO AC-BRKFST tab 01/02/24 Allergies Allergy/AdvReac Type Severity Reaction Status Date / Time codeine AdvReac Itching Verified 12/30/23 06:27 Review of Systems ROS Statement: Those systems with pertinent positive or pertinent negative responses have been documented in the HPI. ROS Other: All systems not noted in ROS Statement are negative. 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, covid Last Myocardial Infarction Date:: 11/23 History of Any Multi-Drug Resistant Organisms: None Reported Past Surgical History: Heart Catheterization With Stent, Hysterectomy Past Anesthesia/Blood Transfusion Reactions: No Reported Reaction Date of Last Stent Placement:: 11/27/23 Past Psychological History: Anxiety, Depression Smoking Status: Current some day smoker Past Alcohol Use History: None Reported Past Drug Use History: None Reported - Past Family History Mother Family Medical History: Myocardial Infarction (DE) Father Family Medical History: CVA/TIA General Exam - General Exam Comments Initial Comments: GENERAL: Patient is well-developed and well-nourished. Patient is nontoxic and well- hydrated and is in mild distress. O2 sat is 86 to 88% on room air ENT: Neck is soft and supple. No significant lymphadenopathy is noted. Oropharynx is clear. Moist mucous membranes. Neck has full range of motion without eliciting any pain. EYES: The sclera were anicteric and conjunctiva were pink and moist. Extraocular mo vements were intact and pupils were equal round and reactive to light. Eyelids were unremarkable. PULMONARY: Has some expiratory wheezing bilaterally and crackles bilaterally CARDIOVASCULAR: There is a regular rate and rhythm without any murmurs gallops or rubs. ABDOMEN: Soft and nontender with normal bowel sounds. SKIN: Skin is clear with no lesions or rashes and otherwise unremarkable. NEUROLOGIC: Patient is alert and oriented x3. Cranial nerves II through XII are grossly intact. Motor and sensory are also intact. Normal speech, volume and content. Symmetrical smile. MUSCULOSKELETAL: Normal extremities with adequate strength and full range of motion. Bilateral lower legs are red hot to about the mid leg. Patient states this is chronic and unchanged LYMPHATICS: No significant lymphadenopathy is noted PSYCHIATRIC: Normal psychiatric evaluation. Limitations: no limitations Course Vital Signs 03/03/25 03/03/25 03/03/25 16:22 17:49 17:57 Temperature 98.2 F Pulse Rate 76 73 70 Respiratory 18 18 Rate Blood Pressure 115/66 116/61 O2 Sat by Pulse 91 L 90 L Oximetry 03/03/25 18:16 Temperature Pulse Rate 75 Respiratory Rate Blood Pressure O2 Sat by Pulse Oximetry Medical Decision Making - Medical Decision Making EKG is interpreted by myself. EKG shows a sinus rhythm at 74 bpm PA is 174 QRS is 98 QT 414 QTc is 442. There is no ST segment elevation Was pt. sent in by a medical professional or institution (, BLANK, AIRCRAFT ACCESSORIES MECHANIC, urgent care, hospital, or senior living...) When possible be specific @ -No Did you speak to anyone other than the patient for history (EMS, parent, family, police, friend...)? What history was obtained from this source @ -No Did you review nursing and triage notes (agree or disagree)? Why? @ -I reviewed and agree with nursing and triage notes Were old charts reviewed (outside hosp., previous admission, EMS record, old EKG, old radiological studies, urgent care reports/EKG's, senior living records)? Report findings @ -No old charts were reviewed Differential Diagnosis? @ -Differential Dyspnea: Coronary syndrome, arrhythmia, tamponade, asthma, COPD, pulmonary embolism, pneumonia, pneumothorax, pulmonary effusion, anaphylaxis, diabetic ketoacidosis, flailed chest, pulmonary contusion, diaphragmatic rupture, anemia, neuromuscular, this is not meant to be an all-inclusive list. EKG interpreted by me (3pts min.). @ -As above X-rays interpreted by me (1pt min.). @ -Chest x-ray shows acute pulmonary edema with bilateral pleural effusions CT interpreted by me (1pt min.). @ -None done U/S interpreted by me (1pt. min.). @ -None done What testing was considered but not performed or refused? (CT, X-rays, U/S, labs)? Why? @ -None What meds were considered but not given or refused? Why? @ -None Did you discuss the management of the patient with other professionals (professionals i.e. BLANK [employer], AIRCRAFT ACC[employer]IES MECHANIC, lab, RT, psych nurse, social director, qa software test engineer, teacher, court registry officer, case management coordinator)? Give summary @ -I spoke with sound physicians agreed to admit the patient I admitted the patient wrote admitting orders Was smoking cessation discussed for >3mins.? @ -No Was critical care preformed (if so, how long)? @ -35 minutes Were there social determinants of health that impacted care today? How? (Homelessness, low income, unemployed, alcoholism, drug addiction, transportation, low edu. Level, literacy, decrease access to med. care, group home, rehab)? @ -No Was there de-escalation of care discussed even if they declined (Discuss DNR or withdrawal of care, Hospice)? DNR status @ -No What co-morbidities impacted this encounter? (DM, HTN, Smoking, COPD, CAD, Can cer, CVA, ARF, Chemo, Hep., AIDS, mental health diagnosis, sleep apnea, morbid obesity)? @ -Smoking Was patient admitted / discharged? Hospital course, mention meds given and route, prescriptions, significant lab abnormalities, going to OR and other pertinent info. @ -Patient has a sodium of 126 she was given a bolus of 500 of normal saline. Patient also had an elevated troponin she was started on heparin given aspirin and Nitropaste. Patient also had pulmonary edema so she was given Lasix pat ient's x-ray did show questionable infiltrate so patient was started on antibiotics and will continue on antibiotics on the floor. She will continue her breathing treatments. I spoke with sound physicians agreed to admit the patient I consulted cardiology. Undiagnosed new problem with uncertain prognosis? @ -No Drug Therapy requiring intensive monitoring for toxicity (Heparin, Nitro, Insulin, Cardizem)? @ -No Were any procedures done? @ -No Diagnosis/symptom? @ -NSTEMI Acute, or Chronic, or Acute on Chronic? @ -Acute Uncomplicated (without systemic symptoms) or Complicated (systemic symptoms)? @ -Complicated Side effects of treatment? @ -No Exacerbation, Progression, or Severe Exacerbation? @ -No Poses a threat to life or bodily function? How? (Chest pain, [place], DE, pneumonia, PE, COPD, DKA, ARF, appy, cholecystitis, CVA, Diverticulitis, Homicidal, Suicidal, threat to staff... and all critical care pts) @ -Yes this can lead to DE and endorgan dysfunction Diagnosis/symptom? @ -Acute kidney disease Acute, or Chronic, or Acute on Chronic? @ -Acute Uncomplicated (without systemic symptoms) or Complicated (systemic symptoms)? @ -Complicated Side effects of treatment? @ -None Exacerbation, Progression, or Severe Exacerbation] @ -No Poses a threat to life or bodily function? @ -Yes this can lead to electrolyte abnormalities and arrhythmias and possibly Diagnosis/symptom? @ -Acute pulmonary edema Acute, or Chronic, or Acute on Chronic? @ -Acute Uncomplicated (without systemic symptoms) or Complicated (systemic symptoms)? @ -Complicated Side effects of treatment? @ -None Exacerbation, Progression, or Severe Exacerbation] @ -No Poses a threat to life or bodily function? @ -Yes this can lead to hypoxia and endorgan dysfunction Diagnosis/symptom? @ -Hyponatremia Acute, or Chronic, or Acute on Chronic? @ -Acute Uncomplicated (without systemic symptoms) or Complicated (systemic symptoms)? @ -Complicated Side effects of treatment? @ -None Exacerbation, Progression, or Severe Exacerbation] @ -No Poses a threat to life or bodily function? @ -No - Lab Data Result diagrams: 03/03/25 16:45 03/03/25 16:45 Lab Results 03/03/25 03/03/25 03/03/25 Range/Units 16:45 16:45 16:45 WBC 12.56 H (4.50-10.00) 10*3/uL RBC 5.04 (4.10-5.20) 10*6/uL Hgb 14.4 (12.0-15.0) g/dL Hct 42.9 (37.2-46.3) % MCV 85.1 (80.0-97.0) fL MCH 28.6 (27.0-32.0) pg MCHC 33.6 (32.0-37.0) g/dL Plt Count 275 (140-440) 10*3/uL MPV 9.6 (9.5-12.2) fL Immature Gran % (Auto) 0.5 % Neutrophils % 75.2 % Lymphocytes % 12.7 % Monocytes % 11.1 % Eosinophils % 0.1 % Basophils % 0.4 % Immature Gran # 0.06 H (0.00-0.04) 10*3/uL Neutrophils # 9.45 H (1.80-7.70) 10*3/uL Lymphocytes # 1.59 (0.90-5.00) 10*3/uL Monocytes # 1.40 H (0.20-1.00) 10*3/uL Eosinophils # 0.01 L (0.04-0.35) 10*3/uL Basophils # 0.05 (0.00-0.10) 10*3/uL PT 11.4 (10.0-12.5) sec INR 1.0 (<1.2) APTT 23.7 (22.0-30.0) sec Sodium 126 L (137-145) mmol/L Potassium 3.5 (3.5-5.1) mmol/L Chloride 82 L (98-107) mmol/L Carbon Dioxide 38 H (22-30) mmol/L Anion Gap 6 mmol/L BUN 47 H (7-17) mg/dL Creatinine 1.38 H (0.52-1.04) mg/dL Est GFR (CKD-EPI)AfAm 41 (>60 ml/min/1.73 sqM) Est GFR (CKD-EPI)NonAf 36 (>60 ml/min/1.73 sqM) Glucose 80 (74-99) mg/dL Plasma Lactic Acid Bryan (0.7-2.0) mmol/L Calcium 8.7 (8.4-10.2) mg/dL Magnesium 1.9 (1.6-2.3) mg/dL Total Bilirubin 1.3 (0.2-1.3) mg/dL AST 33 (14-36) U/L ALT 21 (4-34) U/L Alkaline Phosphatase 115 (38-126) U/L Troponin I (0.000-0.034) ng/mL NT-Pro-B Natriuret Pep 85118 pg/mL Total Protein 6.5 (6.3-8.2) g/dL Albumin 3.0 L (3.5-5.0) g/dL 03/03/25 03/03/25 Range/Units 16:45 16:45 WBC (4.50-10.00) 10*3/uL RBC (4.10-5.20) 10*6/uL Hgb (12.0-15.0) g/dL Hct (37.2-46.3) % MCV (80.0-97.0) fL MCH (27.0-32.0) pg MCHC (32.0-37.0) g/dL Plt Count (140-440) 10*3/uL MPV (9.5-12.2) fL Immature Gran % (Auto) % Neutrophils % % Lymphocytes % % Monocytes % % Eosinophils % % Basophils % % Immature Gran # (0.00-0.04) 10*3/uL Neutrophils # (1.80-7.70) 10*3/uL Lymphocytes # (0.90-5.00) 10*3/uL Monocytes # (0.20-1.00) 10*3/uL Eosinophils # (0.04-0.35) 10*3/uL Basophils # (0.00-0.10) 10*3/uL PT (10.0-12.5) sec INR (<1.2) APTT (22.0-30.0) sec Sodium (137-145) mmol/L Potassium (3.5-5.1) mmol/L Chloride (98-107) mmol/L Carbon Dioxide (22-30) mmol/L Anion Gap mmol/L BUN (7-17) mg/dL Creatinine (0.52-1.04) mg/dL Est GFR (CKD-EPI)AfAm (>60 ml/min/1.73 sqM) Est GFR (CKD-EPI)NonAf (>60 ml/min/1.73 sqM) Glucose (74-99) mg/dL Plasma Lactic Acid Bryan 1.2 (0.7-2.0) mmol/L Calcium (8.4-10.2) mg/dL Magnesium (1.6-2.3) mg/dL Total Bilirubin (0.2-1.3) mg/dL AST (14-36) U/L ALT (4-34) U/L Alkaline Phosphatase (38-126) U/L Troponin I 0.495 H* (0.000-0.034) ng/mL NT-Pro-B Natriuret Pep pg/mL Total Protein (6.3-8.2) g/dL Albumin (3.5-5.0) g/dL Disposition Clinical Impression: Renal failure, acute, Hyponatremia, NSTEMI (non-ST elevated myocardial infarction), Acute pulmonary edema, COPD exacerbation Disposition: ADMITTED IP TO THIS HOSP Referrals: Christopher Wood DO [Primary Care Provider] - 1-2 days Time of Disposition: 18:30
[2025-03-03 16:49] LABS: Basophils # (A) 0.05 10*3/uL (0.00-0.10); Basophils % (A) 0.4 %; Eosinophils # (A) 0.01 10*3/uL (0.04-0.35); Eosinophils % (A) 0.1 %; HCT 42.9 % (37.2-46.3); HGB 14.4 g/dL (12.0-15.0); Lymphocytes # (A) 1.59 10*3/uL (0.90-5.00); Lymphocytes % (A) 12.7 %; MCH 28.6 pg (27.0-32.0); MCHC 33.6 g/dL (32.0-37.0); MCV 85.1 fL (80.0-97.0); Mean Platelet Volume 9.6 fL (9.5-12.2); Monocytes % (A) 11.1 %; Neutrophils # (A) 9.45 10*3/uL (1.80-7.70); Neutrophils % (A) 75.2 %; Platelet Count 275 10*3/uL (140-440); RBC 5.04 10*6/uL (4.10-5.20); RDW 18.3 % (11.5-14.5); WBC 12.56 10*3/uL (4.50-10.00)
[2025-03-03 16:58] LABS: ALT 21 U/L (4-34); African American GFR (CKD) 41 (>60 ml/min/1.73 sqM); Anion Gap 6 mmol/L; Blood Urea Nitrogen 47 mg/dL (7-17); Calcium 8.7 mg/dL (8.4-10.2); Carbon Dioxide 38 mmol/L (22-30); Chloride 82 mmol/L (98-107); Glucose 80 mg/dL (74-99); Non-African American GFR(CKD) 36 (>60 ml/min/1.73 sqM); Sodium 126 mmol/L (137-145); Total Bilirubin 1.3 mg/dL (0.2-1.3); Total Protein 6.5 g/dL (6.3-8.2)
[2025-03-03 16:59] LABS: Partial Thromboplastin Time 23.7 sec (22.0-30.0); Prothrombin Time 11.4 sec (10.0-12.5)
[2025-03-03 17:00] LABS: AST 33 U/L (14-36); Alkaline Phosphatase 115 U/L (38-126); Magnesium 1.9 mg/dL (1.6-2.3); Potassium 3.5 mmol/L (3.5-5.1)
[2025-03-03 17:06] LABS: NT-Pro-B-Type Natriuretic Pept 20800 pg/mL
[2025-03-03] MEDS: cefTRIAXone IN SWFI 1,000 MG/10 ML SYRINGE IVP STA (17:10)
[2025-03-03] MEDS: methylPREDNISolone SOD SUCCI 125 MG/2 ML VIAL IV STA (17:11)
[2025-03-03] MEDS: SODIUM CHLORIDE 0.9% 500 ML 500 ML IV ONE (17:11)
[2025-03-03] MEDS: MAGNESIUM SULFATE-D5W PMX 1 GM in DEXTROSE/WATER 1 100ML.BAG IVPB STA (17:11)
[2025-03-03] MEDS: IPRATROPIUM 0.5 MG/2.5 ML NEBU INHALATION STA (17:57)
[2025-03-03] MEDS: ALBUTEROL NEBULIZED 2.5 MG/3 ML INHALATION STA (17:57)
--- NOTE | 2025-03-03 18:11 | XR ---
EXAMINATION TYPE: XR chest 2V DATE OF EXAM: 03/03/2025 5:44 PM COMPARISON: 12/29/2023 CLINICAL INDICATION: Female, 84 years old with history of difficulty breathing, TECHNIQUE: XR chest 2V view(s) obtained. FINDINGS: The heart size is normal. The pulmonary vasculature is normal. Linear opacity left lung base may be atelectasis. Lungs are otherwise clear. There may be a right low er lobe infiltrate better visualized on the lateral projection. IMPRESSION: 1. Lower lobe infiltrates. Correlate for atelectasis or pneumonia [facility], , 03/03/2025 6:09 PM
[2025-03-03] MEDS: FUROSEMIDE 10 MG/ML 10 ML VIAL IV STA (18:28)
[2025-03-03] MEDS: NITROGLYCERIN OINT 1 INCH/GM PACKET TOPICAL STA (18:28)
[2025-03-03] MEDS: HEPARIN SODIUM 1,000 UN/ML (10ML VL) IV ONE (18:46)
[2025-03-03] MEDS: HEPARIN SOD,PORK IN 0.45% NACL 25,000 UNIT in 0.45% NACL 1 250ML.BAG IV SCH (18:48)
[2025-03-03] MEDS: ASPIRIN 325 MG TAB PO STA (18:49)
[2025-03-03 19:56] LABS: African American GFR (CKD) 43 (>60 ml/min/1.73 sqM); Anion Gap 9 mmol/L; Blood Urea Nitrogen 44 mg/dL (7-17); Calcium 8.6 mg/dL (8.4-10.2); Carbon Dioxide 38 mmol/L (22-30); Chloride 80 mmol/L (98-107); Glucose 110 mg/dL (74-99); Non-African American GFR(CKD) 37 (>60 ml/min/1.73 sqM); Potassium 3.1 mmol/L (3.5-5.1); Sodium 127 mmol/L (137-145)
[2025-03-03] MEDS: IPRATROPIUM-ALBUTEROL 3 ML NEB INHALATION SCH (20:30)
[2025-03-03 20:44] LABS: ABG Base Excess 13.4 mmol/L; ABG Oxygen Saturation 88.8 % (94-97); ABG PCO2 59 mmHg (35-45); ABG PH 7.45 (7.35-7.45); ABG TCO2 42 mmol/L (19-24); Allen Test Performed? Yes
[2025-03-03 20:46] LABS: ABG HCO3 40 mmol/L (21-25); ABG PO2 58 mmHg (83-108)
[2025-03-03] MEDS: AMOXIC-POT CLAV 500-125 MG 1 EACH TAB PO SCH (20:46)
[2025-03-03] MEDS: SODIUM CHLORIDE 0.9% 1,000 ML IV SCH (20:46)
--- NOTE | 2025-03-03 21:25 | P.HPIM ---
History of Present Illness H&P Date: 03/03/25 History of present illness; 84-year-old female with PMH of diastolic CHF (most recent echocardiogram from 11/27/2023 showed EF 55-60%, mitral annular calcification and aortic sclerosis without any stenosis), history of NSTEMI s/p 2 stents placed on 11/29/2023, hypertension and COPD (supposed to be maintained on home oxygen, however patient does not recall how much, and sent the oxygen tanks back without ever wearing it at home) who presents to the emergency department complaining of worsening shortness of breath. She notes having headache cough that is unproductive. She denies having had a fever, any nausea, vomiting, chest pain, abdominal pain or diarrhea. She states that she called EMS to assist putting in an air conditioning unit. She states that other than a persistent cough she had no acute complaints, when EMS arrived they noted that she was saturating in the mid 80%'s while on room air. She lives on her own, and states that she is able to ambulate with a walker, or utilizes a wheelchair and she states she carry out activities of daily living without issue. Her daughter and son-in-law were at bedside, they live in [facility], around [place], and states that she does her own thing. She was hospitalized in November 2019 for with an NSTEMI, had 2 iestents placed and per the patient and her daughter she has not followed up with a physician since that time. Her daughter believes that her oral intake is very poor and does not believe that she eats or drinks very well. Patient states that she does not feel like she chokes on her food a lot, but does endorse that it has happened before. Social History: - Smoking: Current smoker 2-4 cigarettes daily, sometimes less; smoking history >45 years - Alcohol use: denies - Recreational drug use: denies Labratory review: - WBCs 12.56, hemoglobin 14.4, hematocrit 42.9, platelet 275; sodium 126, potassium 3.5, chloride 82, bicarb 38, BUN 47, creatinine 1.38, lactic acid 1.2, calcium 8.7, magnesium 1.9, total bilirubin 1.3, AST 33, ALT 21, alkaline phosphatase 115, albumin 3.0 - Troponin 0.495; BNP 20,800 Imaging: - Chest x-ray done in the ER independently read and interpreted showed showed evidence of lower lobe infiltrates to be correlated for possible pneumonia - EKG done in the ER independently read and interpreted showed heart rate of 74, sinus rhythm, no ST segment elevation or depression seen, no T-wave inversions seen; QTc 442 Vitals: - On arrival: Blood pressure 115/66, heart rate 76, respiratory 18, SpO2 91% on 4 L nasal cannula - Most recently: Blood pressure 116/67, heart rate 72, respiratory rate 22, SpO2 in 89% on 5 L nasal cannula Patient admitted to internal medicine service REVIEW OF SYSTEMS: Pertinent positives and negatives noted in HPI. The rest of the 14-point review of systems is negative. Physical Exam: General: nontoxic, no distress, appears at stated age Derm: warm, dry, intact Head: atraumatic, normocephalic, symmetric Eyes: EOMI, anicteric sclera Mouth: no lip lesion, mucus membranes moist Cardiovascular: S1 S2 reg, no murmur, rubs, or gallops Lungs: Crackles in the BL lower lobes Abdominal: soft, non-tender to palpataion, no appreciable organomegaly Extremities: Bilateral lower extremity venous stasis dermatitis and 1+ pitting edema in the bilateral lower extremities to slightly above the knee Neuro: Alert, Oriented, CNII-XII grossly intact, gait normal Psych: well appearing, appropriate affect Assessment and plan 84-year-old female with PMH of diastolic CHF (most recent echocardiogram from 11/27/2023 showed EF 55-60%, mitral annular calcification and aortic sclerosis without any stenosis), history of NSTEMI s/p 2 stents placed on 11/29/2023, hypertension and COPD who presents to the emergency department complaining of worsening shortness of breath. #Dyspnea with chronic hypoxic respiratory failure, non-compliant with home oxygen, likely secondary to HFpEF exacerbation #BL venous stasis dermatitis - Blood culture, D-dimer, procalcitonin ordered, currently pending - Received 60 mg IV Lasix in the ED; continue with Lasix 40 mg IV Q12H - Received 2,000 mg IVP Rocephin in the ED; continue with Azithromycin 500 mg PO daily and Keflex 500 mg TID, both for a total of 5 days (Day 1 on 03/04/25) - Cepheid 4 Plex, comments respiratory viral panel, Legionella ordered, c urrently pending - proBNP 20,800 on admission - Strict I's and O's, daily weights - Fluid restriction of 1500 cc - Echocardiogram ordered, currently pending - Cardiac monitoring - Continue with O2 support, goal SPO2 88-92%, consider BIPAP if needed - Speech therapy consulted #Hyponatremia, hypervolemic - Sodium 126 on admission, 127 on repeat following Lasix - Urine sodium, urine osmolality, serum osmolality ordered, currently pending - Received 500 cc bolus NS in the ED - Continue monitor sodium level every 4 hours to monitor for improvement in sodium levels -Will order TSH and cortisol #Nonoliguric acute kidney injury, baseline creatinine of 0.7, with prerenal azotemia ; possible cardiorenal syndrome - BUN 47, creatinine 1.38 on admission - Received 500 cc bolus NS in the ED - Renal ultrasound ordered, currently pending - Continue monitoring BMP #Hypokalemia, secondary or exacerbated by Lasix use - Potassium 3.1 on repeat BMP - Replaced with 20 meq IV potassium chloride - Continue with 20 meq PO potassium chloride daily - Check magnesium levels - Continue to monitor BMP #Nonanion gap metabolic alkalosis, secondary to chronic CO2 retention with compensation , exacerbated with diuretic use - Bicarb 38, anion gap 6 on admission - Continue to monitor BMP - Consider Acetazolemide if continues to worsen #Elevated troponin, likely due to increased demand in HFpEF exacerbation - Denies any chest pain, no ischemic changes noted on EKG - Repeat echocardiogram - Initial troponin 0.495 -> 0.480, continue to trend troponins - Started on heparin drip, maintain for 24 hours - Aspirin 81 mg daily, Lipitor 40 mg HS #Chronic debility -Physical therapy and Occupational Therapy consulted GI prophylaxis: None DVT prophylaxis: Currently on heparin drip The patient is admitted with an anticipated more than than 2 midnight stay for evaluation of HFpEF exacerbation and possible NSTEMI. CODE STATUS: Full code Discussed with: Patient, daughter and son in law Anticipated discharge place: Pending clinical course Dictation was produced using [employer] dictation software. please excuse any grammatical, word or spelling errors. Yosef Norris MD PGY-1 IM Attestation : Patient is seen and examined with Dr. Norris medical specialist. Agree with above assessment and plan . Patient is an 84-year-old female patient who lives by her self. history of NSTEMI s/p 2 stents placed on 11/29/2023 and since then no follow up with neither PCP or Cardiology . Patient is chronic hypoxic respiratory failure and according to the family member at bedside she is supposed to be on 6 L nasal cannula oxygen due to COPD and congestive heart failure but patient is not compliant. Patient called EMS for assistance with her air conditioning issue and they noticed that patient was hypoxic on room air around 86%. Upon arrival to the ED her oxygen requirement kept escalating . Labs are remarkable for hyponatremia with a sodium level of 127 . Impaired kidney function and her BUN and creatinine were within normal limit last year . Patient reports that she has been taking her oral Bumex but her daughter thinks she is not compliant with her medications as well. Patient is clinically overloaded on exam with bilateral bibasilar crackles and bilateral lower extremity edema up to the thigh . proBNP elevated around 20,000 . Cardiology will be consulted, repeat echocardiogram and keep diuretic therapy with strict ins and outs, daily weight and fluid restriction to 1500. D-dimer slightly elevated, will order bilateral lower extremity venous Doppler . Patient is currently on high flow 12 L >>> questionable PE? (Slight elevation in D-dimer) . May consider VQ scan or CT angio (if her kidney function improves ). She is currently on Heparin drip ( for elevated troponin ) . VINCENZO with pulmonary edema on chest x-ray ; possible cardiorenal syndrome . Will continue to monitor kidney function and sodium level . Patient will definitely benefit from PT evaluation and placement. 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, covid Last Myocardial Infarction Date:: 11/23 History of Any Multi-Drug Resistant Organisms: None Reported Past Surgical History: Heart Catheterization With Stent, Hysterectomy Past Anesthesia/Blood Transfusion Reactions: No Reported Reaction Date of Last Stent Placement:: 11/27/23 Past Psychological History: Anxiety, Depression Smoking Status: Current some day smoker Past Alcohol Use History: None Reported Past Drug Use History: None Reported - Past Family History Mother Family Medical History: Myocardial Infarction ([place]) Father Family Medical History: CVA/TIA Medications and Allergies Home Medications Medication Instructions Recorded Confirmed Type Bumetanide [BUMEX] 0.5 mg PO DAILY 11/27/23 12/30/23 History Albuterol Inhaler [Ventolin Hfa 2 puff INHALATION RT-QID PRN #1 12/07/23 12/30/23 Rx Inhaler] each Aspirin 81 mg PO DAILY #30 tab 12/07/23 12/30/23 Rx Atorvastatin [Lipitor] 40 mg PO HS #30 tab 12/07/23 12/30/23 Rx Budesonide-Formot 160-4.5 Mcg 2 puff INHALATION RT-BID #1 each 12/07/23 12/30/23 Rx [Symbicort 160-4.5 Mcg Inhaler] Clopidogrel [Plavix] 75 mg PO DAILY #30 tab 12/07/23 12/30/23 Rx Metoprolol Tartrate [Lopressor] 25 mg PO BID #60 tab 12/07/23 12/30/23 Rx Tiotropium 2.5 Mcg/Puff [Spiriva 2 puff INHALATION RT-DAILY #1 each 12/07/23 12/30/23 Rx Respimat 2.5 Mcg] Albuterol Nebulized [Ventolin 2.5 mg INHALATION RT-Q6H PRN 12/24/23 12/30/23 History Nebulized] traZODone HCL [Desyrel] 50 - 100 mg PO HS PRN 12/24/23 12/30/23 History Nitroglycerin Sl Tabs [Nitrostat] 0.4 mg SL Q5M PRN 12/30/23 12/30/23 History ALPRAZolam [Xanax] 0.5 mg PO BID PRN #6 tab 01/02/24 Rx Acetaminophen Tab [Tylenol] 650 mg PO Q6HR PRN tab 01/02/24 Rx Pantoprazole [Protonix] 40 mg PO AC-BRKFST tab 01/02/24 Rx Allergies Allergy/AdvReac Type Severity Reaction Status Date / Time codeine AdvReac Itching Verified 12/30/23 06:27 Physical Exam Vitals: Vital Signs Temp Pulse Resp BP Pulse Ox 03/03/25 18:40 72 22 116/67 89 L 03/03/25 18:16 75 03/03/25 17:57 70 03/03/25 17:49 73 18 116/61 90 L 03/03/25 16:22 98.2 F 76 18 115/66 91 L Intake and Output 03/03/25 03/03/25 03/03/25 06:59 14:59 22:59 Other: Weight 64.41 kg Results CBC & Chem 7: 03/03/25 16:45 03/03/25 19:19 Labs: Abnormal Lab Results - Last 24 Hours (Table) 03/03/25 03/03/25 03/03/25 Range/Units 16:45 16:45 16:45 WBC 12.56 H (4.50-10.00) 10*3/uL Immature Gran # 0.06 H (0.00-0.04) 10*3/uL Neutrophils # 9.45 H (1.80-7.70) 10*3/uL Monocytes # 1.40 H (0.20-1.00) 10*3/uL Eosinophils # 0.01 L (0.04-0.35) 10*3/uL Sodium 126 L (137-145) mmol/L Chloride 82 L (98-107) mmol/L Carbon Dioxide 38 H (22-30) mmol/L BUN 47 H (7-17) mg/dL Creatinine 1.38 H (0.52-1.04) mg/dL Troponin I 0.495 H* (0.000-0.034) ng/mL Albumin 3.0 L (3.5-5.0) g/dL
[2025-03-03] MEDS: CEPHALEXIN 500 MG CAP PO SCH (21:52)
[2025-03-03] MEDS: POTASSIUM CHLORIDE 10 MEQ in WATER FOR INJECTION 1 100ML.BAG IVPB SCH (21:52)
[2025-03-03] MEDS: AZITHROMYCIN 500 MG TAB PO SCH (21:52)
[2025-03-03] MEDS: POTASSIUM CHLORIDE ER 20 MEQ TAB.ER PO SCH (21:52)
--- NOTE | 2025-03-03 22:14 | US ---
EXAMINATION TYPE: US venous doppler duplex LE BI DATE OF EXAM: 03/03/2025 9:58 PM COMPARISON: NONE CLINICAL INDICATION: Female, 84 years old with history of leg edema with elevated dimer; elevated d d virgilio and leg swelling, Pain TECHNIQUE: The lower extremity deep venous system is examined utilizing real time linear array sonog jean paul with graded compression, color doppler sonography, and spectral doppler. SIDE PERFORMED: Bilateral FINDINGS: VESSELS IMAGED: Common Femoral Vein Deep Femoral Vein Greater Saphenous Vein * Femoral Vein Popliteal Vein Small Saphenous Vein * Proximal Calf Veins (* superficial vessels) exam slightly limited due to patient shaking legs and body habitus Right Leg: appears negative for dvt, Color Doppler imaging shows patency of the vessels. Spectral wa veforms are within normal limits. Left Leg: appears negative for dvt, Color Doppler imaging shows patency of the vessels. Spectral wav eforms are within normal limits. IMPRESSION: 1. Bilateral lower extremity ultrasound negative for deep venous thrombosis. [facility], , 03/03/2025 10:12 PM
--- NOTE | 2025-03-03 22:16 | US ---
EXAMINATION TYPE: US kidneys/renal and bladder DATE OF EXAM: 03/03/2025 COMPARISON: NONE CLINICAL INDICATION: Female, 84 years old with history of Roopa; ROOPA TECHNIQUE: Grayscale imaging of the bilateral kidneys and urinary bladder: FINDINGS: EXAM MEASUREMENTS: Right Kidney: 10.1 x 5.7 x 4.3 cm Left Kidney: superior pole obscured, visualized aspect measures 7.2 x 4.9 x 4.5 cm limited due to overlying bowel gas and limited mobility of patient. patient unable to take proper b reaths for imaging Right Kidney: wnl as best seen Left Kidney: in the lateral, inferior portion of the kidney there are two areas seen: 1: appears anechoic measuring 1.6 x 1.8 x 1.5cm 2: appears hypoechoic measuring 1.6 x 1.8 x 2.0cm vs adjacent bowel Bladder: wnl Bilateral Jets seen: left only at this time IMPRESSION: 1. Left renal cysts present. One is not a simple cyst and monitoring is recommended. [facility], , 03/03/2025 10:13 PM
[2025-03-03 22:18] LABS: Influenza A Not Detected (Not Detectd); Influenza B Not Detected (Not Detectd); RSV Not Detected (Not Detectd)
[2025-03-04] MEDS ORDERED: FUROSEMIDE 10 MG/ML 4 ML VIAL IV SCH
[2025-03-04] MEDS ORDERED: methylPREDNISolone SOD SUCCI 125 MG/2 ML VIAL IV SCH
[2025-03-04] MEDS: POTASSIUM CHLORIDE ER 10 MEQ TAB.ER.PRT PO STA (00:37)
[2025-03-04] MEDS: NITROGLYCERIN OINT 1 INCH/GM PACKET TOPICAL SCH (00:37)
[2025-03-04 06:54] LABS: Basophils # (A) 0.01 10*3/uL (0.00-0.10); Basophils % (A) 0.1 %; HCT 39.2 % (37.2-46.3); HGB 12.9 g/dL (12.0-15.0); Lymphocytes # (A) 0.73 10*3/uL (0.90-5.00); Lymphocytes % (A) 6.1 %; MCHC 32.9 g/dL (32.0-37.0); Mean Platelet Volume 9.5 fL (9.5-12.2); Monocytes # (A) 0.87 10*3/uL (0.20-1.00); Monocytes % (A) 7.3 %; Neutrophils # (A) 10.28 10*3/uL (1.80-7.70); Platelet Count 245 10*3/uL (140-440); RBC 4.61 10*6/uL (4.10-5.20); RDW 17.9 % (11.5-14.5); WBC 11.95 10*3/uL (4.50-10.00)
[2025-03-04 07:14] LABS: African American GFR (CKD) 46 (>60 ml/min/1.73 sqM); Anion Gap 5 mmol/L; Blood Urea Nitrogen 47 mg/dL (7-17); Calcium 8.3 mg/dL (8.4-10.2); Carbon Dioxide 40 mmol/L (22-30); Chloride 81 mmol/L (98-107); Glucose 144 mg/dL (74-99); Non-African American GFR(CKD) 40 (>60 ml/min/1.73 sqM); Potassium 3.8 mmol/L (3.5-5.1); Sodium 126 mmol/L (137-145)
[2025-03-04] MEDS ORDERED: ASPIRIN 325 MG TAB PO SCH (09:00)
[2025-03-04] MEDS: ASPIRIN 81 MG PO SCH (09:55)
[2025-03-04] MEDS: FUROSEMIDE 10 MG/ML 4 ML VIAL IV SCH (09:56)
--- NOTE | 2025-03-04 10:03 | XR ---
EXAMINATION TYPE: XR chest 1V portable DATE OF EXAM: 03/04/2025 CLINICAL INDICATION: Female, 84 years old with history of worsening hypoxia, progress study. TECHNIQUE: Single AP portable upright view of the chest is obtained. COMPARISON: Chest x-ray from one day earlier FINDINGS: Persistent bibasilar opacities. Persistent cardiomegaly with atherosclerotic thoracic aort a. Osseous structures are intact. Reticular nodular increased markings bilaterally are present. IMPRESSION: Possible CHF exacerbation/fluid overload state. Bibasilar acute infiltrates and/or atelec tasis also redemonstrated. [facility], , 03/04/2025 10:00 AM
--- NOTE | 2025-03-04 12:24 | P.PN ---
Subjective Progress Note Date: 03/04/25 Hospital Course: 84-year-old female with PMH of diastolic CHF (most recent echocardiogram from 11/27/2023 showed EF 55-60%, mitral annular calcification and aortic sclerosis without any stenosis), history of NSTEMI s/p 2 stents placed on 11/29/2023, hypertension and COPD (supposed to be maintained on home oxygen, however patient does not recall how much, and sent the oxygen tanks back without ever wearing it at home) who presents to the emergency department complaining of worsening shortness of breath. She notes having headache cough that is unproductive. She denies having had a fever, any nausea, vomiting, chest pain, abdominal pain or diarrhea. She states that she called EMS to assist putting in an air conditioning unit. She states that other than a persistent cough she had no acute complaints, when EMS arrived they noted that she was saturating in the mid 80%'s while on room air. She lives on her own, and states that she is able to ambulate with a walker, or utilizes a wheelchair and she states she carry out activities of daily living without issue. Her daughter and son-in-law were at bedside, they live in [facility], around [place], and states that she does her own thing. She was hospitalized in November 2019 for with an NSTEMI, had 2 iestents placed and per the patient and her daughter she has not followed up with a physician since that time. Her daughter believes that her oral intake is very poor and does not believe that she eats or drinks very well. Patient states that she does not feel like she chokes on her food a lot, but does endorse that it has happened before. Work on arrival significant for troponin 0.495, BNP 2700, potassium 3.5, creatinine 1.38, lactic acid 1.2, normal AST and ALT.Chest x-ray done in the ER independently read and interpreted showed showed evidence of lower lobe infiltrates to be correlated for possible pneumonia. EKG done in the ER independently read and interpreted showed heart rate of 74, sinus rhythm, no ST segment elevation or depression seen, no T-wave inversions seen; QTc 442 Patient was hypoxic on arrival 91% on 4 L nasal cannula. Admitted for further management of acute on chronic hypoxic respiratory failure likely secondary to HFpEF exacerbation and possible CAP. 03/04: Patient was seen examined at bedside, patient's daughter and son present during exam and provide with collateral history. Patient still feels short of breath, she mentioned that she would like to be discharged as soon as possible. She denies chest pain, abdominal pain. She is on 15 L high flow nasal cannula satting at 92% during my evaluation. Continued on diuretics. Procalcitonin negative, will discontinue antibiotics. Sodium stable at 126, creatinine improved to 1.27, troponin down trended to 0.298. [employer] recommended dysphagia 3 diet. Family shared that patient has been having on and off hallucination over the past couple months. Pertinent Imaging: Repeat chest x-ray redemonstrated pulmonary vascular congestion Pertinent positives and negatives as discussed above, a complete review of systems was performed and all other systems are negative. Vitals Signs Reviewed. General: [nontoxic], [no distress], [appears at stated age] Derm: [warm], [dry] Head: [atraumatic], [normocephalic], [symmetric] Eyes: [EOMI], [no lid lag], [anicteric sclera] Mouth: [no lip lesion], [mucus membranes moist] Cardiovascular: [S1S2 reg], [no murmur] Lungs: [CTA bilateral bibasilar crackles, [no accessory muscle use] Abdominal: [soft], [ nontender to palpation], [no guarding], [no appreciable organomegaly] Ext: [no gross muscle atrophy], [bilateral lower extremity pitting edema 1+, chronic venous stasis dermatitis Neuro: [ CN II-XI grossly intact], [no focal neuro deficits] Psych: [Alert], [oriented], [appropriate affect] Assessment and Plan: Acute on chronic hypoxic respiratory failure secondary to HFpEF exacerbation, possible COPD exacerbation Medications noncompliance Home oxygen noncompliance Elevated D-dimer - Continue supplemental oxygen, wean down as tolerated -Continue IV Lasix 40 mg IV every 12 hours - Monitor BMP daily - Procalcitonin negative, will discontinue antibiotics - [employer]RO[employer] W[employer]MAN cleared patient to have level 3 diet, no dysphagia noted - Additional chest x-ray as above - Cardiology consulted, appreciate recommendations - TTE ordered and pending, ordered today Q scan, pending - Start prednisone 40 mg p.o. daily - Continue Symbicort 2 puffs twice daily, DuoNebs 4 times daily -With telemetry, strict I's and O's, daily weights -Patient is on home Lopressor 25 twice daily, losartan/hydrochlorothiazide 100/25 daily, however, she is noncompliant, currently blood pressure is soft, resume home medications once blood pressure improvement achieved Elevated troponin History of CAD status post stents -Cardiology consulted, appreciate recommendations, troponin downtrending -Heparin drip for 24-hour total -Aspirin 81 mg daily, Lipitor 40 mg nightly continue clopidogrel 75 History of upper GI bleed, not on PPI at home, will start Protonix 40 daily oral Chronic debility and Decreased oral intake -PT OT, nutrition consulted Hypovolemic hyponatremia -On admission sodium 126, dropped down to 123, repeat 126, will continue Lasix and fluid restriction -TSH and cortisol pending Nonoliguric VINCENZO likely cardiorenal Left renal cyst, -Creatinine improving with IV diuresis -Ultrasound with left renal cyst, needs follow-up as it is not a simple cyst, follow-up with PCP -Continue to monitor BMP daily, strict I's and O Hypokalemia, resolved -Continue with 20 mEq p.o. potassium chloride daily, monitor BMP daily Metabolic alkalosis -Likely contraction - monitor BMP daily Depression, anxiety: Reported hallucinations continue home Xanax 0.5 twice daily as needed, Lexapro 20 mg daily, trazodone 100 mg p.o. nightly DVT ppx: Heparin drip Code status: Full code Anticipated discharge place: TBD Anticipated discharge time: TBD Objective - Vital Signs Vital signs: Vital Signs Temp 98.0 F 03/04/25 08:00 Pulse 82 03/04/25 12:12 Resp 19 03/04/25 08:00 BP 105/57 03/04/25 08:00 Pulse Ox 88 L 03/04/25 12:06 FiO2 Intake & Output 03/03/25 03/04/25 03/04/25 18:59 06:59 18:59 Intake Total 54.361 Balance 54.361 Weight 64.41 kg 69.5 kg Intake: Intake, IV Titration 54.361 Amount Heparin Sod,Pork in 0.45% 54.361 NaCl 25,000 unit In 0.45 % NaCl 1 250ml.bag @ 12 UNITS/KG/HR 7.729 mls/hr IV .Q24H [facility] Rx#: [id number] Other: Voiding Method External Catheter - Labs CBC & Chem 7: 03/04/25 06:32 03/04/25 06:32 Labs: Abnormal Lab Results - Last 24 Hours (Table) 03/03/25 03/03/25 03/03/25 Range/Units 16:45 16:45 16:45 WBC 12.56 H (4.50-10.00) 10*3/uL Immature Gran # 0.06 H (0.00-0.04) 10*3/uL Neutrophils # 9.45 H (1.80-7.70) 10*3/uL Lymphocytes # (0.90-5.00) 10*3/uL Monocytes # 1.40 H (0.20-1.00) 10*3/uL Eosinophils # 0.01 L (0.04-0.35) 10*3/uL APTT (22.0-30.0) sec D-Dimer (<0.60) mg/L FEU ABG pCO2 (35-45) mmHg ABG pO2 (83-108) mmHg ABG HCO3 (21-25) mmol/L ABG Total CO2 (19-24) mmol/L ABG O2 Saturation (94-97) % Sodium 126 L (137-145) mmol/L Potassium (3.5-5.1) mmol/L Chloride 82 L (98-107) mmol/L Carbon Dioxide 38 H (22-30) mmol/L BUN 47 H (7-17) mg/dL Creatinine 1.38 H (0.52-1.04) mg/dL Glucose (74-99) mg/dL Calcium (8.4-10.2) mg/dL Troponin I 0.495 H* (0.000-0.034) ng/mL Albumin 3.0 L (3.5-5.0) g/dL Urine Osmolality (400-1100) mOsm/kg Ur Random Sodium (40-220) mmol/L 03/03/25 03/03/25 03/03/25 Range/Units 19:19 19:19 19:19 WBC (4.50-10.00) 10*3/uL Immature Gran # (0.00-0.04) 10*3/uL Neutrophils # (1.80-7.70) 10*3/uL Lymphocytes # (0.90-5.00) 10*3/uL Monocytes # (0.20-1.00) 10*3/uL Eosinophils # (0.04-0.35) 10*3/uL APTT (22.0-30.0) sec D-Dimer 0.88 H (<0.60) mg/L FEU ABG pCO2 (35-45) mmHg ABG pO2 (83-108) mmHg ABG HCO3 (21-25) mmol/L ABG Total CO2 (19-24) mmol/L ABG O2 Saturation (94-97) % Sodium 127 L (137-145) mmol/L Potassium 3.1 L (3.5-5.1) mmol/L Chloride 80 L (98-107) mmol/L Carbon Dioxide 38 H (22-30) mmol/L BUN 44 H (7-17) mg/dL Creatinine 1.33 H (0.52-1.04) mg/dL Glucose 110 H (74-99) mg/dL Calcium (8.4-10.2) mg/dL Troponin I 0.480 H* (0.000-0.034) ng/mL Albumin (3.5-5.0) g/dL Urine Osmolality (400-1100) mOsm/kg Ur Random Sodium (40-220) mmol/L 03/03/25 03/03/25 03/03/25 Range/Units 20:21 20:21 20:40 WBC (4.50-10.00) 10*3/uL Immature Gran # (0.00-0.04) 10*3/uL Neutrophils # (1.80-7.70) 10*3/uL Lymphocytes # (0.90-5.00) 10*3/uL Monocytes # (0.20-1.00) 10*3/uL Eosinophils # (0.04-0.35) 10*3/uL APTT (22.0-30.0) sec D-Dimer (<0.60) mg/L FEU ABG pCO2 59 H (35-45) mmHg ABG pO2 58 L* (83-108) mmHg ABG HCO3 40 H* (21-25) mmol/L ABG Total CO2 42 H (19-24) mmol/L ABG O2 Saturation 88.8 L (94-97) % Sodium (137-145) mmol/L Potassium (3.5-5.1) mmol/L Chloride (98-107) mmol/L Carbon Dioxide (22-30) mmol/L BUN (7-17) mg/dL Creatinine (0.52-1.04) mg/dL Glucose (74-99) mg/dL Calcium (8.4-10.2) mg/dL Troponin I (0.000-0.034) ng/mL Albumin (3.5-5.0) g/dL Urine Osmolality 336 L (400-1100) mOsm/kg Ur Random Sodium 33 L (40-220) mmol/L 03/04/25 03/04/25 03/04/25 Range/Units 01:00 01:00 01:00 WBC (4.50-10.00) 10*3/uL Immature Gran # (0.00-0.04) 10*3/uL Neutrophils # (1.80-7.70) 10*3/uL Lymphocytes # (0.90-5.00) 10*3/uL Monocytes # (0.20-1.00) 10*3/uL Eosinophils # (0.04-0.35) 10*3/uL APTT 36.4 H (22.0-30.0) sec D-Dimer (<0.60) mg/L FEU ABG pCO2 (35-45) mmHg ABG pO2 (83-108) mmHg ABG HCO3 (21-25) mmol/L ABG Total CO2 (19-24) mmol/L ABG O2 Saturation (94-97) % Sodium 123 L (137-145) mmol/L Potassium (3.5-5.1) mmol/L Chloride (98-107) mmol/L Carbon Dioxide (22-30) mmol/L BUN (7-17) mg/dL Creatinine (0.52-1.04) mg/dL Glucose (74-99) mg/dL Calcium (8.4-10.2) mg/dL Troponin I 0.298 H* (0.000-0.034) ng/mL Albumin (3.5-5.0) g/dL Urine Osmolality (400-1100) mOsm/kg Ur Random Sodium (40-220) mmol/L 03/04/25 03/04/25 03/04/25 Range/Units 06:32 06:32 06:32 WBC 11.95 H (4.50-10.00) 10*3/uL Immature Gran # 0.06 H (0.00-0.04) 10*3/uL Neutrophils # 10.28 H (1.80-7.70) 10*3/uL Lymphocytes # 0.73 L (0.90-5.00) 10*3/uL Monocytes # (0.20-1.00) 10*3/uL Eosinophils # 0.00 L (0.04-0.35) 10*3/uL APTT 42.8 H (22.0-30.0) sec D-Dimer (<0.60) mg/L FEU ABG pCO2 (35-45) mmHg ABG pO2 (83-108) mmHg ABG HCO3 (21-25) mmol/L ABG Total CO2 (19-24) mmol/L ABG O2 Saturation (94-97) % Sodium 126 L (137-145) mmol/L Potassium (3.5-5.1) mmol/L Chloride 81 L (98-107) mmol/L Carbon Dioxide 40 H (22-30) mmol/L BUN 47 H (7-17) mg/dL Creatinine 1.27 H (0.52-1.04) mg/dL Glucose 144 H (74-99) mg/dL Calcium 8.3 L (8.4-10.2) mg/dL Troponin I (0.000-0.034) ng/mL Albumin (3.5-5.0) g/dL Urine Osmolality (400-1100) mOsm/kg Ur Random Sodium (40-220) mmol/L
[2025-03-04] MEDS: predniSONE 20 MG TAB PO SCH (13:19)
[2025-03-04 13:28] VITALS: BMI 30.9
--- NOTE | 2025-03-04 15:12 | P.CRDCN ---
History of Present Illness Consult date: 03/04/25 Reason for Consult (text): NSTEMI History of present illness: This is an 84-year-old female with past medical history of coronary artery disease with previous stenting, COPD, hyperlipidemia. We have been asked to evaluate the patient for NSTEMI. Patient and family give history that patient had called the police to check her circuit breakers and found patient to be disoriented. Patient states that she has been feeling tired, short of breath, lightheadedness and she noted that she was confused. Patient also complains of a headache, cough that is nonproductive. She denies chest pain no abdominal pain. No fever. EMS found that the patient had a pulse ox of 80%. Family states the patient was set up with oxygen but she refused to use it. She is a smoker. She denies alcohol use. She states that she has been taking all of her medications as directed. Patient was to have a follow-up appointment with Dr. Davalos 1 year ago and November but failed to do so. Blood pressure 100/64, heart rate 79, pulse ox 93% on 15 L high flow nasal cannula. Patient has been started on IV Lasix 40 mg every 12 hours and IV heparin -EKG: Sinus rhythm -Chest x-ray: Lower lobe infiltrates, correlate for atelectasis or pneumonia -Venous duplex bilateral lower extremities negative for DVT. -Renal ultrasound: Left renal cyst. -Laboratory studies: WBC 12.5, hemoglobin 14.4. D-dimer 0.88. Sodium 126 troponins 0.495, 0.48, 0.298. BUN 44, creatinine 1.33. Cepheid viral panel not detected. -Home cardiac medications: Aspirin 81 mg daily, atorvastatin 40 mg at bedtime, Bumex 0.5 mg daily, Plavix 75 mg daily, Lopressor 25 mg twice daily, Nitrostat as needed. -Echocardiogram performed 11/27/2023 revealed normal LV function, mitral annular calcification, aortic sclerosis without stenosis. -Cardiac catheterization performed by Dr. Davalos on 11/29/2023 in the setting of a NSTEMI revealed RCA with tight lesion, PLV branch of the RCA with a critical les ion, mild disease in the left main, left circumflex mild to moderate diffuse disease, LAD mild to moderate diffuse disease and patient underwent PCI of the RCA and stenting of the PL branch of the RCA and started on aspirin and Plavix for 1 year. Review Of Systems: At the time of my exam: CONSTITUTIONAL: Denies fever or chills. Reports fatigue HEENT: Denies blurred vision, vision changes, or eye pain. Denies hemoptysis CARDIOVASCULAR: Denies chest pain. Denies orthopnea. Denies PND. Denies pa lpitations RESPIRATORY: Reports shortness of breath. GASTROINTESTINAL: Denies abdominal pain. Denies nausea or vomiting. HEMATOLOGIC: Denies bleeding disorders. GENITOURINARY: Denies any blood in urine. SKIN: Denies puritis. Denies rash. Physical examination: Gen: This is 84-year-old female in no acute distress] VS: reviewed HEENT: Head is atraumatic, normocephalic. Pupils equal, round. Sclerae is anicteric. NECK: Supple. No JVD. LUNGS: Clear to auscultation. No wheezes or rhonchi. No intercostal retractions. HEART: Regular rate and rhythm. ABDOMEN: Soft No tenderness. EXTREMITIES: Bilateral 1+ lower extremity edema. No calf tenderness. NEUROLOGICAL: Patient is awake, alert and oriented x3. Assessment: Acute hypoxic respiratory failure Acute diastolic heart failure NSTEMI Hyponatremia Acute kidney injury History of coronary artery disease with previous PCI in COPD Hyperlipidemia Noncompliance with follow-up Plan: Resume patient's home cardiac medications Continue patient on IV Lasix 40 mg every 12 hours Continue heparin drip for 24 hours Discontinue Nitropaste Obtain 2-D echocardiogram and Doppler study to assess cardiac structure and function Further recommendations to follow based upon clinical course Thank you kindly for this consultation. Nurse practitioner note has been reviewed, I agree with documented findings and plan of care. Patient was seen and examined. 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, covid Last Myocardial Infarction Date:: 11/23 History of Any Multi-Drug Resistant Organisms: None Reported Past Surgical History: Heart Catheterization With Stent, Hysterectomy Past Anesthesia/Blood Transfusion Reactions: No Reported Reaction Date of Last Stent Placement:: 11/27/23 Past Psychological History: Anxiety, Depression Smoking Status: Current some day smoker Past Alcohol Use History: None Reported Past Drug Use History: None Reported Additional Drug Use History / Comment(s): occasional smoker - Past Family History Mother Family Medical History: Myocardial Infarction (SD) Father Family Medical History: CVA/TIA Medications and Allergies Home Medications Medication Instructions Recorded Confirmed Type Budesonide-Formot 160-4.5 Mcg 2 puff INHALATION RT-BID #1 each 12/07/23 03/04/25 Rx [Symbicort 160-4.5 Mcg Inhaler] Clopidogrel [Plavix] 75 mg PO DAILY #30 tab 12/07/23 03/04/25 Rx Metoprolol Tartrate [Lopressor] 25 mg PO BID #60 tab 12/07/23 03/04/25 Rx Albuterol Nebulized [Ventolin 2.5 mg INHALATION RT-Q6H 12/24/23 03/04/25 History Nebulized] Nitroglycerin Sl Tabs [Nitrostat] 0.4 mg SL Q5M PRN 12/30/23 03/04/25 History ALPRAZolam [Xanax] 0.5 mg PO BID PRN #6 tab 01/02/24 03/04/25 Rx Albuterol Inhaler [Ventolin Hfa 2 puff INHALATION RT-Q4H PRN 03/04/25 03/04/25 History Inhaler] Ascorbic Acid [Vitamin C] 1,000 mg PO HS 03/04/25 03/04/25 History Atorvastatin [Lipitor] 40 mg PO DAILY 03/04/25 03/04/25 History Bumetanide [Bumex] 1 - 2 mg PO DAILY 03/04/25 03/04/25 History Cholecalciferol [Vitamin D3 (25 25 mcg PO DAILY 03/04/25 03/04/25 History Mcg = 1000 Iu)] Escitalopram [Lexapro] 20 mg PO DAILY 03/04/25 03/04/25 History L.acidoph,Paracasei, B.lactis 1 cap PO DAILY PRN 03/04/25 03/04/25 History [Probiotic] Losartan/Hydrochlorothiazide 1 tab PO DAILY 03/04/25 03/04/25 History [Losartan-Hctz 100-25 mg Tab] [place] 3-6-9 1200mg 2 cap PO DAILY 03/04/25 03/04/25 History traMADol HCL 50 mg PO BID PRN 03/04/25 03/04/25 History traZODone HCL [Desyrel] 100 mg PO HS 03/04/25 03/04/25 History Allergies Allergy/AdvReac Type Severity Reaction Status Date / Time codeine AdvReac Itching Verified 03/04/25 11:40 Physical Exam Vitals: Vital Signs Temp Pulse Pulse Resp BP BP Pulse Ox 03/04/25 04:00 98.1 F 79 22 100/64 93 L 03/04/25 01:35 98.2 F 85 22 98/63 93 L 03/04/25 00:00 98.6 F 87 22 99/55 96 03/03/25 23:21 89 L 03/03/25 21:00 98.9 F 86 25 H 112/74 94 L 03/03/25 20:51 94 L 03/03/25 20:47 86 18 03/03/25 20:41 84 18 03/03/25 20:14 85 17 97/47 92 L 03/03/25 18:40 72 22 116/67 89 L 03/03/25 18:16 75 03/03/25 17:57 70 03/03/25 17:49 73 18 116/61 90 L 03/03/25 16:22 98.2 F 76 18 115/66 91 L Intake and Output 03/03/25 03/04/25 03/04/25 22:59 06:59 14:59 Intake Total 54.361 Balance 54.361 Intake: Intake, IV Titration 54.361 Amount Heparin Sod,Pork in 0.45% 54.361 NaCl 25,000 unit In 0.45 % NaCl 1 250ml.bag @ 12 UNITS/KG/HR 7.729 mls/hr IV .Q24H [facility] Rx#: [id number] Other: Voiding Method External Catheter External Catheter Weight 64.41 kg 69.5 kg Results 03/04/25 06:32 03/04/25 06:32 Cardiac Enzymes 03/03/25 03/03/25 03/03/25 Range/Units 16:45 16:45 19:19 AST 33 (14-36) U/L Troponin I 0.495 H* 0.480 H* (0.000-0.034) ng/mL 03/04/25 Range/Units 01:00 AST (14-36) U/L Troponin I 0.298 H* (0.000-0.034) ng/mL Coagulation 03/03/25 03/04/25 03/04/25 Range/Units 16:45 01:00 06:32 PT 11.4 (10.0-12.5) sec APTT 23.7 36.4 H 42.8 H (22.0-30.0) sec CBC 03/03/25 03/04/25 Range/Units 16:45 06:32 WBC 12.56 H 11.95 H (4.50-10.00) 10*3/uL RBC 5.04 4.61 (4.10-5.20) 10*6/uL Hgb 14.4 12.9 (12.0-15.0) g/dL Hct 42.9 39.2 (37.2-46.3) % Plt Count 275 245 (140-440) 10*3/uL Comprehensive Metabolic Panel 03/03/25 03/03/25 03/04/25 Range/Units 16:45 19:19 01:00 Sodium 126 L 127 L 123 L (137-145) mmol/L Potassium 3.5 3.1 L (3.5-5.1) mmol/L Chloride 82 L 80 L (98-107) mmol/L Carbon Dioxide 38 H 38 H (22-30) mmol/L BUN 47 H 44 H (7-17) mg/dL Creatinine 1.38 H 1.33 H (0.52-1.04) mg/dL Glucose 80 110 H (74-99) mg/dL Calcium 8.7 8.6 (8.4-10.2) mg/dL AST 33 (14-36) U/L ALT 21 (4-34) U/L Alkaline Phosphatase 115 (38-126) U/L Total Protein 6.5 (6.3-8.2) g/dL Albumin 3.0 L (3.5-5.0) g/dL 03/04/25 Range/Units 06:32 Sodium 126 L (137-145) mmol/L Potassium 3.8 (3.5-5.1) mmol/L Chloride 81 L (98-107) mmol/L Carbon Dioxide 40 H (22-30) mmol/L BUN 47 H (7-17) mg/dL Creatinine 1.27 H (0.52-1.04) mg/dL Glucose 144 H (74-99) mg/dL Calcium 8.3 L (8.4-10.2) mg/dL AST (14-36) U/L ALT (4-34) U/L Alkaline Phosphatase (38-126) U/L Total Protein (6.3-8.2) g/dL Albumin (3.5-5.0) g/dL Current Medications Generic Name Dose Route Start Last Admin Trade Name Freq PRN Reason Stop Dose Admin Albuterol/Ipratropium 3 ml 03/03/25 20:00 03/03/25 20:30 Ipratropium-Albuterol 3 Ml Neb INHALATION 3 ml RT-QID EMPERATRIZ Administration Aspirin 81 mg 03/04/25 09:00 Aspirin 81 Mg PO DAILY EMPERATRIZ Atorvastatin Calcium 40 mg 03/04/25 21:00 Atorvastatin 40 Mg Tab PO HS EMPERATRIZ Azithromycin 500 mg 03/03/25 21:00 03/03/25 21:52 Azithromycin 500 Mg Tab PO 03/06/25 20:59 500 mg HS EMPERATRIZ Administration Protocol Cephalexin 500 mg 03/03/25 21:30 03/03/25 21:52 Cephalexin 500 Mg Cap PO 500 mg BID EMPERATRIZ Administration Protocol Furosemide 40 mg 03/04/25 09:00 Furosemide 10 Mg/Ml 4 Ml Vial IV Q12HR EMPERATRIZ Heparin Sodium/Sodium Chloride 250 mls @ 7.729 mls/hr 03/03/25 18:45 03/04/25 01:50 25,000 unit/ Sodium Chloride IV 14 units/kg/hr .Q24H EMPERATRIZ 9.017 mls/hr Titration Protocol 12 UNITS/KG/HR Nitroglycerin 1 inch 03/04/25 00:00 03/04/25 05:23 Nitroglycerin Oint 1 Inch/Gm Packet TOPICAL 03/05/25 00:00 1 inch Q6HR EMPERATRIZ Administration Potassium Chloride 20 meq 03/03/25 21:15 03/03/25 21:52 Potassium Chloride Er 20 Meq Tab.Er PO 20 meq DAILY EMPERATRIZ Administration Intake and Output 03/03/25 03/04/25 03/04/25 22:59 06:59 14:59 Intake Total 54.361 Balance 54.361 Intake: Intake, IV Titration 54.361 Amount Heparin Sod,Pork in 0.45% 54.361 NaCl 25,000 unit In 0.45 % NaCl 1 250ml.bag @ 12 UNITS/KG/HR 7.729 mls/hr IV .Q24H [facility] Rx#: [id number] Other: Voiding Method External Catheter External Catheter Weight 64.41 kg 69.5 kg 03/04/25 06:32 03/04/25 06:32
[2025-03-04] MEDS ORDERED: ZINC OXIDE PASTE (Z-GUARD) 1 APPLIC TOPICAL PRN (15:21)
--- NOTE | 2025-03-04 17:03 | NM ---
EXAMINATION TYPE: NM pul vent and perfuse DATE OF EXAM: 03/04/2025 CLINICAL INDICATION: Female, 84 years old with history of elevated D dimer, hypoxia; COMPARISON: Same day chest radiograph TECHNIQUE: Utilizing inhalation of 68.2 mCi Tc 99m DTPA aerosol and intravenous injection of 5.35 mC i of Tc 99m MAA, ventilation and perfusion images are acquired post injection in multiple projections . FINDINGS: Some small matching defects are present. There is no evidence of mismatched defects. IMPRESSION: Low scintigraphic evidence for acute pulmonary embolism. [email or web address] [facility], , 03/04/2025 5:00 PM
--- NOTE | 2025-03-04 18:00 | CA ---
Transthoracic Echo Report Name: Gavi Avila Age: 84 Gender: F : 1940 Exam Date: 03/04/2025 07:41 Exam Location: [facility] Ht (in): 59 Wt (lb): 142 Ordering Physician: Mp Norris MD Attending/Referring Phys: Optical Instrument Specialist Hilda Montalvo RDCS Procedure CPT: Indications: Elevated troponin, history of HFpEF, Non-ST elevation (NSTEMI) myocardial infarction Cardiac Hx: Technical Quality: Good Contrast 1: Total Dose (mL): Contrast 2: Total Dose (mL): MEASUREMENTS (Male / Female) Normal Values 2D ECHO LV Diastolic Diameter PLAX 3.7 cm 4.2 - 5.9 / 3.9 - 5.3 cm LV Systolic Diameter PLAX 2.4 cm IVS Diastolic Thickness 1.1 cm 0.6 - 1.0 / 0.6 - 0.9 cm LVPW Diastolic Thickness 1.1 cm 0.6 - 1.0 / 0.6 - 0.9 cm LV Relative Wall Thickness 0.6 RV Internal Dim ED PLAX 3.5 cm LA Systolic Diameter LX 4.2 cm 3.0 - 4.0 / 2.7 - 3.8 cm LV Diastolic Volume MOD BP 67.1 cm??? 67 - 155 / 56 - 104 cm??? LV Systolic Volume MOD BP 24.1 cm??? 22 - 58 / 19 - 49 cm??? LV Ejection Fraction MOD BP 64.0 % >= 55 % LV Cardiac Index MOD BP 2146.0 cm???/min???m??? LV Diastolic Volume MOD 4C 77.7 cm??? LV Systolic Volume MOD 4C 20.2 cm??? LV Ejection Fraction MOD 4C 73.9 % LV Cardiac Index MOD 4C 2869.8 cm???/min???m??? LV Diastolic Length 4C 7.5 cm LV Systolic Length 4C 5.0 cm LV Diastolic Volume MOD 2C 54.5 cm??? LV Systolic Volume MOD 2C 24.7 cm??? LV Ejection Fraction MOD 2C 54.7 % LV Cardiac Index MOD 2C 1490.7 cm???/min???m??? LV Diastolic Length 2C 6.8 cm LV Systolic Length 2C 6.0 cm LA Volume 57.1 cm??? 18 - 58 / 22 - 52 cm??? LA Volume Index 34.4 cm???/m??? 16 - 28 cm???/m??? M-MODE Aortic Root Diameter MM 3.3 cm AV Cusp Separation MM 1.9 cm DOPPLER AV Peak Velocity 157.0 cm/s AV Peak Gradient 9.9 mmHg TR Peak Velocity 276.8 cm/s TR Peak Gradient 30.6 mmHg Right Ventricular Systolic Press 35.4 mmHg FINDINGS Left Ventricle Left ventricular ejection fraction is estimated at 55-60 %. Small left ventricular cavity. Mildly increased septal wall thickness. Mildly increased posterior wall thickness. Normal left ventricular wall motion. Right Ventricle Mild right ventricular dilatation. Mild pulmonary hypertension. Right Atrium Mild right atrial dilatation. No right atrial thrombus or mass seen. Left Atrium Mildly increased left atrial diameter. Mildly increased left atrial volume. Mildly increased left atrial area. Mitral Valve Mitral valve thickened. Mild mitral annular calcification. Aortic Valve Trileaflet aortic valve. Thickened aortic valve without stenosis. Tricuspid Valve Structurally normal tricuspid valve. Mild tricuspid regurgitation. Pulmonic Valve Structurally normal pulmonic valve. No pulmonic regurgitation. Pericardium No pericardial effusion. Aorta Normal size aortic root and proximal ascending aorta. CONCLUSIONS LVEF 55% No obvious regional wall motion abnormality Mild concentric LVH Mild biatrial dilatation Mild RV dilatation with preserved systolic function. RVSP estimated at 35 mmHg, mild pulmonary hypertension Mild tricuspid regurgitation No pericardial effusion Previewed by: Dr Napoleon Lynch (Electronically Signed) Final Date: 04 March 2025 17:59
[2025-03-04] MEDS: ACETAMINOPHEN TAB 325 MG TAB PO PRN (18:17)
[2025-03-04] MEDS: ATORVASTATIN 40 MG TAB PO SCH (20:10)
[2025-03-04] MEDS: traZODone HCL 100 MG TAB PO SCH (20:10)
[2025-03-04] MEDS: SYMBICORT 160-4.5 MCG INHALER INHALATION SCH (20:52)
[2025-03-05] MEDS: PANTOPRAZOLE 40 MG TABLET PO SCH (05:50)
[2025-03-05 07:54] LABS: Basophils # (A) 0.02 10*3/uL (0.00-0.10); Basophils % (A) 0.1 %; Eosinophils # (A) 0.01 10*3/uL (0.04-0.35); Eosinophils % (A) 0.1 %; HCT 40.4 % (37.2-46.3); HGB 13.3 g/dL (12.0-15.0); Lymphocytes # (A) 1.22 10*3/uL (0.90-5.00); Lymphocytes % (A) 7.8 %; MCH 28.7 pg (27.0-32.0); MCHC 32.9 g/dL (32.0-37.0); MCV 87.3 fL (80.0-97.0); Mean Platelet Volume 9.4 fL (9.5-12.2); Monocytes # (A) 1.79 10*3/uL (0.20-1.00); Monocytes % (A) 11.5 %; Neutrophils # (A) 12.41 10*3/uL (1.80-7.70); Neutrophils % (A) 79.9 %; Platelet Count 246 10*3/uL (140-440); RBC 4.63 10*6/uL (4.10-5.20); RDW 18.6 % (11.5-14.5); WBC 15.55 10*3/uL (4.50-10.00)
[2025-03-05 08:09] LABS: African American GFR (CKD) 59 (>60 ml/min/1.73 sqM); Blood Urea Nitrogen 44 mg/dL (7-17); Calcium 8.3 mg/dL (8.4-10.2); Chloride 86 mmol/L (98-107); Glucose 125 mg/dL (74-99); Magnesium 1.8 mg/dL (1.6-2.3); Non-African American GFR(CKD) 51 (>60 ml/min/1.73 sqM); Potassium 3.8 mmol/L (3.5-5.1); Sodium 132 mmol/L (137-145)
[2025-03-05 08:15] LABS: Anion Gap 4 mmol/L
[2025-03-05 08:44] LABS: Carbon Dioxide 42 mmol/L (22-30)
--- NOTE | 2025-03-05 09:45 | P.PN ---
Subjective Progress Note Date: 03/05/25 Reason for Consult (text): NSTEMI History of present illness: This is an 84-year-old female with past medical history of coronary artery disease with previous stenting, COPD, hyperlipidemia. We have been asked to evaluate the patient for NSTEMI. Patient and family give history that patient had called the police to check her circuit breakers and found patient to be disoriented. Patient states that she has been feeling tired, short of breath, lightheadedness and she noted that she was confused. Patient also complains of a headache, cough that is nonproductive. She denies chest pain no abdominal pain. No fever. EMS found that the patient had a pulse ox of 80%. Family states the patient was set up with oxygen but she refused to use it. She is a smoker. She denies alcohol use. She states that she has been taking all of her medications as directed. Patient was to have a follow-up appointment with Dr. Davalos 1 year ago and November but failed to do so. Blood pressure 100/64, heart rate 79, pulse ox 93% on 15 L high flow nasal cannula. Patient has been started on IV Lasix 40 mg every 12 hours and IV heparin -EKG: Sinus rhythm -Chest x-ray: Lower lobe infiltrates, correlate for atelectasis or pneumonia -Venous duplex bilateral lower extremities negative for DVT. -Renal ultrasound: Left renal cyst. -Laboratory studies: WBC 12.5, hemoglobin 14.4. D-dimer 0.88. Sodium 126 troponins 0.495, 0.48, 0.298. BUN 44, creatinine 1.33. Cepheid viral panel not detected. -Home cardiac medications: Aspirin 81 mg daily, atorvastatin 40 mg at bedtime, Bumex 0.5 mg daily, Plavix 75 mg daily, Lopressor 25 mg twice daily, Nitrostat as needed. -Echocardiogram performed 11/27/2023 revealed normal LV function, mitral annular calcification, aortic sclerosis without stenosis. -Cardiac catheterization performed by Dr. Davalos on 11/29/2023 in the setting of a NSTEMI revealed RCA with tight lesion, PLV branch of the RCA with a critical lesion, mild disease in the left main, left circumflex mild to moderate diffuse disease, LAD mild to moderate diffuse disease and patient underwent PCI of the RCA and stenting of the PL branch of the RCA and started on aspirin and Plavix for 1 year. 03/05 Patient seen and examined. Heart rate has been controlled except she became tachycardic when she got out of bed. She does have severe COPD. She has less l ower extremity edema but still redness. Blood pressure 106/63, heart rate 85, pulse ox 92% on high flow nasal cannula 8 L. Repeat blood work reveals WBC 15.5, hemoglobin 13.3. Sodium 132, CO2 42, BUN 44 creatinine 1.03. VQ scan showed low probability for acute PE. Echocardiogram reveals EF 55%, RVSP 35. Mild pulmonary hypertension. Mild tricuspid regurgitation. Physical examination: Gen: This is 84-year-old female in no acute distress] VS: reviewed HEENT: Head is atraumatic, normocephalic. Pupils equal, round. Sclerae is anicteric. NECK: Supple. No JVD. LUNGS: Clear to auscultation. No wheezes or rhonchi. No intercostal retractions. HEART: Regular rate and rhythm. ABDOMEN: Soft No tenderness. EXTREMITIES: Bilateral 1+ lower extremity edema. No calf tenderness. NEUROLOGICAL: Patient is awake, alert and oriented x3. Assessment: Acute hypoxic respiratory failure Acute diastolic heart failure NSTEMI Hyponatremia Acute kidney injury Cellulitis of the bilateral lower extremities History of coronary artery disease with previous PCI in COPD Hyperlipidemia Noncompliance with follow-up Plan: Continue patient's home cardiac medications Continue patient on IV Lasix 40 mg every 12 hours Discontinue heparin drip Further recommendations to follow based upon clinical course Nurse practitioner note has been reviewed, I agree with documented findings and plan of care. Patient was seen and examined. Objective - Vital Signs Vital signs: Vital Signs Temp 98.6 F 03/05/25 03:52 Pulse 85 03/05/25 03:52 Resp 22 03/05/25 03:52 BP 106/63 03/05/25 03:52 Pulse Ox 92 L 03/05/25 03:52 FiO2 Intake & Output 03/04/25 03/05/25 03/05/25 18:59 06:59 18:59 Intake Total 374.081 Output Total 725 1000 Balance -350.919 -1000 Weight 69.5 kg 68 kg Intake: Intake, IV Titration 149.081 Amount Heparin Sod,Pork in 0.45% 149.081 NaCl 25,000 unit In 0.45 % NaCl 1 250ml.bag @ 12 UNITS/KG/HR 7.729 mls/hr IV .Q24H [facility] Rx#: [id number] Oral 225 Output: Urine 725 1000 Other: Voiding Method External Catheter External Catheter # Voids 2 - Labs CBC & Chem 7: 03/05/25 07:08 03/05/25 07:08 Labs: Microbiology - Last 24 Hours (Table) 03/03/25 17:07 Blood Culture - Preliminary Blood
[2025-03-05 10:26] LABS: ABG Base Excess 18.7 mmol/L; ABG Oxygen Saturation 90.6 % (94-97); ABG PCO2 62 mmHg (35-45); ABG PH 7.48 (7.35-7.45); ABG TCO2 48 mmol/L (19-24); Allen Test Performed? Yes
[2025-03-05 10:30] LABS: ABG HCO3 46 mmol/L (21-25); ABG PO2 59 mmHg (83-108)
[2025-03-05] MEDS: CLOPIDOGREL 75 MG TAB PO SCH (11:10)
[2025-03-05] MEDS: ESCITALOPRAM 20 MG TAB PO SCH (11:10)
--- NOTE | 2025-03-05 14:34 | P.PN ---
Subjective Progress Note Date: 03/05/25 Hospital Course: 84-year-old female with PMH of diastolic CHF (most recent echocardiogram from 11/27/2023 showed EF 55-60%, mitral annular calcification and aortic sclerosis without any stenosis), history of NSTEMI s/p 2 stents placed on 11/29/2023, hypertension and COPD (supposed to be maintained on home oxygen, however patient does not recall how much, and sent the oxygen tanks back without ever wearing it at home) who presents to the emergency department complaining of worsening shortness of breath. She notes having headache cough that is unproductive. She denies having had a fever, any nausea, vomiting, chest pain, abdominal pain or diarrhea. She states that she called EMS to assist putting in an air conditioning unit. She states that other than a persistent cough she had no acute complaints, when EMS arrived they noted that she was saturating in the mid 80%'s while on room air. She lives on her own, and states that she is able to ambulate with a walker, or utilizes a wheelchair and she states she carry out activities of daily living without issue. Her daughter and son-in-law were at bedside, they live in [place], around [place], and states that she does her own thing. She was hospitalized in November 2019 for with an NSTEMI, had 2 iestents placed and per the patient and her daughter she has not followed up with a physician since that time. Her daughter believes that her oral intake is very poor and does not believe that she eats or drinks very well. Patient states that she does not feel like she chokes on her food a lot, but does endorse that it has happened before. Work on arrival significant for troponin 0.495, BNP 2700, potassium 3.5, creatinine 1.38, lactic acid 1.2, normal AST and ALT.Chest x-ray done in the ER independently read and interpreted showed showed evidence of lower lobe infiltrates to be correlated for possible pneumonia. EKG done in the ER independently read and interpreted showed heart rate of 74, sinus rhythm, no ST segment elevation or depression seen, no T-wave inversions seen; QTc 442 Patient was hypoxic on arrival 91% on 4 L nasal cannula. Admitted for further management of acute on chronic hypoxic respiratory failure likely secondary to HFpEF exacerbation and possible CAP. Procalcitonin negative, will discontinue antibiotics.. BLOCKLAYER recommended dysphagia 3 diet. Family shared that patient has been having on and off hallucination over the past couple months. 03/05: Seen examined at bedside, patient's children present and RN present during exam. I was earlier notified that patient is very difficult to arouse from sleep, she is still requiring high flow nasal cannula 15 L. ABG was obtained and showed persistent hypoxia with PO259, pCO2 62, pH 7.48. Her blood work showed improving hyponatremia 132 today, alkalosis worsening bicarb 42, creatinine normalized 1.03. Pulmonology was consulted, patient was started on Solu-Medrol 60 mg every 8 hours. Later on patient was able to go down on oxygen to 6 L. Heparin drip was stopped, continued on IV Lasix 40 twice daily. VQ scan negative. Pertinent positives and negatives as discussed above, a complete review of systems was performed and all other systems are negative. Vitals Signs Reviewed. General: [nontoxic], [no distress], [appears at stated age] Derm: [warm], [dry] Head: [atraumatic], [normocephalic], [symmetric] Eyes: [EOMI], [no lid lag], [anicteric sclera] Mouth: [no lip lesion], [mucus membranes moist] Cardiovascular: [S1S2 reg], [no murmur] Lungs: [CTA bilateral bibasilar crackles, [no accessory muscle use] Abdominal: [soft], [ nontender to palpation], [no guarding], [no appreciable organomegaly] Ext: [no gross muscle atrophy], [bilateral lower extremity pitting edema 1+, chronic venous stasis dermatitis Neuro: [ CN II-XI grossly intact], [no focal neuro deficits] Psych: [Alert], [oriented], [appropriate affect] Assessment and Plan: Acute on chronic hypoxic respiratory failure secondary to HFpEF exacerbation, possible COPD exacerbation Contraction alkalosis likely secondary to diuresis Medications noncompliance Home oxygen noncompliance Elevated D-dimer, PE ruled out - Continue supplemental oxygen, wean down as tolerated -Continue IV Lasix 40 mg IV every 12 hours, will give 1 dose of Diamox to 50 IV once - Monitor BMP daily - Procalcitonin negative, will discontinue antibiotics - BLOCKLAYER cleared patient to have level 3 diet, no dysphagia noted - Cardiology consulted, appreciate recommendations - TTE ordered and pending, -Pulmonology consulted, recommended - Continue Solu-Medrol 60 IV every 8 hours per pulmonology -Added Mucinex 600 mg p.o. every 12 hours - Continue Symbicort 2 puffs twice daily, DuoNebs 4 times daily -With telemetry, strict I's and O's, daily weights -Patient is on home Lopressor 25 twice daily, losartan/hydrochlorothiazide 100/25 daily, however, she is noncompliant, currently blood pressure is soft, resume home medications once blood pressure improvement achieved Elevated troponin History of CAD status post stents -Cardiology consulted, appreciate recommendations, -Heparin drip discontinued -Aspirin 81 mg daily, Lipitor 40 mg nightly continue clopidogrel 75 History of upper GI bleed, not on PPI at home, will start Protonix 40 daily oral Chronic debility and Decreased oral intake -PT OT, nutrition consulted Hypovolemic hyponatremia -On admission sodium 126, dropped down to 123, now 132, will continue Lasix and fluid restriction Nonoliguric VINCENZO likely cardiorenal Left renal cyst, -Creatinine improving with IV diuresis -Ultrasound with left renal cyst, needs follow-up as it is not a simple cyst, follow-up with PCP -Continue to monitor BMP daily, strict I's and O Hypokalemia, resolved -Continue with 20 mEq p.o. potassium chloride daily, monitor BMP daily Depression, anxiety: Reported hallucinations continue home Xanax 0.5 twice daily as needed, Lexapro 20 mg daily, trazodone 100 mg p.o. nightly DVT ppx: Heparin drip Code status: Full code Anticipated discharge place: TBD Anticipated discharge time: TBD Objective - Vital Signs Vital signs: Vital Signs Temp 98.3 F 03/05/25 08:00 Pulse 80 03/05/25 12:05 Resp 19 03/05/25 12:00 BP 119/72 03/05/25 12:00 Pulse Ox 91 L 03/05/25 12:00 FiO2 Intake & Output 03/04/25 03/05/25 03/05/25 18:59 06:59 18:59 Intake Total 374.081 222 Output Total 725 1000 575 Balance -350.919 -1000 -353 Weight 69.5 kg 68 kg Intake: Intake, IV Titration 149.081 Amount Heparin Sod,Pork in 0.45% 149.081 NaCl 25,000 unit In 0.45 % NaCl 1 250ml.bag @ 12 UNITS/KG/HR 7.729 mls/hr IV .Q24H [facility] Rx#: [id number] Oral 225 222 Output: Urine 725 1000 575 Other: Voiding Method External Catheter External Catheter External Catheter # Voids 2 - Labs CBC & Chem 7: 03/05/25 07:08 03/05/25 07:08 Labs: Abnormal Lab Results - Last 24 Hours (Table) 03/05/25 03/05/25 03/05/25 Range/Units 07:08 07:08 07:08 WBC 15.55 H (4.50-10.00) 10*3/uL MPV 9.4 L (9.5-12.2) fL Immature Gran # 0.10 H (0.00-0.04) 10*3/uL Neutrophils # 12.41 H (1.80-7.70) 10*3/uL Monocytes # 1.79 H (0.20-1.00) 10*3/uL Eosinophils # 0.01 L (0.04-0.35) 10*3/uL APTT 46.9 H (22.0-30.0) sec ABG pH (7.35-7.45) ABG pCO2 (35-45) mmHg ABG pO2 (83-108) mmHg ABG HCO3 (21-25) mmol/L ABG Total CO2 (19-24) mmol/L ABG O2 Saturation (94-97) % Sodium 132 L (137-145) mmol/L Chloride 86 L (98-107) mmol/L Carbon Dioxide 42 H* (22-30) mmol/L BUN 44 H (7-17) mg/dL Glucose 125 H (74-99) mg/dL Calcium 8.3 L (8.4-10.2) mg/dL 03/05/25 Range/Units 10:23 WBC (4.50-10.00) 10*3/uL MPV (9.5-12.2) fL Immature Gran # (0.00-0.04) 10*3/uL Neutrophils # (1.80-7.70) 10*3/uL Monocytes # (0.20-1.00) 10*3/uL Eosinophils # (0.04-0.35) 10*3/uL APTT (22.0-30.0) sec ABG pH 7.48 H (7.35-7.45) ABG pCO2 62 H (35-45) mmHg ABG pO2 59 L* (83-108) mmHg ABG HCO3 46 H* (21-25) mmol/L ABG Total CO2 48 H (19-24) mmol/L ABG O2 Saturation 90.6 L (94-97) % Sodium (137-145) mmol/L Chloride (98-107) mmol/L Carbon Dioxide (22-30) mmol/L BUN (7-17) mg/dL Glucose (74-99) mg/dL Calcium (8.4-10.2) mg/dL Microbiology - Last 24 Hours (Table) 03/03/25 17:07 Blood Culture - Preliminary Blood
[2025-03-05] MEDS: guaiFENesin 600 MG TABLET.ER PO SCH (16:46)
[2025-03-05] MEDS: methylPREDNISolone SOD SUCCI 125 MG/2 ML VIAL IV SCH (17:30)
[2025-03-05 20:06] LABS: Glucose,Whole Blood 154 mg/dL (70-110)
--- NOTE | 2025-03-05 20:35 | P.CNPUL ---
History of Present Illness Consult date: 03/05/25 Reason for consult: dyspnea History of present illness: This is a 85-year-old female patient, known having COPD, and previous history of coronary disease and coronary stenting that was performed back in 2023 following an acute NSTEMI and cardiac catheterization at that time revealed RCA with tight lesion, PLV branch of the RCA with a critical lesion, mild disease in the left main, left circumflex mild to moderate diffuse disease, LAD mild to moderate diffuse disease and patient underwent PCI of the RCA and stenting of the PL branch of the RCA. Patient also known to have hyperlipidemia and diastolic heart failure. The patient has been in a poor health condition. She has been smoking. She has not had appropriate medical follow-up over the past 1 year. She came into the hospital having increased cough congestion chest tightness and wheezing and a pulmonary consultation was requested. The patient has also noted to be slightly confused at time of admission. No nausea. No emesis. No fever or chills. She was hypoxic in the emergency department with a pulse ox of 80%. She has been recommended to use oxygen in the past however the patient has not been consistently using oxygen. Cardiology also was involved in the case Initially the patient was placed on 15 L of oxygen by nasal cannula and she was subsequently weaned down to 6 L. Workup included a white cell count of 15.5 with a hemoglobin 15.3 and the platelet count of 248. Blood gas showed a pH of 7.48 with a PCO2 of 62 and PO2 of 59 Electrolytes were showing chronic metabolic alkalosis with a serum bicarb of 42 and a potassium level of 3.8. BUN 44 with a creatinine of 1.03 improved from a baseline of 1.27. Troponins were 0.4 and 0.4 at 0.2 respectively x 3 Chest x-ray showed COPD with questionable left lower lobe atelectasis/infiltrate. Doppler of the lower extremity showed no evidence of any DVT. The ventilation/perfusion scan was low probability for pulmonary embolism. Echocardiogram done showed a preserved LV function with an ejection fraction of 55 to 60%, no significant valvular heart disease. No significant pulmonary hypertension. EKG showed a normal sinus rhythm with left anterior fascicular block. The patient is currently on DuoNeb, Symbicort and IV Solu-Medrol was added 60 mg IV push every 6 hours. She is also on a combination of aspirin and Plavix. Clinically feeling better. She has poor insight in her condition. Review of Systems Constitutional: Reports fatigue Eyes: denies as per HPI, denies blurred vision, denies bulging eye, denies decreased vision, denies diplopia, denies discharge, denies dry eye, denies irritation, denies itching, denies pain, denies photophobia, denies loss of peripheral vision, denies loss of vision, denies tunnel vision/blind spots Ears: deny: decreased hearing, ear discharge, earache, tinnitus Ears, nose, mouth and throat: Reports as per HPI Breasts: absent: as per HPI, change in shape, gynecomastia, masses, nipple discharge, pain, skin changes, swelling Cardiovascular: Reports as per HPI, Reports decreased exercise tolerance, Reports dyspnea on exertion Respiratory: Reports congestion, Reports cough, Reports cough with sputum, Reports dyspnea, Reports home oxygen, Reports wheezing Gastrointestinal: Reports as per HPI Genitourinary: Reports as per HPI Menstruation: Reports as per HPI Musculoskeletal: Reports as per HPI, Reports muscle weakness Musculoskeletal: absent: ankle pain, ankle stiffness, ankle swelling, as per HPI, elbow pain, elbow stiffness, elbow swelling, foot pain, foot stiffness, foot swelling, hand pain, hand stiffness, hand swelling, hip pain, hip stiffness, hip swelling, knee pain, knee stiffness, knee swelling, shoulder pain, shoulder stiffness, shoulder swelling, wrist pain, wrist stiffness, wrist swelling Neurological: Reports as per HPI Psychiatric: Reports as per HPI, Reports confusion Endocrine: Reports as per HPI, Reports fatigue Hematologic/Lymphatic: Reports as per HPI Allergic/Immunologic: Reports as per HPI Past Medical History Past Medical History: Coronary Artery Disease (CAD), COPD, Hypertension, Myocardial Infarction (SD) Additional Past Medical History / Comment(s): anxiety, 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, covid Last Myocardial Infarction Date:: 11/23 History of Any Multi-Drug Resistant Organisms: None Reported Past Surgical History: Heart Catheterization With Stent, Hysterectomy Past Anesthesia/Blood Transfusion Reactions: No Reported Reaction Date of Last Stent Placement:: 11/27/23 Past Psychological History: Anxiety, Depression Smoking Status: Current some day smoker Past Alcohol Use History: None Reported Past Drug Use History: None Reported Additional Drug Use History / Comment(s): occasional smoker - Past Family History Mother Family Medical History: Myocardial Infarction (SD) Father Family Medical History: CVA/TIA Medications and Allergies Home Medications Medication Instructions Recorded Confirmed Type Budesonide-Formot 160-4.5 Mcg 2 puff INHALATION RT-BID #1 each 12/07/23 03/04/25 Rx [Symbicort 160-4.5 Mcg Inhaler] Clopidogrel [Plavix] 75 mg PO DAILY #30 tab 12/07/23 03/04/25 Rx Metoprolol Tartrate [Lopressor] 25 mg PO BID #60 tab 12/07/23 03/04/25 Rx Albuterol Nebulized [Ventolin 2.5 mg INHALATION RT-Q6H 12/24/23 03/04/25 History Nebulized] Nitroglycerin Sl Tabs [Nitrostat] 0.4 mg SL Q5M PRN 12/30/23 03/04/25 History ALPRAZolam [Xanax] 0.5 mg PO BID PRN #6 tab 01/02/24 03/04/25 Rx Albuterol Inhaler [Ventolin Hfa 2 puff INHALATION RT-Q4H PRN 03/04/25 03/04/25 History Inhaler] Ascorbic Acid [Vitamin C] 1,000 mg PO HS 03/04/25 03/04/25 History Atorvastatin [Lipitor] 40 mg PO DAILY 03/04/25 03/04/25 History Bumetanide [Bumex] 1 - 2 mg PO DAILY 03/04/25 03/04/25 History Cholecalciferol [Vitamin D3 (25 25 mcg PO DAILY 03/04/25 03/04/25 History Mcg = 1000 Iu)] Escitalopram [Lexapro] 20 mg PO DAILY 03/04/25 03/04/25 History L.acidoph,Paracasei, B.lactis 1 cap PO DAILY PRN 03/04/25 03/04/25 History [Probiotic] Losartan/Hydrochlorothiazide 1 tab PO DAILY 03/04/25 03/04/25 History [Losartan-Hctz 100-25 mg Tab] [place] 3-6-9 1200mg 2 cap PO DAILY 03/04/25 03/04/25 History traMADol HCL 50 mg PO BID PRN 03/04/25 03/04/25 History traZODone HCL [Desyrel] 100 mg PO HS 03/04/25 03/04/25 History Allergies Allergy/AdvReac Type Severity Reaction Status Date / Time codeine AdvReac Itching Verified 03/04/25 11:40 Physical Exam Vitals: Vital Signs Temp Pulse Pulse Pulse Resp BP Pulse Ox 03/05/25 08:22 92 L 03/05/25 08:00 98.3 F 79 91 22 117/63 87 L 03/05/25 03:52 98.6 F 85 22 106/63 92 L 03/05/25 00:00 98.0 F 95 22 119/62 90 L 03/04/25 20:04 98.2 F 91 22 107/66 90 L 03/04/25 18:28 98 F 89 22 112/58 91 L 03/04/25 15:49 70 03/04/25 15:37 68 03/04/25 12:12 82 03/04/25 12:06 88 L 03/04/25 12:04 80 03/04/25 12:00 97.7 F 89 22 115/66 93 L Intake and Output 03/04/25 03/05/25 03/05/25 22:59 06:59 14:59 Intake Total 149.081 Output Total 1000 Balance 149.081 -1000 Intake: Intake, IV Titration 149.081 Amount Heparin Sod,Pork in 0.45% 149.081 NaCl 25,000 unit In 0.45 % NaCl 1 250ml.bag @ 12 UNITS/KG/HR 7.729 mls/hr IV .Q24H [facility] Rx#: [id number] Output: Urine 1000 Other: Voiding Method External Catheter External Catheter External Catheter # Voids 2 Weight 68 kg The patient appeared poorly maintained, poor hygiene, body mass index of 30.3. She is currently on oxygen 60 supplement nasal cannula. Breathing is nonlabored. Head exam is unremarkable. No scleral icterus or corneal arcus noted. Neck is without jugular venous distension, thyromegaly, or carotid bruits. Carotid upstrokes are brisk bilaterally. Lungs are showing diminished breath sounds bilateral lung with scattered expiratory wheezes throughout the lung yoon bilaterally. Cardiac exam reveals the PMI to be normally sized and situated. Rhythm is regular. First and second heart sounds normal. No murmurs, rubs or gallops. Abdominal exam reveals normal bowel sounds, no masses, no organomegaly and no aortic enlargement. Extremities are nonedematous and both femoral and pedal pulses are normal. Examination of the skin revealed no evidence of significant rashes, suspicious appearing nevi or other concerning lesions. Neurologically, the patient is awake and alert and the patient does not have any focal neurological deficit. Cranial nerves are essentially intact. There is generalized motor weakness symmetrically in all 4 extremities. Results - Laboratory Findings CBC and BMP: 03/05/25 07:08 03/05/25 07:08 ABG ABG pH 7.48 (7.35-7.45) H 03/05/25 10:23 ABG pCO2 62 mmHg (35-45) H 03/05/25 10:23 ABG pO2 59 mmHg (83-108) L* 03/05/25 10:23 ABG O2 Saturation 90.6 % (94-97) L 03/05/25 10:23 PT/INR, D-dimer PT 11.4 sec (10.0-12.5) 03/03/25 16:45 INR 1.0 (<1.2) 03/03/25 16:45 D-Dimer 0.88 mg/L FEU (<0.60) H 03/03/25 19:19 Abnormal lab findings: Abnormal Labs 03/03/25 03/03/25 03/03/25 16:45 16:45 16:45 WBC 12.56 H MPV Immature Gran # 0.06 H Neutrophils # 9.45 H Lymphocytes # Monocytes # 1.40 H Eosinophils # 0.01 L APTT D-Dimer ABG pH ABG pCO2 ABG pO2 ABG HCO3 ABG Total CO2 ABG O2 Saturation Sodium 126 L Potassium Chloride 82 L Carbon Dioxide 38 H BUN 47 H Creatinine 1.38 H Glucose Calcium Troponin I 0.495 H* Albumin 3.0 L Urine Osmolality Ur Random Sodium 03/03/25 03/03/25 03/03/25 19:19 19:19 19:19 WBC MPV Immature Gran # Neutrophils # Lymphocytes # Monocytes # Eosinophils # APTT D-Dimer 0.88 H ABG pH ABG pCO2 ABG pO2 ABG HCO3 ABG Total CO2 ABG O2 Saturation Sodium 127 L Potassium 3.1 L Chloride 80 L Carbon Dioxide 38 H BUN 44 H Creatinine 1.33 H Glucose 110 H Calcium Troponin I 0.480 H* Albumin Urine Osmolality Ur Random Sodium 03/03/25 03/03/25 03/03/25 20:21 20:21 20:40 WBC MPV Immature Gran # Neutrophils # Lymphocytes # Monocytes # Eosinophils # APTT D-Dimer ABG pH ABG pCO2 59 H ABG pO2 58 L* ABG HCO3 40 H* ABG Total CO2 42 H ABG O2 Saturation 88.8 L Sodium Potassium Chloride Carbon Dioxide BUN Creatinine Glucose Calcium Troponin I Albumin Urine Osmolality 336 L Ur Random Sodium 33 L 03/04/25 03/04/25 03/04/25 01:00 01:00 01:00 WBC MPV Immature Gran # Neutrophils # Lymphocytes # Monocytes # Eosinophils # APTT 36.4 H D-Dimer ABG pH ABG pCO2 ABG pO2 ABG HCO3 ABG Total CO2 ABG O2 Saturation Sodium 123 L Potassium Chloride Carbon Dioxide BUN Creatinine Glucose Calcium Troponin I 0.298 H* Albumin Urine Osmolality Ur Random Sodium 03/04/25 03/04/25 03/04/25 06:32 06:32 06:32 WBC 11.95 H MPV Immature Gran # 0.06 H Neutrophils # 10.28 H Lymphocytes # 0.73 L Monocytes # Eosinophils # 0.00 L APTT 42.8 H D-Dimer ABG pH ABG pCO2 ABG pO2 ABG HCO3 ABG Total CO2 ABG O2 Saturation Sodium 126 L Potassium Chloride 81 L Carbon Dioxide 40 H BUN 47 H Creatinine 1.27 H Glucose 144 H Calcium 8.3 L Troponin I Albumin Urine Osmolality Ur Random Sodium 03/05/25 03/05/25 03/05/25 07:08 07:08 07:08 WBC 15.55 H MPV 9.4 L Immature Gran # 0.10 H Neutrophils # 12.41 H Lymphocytes # Monocytes # 1.79 H Eosinophils # 0.01 L APTT 46.9 H D-Dimer ABG pH ABG pCO2 ABG pO2 ABG HCO3 ABG Total CO2 ABG O2 Saturation Sodium 132 L Potassium Chloride 86 L Carbon Dioxide 42 H* BUN 44 H Creatinine Glucose 125 H Calcium 8.3 L Troponin I Albumin Urine Osmolality Ur Random Sodium 03/05/25 10:23 WBC MPV Immature Gran # Neutrophils # Lymphocytes # Monocytes # Eosinophils # APTT D-Dimer ABG pH 7.48 H ABG pCO2 62 H ABG pO2 59 L* ABG HCO3 46 H* ABG Total CO2 48 H ABG O2 Saturation 90.6 L Sodium Potassium Chloride Carbon Dioxide BUN Creatinine Glucose Calcium Troponin I Albumin Urine Osmolality Ur Random Sodium - Diagnostic Findings Chest x-ray: image reviewed Assessment and Plan Plan: Acute on chronic hypoxic respiratory failure, currently in 6 liters of oxygen by nasal cannula. The patient was significantly hypoxic at the time of admission and she was placed on 15 L and currently she is weaned down to 6 L of O2 nasal cannula Acute COPD exacerbation, possible left lower lobe pneumonia Chronic hypercapnic respiratory failure, compensated Acute on chronic shortness of breath secondary to above Coronary artery disease and previous NSTEMI and the patient has had a cardiac catheterization back in 2023 revealing RCA with tight lesion, PLV branch of the RCA with a critical lesion, mild disease in the left main, left circumflex mild to moderate diffuse disease, LAD mild to moderate diffuse disease and patient underwent PCI of the RCA and stenting of the PL branch of the RCA Abnormal troponins, rule out NSTEMI versus type II myocardial ischemia. Preserved LV function, diastolic heart failure with a normal ejection fraction of 55% Acute kidney injury, improving Hyperlipidemia Smoker Hypertension Chronic anxiety Hyperlipidemia Plan Titrate oxygen flow to maintain saturation above 90%, currently on 6 L Continue DuoNeb nebulized treatments [id number] IV Solu-Medrol 60 mg every 6 hours Symbicort as maintenance Emphasized importance of home O2 and the patient will need long-term oxygen therapy as the patient has a component of chronic hypoxic respiratory failure IV Lasix Cardiology to comment on the abnormal troponins Will continue to follow. The patient was seen and her situation was discussed with the daughter. She may need assistance and she may need some sort of an assisted living or home care at the time of discharge.
[2025-03-05] MEDS ORDERED: DEXTROSE 50% SYRINGE 50 ML IVP PRN ×2 (21:13)
[2025-03-06 05:51] LABS: Glucose,Whole Blood 260 mg/dL (70-110)
[2025-03-06] MEDS: INSULIN LISPRO (HumaLOG) 100 UNIT/ML 10 mL VL SQ SCH (06:08)
[2025-03-06] MEDS: ALPRAZolam 0.5 MG TAB PO PRN (08:09)
--- NOTE | 2025-03-06 08:34 | P.PN ---
Subjective Progress Note Date: 03/06/25 Hospital Course: 84-year-old female with PMH of diastolic CHF (most recent echocardiogram from 11/27/2023 showed EF 55-60%, mitral annular calcification and aortic sclerosis without any stenosis), history of NSTEMI s/p 2 stents placed on 11/29/2023, hypertension and COPD (supposed to be maintained on home oxygen, however patient does not recall how much, and sent the oxygen tanks back without ever wearing it at home) who presents to the emergency department complaining of worsening shortness of breath. She notes having headache cough that is unproductive. She denies having had a fever, any nausea, vomiting, chest pain, abdominal pain or diarrhea. She states that she called EMS to assist putting in an air conditioning unit. She states that other than a persistent cough she had no acute complaints, when EMS arrived they noted that she was saturating in the mid 80%'s while on room air. She lives on her own, and states that she is able to ambulate with a walker, or utilizes a wheelchair and she states she carry out activities of daily living without issue. Her daughter and son-in-law were at bedside, they live in [facility], around [place], and states that she does her own thing. She was hospitalized in November 2019 for with an NSTEMI, had 2 iestents placed and per the patient and her daughter she has not followed up with a physician since that time. Her daughter believes that her oral intake is very poor and does not believe that she eats or drinks very well. Patient states that she does not feel like she chokes on her food a lot, but does endorse that it has happened before. Work on arrival significant for troponin 0.495, BNP 2700, potassium 3.5, creatinine 1.38, lactic acid 1.2, normal AST and ALT.Chest x-ray done in the ER independently read and interpreted showed showed evidence of lower lobe infiltrates to be correlated for possible pneumonia. EKG done in the ER independently read and interpreted showed heart rate of 74, sinus rhythm, no ST segment elevation or depression seen, no T-wave inversions seen; QTc 442 Patient was hypoxic on arrival 91% on 4 L nasal cannula. Admitted for further management of acute on chronic hypoxic respiratory failure likely secondary to HFpEF exacerbation and possible CAP. Procalcitonin negative, will discontinue antibiotics.. BOTTLE CLEANER recommended dysphagia 3 diet. Family shared that patient has been having on and off hallucination over the past couple months. 03/05: Seen examined at bedside, patient's children present and RN present during exam. I was earlier notified that patient is very difficult to arouse from sleep, she is still requiring high flow nasal cannula 15 L. ABG was obtained and showed persistent hypoxia with PO259, pCO2 62, pH 7.48. Her blood work showed improving hyponatremia 132 today, alkalosis worsening bicarb 42, creatinine normalized 1.03. Pulmonology was consulted, patient was started on Solu-Medrol 60 mg every 8 hours. Later on patient was able to go down on oxygen to 6 L. Heparin drip was stopped, continued on IV Lasix 40 twice daily. VQ scan negative. TTE showed EF of 55%, RVSP 35, mild pulmonary hypertension. I am concerned the patient is not able to take care of herself, she is noncompliant with her medications, her home oxygen. Per family, it appears that she does not have adequate oral intake. She has frequent falls, she is forgetful. Patient was generally unkept, not able to care for herself and perform ADLs such as showering, cooking. I would recommend obtaining guardianship 03/06/2025: Seen and examined at bedside, no acute events overnight, patient feels better, she is on 3 L nasal cannula, cough is improved, morning blood work pending. Pertinent positives and negatives as discussed above, a complete review of systems was performed and all other systems are negative. Vitals Signs Reviewed. General: [nontoxic], [no distress], [appears at stated age] Derm: [warm], [dry] Head: [atraumatic], [normocephalic], [symmetric] Eyes: [EOMI], [no lid lag], [anicteric sclera] Mouth: [no lip lesion], [mucus membranes moist] Cardiovascular: [S1S2 reg], [no murmur] Lungs: [CTA bilateral bibasilar crackles, improving, [no accessory muscle use] Abdominal: [soft], [ nontender to palpation], [no guarding], [no appreciable organomegaly] Ext: [no gross muscle atrophy], [bilateral lower extremity pitting edema 1+, chronic venous stasis dermatitis Neuro: [ CN II-XI grossly intact], [no focal neuro deficits] Psych: [Alert], [oriented], [appropriate affect] Assessment and Plan: Acute on chronic hypoxic respiratory failure secondary to HFpEF exacerbation, COPD exacerbation Contraction alkalosis likely secondary to diuresis Medications noncompliance Home oxygen noncompliance Elevated D-dimer, PE ruled out - Continue supplemental oxygen, wean down as tolerated -Continue IV Lasix 40 mg IV every 12 hours status post 1 dose of Diamox 250 IV once on 03/05 - Monitor BMP daily - BOTTLE CLEANER cleared patient to have level 3 diet, no dysphagia noted - Cardiology consulted, appreciate recommendations -TTE as above -Pulmonology consulted, recommended - Continue Solu-Medrol 60 IV every 8 hours per pulmonology -Continue Mucinex 600 mg p.o. every 12 hours - Continue Symbicort 2 puffs twice daily, DuoNebs 4 times daily -With telemetry, strict I's and O's, daily weights -Patient is on home Lopressor 25 twice daily, losartan/hydrochlorothiazide 100/25 daily, however, she is noncompliant, currently blood pressure is soft, resume home medications once blood pressure improvement achieved Elevated troponin History of CAD status post stents -Cardiology consulted, appreciate recommendations, -Heparin drip discontinued -Aspirin 81 mg daily, Lipitor 40 mg nightly continue clopidogrel 75 History of upper GI bleed, not on PPI at home, will start Protonix 40 daily oral Chronic debility and Decreased oral intake -PT OT, nutrition consulted Hypovolemic hyponatremia -On admission sodium 126, dropped down to 123, now 132, will continue Lasix and fluid restriction Nonoliguric VINCENZO likely cardiorenal Left renal cyst, -Creatinine improving with IV diuresis -Ultrasound with left renal cyst, needs follow-up as it is not a simple cyst, follow-up with PCP -Continue to monitor BMP daily, strict I's and O Hypokalemia, resolved -Continue with 20 mEq p.o. potassium chloride daily, monitor BMP daily Depression, anxiety: Reported hallucinations continue home Xanax 0.5 twice daily as needed, Lexapro 20 mg daily, trazodone 100 mg p.o. nightly DVT ppx: Heparin drip Code status: Full code Anticipated discharge place: TBD Anticipated discharge time: TBD Objective - Vital Signs Vital signs: Vital Signs Temp 98.0 F 03/06/25 08:02 Pulse 95 03/06/25 08:02 Resp 18 03/06/25 04:00 BP 122/79 03/06/25 08:02 Pulse Ox 88 L 03/06/25 08:02 FiO2 Intake & Output 03/05/25 03/06/25 03/06/25 18:59 06:59 18:59 Intake Total 222 370 Output Total 575 1800 Balance -353 -1430 Weight 68 kg Intake: IV 10 0.9 10 Oral 222 360 Output: Urine 575 1800 Other: Voiding Method External Catheter External Catheter - Labs CBC & Chem 7: 03/05/25 07:08 03/05/25 07:08 Labs: Abnormal Lab Results - Last 24 Hours (Table) 03/05/25 03/05/25 03/05/25 Range/Units 07:08 10:23 20:05 ABG pH 7.48 H (7.35-7.45) ABG pCO2 62 H (35-45) mmHg ABG pO2 59 L* (83-108) mmHg ABG HCO3 46 H* (21-25) mmol/L ABG Total CO2 48 H (19-24) mmol/L ABG O2 Saturation 90.6 L (94-97) % Sodium 132 L (137-145) mmol/L Chloride 86 L (98-107) mmol/L Carbon Dioxide 42 H* (22-30) mmol/L BUN 44 H (7-17) mg/dL Glucose 125 H (74-99) mg/dL POC Glucose (mg/dL) 154 H (70-110) mg/dL Calcium 8.3 L (8.4-10.2) mg/dL 03/06/25 Range/Units 05:49 ABG pH (7.35-7.45) ABG pCO2 (35-45) mmHg ABG pO2 (83-108) mmHg ABG HCO3 (21-25) mmol/L ABG Total CO2 (19-24) mmol/L ABG O2 Saturation (94-97) % Sodium (137-145) mmol/L Chloride (98-107) mmol/L Carbon Dioxide (22-30) mmol/L BUN (7-17) mg/dL Glucose (74-99) mg/dL POC Glucose (mg/dL) 260 H (70-110) mg/dL Calcium (8.4-10.2) mg/dL Microbiology - Last 24 Hours (Table) 03/03/25 17:07 Blood Culture - Preliminary Blood
[2025-03-06] MEDS: DILTIAZEM 125 MG in DEXTROSE 5% IN WATER 100 ML IV SCH (08:41)
[2025-03-06] MEDS: DILTIAZEM 5 MG/ML 5 ML VIAL IV STA (08:44)
[2025-03-06 09:07] LABS: Basophils # (A) 0.01 10*3/uL (0.00-0.10); Basophils % (A) 0.1 %; HCT 44.3 % (37.2-46.3); HGB 14.2 g/dL (12.0-15.0); Lymphocytes # (A) 1.07 10*3/uL (0.90-5.00); Lymphocytes % (A) 6.8 %; MCHC 32.1 g/dL (32.0-37.0); MCV 87.4 fL (80.0-97.0); Mean Platelet Volume 9.5 fL (9.5-12.2); Monocytes # (A) 1.64 10*3/uL (0.20-1.00); Monocytes % (A) 10.4 %; Neutrophils # (A) 12.84 10*3/uL (1.80-7.70); Neutrophils % (A) 81.4 %; Platelet Count 301 10*3/uL (140-440); RBC 5.07 10*6/uL (4.10-5.20); RDW 18.8 % (11.5-14.5); WBC 15.77 10*3/uL (4.50-10.00)
[2025-03-06 09:21] LABS: African American GFR (CKD) 43 (>60 ml/min/1.73 sqM); Anion Gap 8 mmol/L; Blood Urea Nitrogen 44 mg/dL (7-17); Calcium 8.9 mg/dL (8.4-10.2); Carbon Dioxide 38 mmol/L (22-30); Chloride 85 mmol/L (98-107); Glucose 247 mg/dL (74-99); Magnesium 1.6 mg/dL (1.6-2.3); Non-African American GFR(CKD) 38 (>60 ml/min/1.73 sqM); Potassium 3.7 mmol/L (3.5-5.1); Sodium 131 mmol/L (137-145)
[2025-03-06 11:21] LABS: Glucose,Whole Blood 214 mg/dL (70-110)
--- NOTE | 2025-03-06 12:23 | P.PN ---
Subjective Progress Note Date: 03/06/25 This is a 85-year-old female patient, known having COPD, and previous history of coronary disease and coronary stenting that was performed back in 2023 following an acute NSTEMI and cardiac catheterization at that time revealed RCA with tight lesion, PLV branch of the RCA with a critical lesion, mild disease in the left main, left circumflex mild to moderate diffuse disease, LAD mild to moderate diffuse disease and patient underwent PCI of the RCA and stenting of the PL branch of the RCA. Patient also known to have hyperlipidemia and diastolic heart failure. The patient has been in a poor health condition. She has been smoking. She has not had appropriate medical follow-up over the past 1 year. She came into the hospital having increased cough congestion chest tightness and wheezing and a pulmonary consultation was requested. The patient has also noted to be slightly confused at time of admission. No nausea. No emesis. No fever or chills. She was hypoxic in the emergency department with a pulse ox of 80%. She has been recommended to use oxygen in the past however the patient has not been consistently using oxygen. Cardiology also was involved in the case Initially the patient was placed on 15 L of oxygen by nasal cannula and she was subsequently weaned down to 6 L. Workup included a white cell count of 15.5 with a hemoglobin 15.3 and the platelet count of 248. Blood gas showed a pH of 7.48 with a PCO2 of 62 and PO2 of 59 Electrolytes were showing chronic metabolic alkalosis with a serum bicarb of 42 and a potassium level of 3.8. BUN 44 with a creatinine of 1.03 improved from a baseline of 1.27. Troponins were 0.4 and 0.4 at 0.2 respectively x 3 Chest x-ray showed COPD with questionable left lower lobe atelectasis/infiltrate. Doppler of the lower extremity showed no evidence of any DVT. The ventilation/perfusion scan was low probability for pulmonary em bolism. Echocardiogram done showed a preserved LV function with an ejection fraction of 55 to 60%, no significant valvular heart disease. No significant pulmonary hypertension. EKG showed a normal sinus rhythm with left anterior fascicular block. The patient is currently on DuoNeb, Symbicort and IV Solu-Medrol was added 60 mg IV push every 6 hours. She is also on a combination of aspirin and Plavix. Clinically feeling better. She has poor insight in her condition. 03/06/2025, the patient is being seen for a follow-up. Slightly improved compared to yesterday. Cough and congestion is improved compared to yesterday. She has no specific complaints. She remains on DuoNeb, Symbicort and IV Solu-Medrol. The patient has a white cell count of 15.7, hemoglobin 14.2 and a platelet count of 301. BUN is 44 with a creatinine of 1.32 and sodium of 131. Creatinine is chronically elevated and the patient has chronic kidney disease. No chest pain. No altered mentation. No other complaints otherwise for now. Echocardiogram showed a preserved LV function. Cardiology on the case, IV Lasix has been discontinued. Objective - Vital Signs Vital signs: Vital Signs Temp 98.0 F 03/06/25 08:02 Pulse 153 H 03/06/25 09:00 Resp 18 03/06/25 04:00 BP 109/66 03/06/25 09:00 Pulse Ox 92 L 03/06/25 09:00 FiO2 Intake & Output 03/05/25 03/06/25 03/06/25 18:59 06:59 18:59 Intake Total 222 370 Output Total 575 1800 Balance -353 -1430 Weight 68 kg Intake: IV 10 0.9 10 Oral 222 360 Output: Urine 575 1800 Other: Voiding Method External Catheter External Catheter - Exam The patient appeared poorly maintained, poor hygiene, body mass index of 30.3. She is currently on oxygen 60 supplement nasal cannula. Breathing is nonlabored. Head exam is unremarkable. No scleral icterus or corneal arcus noted. Neck is without jugular venous distension, thyromegaly, or carotid bruits. Carotid upstrokes are brisk bilaterally. Lungs are showing diminished breath sounds bilateral lung with scattered expiratory wheezes throughout the lung yoon bilaterally. Cardiac exam reveals the PMI to be normally sized and situated. Rhythm is regular. First and second heart sounds normal. No murmurs, rubs or gallops. Abdominal exam reveals normal bowel sounds, no masses, no organomegaly and no aortic enlargement. Extremities are nonedematous and both femoral and pedal pulses are normal. Examination of the skin revealed no evidence of significant rashes, suspicious appearing nevi or other concerning lesions. Neurologically, the patient is awake and alert and the patient does not have any focal neurological deficit. Cranial nerves are essentially intact. There is generalized motor weakness symmetrically in all 4 extremities. - Labs CBC & Chem 7: 03/06/25 08:39 03/06/25 08:39 Labs: Abnormal Lab Results - Last 24 Hours (Table) 03/05/25 03/05/25 03/06/25 Range/Units 10:23 20:05 05:49 WBC (4.50-10.00) 10*3/uL Immature Gran # (0.00-0.04) 10*3/uL Neutrophils # (1.80-7.70) 10*3/uL Monocytes # (0.20-1.00) 10*3/uL Eosinophils # (0.04-0.35) 10*3/uL ABG pH 7.48 H (7.35-7.45) ABG pCO2 62 H (35-45) mmHg ABG pO2 59 L* (83-108) mmHg ABG HCO3 46 H* (21-25) mmol/L ABG Total CO2 48 H (19-24) mmol/L ABG O2 Saturation 90.6 L (94-97) % Sodium (137-145) mmol/L Chloride (98-107) mmol/L Carbon Dioxide (22-30) mmol/L BUN (7-17) mg/dL Creatinine (0.52-1.04) mg/dL Glucose (74-99) mg/dL POC Glucose (mg/dL) 154 H 260 H (70-110) mg/dL 03/06/25 03/06/25 Range/Units 08:39 08:39 WBC 15.77 H (4.50-10.00) 10*3/uL Immature Gran # 0.21 H (0.00-0.04) 10*3/uL Neutrophils # 12.84 H (1.80-7.70) 10*3/uL Monocytes # 1.64 H (0.20-1.00) 10*3/uL Eosinophils # 0.00 L (0.04-0.35) 10*3/uL ABG pH (7.35-7.45) ABG pCO2 (35-45) mmHg ABG pO2 (83-108) mmHg ABG HCO3 (21-25) mmol/L ABG Total CO2 (19-24) mmol/L ABG O2 Saturation (94-97) % Sodium 131 L (137-145) mmol/L Chloride 85 L (98-107) mmol/L Carbon Dioxide 38 H (22-30) mmol/L BUN 44 H (7-17) mg/dL Creatinine 1.32 H (0.52-1.04) mg/dL Glucose 247 H (74-99) mg/dL POC Glucose (mg/dL) (70-110) mg/dL Microbiology - Last 24 Hours (Table) 03/03/25 17:07 Blood Culture - Preliminary Blood Assessment and Plan Plan: Acute on chronic hypoxic respiratory failure, currently in 6 liters of oxygen by nasal cannula. The patient was significantly hypoxic at the time of admission and she was placed on 15 L and currently she is weaned down to 6 L of O2 nasal cannula, slightly improved compared to yesterday Acute COPD exacerbation, possible left lower lobe pneumonia Chronic hypercapnic respiratory failure, compensated Acute on chronic shortness of breath secondary to above Coronary artery disease and previous NSTEMI and the patient has had a cardiac catheterization back in 2023 revealing RCA with tight lesion, PLV branch of the RCA with a critical lesion, mild disease in the left main, left circumflex mild to moderate diffuse disease, LAD mild to moderate diffuse disease and patient underwent PCI of the RCA and stenting of the PL branch of the RCA Abnormal troponins, rule out NSTEMI versus type II myocardial ischemia. Preserved LV function, diastolic heart failure with a normal ejection fraction of 55% Acute kidney injury, improving Hyperlipidemia Smoker Hypertension Chronic anxiety Hyperlipidemia Plan Clinically better compared to yesterday and she feels less short of breath.The patient remains on 6 L of oxygen nasal cannula. Will gradually down FiO2 Titrate oxygen flow to maintain saturation above 90%, currently on 6 L Continue DuoNeb nebulized treatments dwcdup-cop-didal IV Solu-Medrol 60 mg every 6 hours Symbicort as maintenance Emphasized importance of home O2 and the patient will need long-term oxygen therapy as the patient has a component of chronic hypoxic respiratory failure Cardiology to comment on the abnormal troponins Will continue to follow. The patient was seen and her situation was discussed with the daughter. She may need assistance and she may need some sort of an assisted living or home care at the time of discharge.
[2025-03-06 16:20] LABS: Glucose,Whole Blood 204 mg/dL (70-110)
[2025-03-06 17:48] LABS: Glucose,Whole Blood 168 mg/dL (70-110)
[2025-03-06] MEDS: METOPROLOL SUCCINATE (ER) 25 MG TAB.ER.24H PO SCH (19:55)
[2025-03-06] MEDS: APIXABAN 5 MG TAB PO SCH (19:56)
[2025-03-06 20:25] LABS: Glucose,Whole Blood 161 mg/dL (70-110)
[2025-03-07 06:04] LABS: Glucose,Whole Blood 171 mg/dL (70-110)
[2025-03-07 09:16] LABS: Basophils # (A) 0.03 10*3/uL (0.00-0.10); Basophils % (A) 0.2 %; HCT 41.9 % (37.2-46.3); HGB 13.5 g/dL (12.0-15.0); Lymphocytes # (A) 0.62 10*3/uL (0.90-5.00); MCH 28.2 pg (27.0-32.0); MCHC 32.2 g/dL (32.0-37.0); MCV 87.7 fL (80.0-97.0); Mean Platelet Volume 9.7 fL (9.5-12.2); Monocytes # (A) 1.32 10*3/uL (0.20-1.00); Monocytes % (A) 8.4 %; Neutrophils # (A) 13.61 10*3/uL (1.80-7.70); Neutrophils % (A) 86.7 %; Platelet Count 275 10*3/uL (140-440); RBC 4.78 10*6/uL (4.10-5.20); RDW 18.6 % (11.5-14.5); WBC 15.69 10*3/uL (4.50-10.00)
[2025-03-07 09:34] LABS: African American GFR (CKD) 41 (>60 ml/min/1.73 sqM); Anion Gap 4 mmol/L; Blood Urea Nitrogen 53 mg/dL (7-17); Carbon Dioxide 37 mmol/L (22-30); Chloride 89 mmol/L (98-107); Glucose 197 mg/dL (74-99); Magnesium 1.7 mg/dL (1.6-2.3); Non-African American GFR(CKD) 35 (>60 ml/min/1.73 sqM); Potassium 3.9 mmol/L (3.5-5.1); Sodium 130 mmol/L (137-145)
[2025-03-07 11:18] LABS: Glucose,Whole Blood 210 mg/dL (70-110)
[2025-03-07] MEDS: TORSEMIDE 20 MG TAB PO SCH (11:44)
[2025-03-07] MEDS: DAPAGLIFLOZIN PROPANEDIOL 5 MG TABLET PO SCH (11:44)
--- NOTE | 2025-03-07 12:07 | P.PN ---
Subjective Progress Note Date: 03/07/25 This is an 84-year-old female with past medical history of coronary artery disease with previous stenting, COPD, hyperlipidemia. We have been asked to evaluate the patient for NSTEMI. Patient and family give history that patient had called the police to check her circuit breakers and found patient to be disoriented. Patient states that she has been feeling tired, short of breath, lightheadedness and she noted that she was confused. Patient also complains of a headache, cough that is nonproductive. She denies chest pain no abdominal pain. No fever. EMS found that the patient had a pulse ox of 80%. Family states the patient was set up with oxygen but she refused to use it. She is a smoker. She denies alcohol use. She states that she has been taking all of her medications as directed. Patient was to have a follow-up appointment with Dr. Davalos 1 year ago and November but failed to do so. Blood pressure 100/64, heart rate 79, pulse ox 93% on 15 L high flow nasal cannula. Patient has been started on IV Lasix 40 mg every 12 hours and IV heparin -EKG: Sinus rhythm -Chest x-ray: Lower lobe infiltrates, correlate for atelectasis or pneumonia -Venous duplex bilateral lower extremities negative for DVT. -Renal ultrasound: Left renal cyst. -Laboratory studies: WBC 12.5, hemoglobin 14.4. D-dimer 0.88. Sodium 126 troponins 0.495, 0.48, 0.298. BUN 44, creatinine 1.33. Cepheid viral panel not detected. -Home cardiac medications: Aspirin 81 mg daily, atorvastatin 40 mg at bedtime, Bumex 0.5 mg daily, Plavix 75 mg daily, Lopressor 25 mg twice daily, Nitrostat as needed. -Echocardiogram performed 11/27/2023 revealed normal LV function, mitral annular calcification, aortic sclerosis without stenosis. -Cardiac catheterization performed by Dr. Davalos on 11/29/2023 in the setting of a NSTEMI revealed RCA with tight lesion, PLV branch of the RCA with a critical lesion, mild disease in the left main, left circumflex mild to moderate diffuse disease, LAD mild to moderate diffuse disease and patient underwent PCI of the RCA and stenting of the PL branch of the RCA and started on aspirin and Plavix for 1 year. 03/05 Patient seen and examined. Heart rate has been controlled except she became tachycardic when she got out of bed. She does have severe COPD. She has less lower extremity edema but still redness. Blood pressure 106/63, heart rate 85, pulse ox 92% on high flow nasal cannula 8 L. Repeat blood work reveals WBC 15.5, hemoglobin 13.3. Sodium 132, CO2 42, BUN 44 creatinine 1.03. VQ scan showed low probability for acute PE. Echocardiogram reveals EF 55%, RVSP 35. Mild pulmonary hypertension. Mild tricuspid regurgitation. 03/06/2025 Patient was noticed to be in atrial fibrillation overnight for which she was given Cardizem bolus. This morning she is back in normal sinus rhythm. I will start her on anticoagulation for new onset atrial fibrillation. 03/07/2025 Seen and examined at bedside this a.m. Continues to be in sinus rhythm Appears somewhat volume optimized With transition IV diuretics to p.o. torsemide. Kidney function seems to be stable around 1.3 and sodium is around 130. Lower extremity edema has improved. Cellulitis has improved. Physical examination: HEENT: Head is atraumatic, normocephalic. Pupils equal, round. Sclerae is anicteric. NECK: Supple. No JVD. LUNGS: Clear to auscultation. No wheezes or rhonchi. No intercostal retraction s. HEART: Regular rate and rhythm. ABDOMEN: Soft No tenderness. EXTREMITIES: Bilateral 1+ lower extremity edema. No calf tenderness. NEUROLOGICAL: Patient is awake, alert and oriented x3. Assessment: New onset atrial fibrillation, 02/2025. Paroxysmal. Currently in NSR Acute hypoxic respiratory failure Acute diastolic heart failure NSTEMI Hyponatremia Acute kidney injury Cellulitis of the bilateral lower extremities History of coronary artery disease with previous PCI in COPD Hyperlipidemia Noncompliance with follow-up Plan: Start Eliquis 2.5, continue aspirin Lipitor Start torsemide 20 mg daily Continue Toprol XL 20 mg daily Start Farxiga 5 mg daily Anticipate discharge in next 24 to 48 hours Cardiology team will sign off. Recommend outpatient follow-up with primary casting house worker within 1 week Objective - Vital Signs Vital signs: Vital Signs Temp 98.1 F 03/07/25 09:05 Pulse 84 03/07/25 11:46 Resp 16 03/07/25 11:46 BP 103/54 03/07/25 11:46 Pulse Ox 91 L 03/07/25 11:46 FiO2 Intake & Output 03/06/25 03/07/25 03/07/25 18:59 06:59 18:59 Intake Total 460.5 720 Output Total 250 100 Balance 210.5 -100 720 Weight 69 kg Intake: Intake, IV Titration 20.5 Amount Diltiazem 125 mg In 20.5 Dextrose 5% in Water 100 ml @ 10 MG/HR 10 mls/hr IV .[id number] [facility] Rx#: [id number] Oral 440 720 Output: Urine 250 100 Other: Voiding Method Diaper Diaper Diaper External Catheter External Catheter External Catheter # Voids 1 - Labs CBC & Chem 7: 03/07/25 08:52 03/07/25 08:52 Labs: Abnormal Lab Results - Last 24 Hours (Table) 03/06/25 03/06/25 03/06/25 Range/Units 16:18 17:45 20:21 WBC (4.50-10.00) 10*3/uL Immature Gran # (0.00-0.04) 10*3/uL Neutrophils # (1.80-7.70) 10*3/uL Lymphocytes # (0.90-5.00) 10*3/uL Monocytes # (0.20-1.00) 10*3/uL Eosinophils # (0.04-0.35) 10*3/uL Sodium (137-145) mmol/L Chloride (98-107) mmol/L Carbon Dioxide (22-30) mmol/L BUN (7-17) mg/dL Creatinine (0.52-1.04) mg/dL Glucose (74-99) mg/dL POC Glucose (mg/dL) 204 H 168 H 161 H (70-110) mg/dL 03/07/25 03/07/25 03/07/25 Range/Units 06:01 08:52 08:52 WBC 15.69 H (4.50-10.00) 10*3/uL Immature Gran # 0.11 H (0.00-0.04) 10*3/uL Neutrophils # 13.61 H (1.80-7.70) 10*3/uL Lymphocytes # 0.62 L (0.90-5.00) 10*3/uL Monocytes # 1.32 H (0.20-1.00) 10*3/uL Eosinophils # 0.00 L (0.04-0.35) 10*3/uL Sodium 130 L (137-145) mmol/L Chloride 89 L (98-107) mmol/L Carbon Dioxide 37 H (22-30) mmol/L BUN 53 H (7-17) mg/dL Creatinine 1.39 H (0.52-1.04) mg/dL Glucose 197 H (74-99) mg/dL POC Glucose (mg/dL) 171 H (70-110) mg/dL 03/07/25 Range/Units 11:17 WBC (4.50-10.00) 10*3/uL Immature Gran # (0.00-0.04) 10*3/uL Neutrophils # (1.80-7.70) 10*3/uL Lymphocytes # (0.90-5.00) 10*3/uL Monocytes # (0.20-1.00) 10*3/uL Eosinophils # (0.04-0.35) 10*3/uL Sodium (137-145) mmol/L Chloride (98-107) mmol/L Carbon Dioxide (22-30) mmol/L BUN (7-17) mg/dL Creatinine (0.52-1.04) mg/dL Glucose (74-99) mg/dL POC Glucose (mg/dL) 210 H (70-110) mg/dL Microbiology - Last 24 Hours (Table) 03/03/25 17:07 Blood Culture - Preliminary Blood
--- NOTE | 2025-03-07 13:54 | P.PN ---
Subjective Progress Note Date: 03/07/25 Hospital Course: 84-year-old female with PMH of diastolic CHF (most recent echocardiogram from 11/27/2023 showed EF 55-60%, mitral annular calcification and aortic sclerosis without any stenosis), history of NSTEMI s/p 2 stents placed on 11/29/2023, hypertension and COPD (supposed to be maintained on home oxygen, however patient does not recall how much, and sent the oxygen tanks back without ever wearing it at home) who presents to the emergency department complaining of worsening shortness of breath. She notes having headache cough that is unproductive. She denies having had a fever, any nausea, vomiting, chest pain, abdominal pain or diarrhea. She states that she called EMS to assist putting in an air conditioning unit. She states that other than a persistent cough she had no acute complaints, when EMS arrived they noted that she was saturating in the mid 80%'s while on room air. She lives on her own, and states that she is able to ambulate with a walker, or utilizes a wheelchair and she states she carry out activities of daily living without issue. Her daughter and son-in-law were at bedside, they live in [facility], around [place], and states that she does her own thing. She was hospitalized in November 2019 for with an NSTEMI, had 2 iestents placed and per the patient and her daughter she has not followed up with a physician since that time. Her daughter believes that her oral intake is very poor and does not believe that she eats or drinks very well. Patient states that she does not feel like she chokes on her food a lot, but does endorse that it has happened before. Work on arrival significant for troponin 0.495, BNP 2700, potassium 3.5, creatinine 1.38, lactic acid 1.2, normal AST and ALT.Chest x-ray done in the ER independently read and interpreted showed showed evidence of lower lobe infiltrates to be correlated for possible pneumonia. EKG done in the ER independently read and interpreted showed heart rate of 74, sinus rhythm, no ST segment elevation or depression seen, no T-wave inversions seen; QTc 442 Patient was hypoxic on arrival 91% on 4 L nasal cannula. Admitted for further management of acute on chronic hypoxic respiratory failure likely secondary to HFpEF exacerbation and possible CAP. Procalcitonin negative, will discontinue antibiotics.. SEISMOLOGY TECHNICAL OFFICER recommended dysphagia 3 diet. Family shared that patient has been having on and off hallucination over the past couple months. Pulmonology was consulted, patient was started on Solu-Medrol 60 mg every 8 hours. Later on patient was able to go down on oxygen to 6 L. Heparin drip was stopped, continued on IV Lasix 40 twice daily. VQ scan negative. TTE showed EF of 55%, RVSP 35, mild pulmonary hypertension. I am concerned the patient is not able to take care of herself, she is noncompliant with her medications, her home oxygen. Per family, it appears that she does not have adequate oral intake. She has frequent falls, she is forgetful. Patient was generally unkept, not able to care for herself and perform ADLs such as showering, cooking. I would recommend obtaining guardianship 03/07/2025: Seen and examined at bedside, no acute events overnight, patient feels better, she is on 4 L nasal cannula, she feels her sputum is loosening up. WBC 15.6, likely steroid-induced. Sodium stable 130, potassium normal 3.9, bicarb improving 37, BUN of 53, creatinine up 1.39, it is very likely that patient's new baseline creatinine will be around 1.3. Magnesium 1.7. Discussed with cardiology, patient will be started on Eliquis 2.5, torsemide 20 daily Farxiga 5 mg daily cardiology signed off, follow-up in 1 week Pertinent positives and negatives as discussed above, a complete review of systems was performed and all other systems are negative. Vitals Signs Reviewed. General: [nontoxic], [no distress], [appears at stated age] Derm: [warm], [dry] Head: [atraumatic], [normocephalic], [symmetric] Eyes: [EOMI], [no lid lag], [anicteric sclera] Mouth: [no lip lesion], [mucus membranes moist] Cardiovascular: [S1S2 reg], [no murmur] Lungs: [CTA bilateral bibasilar crackles, improving, [no accessory muscle use] Abdominal: [soft], [ nontender to palpation], [no guarding], [no appreciable organomegaly] Ext: [no gross muscle atrophy], [bilateral lower extremity pitting edema 1+, chronic venous stasis dermatitis Neuro: [ CN II-XI grossly intact], [no focal neuro deficits] Psych: [Alert], [oriented], [appropriate affect] Assessment and Plan: Acute on chronic hypoxic respiratory failure secondary to HFpEF exacerbation, COPD exacerbation Contraction alkalosis likely secondary to diuresis Medications noncompliance Home oxygen noncompliance Elevated D-dimer, PE ruled out - Continue supplemental oxygen, wean down as tolerated -torsemide 20 daily Farxiga 5 mg daily - Monitor BMP daily - SEISMOLOGY TECHNICAL OFFICER cleared patient to have level 3 diet, no dysphagia noted - Cardiology consulted, appreciate recommendations -TTE as above -Pulmonology consulted - Continue Solu-Medrol 60 IV every 8 hours per pulmonology -Continue Mucinex 600 mg p.o. every 12 hours - Continue Symbicort 2 puffs twice daily, DuoNebs 4 times daily -With telemetry, strict I's and O's, daily weights -Patient is on home , losartan/hydrochlorothiazide 100/25 daily, however, she is noncompliant, currently blood pressure is soft, resume home medications once blood pressure improvement achieved New onset paroxysmal A-fib, now in sinus -Cardiology consulted, appreciate recommendations. -Start Eliquis 2.5 twice daily, Toprol-XL 25 p.o. daily Elevated troponin History of CAD status post stents -Cardiology consulted, appreciate recommendations, -Heparin drip discontinued -Aspirin 81 mg daily, Lipitor 40 mg nightly, discontinue clopidogrel 75 as patient is now on Eliquis History of upper GI bleed, not on PPI at home, will start Protonix 40 daily oral Chronic debility and Decreased oral intake -PT OT, nutrition consulted Hypervolemic hyponatremia -On admission sodium 126, dropped down to 123, now 130, will continue Lasix and fluid restriction Nonoliguric VINCENZO likely cardiorenal Left renal cyst, -Creatinine improving with IV diuresis -Ultrasound with left renal cyst, needs follow-up as it is not a simple cyst, follow-up with PCP -Continue to monitor BMP daily, strict I's and O Hypokalemia, resolved -Continue with 20 mEq p.o. potassium chloride daily, monitor BMP daily Depression, anxiety: Reported hallucinations continue home Xanax 0.5 twice daily as needed, Lexapro 20 mg daily, trazodone 1 00 mg p.o. nightly DVT ppx: Heparin drip Code status: Full code Anticipated discharge place: [facility] Anticipated discharge time: TBD Objective - Vital Signs Vital signs: Vital Signs Temp 98.1 F 03/07/25 09:05 Pulse 87 03/07/25 12:26 Resp 16 03/07/25 11:46 BP 103/54 03/07/25 11:46 Pulse Ox 91 L 03/07/25 11:46 FiO2 Intake & Output 03/06/25 03/07/25 03/07/25 18:59 06:59 18:59 Intake Total 460.5 720 Output Total 250 100 Balance 210.5 -100 720 Weight 69 kg Intake: Intake, IV Titration 20.5 Amount Diltiazem 125 mg In 20.5 Dextrose 5% in Water 100 ml @ 10 MG/HR 10 mls/hr IV .[id number] [facility] Rx#: [id number] Oral 440 720 Output: Urine 250 100 Other: Voiding Method Diaper Diaper Diaper External Catheter External Catheter External Catheter # Voids 1 - Labs CBC & Chem 7: 03/07/25 08:52 03/07/25 08:52 Labs: Abnormal Lab Results - Last 24 Hours (Table) 03/06/25 03/06/25 03/06/25 Range/Units 16:18 17:45 20:21 WBC (4.50-10.00) 10*3/uL Immature Gran # (0.00-0.04) 10*3/uL Neutrophils # (1.80-7.70) 10*3/uL Lymphocytes # (0.90-5.00) 10*3/uL Monocytes # (0.20-1.00) 10*3/uL Eosinophils # (0.04-0.35) 10*3/uL Sodium (137-145) mmol/L Chloride (98-107) mmol/L Carbon Dioxide (22-30) mmol/L BUN (7-17) mg/dL Creatinine (0.52-1.04) mg/dL Glucose (74-99) mg/dL POC Glucose (mg/dL) 204 H 168 H 161 H (70-110) mg/dL 03/07/25 03/07/25 03/07/25 Range/Units 06:01 08:52 08:52 WBC 15.69 H (4.50-10.00) 10*3/uL Immature Gran # 0.11 H (0.00-0.04) 10*3/uL Neutrophils # 13.61 H (1.80-7.70) 10*3/uL Lymphocytes # 0.62 L (0.90-5.00) 10*3/uL Monocytes # 1.32 H (0.20-1.00) 10*3/uL Eosinophils # 0.00 L (0.04-0.35) 10*3/uL Sodium 130 L (137-145) mmol/L Chloride 89 L (98-107) mmol/L Carbon Dioxide 37 H (22-30) mmol/L BUN 53 H (7-17) mg/dL Creatinine 1.39 H (0.52-1.04) mg/dL Glucose 197 H (74-99) mg/dL POC Glucose (mg/dL) 171 H (70-110) mg/dL 03/07/25 Range/Units 11:17 WBC (4.50-10.00) 10*3/uL Immature Gran # (0.00-0.04) 10*3/uL Neutrophils # (1.80-7.70) 10*3/uL Lymphocytes # (0.90-5.00) 10*3/uL Monocytes # (0.20-1.00) 10*3/uL Eosinophils # (0.04-0.35) 10*3/uL Sodium (137-145) mmol/L Chloride (98-107) mmol/L Carbon Dioxide (22-30) mmol/L BUN (7-17) mg/dL Creatinine (0.52-1.04) mg/dL Glucose (74-99) mg/dL POC Glucose (mg/dL) 210 H (70-110) mg/dL Microbiology - Last 24 Hours (Table) 03/03/25 17:07 Blood Culture - Preliminary Blood
--- NOTE | 2025-03-07 14:09 | P.PN ---
Subjective Progress Note Date: 03/07/25 This is a 85-year-old female patient, known having COPD, and previous history of coronary disease and coronary stenting that was performed back in 2023 following an acute NSTEMI and cardiac catheterization at that time revealed RCA with tight lesion, PLV branch of the RCA with a critical lesion, mild disease in the left main, left circumflex mild to moderate diffuse disease, LAD mild to moderate diffuse disease and patient underwent PCI of the RCA and stenting of the PL branch of the RCA. Patient also known to have hyperlipidemia and diastolic heart failure. The patient has been in a poor health condition. She has been smoking. She has not had appropriate medical follow-up over the past 1 year. She came into the hospital having increased cough congestion chest tightness and wheezing and a pulmonary consultation was requested. The patient has also noted to be slightly confused at time of admission. No nausea. No emesis. No fever or chills. She was hypoxic in the emergency department with a pulse ox of 80%. She has been recommended to use oxygen in the past however the patient has not been consistently using oxygen. Cardiology also was involved in the case Initially the patient was placed on 15 L of oxygen by nasal cannula and she was subsequently weaned down to 6 L. Workup included a white cell count of 15.5 with a hemoglobin 15.3 and the platelet count of 248. Blood gas showed a pH of 7.48 with a PCO2 of 62 and PO2 of 59 Electrolytes were showing chronic metabolic alkalosis with a serum bicarb of 42 and a potassium level of 3.8. BUN 44 with a creatinine of 1.03 improved from a baseline of 1.27. Troponins were 0.4 and 0.4 at 0.2 respectively x 3 Chest x-ray showed COPD with questionable left lower lobe atelectasis/infiltrate. Doppler of the lower extremity showed no evidence of any DVT. The ventilation/perfusion scan was low probability for pulmonary em bolism. Echocardiogram done showed a preserved LV function with an ejection fraction of 55 to 60%, no significant valvular heart disease. No significant pulmonary hypertension. EKG showed a normal sinus rhythm with left anterior fascicular block. The patient is currently on DuoNeb, Symbicort and IV Solu-Medrol was added 60 mg IV push every 6 hours. She is also on a combination of aspirin and Plavix. Clinically feeling better. She has poor insight in her condition. 03/06/2025, the patient is being seen for a follow-up. Slightly improved compared to yesterday. Cough and congestion is improved compared to yesterday. She has no specific complaints. She remains on DuoNeb, Symbicort and IV Solu-Medrol. The patient has a white cell count of 15.7, hemoglobin 14.2 and a platelet count of 301. BUN is 44 with a creatinine of 1.32 and sodium of 131. Creatinine is chronically elevated and the patient has chronic kidney disease. No chest pain. No altered mentation. No other complaints otherwise for now. Echocardiogram showed a preserved LV function. Cardiology on the case, IV Lasix has been discontinued. 03/07/2025, the patient is being seen for a follow-up. The patient is calm and comfortable. Less bronchospastic and wheezy. No new complaints. Oxygenation is stable and the patient is currently on 5 L of oxygen by nasal cannula with a pulse ox of 91%. No chest pain. The white cell count is 15.6 with hemoglobin 15.5 with a platelet count of 275. BUN 53 with a creatinine of 1.3. Sodium is at 130. Potassium is at 3.9. Remains on DuoNeb nebulizer treatments around-t he-clock. Remains on Symbicort. Remains on IV Solu-Medrol 60 mg every 8 hours. Rest of the medications remain unchanged. The patient remains on torsemide and Farxiga. She is also on long-term anticoagulation with Eliquis 2.5 mg p.o. twice a day. Objective - Vital Signs Vital signs: Vital Signs Temp 98.1 F 03/07/25 09:05 Pulse 81 03/07/25 09:05 Resp 18 03/07/25 09:05 BP 114/65 03/07/25 09:05 Pulse Ox 89 L 03/07/25 09:05 FiO2 Intake & Output 03/06/25 03/07/25 03/07/25 18:59 06:59 18:59 Intake Total 460.5 480 Output Total 250 100 Balance 210.5 -100 480 Weight 69 kg Intake: Intake, IV Titration 20.5 Amount Diltiazem 125 mg In 20.5 Dextrose 5% in Water 100 ml @ 10 MG/HR 10 mls/hr IV .[id number] [facility] Rx#: [id number] Oral 440 480 Output: Urine 250 100 Other: Voiding Method Diaper Diaper Diaper External Catheter External Catheter External Catheter # Voids 1 - Exam The patient appeared poorly maintained, poor hygiene, body mass index of 30.3. She is currently on oxygen 5 L nasal cannula. Breathing is nonlabored. Head exam is unremarkable. No scleral icterus or corneal arcus noted. Neck is without jugular venous distension, thyromegaly, or carotid bruits. Carotid upstrokes are brisk bilaterally. Lungs are showing diminished breath sounds bilateral lung with scattered expiratory wheezes throughout the lung yoon bilaterally. Cardiac exam reveals the PMI to be normally sized and situated. Rhythm is regular. First and second heart sounds normal. No murmurs, rubs or gallops. Abdominal exam reveals normal bowel sounds, no masses, no organomegaly and no aortic enlargement. Extremities are nonedematous and both femoral and pedal pulses are normal. Examination of the skin revealed no evidence of significant rashes, suspicious appearing nevi or other concerning lesions. Neurologically, the patient is awake and alert and the patient does not have any focal neurological deficit. Cranial nerves are essentially intact. There is generalized motor weakness symmetrically in all 4 extremities. - Labs CBC & Chem 7: 03/07/25 08:52 03/07/25 08:52 Labs: Abnormal Lab Results - Last 24 Hours (Table) 03/06/25 03/06/25 03/06/25 Range/Units 11:20 16:18 17:45 WBC (4.50-10.00) 10*3/uL Immature Gran # (0.00-0.04) 10*3/uL Neutrophils # (1.80-7.70) 10*3/uL Lymphocytes # (0.90-5.00) 10*3/uL Monocytes # (0.20-1.00) 10*3/uL Eosinophils # (0.04-0.35) 10*3/uL Sodium (137-145) mmol/L Chloride (98-107) mmol/L Carbon Dioxide (22-30) mmol/L BUN (7-17) mg/dL Creatinine (0.52-1.04) mg/dL Glucose (74-99) mg/dL POC Glucose (mg/dL) 214 H 204 H 168 H (70-110) mg/dL 03/06/25 03/07/25 03/07/25 Range/Units 20:21 06:01 08:52 WBC 15.69 H (4.50-10.00) 10*3/uL Immature Gran # 0.11 H (0.00-0.04) 10*3/uL Neutrophils # 13.61 H (1.80-7.70) 10*3/uL Lymphocytes # 0.62 L (0.90-5.00) 10*3/uL Monocytes # 1.32 H (0.20-1.00) 10*3/uL Eosinophils # 0.00 L (0.04-0.35) 10*3/uL Sodium (137-145) mmol/L Chloride (98-107) mmol/L Carbon Dioxide (22-30) mmol/L BUN (7-17) mg/dL Creatinine (0.52-1.04) mg/dL Glucose (74-99) mg/dL POC Glucose (mg/dL) 161 H 171 H (70-110) mg/dL 03/07/25 Range/Units 08:52 WBC (4.50-10.00) 10*3/uL Immature Gran # (0.00-0.04) 10*3/uL Neutrophils # (1.80-7.70) 10*3/uL Lymphocytes # (0.90-5.00) 10*3/uL Monocytes # (0.20-1.00) 10*3/uL Eosinophils # (0.04-0.35) 10*3/uL Sodium 130 L (137-145) mmol/L Chloride 89 L (98-107) mmol/L Carbon Dioxide 37 H (22-30) mmol/L BUN 53 H (7-17) mg/dL Creatinine 1.39 H (0.52-1.04) mg/dL Glucose 197 H (74-99) mg/dL POC Glucose (mg/dL) (70-110) mg/dL Microbiology - Last 24 Hours (Table) 03/03/25 17:07 Blood Culture - Preliminary Blood Assessment and Plan Plan: Acute on chronic hypoxic respiratory failure, currently in 6 liters of oxygen by nasal cannula. The patient was significantly hypoxic and she has improved and the patient is currently on 5 L of O2 nasal cannula Acute COPD exacerbation, possible left lower lobe pneumonia, improving Chronic hypercapnic respiratory failure, compensated Acute on chronic shortness of breath secondary to above Coronary artery disease and previous NSTEMI and the patient has had a cardiac catheterization back in 2023 revealing RCA with tight lesion, PLV branch of the RCA with a critical lesion, mild disease in the left main, left circumflex mild to moderate diffuse disease, LAD mild to moderate diffuse disease and patient underwent PCI of the RCA and stenting of the PL branch of the RCA Abnormal troponins, rule out NSTEMI versus type II myocardial ischemia. Preserved LV function, diastolic heart failure with a normal ejection fraction of 55% Acute kidney injury, improving Hyperlipidemia Smoker Hypertension Chronic anxiety Hyperlipidemia Plan Clinically better compared to yesterday and she feels less short of breath.The patient remains on 5 L of oxygen nasal cannula. Will gradually down FiO2 Titrate oxygen flow to maintain saturation above 90%, currently on 5 L Continue DuoNeb nebulized treatments [id number] IV Solu-Medrol 60 mg every 6 hours Symbicort as maintenance Emphasized importance of home O2 and the patient will need long-term oxygen therapy as the patient has a component of chronic hypoxic respiratory failure Cardiology to comment on the abnormal troponins Oral torsemide Continue anticoagulation with Eliquis 2.5 mg twice a day Renal function is stable Will continue to follow. The patient was seen and her situation was discussed with the daughter. She may need assistance and she may need some sort of an assisted living or home care at the time of discharge.
[2025-03-07 16:57] LABS: Glucose,Whole Blood 189 mg/dL (70-110)
[2025-03-07 21:21] LABS: Glucose,Whole Blood 180 mg/dL (70-110)
[2025-03-07] MEDS ORDERED: ONDANSETRON 4 MG/2 ML VIAL IVP PRN (23:15)
[2025-03-08] MEDS: LORATADINE 10 MG TAB PO SCH (02:49)
[2025-03-08 06:00] LABS: Glucose,Whole Blood 203 mg/dL (70-110)
[2025-03-08 07:31] LABS: Basophils # (A) 0.03 10*3/uL (0.00-0.10); Basophils % (A) 0.2 %; HCT 39.8 % (37.2-46.3); Lymphocytes # (A) 0.67 10*3/uL (0.90-5.00); Lymphocytes % (A) 4.2 %; MCH 28.3 pg (27.0-32.0); MCHC 32.7 g/dL (32.0-37.0); MCV 86.5 fL (80.0-97.0); Mean Platelet Volume 9.8 fL (9.5-12.2); Monocytes # (A) 1.26 10*3/uL (0.20-1.00); Monocytes % (A) 7.8 %; Neutrophils # (A) 13.97 10*3/uL (1.80-7.70); Neutrophils % (A) 86.9 %; Platelet Count 264 10*3/uL (140-440); RDW 18.2 % (11.5-14.5); WBC 16.07 10*3/uL (4.50-10.00)
[2025-03-08 07:58] LABS: African American GFR (CKD) 42 (>60 ml/min/1.73 sqM); Blood Urea Nitrogen 64 mg/dL (7-17); Chloride 89 mmol/L (98-107); Glucose 148 mg/dL (74-99); Non-African American GFR(CKD) 36 (>60 ml/min/1.73 sqM); Potassium 4.3 mmol/L (3.5-5.1); Sodium 131 mmol/L (137-145)
[2025-03-08 08:05] LABS: Anion Gap 7 mmol/L
[2025-03-08 08:07] LABS: Carbon Dioxide 35 mmol/L (22-30)
[2025-03-08 11:23] LABS: Glucose,Whole Blood 172 mg/dL (70-110)
--- NOTE | 2025-03-08 15:16 | P.PN ---
Subjective Progress Note Date: 03/08/25 Patient was seen and examined. Breathing is stable. On 5L NC. CBC, BMP significant for WBC 16.07, Na 131, Cl 89, bicarb 35, BUN 64, Cr 1.36, glu 148. General: no distress, appears at stated age Derm: warm, dry Head: atraumatic, normocephalic, symmetric Mouth: no lip lesion, mucus membranes moist Cardiovascular: S1 S2 reg. No murmur. Lungs: Decreased BS bilaterally, no accessory muscle use Ext: no gross muscle atrophy, no edema, no contractures Neuro: No focal neurologic deficits. Psych: Alert and oriented. Based on my assessment of this patient, this patient meets a high complexity level of care. Acute on chronic hypoxic respiratory failure secondary to HFpEF exacerbation + COPD exacerbation DuoNeb QID scheduled. Symbicort 2 INH BID. SoluMedrol 60 mg IV TID. Supplemental O2 to maintain O2 sat > 92%. Pulmonary on board. Echo 55-60% with mild LV thickness. Torsemide 20 mg PO QD. Metoprolol 25 mg PO QD. Farxiga 5 mg PO QD. Cardiology on board. Contraction alkalosis likely secondary to diuresis Elevated D-Dimer: V/Q scan low probability for PE. New onset A-fib with RVR: Metoprolol as above. Eliquis 2.5 mg PO QD. Cardiology on board. Elevated troponin with history of CAD status post stents: ASA 81 mg PO QD. Lipitor 40 mg PO QHS. Eliquis and Metoprolol as above. Cardiology on board. History of upper GI bleed: Protonix 40 mg PO QD. Chronic debility: PT and OT consulted. Will likely need SNF on discharge. Decreased oral intake: NDD3 per ST. Dietitian on board. Hypervolemic hyponatremia: Continue 1.5L fluid restriction and Torsemide. Nonoliguric V[place]: Likely cardiorenal. Stable. Outpatient Nephrology. Depression and anxiety: Xanax 0.5 mg PO BID PRN. Lexapro 20 mg PO QD. Plans for discharge when approved for SNF. CODE STATUS: FULL CODE DVT Prophylaxis: Eliquis GI Prophylaxis: Protonix Designated medical POA if patient is not able to make medical decisions for themselves: I have reviewed the following contact center consultant notes: I have reviewed the results of the following tests: CBC, BMP. I have ordered the following tests: I have discussed the care of this patient with the following independent historian: FRANSISCO Souza I have independently interpreted the following test below: I have discussed the management of this patient with the following physician: Objective - Vital Signs Vital signs: Vital Signs Temp 97.9 F 03/08/25 12:00 Pulse 79 03/08/25 12:00 Resp 18 03/08/25 12:00 BP 124/73 03/08/25 12:00 Pulse Ox 95 03/08/25 12:00 FiO2 Intake & Output 03/07/25 03/08/25 03/08/25 18:59 06:59 18:59 Intake Total 1860 10 Output Total 900 300 400 Balance 960 -300 -390 Weight 68.6 kg Intake: IV 10 Invasive Line 2 10 Oral 1860 Output: Urine 900 300 400 Other: Voiding Method Diaper Diaper Diaper External Catheter External Catheter External Catheter # Voids 1 # Bowel Movements 1 - Labs CBC & Chem 7: 03/08/25 06:54 03/08/25 06:54 Labs: Abnormal Lab Results - Last 24 Hours (Table) 03/07/25 03/07/25 03/08/25 Range/Units 16:55 21:19 05:58 WBC (4.50-10.00) 10*3/uL Immature Gran # (0.00-0.04) 10*3/uL Neutrophils # (1.80-7.70) 10*3/uL Lymphocytes # (0.90-5.00) 10*3/uL Monocytes # (0.20-1.00) 10*3/uL Eosinophils # (0.04-0.35) 10*3/uL Sodium (137-145) mmol/L Chloride (98-107) mmol/L Carbon Dioxide (22-30) mmol/L BUN (7-17) mg/dL Creatinine (0.52-1.04) mg/dL Glucose (74-99) mg/dL POC Glucose (mg/dL) 189 H 180 H 203 H (70-110) mg/dL 03/08/25 03/08/25 03/08/25 Range/Units 06:54 06:54 11:21 WBC 16.07 H (4.50-10.00) 10*3/uL Immature Gran # 0.14 H (0.00-0.04) 10*3/uL Neutrophils # 13.97 H (1.80-7.70) 10*3/uL Lymphocytes # 0.67 L (0.90-5.00) 10*3/uL Monocytes # 1.26 H (0.20-1.00) 10*3/uL Eosinophils # 0.00 L (0.04-0.35) 10*3/uL Sodium 131 L (137-145) mmol/L Chloride 89 L (98-107) mmol/L Carbon Dioxide 35 H (22-30) mmol/L BUN 64 H (7-17) mg/dL Creatinine 1.36 H (0.52-1.04) mg/dL Glucose 148 H (74-99) mg/dL POC Glucose (mg/dL) 172 H (70-110) mg/dL
--- NOTE | 2025-03-08 16:01 | P.PN ---
Subjective Progress Note Date: 03/08/25 This is a 85-year-old female patient, known having COPD, and previous history of coronary disease and coronary stenting that was performed back in 2023 following an acute NSTEMI and cardiac catheterization at that time revealed RCA with tight lesion, PLV branch of the RCA with a critical lesion, mild disease in the left main, left circumflex mild to moderate diffuse disease, LAD mild to moderate diffuse disease and patient underwent PCI of the RCA and stenting of the PL branch of the RCA. Patient also known to have hyperlipidemia and diastolic heart failure. The patient has been in a poor health condition. She has been smoking. She has not had appropriate medical follow-up over the past 1 year. She came into the hospital having increased cough congestion chest tightness and wheezing and a p ulmonary consultation was requested. The patient has also noted to be slightly confused at time of admission. No nausea. No emesis. No fever or chills. She was hypoxic in the emergency department with a pulse ox of 80%. She has been recommended to use oxygen in the past however the patient has not been consistently using oxygen. Cardiology also was involved in the case Initially the patient was placed on 15 L of oxygen by nasal cannula and she was subsequently weaned down to 6 L. Workup included a white cell count of 15.5 with a hemoglobin 15.3 and the platelet count of 248. Blood gas showed a pH of 7.48 with a PCO2 of 62 and PO2 of 59 Electrolytes were showing chronic metabolic alkalosis with a serum bicarb of 42 and a potassium level of 3.8. BUN 44 with a creatinine of 1.03 improved from a baseline of 1.27. Troponins were 0.4 and 0.4 at 0.2 respectively x 3 Chest x-ray showed COPD with questionable left lower lobe atelectasis/infiltrate. Doppler of the lower extremity showed no evidence of any DVT. The ventilation/perfusion scan was low probability for pulmonary emb olism. Echocardiogram done showed a preserved LV function with an ejection fraction of 55 to 60%, no significant valvular heart disease. No significant pulmonary hypertension. EKG showed a normal sinus rhythm with left anterior fascicular block. The patient is currently on DuoNeb, Symbicort and IV Solu-Medrol was added 60 mg IV push every 6 hours. She is also on a combination of aspirin and Plavix. Clinically feeling better. She has poor insight in her condition. 03/06/2025, the patient is being seen for a follow-up. Slightly improved compared to yesterday. Cough and congestion is improved compared to yesterday. She has no specific complaints. She remains on DuoNeb, Symbicort and IV Solu-Medrol. The patient has a white cell count of 15.7, hemoglobin 14.2 and a platelet count of 301. BUN is 44 with a creatinine of 1.32 and sodium of 131. Creatinine is chronically elevated and the patient has chronic kidney disease. No chest pain. No altered mentation. No other complaints otherwise for now. Echocardiogram showed a preserved LV function. Cardiology on the case, IV Lasix has been discontinued. 03/07/2025, the patient is being seen for a follow-up. The patient is calm and comfortable. Less bronchospastic and wheezy. No new complaints. Oxygenation is stable and the patient is currently on 5 L of oxygen by nasal cannula with a pulse ox of 91%. No chest pain. The white cell count is 15.6 with hemoglobin 15.5 with a platelet count of 275. BUN 53 with a creatinine of 1.3. Sodium is at 130. Potassium is at 3.9. Remains on DuoNeb nebulizer treatments around-th e-clock. Remains on Symbicort. Remains on IV Solu-Medrol 60 mg every 8 hours. Rest of the medications remain unchanged. The patient remains on torsemide and Farxiga. She is also on long-term anticoagulation with Eliquis 2.5 mg p.o. twice a day. The patient is seen today March 08, 2025 in follow-up on the selective care unit. She is currently sitting up in a chair at the bedside. Awake and alert in no acute distress. Breathing easier today compared to yesterday. She is maintaining O2 saturations in the 90s on 5 L/min per nasal cannula. White count 16.0. Hemoglobin 13.0. Platelets 264. Sodium 131. Potassium 4.3. Bicarb 35. BUN 64. Creatinine 1.36. Glucose 148. She remains on DuoNeb inhalations, Symbicort, Solu-Medrol. Remains on oral diuretics. Anticoagulated with Eliquis . Objective - Vital Signs Vital signs: Vital Signs Temp 97.9 F 03/08/25 12:00 Pulse 79 03/08/25 12:00 Resp 18 03/08/25 12:00 BP 124/73 03/08/25 12:00 Pulse Ox 95 03/08/25 12:00 FiO2 Intake & Output 03/07/25 03/08/25 03/08/25 18:59 06:59 18:59 Intake Total 1860 20 Output Total 900 300 400 Balance 960 -300 -380 Weight 68.6 kg Intake: IV 20 Invasive Line 2 20 Oral 1860 Output: Urine 900 300 400 Other: Voiding Method Diaper Diaper Diaper External Catheter External Catheter # Voids 1 # Bowel Movements 1 - Exam GENERAL EXAM: Alert, pleasant 84-year-old female, up in a chair, on 5 L nasal c annula, comfortable in no apparent distress. HEAD: Normocephalic. EYES: Normal reaction of pupils, equal size. NOSE: Clear with pink turbinates. THROAT: No erythema or exudates. NECK: No masses, no JVD. CHEST: No chest wall deformity. LUNGS: Equal air entry with crackles in the bilateral bases. CVS: S1 and S2 normal with no audible murmur, regular rhythm. ABDOMEN: No hepatosplenomegaly, normal bowel sounds, no guarding or rigidity. SPINE: No scoliosis or deformity SKIN: No rashes CENTRAL NERVOUS SYSTEM: No focal deficits, tone is normal in all 4 extremities. EXTREMITIES: There is no peripheral edema. No clubbing, no cyanosis. Peripheral pulses are intact. - Labs CBC & Chem 7: 03/08/25 06:54 03/08/25 06:54 Labs: Abnormal Lab Results - Last 24 Hours (Table) 03/07/25 03/07/25 03/08/25 Range/Units 16:55 21:19 05:58 WBC (4.50-10.00) 10*3/uL Immature Gran # (0.00-0.04) 10*3/uL Neutrophils # (1.80-7.70) 10*3/uL Lymphocytes # (0.90-5.00) 10*3/uL Monocytes # (0.20-1.00) 10*3/uL Eosinophils # (0.04-0.35) 10*3/uL Sodium (137-145) mmol/L Chloride (98-107) mmol/L Carbon Dioxide (22-30) mmol/L BUN (7-17) mg/dL Creatinine (0.52-1.04) mg/dL Glucose (74-99) mg/dL POC Glucose (mg/dL) 189 H 180 H 203 H (70-110) mg/dL 03/08/25 03/08/25 03/08/25 Range/Units 06:54 06:54 11:21 WBC 16.07 H (4.50-10.00) 10*3/uL Immature Gran # 0.14 H (0.00-0.04) 10*3/uL Neutrophils # 13.97 H (1.80-7.70) 10*3/uL Lymphocytes # 0.67 L (0.90-5.00) 10*3/uL Monocytes # 1.26 H (0.20-1.00) 10*3/uL Eosinophils # 0.00 L (0.04-0.35) 10*3/uL Sodium 131 L (137-145) mmol/L Chloride 89 L (98-107) mmol/L Carbon Dioxide 35 H (22-30) mmol/L BUN 64 H (7-17) mg/dL Creatinine 1.36 H (0.52-1.04) mg/dL Glucose 148 H (74-99) mg/dL POC Glucose (mg/dL) 172 H (70-110) mg/dL Assessment and Plan Assessment: Acute on chronic hypoxic respiratory failure, currently on 5 liters of oxygen by nasal cannula. Acute COPD exacerbation, possible left lower lobe pneumonia, improving Chronic hypercapnic respiratory failure, compensated Acute on chronic shortness of breath secondary to above Coronary artery disease and previous NSTEMI and the patient has had a cardiac catheterization back in 2023 revealing RCA with tight lesion, PLV branch of the RCA with a critical lesion, mild disease in the left main, left circumflex mild to moderate diffuse disease, LAD mild to moderate diffuse disease and patient underwent PCI of the RCA and stenting of the PL branch of the RCA Abnormal troponins, rule out NSTEMI versus type II myocardial ischemia. Preserved LV function, diastolic heart failure with a normal ejection fraction of 55% Acute kidney injury, improving Hyperlipidemia Smoker Hypertension Chronic anxiety Hyperlipidemia Plan: The patient was seen and evaluated Labs and medications reviewed Improving and on 5 L nasal cannula Titrate down the FiO2 as tolerated Continue DuoNeb and elations Continue Symbicort Continue Solu-Medrol Anticoagulated with Eliquis Remains on oral diuretics Remains on Farxiga May require subacute rehab at discharge We will continue to follow I have personally seen and examined the patient, performed the documentation and the assessment and plan as written. Number of minutes spent on the visit: 10 Dictation was produced using [employer] dictation software. Please excuse any grammatical, word or spelling errors.
[2025-03-08 16:42] LABS: Glucose,Whole Blood 208 mg/dL (70-110)
[2025-03-08 20:38] LABS: Glucose,Whole Blood 144 mg/dL (70-110)
[2025-03-09 06:07] LABS: Glucose,Whole Blood 183 mg/dL (70-110)
[2025-03-09 11:48] LABS: Glucose,Whole Blood 175 mg/dL (70-110)
--- NOTE | 2025-03-09 13:27 | P.DS ---
Providers Date of admission: 03/03/25 18:34 Expected date of discharge: 03/09/25 Attending physician: Kane Horvath Consults: 03/05/25 10:08 Consult Physician Urgent Consulting Provider: Deangelo Dykes Consult Reason/Comments: COPD exacerbation Do you want consulting provider notified?: Yes Primary care physician: [facility] Course: 84-year-old female with PMH of diastolic CHF (Echo from 11/27/2023 showed EF 55- 60%), CAD s/p 2 stents placed on 11/29/2023, hypertension and COPD (non complaint with home O2) who presents to the emergency department complaining of worsening shortness of breath. In the ED she underwent extensive evaluation. Blood pressure 115/66, heart rate 76, respiratory 18, SpO2 91% on 4 L nasal cannula. WBCs 12.56, hemoglobin 14.4, hematocrit 42.9, platelet 275; sodium 126, potassium 3.5, chloride 82, bicarb 38, BUN 47, creatinine 1.38, lactic acid 1.2, calcium 8.7, magnesium 1.9, total bilirubin 1.3, AST 33, ALT 21, alkaline phosp hatase 115, albumin 3.0; Troponin 0.495, 0.480, 0.298; BNP 20,800. Chest x-ray done in the ER showed showed evidence of lower lobe infiltrates. EKG done in the ER showed heart rate of 74, sinus rhythm, no ST segment elevation or depression seen, no T-wave inversions seen; QTc 442. Patient was admitted for CHF and COPD exacerbation. Pulmonary and Cardiology consulted. Started on Lasix IV BID, bronc hodilators and steroids. Procal was negative, antibiotics was discontinued. Elevated D-Dimer, venous duplex neg for DVT, V/Q scan showed low probability for PE. She was placed on a heparin infusion for 48H for medical treatment of NSTEMI. Repeat Echo showed EF 55-60% with mild LV thickness. Lasix IV eventually transitioned to Torsemide PO. Hospital course complicated with A-Fib with RVR, started on Eliquis and Metoprolol. Discharge Plans: Plans for SNF with insurance authorization. Diet = 1.5 L fluid restriction with low salt. Stop Plavix and start ASA + Eliquis. DC Losartan/HCTZ on discharge. Started on Farxiga. Bumex switched to Torsemide. Prednisone taper on discharge. Follow up with PCP within 1-2 days of discharge. Needs routine surveillance of renal cyst seen on US. Follow up with Pulmonary and Cardiology within 1 week of discharge. 03/09 Patient was seen and examined. Sleeping comfortably. No complaints. 92% on 4L NC. No new labs done today. General: no distress, appears at stated age Derm: warm, dry Head: atraumatic, normocephalic, symmetric Mouth: no lip lesion, mucus membranes moist Cardiovascular: S1 S2 reg. No murmur. Lungs: Decreased BS bilaterally, no accessory muscle use Ext: no gross muscle atrophy, no edema, no contractures Neuro: No focal neurologic deficits. Psych: Alert and oriented. Discharge Diagnosis: Acute on chronic hypoxic respiratory failure secondary to HFpEF exacerbation + COPD exacerbation Contraction alkalosis likely secondary to diuresis Elevated D-Dimer New onset A-fib with RVR Elevated troponin with history of CAD status post stents History of upper GI bleed Chronic debility Decreased oral intake Hypervolemic hyponatremia Nonoliguric VINCENZO Depression and anxiety This complex discharge took 35 minutes to complete. Patient Condition at Discharge: Stable Plan - Discharge Summary Discharge Rx Participant: No New Discharge Prescriptions: No Action Metoprolol Tartrate [Lopressor] 25 mg PO BID #60 tab Cholecalciferol [Vitamin D3 (25 Mcg = 1000 Iu)] 25 mcg PO DAILY Ascorbic Acid [Vitamin C] 1,000 mg PO HS Losartan/Hydrochlorothiazide [Losartan-Hctz 100-25 mg Tab] 1 tab PO DAILY Bumetanide [Bumex] 1 - 2 mg PO DAILY traZODone HCL [Desyrel] 100 mg PO HS Escitalopram [Lexapro] 20 mg PO DAILY Atorvastatin [Lipitor] 40 mg PO DAILY Albuterol Inhaler [Ventolin Hfa Inhaler] 2 puff INHALATION RT-Q4H PRN PRN Reason: Shortness Of Breath Clopidogrel [Plavix] 75 mg PO DAILY #30 tab Budesonide-Formot 160-4.5 Mcg [Symbicort 160-4.5 Mcg Inhaler] 2 puff INHALATION RT-BID #1 each Albuterol Nebulized [Ventolin Nebulized] 2.5 mg INHALATION RT-Q6H Nitroglycerin Sl Tabs [Nitrostat] 0.4 mg SL Q5M PRN PRN Reason: Chest Pain ALPRAZolam [Xanax] 0.5 mg PO BID PRN #6 tab PRN Reason: Anxiety L.acidoph,Paracasei, B.lactis [Probiotic] 1 cap PO DAILY PRN PRN Reason: yeast traMADol HCL 50 mg PO BID PRN PRN Reason: Pain Berkley 3-6-9 1200mg 2 cap PO DAILY Discharge Medication List Budesonide-Formot 160-4.5 Mcg [Symbicort 160-4.5 Mcg Inhaler] 2 puff INHALATION RT-BID #1 each 12/07/23 [Rx] Clopidogrel [Plavix] 75 mg PO DAILY #30 tab 12/07/23 [Rx] Metoprolol Tartrate [Lopressor] 25 mg PO BID #60 tab 12/07/23 [Rx] Albuterol Nebulized [Ventolin Nebulized] 2.5 mg INHALATION RT-Q6H 12/24/23 [History] Nitroglycerin Sl Tabs [Nitrostat] 0.4 mg SL Q5M PRN 12/30/23 [History] ALPRAZolam [Xanax] 0.5 mg PO BID PRN #6 tab 01/02/24 [Rx] Albuterol Inhaler [Ventolin Hfa Inhaler] 2 puff INHALATION RT-Q4H PRN 03/04/25 [History] Ascorbic Acid [Vitamin C] 1,000 mg PO HS 03/04/25 [History] Atorvastatin [Lipitor] 40 mg PO DAILY 03/04/25 [History] Bumetanide [Bumex] 1 - 2 mg PO DAILY 03/04/25 [History] Cholecalciferol [Vitamin D3 (25 Mcg = 1000 Iu)] 25 mcg PO DAILY 03/04/25 [History] Escitalopram [Lexapro] 20 mg PO DAILY 03/04/25 [History] L.acidoph,Paracasei, B.lactis [Probiotic] 1 cap PO DAILY PRN 03/04/25 [History] Losartan/Hydrochlorothiazide [Losartan-Hctz 100-25 mg Tab] 1 tab PO DAILY 03/04/25 [History] Berkley 3-6-9 1200mg 2 cap PO DAILY 03/04/25 [History] traMADol HCL 50 mg PO BID PRN 03/04/25 [History] traZODone HCL [Desyrel] 100 mg PO HS 03/04/25 [History] Follow up Appointment(s)/Referral(s): Urban Davalos MD [STAFF PHYSICIAN] - 1 Week [facility], [NON-STAFF] - 1 Week Christopher Wood DO [Primary Care Provider] - 1-2 days
--- NOTE | 2025-03-09 13:28 | P.PN ---
Subjective Progress Note Date: 03/09/25 This is a 85-year-old female patient, known having COPD, and previous history of coronary disease and coronary stenting that was performed back in 2023 following an acute NSTEMI and cardiac catheterization at that time revealed RCA with tight lesion, PLV branch of the RCA with a critical lesion, mild disease in the left main, left circumflex mild to moderate diffuse disease, LAD mild to moderate diffuse disease and patient underwent PCI of the RCA and stenting of the PL branch of the RCA. Patient also known to have hyperlipidemia and diastolic heart failure. The patient has been in a poor health condition. She has been smoking. She has not had appropriate medical follow-up over the past 1 year. She came into the hospital having increased cough congestion chest tightness and wheezing and a p ulmonary consultation was requested. The patient has also noted to be slightly confused at time of admission. No nausea. No emesis. No fever or chills. She was hypoxic in the emergency department with a pulse ox of 80%. She has been recommended to use oxygen in the past however the patient has not been consistently using oxygen. Cardiology also was involved in the case Initially the patient was placed on 15 L of oxygen by nasal cannula and she was subsequently weaned down to 6 L. Workup included a white cell count of 15.5 with a hemoglobin 15.3 and the platelet count of 248. Blood gas showed a pH of 7.48 with a PCO2 of 62 and PO2 of 59 Electrolytes were showing chronic metabolic alkalosis with a serum bicarb of 42 and a potassium level of 3.8. BUN 44 with a creatinine of 1.03 improved from a baseline of 1.27. Troponins were 0.4 and 0.4 at 0.2 respectively x 3 Chest x-ray showed COPD with questionable left lower lobe atelectasis/infiltrate. Doppler of the lower extremity showed no evidence of any DVT. The ventilation/perfusion scan was low probability for pulmonary emb olism. Echocardiogram done showed a preserved LV function with an ejection fraction of 55 to 60%, no significant valvular heart disease. No significant pulmonary hypertension. EKG showed a normal sinus rhythm with left anterior fascicular block. The patient is currently on DuoNeb, Symbicort and IV Solu-Medrol was added 60 mg IV push every 6 hours. She is also on a combination of aspirin and Plavix. Clinically feeling better. She has poor insight in her condition. 03/06/2025, the patient is being seen for a follow-up. Slightly improved compared to yesterday. Cough and congestion is improved compared to yesterday. She has no specific complaints. She remains on DuoNeb, Symbicort and IV Solu-Medrol. The patient has a white cell count of 15.7, hemoglobin 14.2 and a platelet count of 301. BUN is 44 with a creatinine of 1.32 and sodium of 131. Creatinine is chronically elevated and the patient has chronic kidney disease. No chest pain. No altered mentation. No other complaints otherwise for now. Echocardiogram showed a preserved LV function. Cardiology on the case, IV Lasix has been discontinued. 03/07/2025, the patient is being seen for a follow-up. The patient is calm and comfortable. Less bronchospastic and wheezy. No new complaints. Oxygenation is stable and the patient is currently on 5 L of oxygen by nasal cannula with a pulse ox of 91%. No chest pain. The white cell count is 15.6 with hemoglobin 15.5 with a platelet count of 275. BUN 53 with a creatinine of 1.3. Sodium is at 130. Potassium is at 3.9. Remains on DuoNeb nebulizer treatments around-th e-clock. Remains on Symbicort. Remains on IV Solu-Medrol 60 mg every 8 hours. Rest of the medications remain unchanged. The patient remains on torsemide and Farxiga. She is also on long-term anticoagulation with Eliquis 2.5 mg p.o. twice a day. The patient is seen today March 08, 2025 in follow-up on the selective care unit. She is currently sitting up in a chair at the bedside. Awake and alert in no acute distress. Breathing easier today compared to yesterday. She is maintaining O2 saturations in the 90s on 5 L/min per nasal cannula. White count 16.0. Hemoglobin 13.0. Platelets 264. Sodium 131. Potassium 4.3. Bicarb 35. BUN 64. Creatinine 1.36. Glucose 148. She remains on DuoNeb inhalations, Symbicort, Solu-Medrol. Remains on oral diuretics. Anticoagulated with Eliquis . The patient is seen today March 09, 2025 in follow-up on the selective care unit. She is awake and alert in no acute distress. Sitting up in a chair at the bedside. Breathing better today compared to yesterday. Maintaining O2 saturations in the 90s on 5 L/min per nasal cannula. She remains on DuoNeb inhalations, Symbicort, Solu-Medrol. Anticoagulated with Eliquis. Blood culture revealed no growth. Glucose 175. Objective - Vital Signs Vital signs: Vital Signs Temp 97.6 F 03/09/25 12:00 Pulse 76 03/09/25 12:40 Resp 18 03/09/25 12:00 BP 121/62 03/09/25 12:00 Pulse Ox 92 L 03/09/25 12:00 FiO2 Intake & Output 03/08/25 03/09/25 03/09/25 18:59 06:59 18:59 Intake Total 260 480 Output Total 400 1300 100 Balance -140 -820 -100 Weight 65.5 kg Intake: IV 20 Invasive Line 2 20 Oral 240 480 Output: Urine 400 1300 100 Other: Voiding Method Diaper Diaper Diaper External Catheter External Catheter # Voids 1 # Bowel Movements 1 1 - Exam GENERAL EXAM: Alert, 84-year-old female, up in a chair, on 5 L nasal cannula, in no apparent distress. HEAD: Normocephalic. EYES: Normal reaction of pupils, equal size. NOSE: Clear with pink turbinates. THROAT: No erythema or exudates. NECK: No masses, no JVD. CHEST: No chest wall deformity. LUNGS: Equal air entry with crackles in the bilateral bases. CVS: S1 and S2 normal with no audible murmur, regular rhythm. ABDOMEN: No hepatosplenomegaly, normal bowel sounds, no guarding or rigidity. SPINE: No scoliosis or deformity SKIN: No rashes CENTRAL NERVOUS SYSTEM: No focal deficits, tone is normal in all 4 extremities. EXTREMITIES: There is no peripheral edema. No clubbing, no cyanosis. Peripheral pulses are intact. - Labs CBC & Chem 7: 03/08/25 06:54 03/08/25 06:54 Labs: Abnormal Lab Results - Last 24 Hours (Table) 03/08/25 03/08/25 03/09/25 Range/Units 16:40 20:37 06:06 POC Glucose (mg/dL) 208 H 144 H 183 H (70-110) mg/dL 03/09/25 Range/Units 11:46 POC Glucose (mg/dL) 175 H (70-110) mg/dL Microbiology - Last 24 Hours (Table) 03/03/25 17:07 Blood Culture - Final Blood Assessment and Plan Assessment: Acute on chronic hypoxic respiratory failure, currently on 5 liters of oxygen by nasal cannula. Acute COPD exacerbation, possible left lower lobe pneumonia, improving Chronic hypercapnic respiratory failure, compensated Acute on chronic shortness of breath secondary to above Coronary artery disease and previous NSTEMI and the patient has had a cardiac catheterization back in 2023 revealing RCA with tight lesion, PLV branch of the RCA with a critical lesion, mild disease in the left main, left circumflex mild to moderate diffuse disease, LAD mild to moderate diffuse disease and patient underwent PCI of the RCA and stenting of the PL branch of the RCA Abnormal troponins, rule out NSTEMI versus type II myocardial ischemia. Preserved LV function, diastolic heart failure with a normal ejection fraction of 55% Acute kidney injury, improving Hyperlipidemia Smoker Hypertension Chronic anxiety Hyperlipidemia Plan: The patient was seen and evaluated Labs and medications reviewed Currently on 5 L nasal cannula Titrate down the FiO2 as tolerated Continue DuoNeb inhalations Continue Symbicort Discontinue Solu-Medrol Initiate a prednisone taper Anticoagulated with Eliquis Remains on oral diuretics May require subacute rehab at discharge I have personally seen and examined the patient, performed the documentation and the assessment and plan as written. Number of minutes spent on the visit: 10 Dictation was produced using [employer] dictation software. Please excuse any grammatical, word or spelling errors.
[2025-03-09 16:44] LABS: Glucose,Whole Blood 207 mg/dL (70-110)
[2025-03-09 20:19] LABS: Glucose,Whole Blood 175 mg/dL (70-110)
[2025-03-10 06:07] LABS: Glucose,Whole Blood 122 mg/dL (70-110)
[2025-03-10 07:27] LABS: HGB 13.6 g/dL (12.0-15.0); MCH 28.1 pg (27.0-32.0); MCHC 32.4 g/dL (32.0-37.0); MCV 86.8 fL (80.0-97.0); Mean Platelet Volume 10.4 fL (9.5-12.2); Platelet Count 277 10*3/uL (140-440); RBC 4.84 10*6/uL (4.10-5.20); RDW 18.1 % (11.5-14.5); WBC 23.34 10*3/uL (4.50-10.00)
[2025-03-10 07:37] LABS: African American GFR (CKD) 52 (>60 ml/min/1.73 sqM); Anion Gap 4 mmol/L; Blood Urea Nitrogen 69 mg/dL (7-17); Calcium 8.9 mg/dL (8.4-10.2); Carbon Dioxide 36 mmol/L (22-30); Chloride 90 mmol/L (98-107); Glucose 112 mg/dL (74-99); Non-African American GFR(CKD) 46 (>60 ml/min/1.73 sqM); Potassium 4.3 mmol/L (3.5-5.1); Sodium 130 mmol/L (137-145)
[2025-03-10] MEDS: predniSONE 20 MG TAB PO SCH (09:39)
[2025-03-10 09:48] VITALS: RESP 18
[2025-03-10 11:33] LABS: Glucose,Whole Blood 104 mg/dL (70-110)
[2025-03-10 11:36] VITALS: BP 111/66; TEMP 97.6
--- NOTE | 2025-03-10 12:02 | P.DS ---
Providers Date of admission: 03/03/25 18:34 Expected date of discharge: 03/10/25 Attending physician: Kane Horvath Consults: 03/05/25 10:08 Consult Physician Urgent Consulting Provider: Deangelo Dykes Consult Reason/Comments: COPD exacerbation Do you want consulting provider notified?: Yes Primary care physician: [facility] Course: 84-year-old female with PMH of diastolic CHF (Echo from 11/27/2023 showed EF 55- 60%), CAD s/p 2 stents placed on 11/29/2023, hypertension and COPD (non complaint with home O2) who presents to the emergency department complaining of worsening shortness of breath. In the ED she underwent extensive evaluation. Blood pressure 115/66, heart rate 76, respiratory 18, SpO2 91% on 4 L nasal cannula. WBCs 12.56, hemoglobin 14.4, hematocrit 42.9, platelet 275; sodium 126, potassium 3.5, chloride 82, bicarb 38, BUN 47, creatinine 1.38, lactic acid 1.2, calcium 8.7, magnesium 1.9, total bilirubin 1.3, AST 33, ALT 21, alkaline phosp hatase 115, albumin 3.0; Troponin 0.495, 0.480, 0.298; BNP 20,800. Chest x-ray done in the ER showed showed evidence of lower lobe infiltrates. EKG done in the ER showed heart rate of 74, sinus rhythm, no ST segment elevation or depression seen, no T-wave inversions seen; QTc 442. Patient was admitted for CHF and COPD exacerbation. Pulmonary and Cardiology consulted. Started on Lasix IV BID, bronc hodilators and steroids. Procal was negative, antibiotics was discontinued. Elevated D-Dimer, venous duplex neg for DVT, V/Q scan showed low probability for PE. She was placed on a heparin infusion for 48H for medical treatment of NSTEMI. Repeat Echo showed EF 55-60% with mild LV thickness. Lasix IV eventually transitioned to Torsemide PO. Hospital course complicated with A-Fib with RVR, started on Eliquis and Metoprolol. Discharge Plans: Plans for SNF with insurance authorization. Diet = 1.5 L fluid restriction with low salt. Stop Plavix and start ASA + Eliquis. DC Losartan/HCTZ on discharge. Started on Farxiga. Bumex switched to Torsemide. Prednisone taper on discharge. Follow up with PCP within 1-2 days of discharge. Needs routine surveillance of renal cyst seen on US. Follow up with Pulmonary and Cardiology within 1 week of discharge. 03/10 Patient was seen and examined. Doing well. No complaints. 90% on 3L NC. CBC and BMP significant for WBC 23.34, Na 130, Cl 90, bicarb 36, BUN 69, Cr 1.13, gu 112. Discharge Plans: Stop Bumex, Losartan/HCTZ and Plavix. Decrease dose of Metoprolol. Continue Torsemide, Eliquis, KCl, Protonix, ASA, DuoNeb and Farxiga. Prednisone taper (40 mg PO QD x 3 days, 30 mg PO QD x 3 days, 20 mg PO QD x 3 days, 10 mg PO QD x 3 days). Follow up with PCP within 1-2 days, Cardiology and Pulmonary within 1 week of discharge. General: no distress, appears at stated age Derm: warm, dry Head: atraumatic, normocephalic, symmetric Mouth: no lip lesion, mucus membranes moist Cardiovascular: S1 S2 reg. No murmur. Lungs: Decreased BS bilaterally, no accessory muscle use Ext: no gross muscle atrophy, no edema, no contractures Neuro: No focal neurologic deficits. Psych: Alert and oriented. Discharge Diagnosis: Acute on chronic hypoxic respiratory failure secondary to HFpEF exacerbation + COPD exacerbation Contraction alkalosis likely secondary to diuresis Elevated D-Dimer New onset A-fib with RVR Elevated troponin with history of CAD status post stents History of upper GI bleed Chronic debility Decreased oral intake Hypervolemic hyponatremia Nonoliguric VINCENZO Depression and anxiety This complex discharge took 35 minutes to complete. Patient Condition at Discharge: Stable Plan - Discharge Summary Discharge Rx Participant: No New Discharge Prescriptions: New Loratadine [Claritin] 10 mg PO DAILY tab Torsemide [Demadex] 20 mg PO DAILY tab Apixaban [Eliquis] 2.5 mg PO BID tab Potassium Chloride ER [K-Dur 20] 20 meq PO DAILY tab guaiFENesin [Mucinex] 600 mg PO Q12HR PRN tab PRN Reason: Cough Pantoprazole [Protonix] 40 mg PO AC-BRKFST tab Acetaminophen Tab [Tylenol] 650 mg PO Q6HR PRN tab PRN Reason: Fever And/ Or Pain Aspirin 81 mg PO DAILY tab predniSONE [Deltasone] 40 mg PO DAILY tab Ipratropium-Albuterol Nebulize [Duoneb 0.5 mg-3 mg/3 ml Soln] 3 ml INHALATION RT-QID each Dapagliflozin Propanediol [Farxiga] 5 mg PO DAILY tab Metoprolol Succinate (ER) [Toprol XL] 25 mg PO DAILY tab Continue Cholecalciferol [Vitamin D3 (25 Mcg = 1000 Iu)] 25 mcg PO DAILY Ascorbic Acid [Vitamin C] 1,000 mg PO HS Escitalopram [Lexapro] 20 mg PO DAILY Atorvastatin [Lipitor] 40 mg PO DAILY Albuterol Inhaler [Ventolin Hfa Inhaler] 2 puff INHALATION RT-Q4H PRN PRN Reason: Shortness Of Breath traZODone HCL [Desyrel] 100 mg PO HS #3 tab Budesonide-Formot 160-4.5 Mcg [Symbicort 160-4.5 Mcg Inhaler] 2 puff INHALATION RT-BID #1 each Albuterol Nebulized [Ventolin Nebulized] 2.5 mg INHALATION RT-Q6H Nitroglycerin Sl Tabs [Nitrostat] 0.4 mg SL Q5M PRN PRN Reason: Chest Pain L.acidoph,Paracasei, B.lactis [Probiotic] 1 cap PO DAILY PRN PRN Reason: yeast [place] 3-6-9 1200mg 2 cap PO DAILY traMADol HCL 50 mg PO BID PRN #6 tab PRN Reason: Pain ALPRAZolam [Xanax] 0.5 mg PO BID PRN #6 tab PRN Reason: Anxiety Discontinued Metoprolol Tartrate [Lopressor] 25 mg PO BID #60 tab Losartan/Hydrochlorothiazide [Losartan-Hctz 100-25 mg Tab] 1 tab PO DAILY Bumetanide [Bumex] 1 - 2 mg PO DAILY Clopidogrel [Plavix] 75 mg PO DAILY #30 tab Discharge Medication List Budesonide-Formot 160-4.5 Mcg [Symbicort 160-4.5 Mcg Inhaler] 2 puff INHALATION RT-BID #1 each 12/07/23 [Rx] Albuterol Nebulized [Ventolin Nebulized] 2.5 mg INHALATION RT-Q6H 12/24/23 [History] Nitroglycerin Sl Tabs [Nitrostat] 0.4 mg SL Q5M PRN 12/30/23 [History] Albuterol Inhaler [Ventolin Hfa Inhaler] 2 puff INHALATION RT-Q4H PRN 03/04/25 [History] Ascorbic Acid [Vitamin C] 1,000 mg PO HS 03/04/25 [History] Atorvastatin [Lipitor] 40 mg PO DAILY 03/04/25 [History] Cholecalciferol [Vitamin D3 (25 Mcg = 1000 Iu)] 25 mcg PO DAILY 03/04/25 [History] Escitalopram [Lexapro] 20 mg PO DAILY 03/04/25 [History] L.acidoph,Paracasei, B.lactis [Probiotic] 1 cap PO DAILY PRN 03/04/25 [History] [place] 3-6-9 1200mg 2 cap PO DAILY 03/04/25 [History] ALPRAZolam [Xanax] 0.5 mg PO BID PRN #6 tab 03/10/25 [Rx] Acetaminophen Tab [Tylenol] 650 mg PO Q6HR PRN tab 03/10/25 [Rx] Apixaban [Eliquis] 2.5 mg PO BID tab 03/10/25 [Rx] Aspirin 81 mg PO DAILY tab 03/10/25 [Rx] Dapagliflozin Propanediol [Farxiga] 5 mg PO DAILY tab 03/10/25 [Rx] Ipratropium-Albuterol Nebulize [Duoneb 0.5 mg-3 mg/3 ml Soln] 3 ml INHALATION RT-QID each 03/10/25 [Rx] Loratadine [Claritin] 10 mg PO DAILY tab 03/10/25 [Rx] Metoprolol Succinate (ER) [Toprol XL] 25 mg PO DAILY tab 03/10/25 [Rx] Pantoprazole [Protonix] 40 mg PO AC-BRKFST tab 03/10/25 [Rx] Potassium Chloride ER [K-Dur 20] 20 meq PO DAILY tab 03/10/25 [Rx] Torsemide [Demadex] 20 mg PO DAILY tab 03/10/25 [Rx] guaiFENesin [Mucinex] 600 mg PO Q12HR PRN tab 03/10/25 [Rx] predniSONE [Deltasone] 40 mg PO DAILY tab 03/10/25 [Rx] traMADol HCL 50 mg PO BID PRN #6 tab 03/10/25 [Rx] traZODone HCL [Desyrel] 100 mg PO HS #3 tab 03/10/25 [Rx] Follow up Appointment(s)/Referral(s): Chucky Horne MD [STAFF PHYSICIAN] - 1 Week Urban Davalos MD [STAFF PHYSICIAN] - 1 Week [facility] [place], [NON-STAFF] - 1 Week Christopher Wood DO [Primary Care Provider] - 1-2 days Activity/Diet/Wound Care/Special Instructions: Diet: NDD3 chopped, 1.5 L fluid restriction Discharge Disposition: HOME SELF-CARE
[2025-03-10 13:05] VITALS: PULSE 72
--- NOTE | 2025-03-10 15:33 | P.PN ---
Subjective Progress Note Date: 03/10/25 This is a 85-year-old female patient, known having COPD, and previous history of coronary disease and coronary stenting that was performed back in 2023 following an acute NSTEMI and cardiac catheterization at that time revealed RCA with tight lesion, PLV branch of the RCA with a critical lesion, mild disease in the left main, left circumflex mild to moderate diffuse disease, LAD mild to moderate diffuse disease and patient underwent PCI of the RCA and stenting of the PL branch of the RCA. Patient also known to have hyperlipidemia and diastolic heart failure. The patient has been in a poor health condition. She has been smoking. She has not had appropriate medical follow-up over the past 1 year. She came into the hospital having increased cough congestion chest tightness and wheezing and a p ulmonary consultation was requested. The patient has also noted to be slightly confused at time of admission. No nausea. No emesis. No fever or chills. She was hypoxic in the emergency department with a pulse ox of 80%. She has been recommended to use oxygen in the past however the patient has not been consistently using oxygen. Cardiology also was involved in the case Initially the patient was placed on 15 L of oxygen by nasal cannula and she was subsequently weaned down to 6 L. Workup included a white cell count of 15.5 with a hemoglobin 15.3 and the platelet count of 248. Blood gas showed a pH of 7.48 with a PCO2 of 62 and PO2 of 59 Electrolytes were showing chronic metabolic alkalosis with a serum bicarb of 42 and a potassium level of 3.8. BUN 44 with a creatinine of 1.03 improved from a baseline of 1.27. Troponins were 0.4 and 0.4 at 0.2 respectively x 3 Chest x-ray showed COPD with questionable left lower lobe atelectasis/infiltrate. Doppler of the lower extremity showed no evidence of any DVT. The ventilation/perfusion scan was low probability for pulmonary emb olism. Echocardiogram done showed a preserved LV function with an ejection fraction of 55 to 60%, no significant valvular heart disease. No significant pulmonary hypertension. EKG showed a normal sinus rhythm with left anterior fascicular block. The patient is currently on DuoNeb, Symbicort and IV Solu-Medrol was added 60 mg IV push every 6 hours. She is also on a combination of aspirin and Plavix. Clinically feeling better. She has poor insight in her condition. 03/06/2025, the patient is being seen for a follow-up. Slightly improved compared to yesterday. Cough and congestion is improved compared to yesterday. She has no specific complaints. She remains on DuoNeb, Symbicort and IV Solu-Medrol. The patient has a white cell count of 15.7, hemoglobin 14.2 and a platelet count of 301. BUN is 44 with a creatinine of 1.32 and sodium of 131. Creatinine is chronically elevated and the patient has chronic kidney disease. No chest pain. No altered mentation. No other complaints otherwise for now. Echocardiogram showed a preserved LV function. Cardiology on the case, IV Lasix has been discontinued. 03/07/2025, the patient is being seen for a follow-up. The patient is calm and comfortable. Less bronchospastic and wheezy. No new complaints. Oxygenation is stable and the patient is currently on 5 L of oxygen by nasal cannula with a pulse ox of 91%. No chest pain. The white cell count is 15.6 with hemoglobin 15.5 with a platelet count of 275. BUN 53 with a creatinine of 1.3. Sodium is at 130. Potassium is at 3.9. Remains on DuoNeb nebulizer treatments around-th e-clock. Remains on Symbicort. Remains on IV Solu-Medrol 60 mg every 8 hours. Rest of the medications remain unchanged. The patient remains on torsemide and Farxiga. She is also on long-term anticoagulation with Eliquis 2.5 mg p.o. twice a day. The patient is seen today March 08, 2025 in follow-up on the selective care unit. She is currently sitting up in a chair at the bedside. Awake and alert in no acute distress. Breathing easier today compared to yesterday. She is maintaining O2 saturations in the 90s on 5 L/min per nasal cannula. White count 16.0. Hemoglobin 13.0. Platelets 264. Sodium 131. Potassium 4.3. Bicarb 35. BUN 64. Creatinine 1.36. Glucose 148. She remains on DuoNeb inhalations, Symbicort, Solu-Medrol. Remains on oral diuretics. Anticoagulated with Eliquis . The patient is seen today March 09, 2025 in follow-up on the selective care unit. She is awake and alert in no acute distress. Sitting up in a chair at the bedside. Breathing better today compared to yesterday. Maintaining O2 saturations in the 90s on 5 L/min per nasal cannula. She remains on DuoNeb inhalations, Symbicort, Solu-Medrol. Anticoagulated with Eliquis. Blood culture revealed no growth. Glucose 175. The patient is seen today March 10, 2025 in follow-up on the selective care unit. She is currently sitting up in a chair at the bedside. Awake and alert in no acute distress. Maintaining O2 saturations in the 90s on 2 L/min per nasal cannula. She has been afebrile. Hemodynamically stable. Blood culture revealed no growth. White count 23.3. Hemoglobin 13.6. Platelets 277. Sodium 130. Potassium 4.3. Bicarb 36. BUN 69. Creatinine 1.13. Glucose 112. She remains on DuoNeb inhalations, Symbicort, prednisone taper. Eliquis for anticoagulation. Objective - Vital Signs Vital signs: Vital Signs Temp 97.6 F 03/10/25 11:33 Pulse 72 03/10/25 13:03 Resp 18 03/10/25 11:33 BP 111/66 03/10/25 11:33 Pulse Ox 90 L 03/10/25 11:33 FiO2 Intake & Output 03/09/25 03/10/25 03/10/25 18:59 06:59 18:59 Intake Total 662 20 730 Output Total 900 701 800 Balance -238 -681 -70 Weight 67 kg Intake: IV 20 10 Invasive Line 2 20 10 Oral 662 720 Output: Urine 900 700 800 Stool 1 Other: Voiding Method Diaper Bedside Commode Bedside Commode External Catheter Diaper Diaper External Catheter # Bowel Movements 1 1 1 - Exam GENERAL EXAM: Alert, pleasant 84-year-old female, up in a chair, on 2 L nasal cannula, in no apparent distress. HEAD: Normocephalic. EYES: Normal reaction of pupils, equal size. NOSE: Clear with pink turbinates. THROAT: No erythema or exudates. NECK: No masses, no JVD. CHEST: No chest wall deformity. LUNGS: Equal air entry with crackles in the bilateral bases. CVS: S1 and S2 normal with no audible murmur, regular rhythm. ABDOMEN: No hepatosplenomegaly, normal bowel sounds, no guarding or rigidity. SPINE: No scoliosis or deformity SKIN: No rashes CENTRAL NERVOUS SYSTEM: No focal deficits, tone is normal in all 4 extremities. EXTREMITIES: There is no peripheral edema. No clubbing, no cyanosis. Peripheral pulses are intact. - Labs CBC & Chem 7: 03/10/25 06:30 03/10/25 06:30 Labs: Abnormal Lab Results - Last 24 Hours (Table) 03/09/25 03/09/25 03/10/25 Range/Units 16:42 20:18 06:05 WBC (4.50-10.00) 10*3/uL Sodium (137-145) mmol/L Chloride (98-107) mmol/L Carbon Dioxide (22-30) mmol/L BUN (7-17) mg/dL Creatinine (0.52-1.04) mg/dL Glucose (74-99) mg/dL POC Glucose (mg/dL) 207 H 175 H 122 H (70-110) mg/dL 03/10/25 03/10/25 Range/Units 06:30 06:30 WBC 23.34 H (4.50-10.00) 10*3/uL Sodium 130 L (137-145) mmol/L Chloride 90 L (98-107) mmol/L Carbon Dioxide 36 H (22-30) mmol/L BUN 69 H (7-17) mg/dL Creatinine 1.13 H (0.52-1.04) mg/dL Glucose 112 H (74-99) mg/dL POC Glucose (mg/dL) (70-110) mg/dL Assessment and Plan Assessment: Acute on chronic hypoxic respiratory failure, currently on 2 liters of oxygen by nasal cannula. Acute COPD exacerbation, possible left lower lobe pneumonia, improving Chronic hypercapnic respiratory failure, compensated Acute on chronic shortness of breath secondary to above Coronary artery disease and previous NSTEMI and the patient has had a cardiac catheterization back in 2023 revealing RCA with tight lesion, PLV branch of the RCA with a critical lesion, mild disease in the left main, left circumflex mild to moderate diffuse disease, LAD mild to moderate diffuse disease and patient underwent PCI of the RCA and stenting of the PL branch of the RCA Abnormal troponins, rule out NSTEMI versus type II myocardial ischemia. Preserved LV function, diastolic heart failure with a normal ejection fraction of 55% Acute kidney injury, improving Hyperlipidemia Smoker Hypertension Chronic anxiety Hyperlipidemia Plan: The patient was seen and evaluated Labs and medications reviewed Currently on 2 L nasal cannula Titrate down the FiO2 as tolerated Continue DuoNeb inhalations Continue Symbicort Continue a prednisone taper Anticoagulated with Eliquis Remains on oral diuretics Plan is for [facility] at discharge I have personally seen and examined the patient, performed the documentation and the assessment and plan as written. Number of minutes spent on the visit: 10 Dictation was produced using [employer] dictation software. Please excuse any grammatical, word or spelling errors.
== END 2025-03-10 15:13 | DRG 280 ==
LOC: EC 16:20 → 3SCARD 18:34
PROVIDERS: ADMIT Student in an Organized Health Care Education/Training Program; ATTEND Student in an Organized Health Care Education/Training Program
DX: I13.0 Hypertensive heart and chronic kidney disease with heart failure and stage 1 through stage 4 chronic kidney disease, or unspecified chronic kidney disease (principal); I50.33 Acute on chronic diastolic (congestive) heart failure; I21.4 Non-ST elevation (NSTEMI) myocardial infarction; J96.21 Acute and chronic respiratory failure with hypoxia; J96.22 Acute and chronic respiratory failure with hypercapnia; J18.9 Pneumonia, unspecified organism; E87.3 Alkalosis; E87.1 Hypo-osmolality and hyponatremia; E86.1 Hypovolemia; I27.20 Pulmonary hypertension, unspecified; J44.0 Chronic obstructive pulmonary disease with (acute) lower respiratory infection; F32.A Depression, unspecified; N18.9 Chronic kidney disease, unspecified; I34.81 Nonrheumatic mitral (valve) annulus calcification; J44.1 Chronic obstructive pulmonary disease with (acute) exacerbation; L03.115 Cellulitis of right lower limb; N17.9 Acute kidney failure, unspecified; L03.116 Cellulitis of left lower limb; I48.0 Paroxysmal atrial fibrillation; E78.5 Hyperlipidemia, unspecified; F17.210 Nicotine dependence, cigarettes, uncomplicated; E87.6 Hypokalemia; F41.9 Anxiety disorder, unspecified; I25.10 Atherosclerotic heart disease of native coronary artery without angina pectoris; T50.2X5A Adverse effect of carbonic-anhydrase inhibitors, benzothiadiazides and other diuretics, initial encounter; R79.1 Abnormal coagulation profile; I44.4 Left anterior fascicular block; I87.2 Venous insufficiency (chronic) (peripheral); T38.0X5A Adverse effect of glucocorticoids and synthetic analogues, initial encounter; N28.1 Cyst of kidney, acquired; I34.2 Nonrheumatic mitral (valve) stenosis; R29.6 Repeated falls; Z95.5 Presence of coronary angioplasty implant and graft; Z91.148 Patient's other noncompliance with medication regimen for other reason; Z79.899 Other long term (current) drug therapy; Z79.82 Long term (current) use of aspirin; Z79.51 Long term (current) use of inhaled steroids; Z79.02 Long term (current) use of antithrombotics/antiplatelets; Z79.01 Long term (current) use of anticoagulants; I25.2 Old myocardial infarction; Z88.5 Allergy status to narcotic agent
CPT/HCPCS: 36415; 36600; 71045; 71046; 76770; 78582; 80048; 80053; 82805; 83605; 83735; 83880; 83930; 83935; 84145; 84295; 84300; 84484; 85025; 85027; 85379; 85610; 85730; 87040; 87636; 93005; 93306; 93970; 94640; 94760; 96365; 96366; 96367; 96368; 96375; 99291

== ENCOUNTER 2025-03-31 12:20 | Inpatient (IN) | payer MEDICARE ==
[2025-03-31] MEDS: IPRATROPIUM-ALBUTEROL 3 ML NEB INHALATION STA (13:00)
[2025-03-31 13:10] LABS: Basophils # (A) 0.05 10*3/uL (0.00-0.10); Basophils % (A) 0.4 %; Eosinophils # (A) 0.16 10*3/uL (0.04-0.35); Eosinophils % (A) 1.1 %; HCT 35.6 % (37.2-46.3); HGB 11.5 g/dL (12.0-15.0); Lymphocytes # (A) 2.93 10*3/uL (0.90-5.00); Lymphocytes % (A) 20.8 %; MCH 27.8 pg (27.0-32.0); MCHC 32.3 g/dL (32.0-37.0); MCV 86.2 fL (80.0-97.0); Monocytes # (A) 1.39 10*3/uL (0.20-1.00); Monocytes % (A) 9.9 %; Neutrophils # (A) 9.45 10*3/uL (1.80-7.70); Neutrophils % (A) 66.9 %; Platelet Count 370 10*3/uL (140-440); RBC 4.13 10*6/uL (4.10-5.20); RDW 19.4 % (11.5-14.5); WBC 14.11 10*3/uL (4.50-10.00)
[2025-03-31] MEDS: methylPREDNISolone SOD SUCCI 125 MG/2 ML VIAL IV STA (13:24)
[2025-03-31 13:27] LABS: ALT 56 U/L (4-34); AST 26 U/L (14-36); African American GFR (CKD) 68 (>60 ml/min/1.73 sqM); Albumin 2.7 g/dL (3.5-5.0); Alkaline Phosphatase 197 U/L (38-126); Anion Gap 6 mmol/L; Blood Urea Nitrogen 22 mg/dL (7-17); Calcium 9.1 mg/dL (8.4-10.2); Carbon Dioxide 36 mmol/L (22-30); Chloride 91 mmol/L (98-107); Glucose 82 mg/dL (74-99); INR 1.0 (<1.2); Magnesium 2.1 mg/dL (1.6-2.3); Non-African American GFR(CKD) 59 (>60 ml/min/1.73 sqM); Partial Thromboplastin Time 23.4 sec (22.0-30.0); Potassium 4.1 mmol/L (3.5-5.1); Prothrombin Time 10.8 sec (10.0-12.5); Sodium 133 mmol/L (137-145); Total Protein 5.8 g/dL (6.3-8.2)
[2025-03-31 13:36] LABS: NT-Pro-B-Type Natriuretic Pept 964 pg/mL
--- NOTE | 2025-03-31 15:05 | XR ---
EXAMINATION TYPE: XR chest 2V DATE OF EXAM: 03/31/2025 3:01 PM COMPARISON: Chest radiographs from 03/25/2025 TECHNIQUE: XR chest 2V Frontal and lateral views of the chest. CLINICAL INDICATION:Female, 84 years old with history of difficulty breathing; FINDINGS: Lungs/Pleura: There is no evidence of pleural effusion or pneumothorax. Similar bibasilar airspace op acities. Pulmonary vascularity: Unremarkable. Heart/mediastinum: Cardiomediastinal silhouette is prominent in size. Atherosclerotic calcifications are seen in the aorta. Musculoskeletal: Multiple level degenerative disc disease changes seen throughout the spine. IMPRESSION: Similar bibasilar airspace opacities favored to represent atelectasis versus less likely infiltrates. [facility], , 03/31/2025 3:03 PM
--- NOTE | 2025-03-31 15:26 | ED ---
SOB HPI - General Chief Complaint: Shortness of Breath Stated Complaint: DEJUAN Time Seen by Provider: 03/31/25 12:32 Source: patient, EMS, RN notes reviewed Mode of arrival: EMS Limitations: no limitations - History of Present Illness Initial Comments: 84-year-old female presents emergency department with chief complaint of shortness of breath. Patient was sent in by her home health care nurse for hypoxia had a pulse ox in the 70s. Patient does have a history of COPD and CHF is not always compliant with oxygen treatment. Patient states that she has had multiple recent admissions and was at [facility]. Patient denies chest pain she states she does have shortness of breath, wheezing patient denies any significant leg swelling no abdominal pain. - Related Data Home Medications Medication Instructions Recorded Confirmed Albuterol Nebulized [Ventolin 2.5 mg INHALATION RT-Q6H 12/24/23 03/04/25 Nebulized] Nitroglycerin Sl Tabs [Nitrostat] 0.4 mg SL Q5M PRN 12/30/23 03/04/25 Albuterol Inhaler [Ventolin Hfa 2 puff INHALATION RT-Q4H PRN 03/04/25 03/04/25 Inhaler] Ascorbic Acid [Vitamin C] 1,000 mg PO HS 03/04/25 03/04/25 Atorvastatin [Lipitor] 40 mg PO DAILY 03/04/25 03/04/25 Cholecalciferol [Vitamin D3 (25 25 mcg PO DAILY 03/04/25 03/04/25 Mcg = 1000 Iu)] Escitalopram [Lexapro] 20 mg PO DAILY 03/04/25 03/04/25 L.acidoph,Paracasei, B.lactis 1 cap PO DAILY PRN 03/04/25 03/04/25 [Probiotic] Roland 3-6-9 1200mg 2 cap PO DAILY 03/04/25 03/04/25 Previous Rx's Medication Instructions Recorded Budesonide-Formot 160-4.5 Mcg 2 puff INHALATION RT-BID #1 each 12/07/23 [Symbicort 160-4.5 Mcg Inhaler] ALPRAZolam [Xanax] 0.5 mg PO BID PRN #6 tab 03/10/25 Acetaminophen Tab [Tylenol] 650 mg PO Q6HR PRN tab 03/10/25 Apixaban [Eliquis] 2.5 mg PO BID tab 03/10/25 Aspirin 81 mg PO DAILY tab 03/10/25 Dapagliflozin Propanediol [Farxiga] 5 mg PO DAILY tab 03/10/25 Ipratropium-Albuterol Nebulize 3 ml INHALATION RT-QID each 03/10/25 [Duoneb 0.5 mg-3 mg/3 ml Soln] Loratadine [Claritin] 10 mg PO DAILY tab 03/10/25 Metoprolol Succinate (ER) [Toprol 25 mg PO DAILY tab 03/10/25 XL] Pantoprazole [Protonix] 40 mg PO AC-BRKFST tab 03/10/25 Potassium Chloride ER [K-Dur 20] 20 meq PO DAILY tab 03/10/25 Torsemide [Demadex] 20 mg PO DAILY tab 03/10/25 guaiFENesin [Mucinex] 600 mg PO Q12HR PRN tab 03/10/25 predniSONE [Deltasone] 40 mg PO DAILY tab 03/10/25 traMADol HCL 50 mg PO BID PRN #6 tab 03/10/25 traZODone HCL [Desyrel] 100 mg PO HS #3 tab 03/10/25 Allergies Allergy/AdvReac Type Severity Reaction Status Date / Time codeine AdvReac Itching Verified 03/31/25 12:30 Review of Systems ROS Statement: Those systems with pertinent positive or pertinent negative responses have been documented in the HPI. ROS Other: All systems not noted in ROS Statement are negative. 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, covid Last Myocardial Infarction Date:: 11/23 History of Any Multi-Drug Resistant Organisms: None Reported Past Surgical History: Heart Catheterization With Stent, Hysterectomy Past Anesthesia/Blood Transfusion Reactions: No Reported Reaction Date of Last Stent Placement:: 11/27/23 Past Psychological History: Anxiety, Depression Smoking Status: Current some day smoker Past Alcohol Use History: None Reported Past Drug Use History: None Reported - Past Family History Mother Family Medical History: Myocardial Infarction (MA) Father Family Medical History: CVA/TIA General Exam Limitations: no limitations General appearance: alert, in no apparent distress Head exam: Present: atraumatic, normocephalic, normal inspection Eye exam: Present: normal appearance, PERRL, EOMI. Absent: scleral icterus, conjunctival injection, periorbital swelling ENT exam: Present: normal exam, normal oropharynx, mucous membranes moist Neck exam: Present: normal inspection, full ROM. Absent: tenderness, meningismus, lymphadenopathy Respiratory exam: Present: normal lung sounds bilaterally, wheezes. Absent: respiratory distress, rales, rhonchi, stridor Cardiovascular Exam: Present: regular rate, normal rhythm, normal heart sounds. Absent: systolic murmur, diastolic murmur, rubs, gallop, clicks GI/Abdominal exam: Present: soft, normal bowel sounds. Absent: distended, tenderness, guarding, rebound, rigid Course Vital Signs 03/31/25 03/31/25 03/31/25 12:24 13:00 13:08 Pulse Rate 86 83 82 Respiratory 18 Rate Blood Pressure 120/63 O2 Sat by Pulse 89 L Oximetry 03/31/25 03/31/25 13:17 13:29 Pulse Rate 84 Respiratory 22 22 Rate Blood Pressure 93/61 O2 Sat by Pulse 98 Oximetry Medical Decision Making - Medical Decision Making Was pt. sent in by a medical professional or institution (, PA, SALES REPRESENTATIVE GRAPHIC ART, urgent care, hospital, or long term...) When possible be specific @ -[Home health care nurse Did you speak to anyone other than the patient for history (EMS, parent, family, police, friend...)? What history was obtained from this source @ -No Did you review nursing and triage notes (agree or disagree)? Why? @ -I reviewed and agree with nursing and triage notes Were old charts reviewed (outside hosp., previous admission, EMS record, old EKG, old radiological studies, urgent care reports/EKG's, long term records)? Report findings @ -No old charts were reviewed Differential Diagnosis (chest pain, altered mental status, abdominal pain women, abdominal pain men, vaginal bleeding, weakness, fever, dyspnea, syncope, headache, dizziness, GI bleed, back pain, seizure, CVA, palpatations, mental health, musculoskeletal)? @ -Differential Dyspnea: Coronary syndrome, arrhythmia, tamponade, asthma, COPD, pulmonary embolism, pneumonia, pneumothorax, pulmonary effusion, anaphylaxis, diabetic ketoacidosis, flailed chest, pulmonary contusion, diaphragmatic rupture, anemia, neuromuscular, this is not meant to be an all-inclusive list. EKG interpreted by me (3pts min.). @ -As above X-rays interpreted by me (1pt min.). @ -Chest x-ray shows mild atelectasis, no definite infiltrate. CT interpreted by me (1pt min.). @ -None done U/S interpreted by me (1pt. min.). @ -None done What testing was considered but not performed or refused? (CT, X-rays, U/S, labs)? Why? @ -None What meds were considered but not given or refused? Why? @ -None Did you discuss the management of the patient with other professionals (professionals i.e. DrJeannie, PA, SALES REPRESENTATIVE [employer]APHIC ART, lab, RT, psych nurse, social security specialist, burglar alarm mechanic, teacher, information security officer, home health care case manager)? Give summary @ -Sound physician for admission Was smoking cessation discussed for >3mins.? @ -No Was critical care preformed (if so, how long)? @ -No Were there social determinants of health that impacted care today? How? (Homelessness, low income, unemployed, alcoholism, drug addiction, transportation, low edu. Level, literacy, decrease access to med. care, residential, rehab)? @ -No Was there de-escalation of care discussed even if they declined (Discuss DNR or withdrawal of care, Hospice)? DNR status @ -No What co-morbidities impacted this encounter? (DM, HTN, Smoking, COPD, CAD, Cancer, CVA, ARF, Chemo, Hep., AIDS, mental health diagnosis, sleep apnea, morbid obesity)? @ -COPD, CHF Was patient admitted / discharged? Hospital course, mention meds given and route, prescriptions, significant lab abnormalities, going to OR and other pertinent info. @ -Admitted patient requiring further oxygenation patient has hypoxia. Patient has diffuse wheezing will be admitted for IV steroids, breathing treatments and pulmonary evaluation. Undiagnosed new problem with uncertain prognosis? @ -No Drug Therapy requiring intensive monitoring for toxicity (Heparin, Nitro, Insulin, Cardizem)? @ -No Were any procedures done? @ -No Diagnosis/symptom? @ -COPD exacerbation, hypoxia Acute, or Chronic, or Acute on Chronic? @ -Acute Uncomplicated (without systemic symptoms) or Complicated (systemic symptoms)? @ -Complicated Side effects of treatment? @ -No Exacerbation, Progression, or Severe Exacerbation? @ -No Poses a threat to life or bodily function? How? (Chest pain, USA, MA, pneumonia, PE, COPD, DKA, ARF, appy, cholecystitis, CVA, Diverticulitis, Homicidal, Suicidal, threat to staff... and all critical care pts) @ -Yes risk to pulmonary function - Lab Data Result diagrams: 03/31/25 12:59 03/31/25 12:59 Lab Results 03/31/25 03/31/25 03/31/25 Range/Units 12:59 12:59 12:59 WBC 14.11 H (4.50-10.00) 10*3/uL RBC 4.13 (4.10-5.20) 10*6/uL Hgb 11.5 L (12.0-15.0) g/dL Hct 35.6 L (37.2-46.3) % MCV 86.2 (80.0-97.0) fL MCH 27.8 (27.0-32.0) pg MCHC 32.3 (32.0-37.0) g/dL Plt Count 370 (140-440) 10*3/uL MPV 9.5 (9.5-12.2) fL Immature Gran % (Auto) 0.9 % Neutrophils % 66.9 % Lymphocytes % 20.8 % Monocytes % 9.9 % Eosinophils % 1.1 % Basophils % 0.4 % Immature Gran # 0.13 H (0.00-0.04) 10*3/uL Neutrophils # 9.45 H (1.80-7.70) 10*3/uL Lymphocytes # 2.93 (0.90-5.00) 10*3/uL Monocytes # 1.39 H (0.20-1.00) 10*3/uL Eosinophils # 0.16 (0.04-0.35) 10*3/uL Basophils # 0.05 (0.00-0.10) 10*3/uL PT 10.8 (10.0-12.5) sec INR 1.0 (<1.2) APTT 23.4 (22.0-30.0) sec Sodium 133 L (137-145) mmol/L Potassium 4.1 (3.5-5.1) mmol/L Chloride 91 L (98-107) mmol/L Carbon Dioxide 36 H (22-30) mmol/L Anion Gap 6 mmol/L BUN 22 H (7-17) mg/dL Creatinine 0.91 (0.52-1.04) mg/dL Est GFR (CKD-EPI)AfAm 68 (>60 ml/min/1.73 sqM) Est GFR (CKD-EPI)NonAf 59 (>60 ml/min/1.73 sqM) Glucose 82 (74-99) mg/dL Plasma Lactic Acid Bryan (0.7-2.0) mmol/L Calcium 9.1 (8.4-10.2) mg/dL Magnesium 2.1 (1.6-2.3) mg/dL Total Bilirubin 0.9 (0.2-1.3) mg/dL AST 26 (14-36) U/L ALT 56 H (4-34) U/L Alkaline Phosphatase 197 H (38-126) U/L Troponin I (0.000-0.034) ng/mL NT-Pro-B Natriuret Pep 964 pg/mL Total Protein 5.8 L (6.3-8.2) g/dL Albumin 2.7 L (3.5-5.0) g/dL 03/31/25 03/31/25 Range/Units 12:59 12:59 WBC (4.50-10.00) 10*3/uL RBC (4.10-5.20) 10*6/uL Hgb (12.0-15.0) g/dL Hct (37.2-46.3) % MCV (80.0-97.0) fL MCH (27.0-32.0) pg MCHC (32.0-37.0) g/dL Plt Count (140-440) 10*3/uL MPV (9.5-12.2) fL Immature Gran % (Auto) % Neutrophils % % Lymphocytes % % Monocytes % % Eosinophils % % Basophils % % Immature Gran # (0.00-0.04) 10*3/uL Neutrophils # (1.80-7.70) 10*3/uL Lymphocytes # (0.90-5.00) 10*3/uL Monocytes # (0.20-1.00) 10*3/uL Eosinophils # (0.04-0.35) 10*3/uL Basophils # (0.00-0.10) 10*3/uL PT (10.0-12.5) sec INR (<1.2) APTT (22.0-30.0) sec Sodium (137-145) mmol/L Potassium (3.5-5.1) mmol/L Chloride (98-107) mmol/L Carbon Dioxide (22-30) mmol/L Anion Gap mmol/L BUN (7-17) mg/dL Creatinine (0.52-1.04) mg/dL Est GFR (CKD-EPI)AfAm (>60 ml/min/1.73 sqM) Est GFR (CKD-EPI)NonAf (>60 ml/min/1.73 sqM) Glucose (74-99) mg/dL Plasma Lactic Acid Bryan 1.0 (0.7-2.0) mmol/L Calcium (8.4-10.2) mg/dL Magnesium (1.6-2.3) mg/dL Total Bilirubin (0.2-1.3) mg/dL AST (14-36) U/L ALT (4-34) U/L Alkaline Phosphatase (38-126) U/L Troponin I <0.012 (0.000-0.034) ng/mL NT-Pro-B Natriuret Pep pg/mL Total Protein (6.3-8.2) g/dL Albumin (3.5-5.0) g/dL - EKG Data -: EKG Interpreted by [facility] EKG Comments: EKG performed at 13: 01 sinus rhythm rate of 83 UT 172 QRS 86 QT/QTc 387/427 Disposition Clinical Impression: COPD exacerbation, Hypoxia Disposition: ADMITTED IP TO THIS HOSP Condition: Fair Referrals: Christopher Wood DO [Primary Care Provider] - 1-2 days Time of Disposition: 15:26
[2025-03-31] MEDS ORDERED: NALOXONE 0.4 MG/ML 1 ML VIAL IVP PRN (15:40)
[2025-03-31] MEDS ORDERED: IPRATROPIUM-ALBUTEROL 3 ML NEB INHALATION PRN (15:40)
[2025-03-31 18:05] LABS: VBG HCO3 35.0 mmol/L (24-28); VBG PCO2 55.0 mmHg (37-51); VBG PH 7.42 (7.31-7.41)
--- NOTE | 2025-03-31 18:19 | P.HPIM ---
History of Present Illness H&P Date: 03/31/25 Chief Complaint: shortness of breath 84 y.o female with PMHx of COPD (on home oxygen, however pt does not recall how many liters) and diastolic CHF (most recent EF 55-60% on 03/03/2025) who presents to the ED with shortness of breath and pulse ox reading in 70s. Of note pt was recently admitted in February 2025 with similar complaints, and when she was newly diagnosed with A. fib with RVR. Pt states she is feels "tired," otherwise denies any headache, or chest pain, fevers or chills. She reports to be living on her own, and ambulates with a walker, and has a home health aid. PMHx and PSHx: as above, hypertension, NSTEMI s/p 2 stent placement (11/2023) SHx: smoker for >45 years (unable to account number of cigarettes but < 1 pack per week) CXR and EKG obtained in ED, with CXR showing bibasilar airspace opacities representing atelectasis, and EKG showing normal sinus rhythm. Initial labs significant for WBC 14.1, Na 133, bicarb 36. Vitals: - on arrival: BP 120/63, HR 86, RR 18, 89% on 4L NC - most recent: BP 113/58, HR 81, RR 20, 93% on 4L NC Review of systems: Pertinent positives and negatives as discussed in HPI, a complete review of systems was performed and all other systems are negative. Physical examination: Vital signs reviewed General: non toxic, no distress, appears at stated age, normal weight Derm: no unusual rashes/lesions, warm Head: atraumatic, normocephalic, symmetric Eyes: EOMI, anicteric sclera ENT: Nose and ears atraumatic Mouth: no lip lesion, mucus membranes moist Cardiovascular: S1S2 reg, no murmur Lungs: bibasilar rales, expiratory wheezing on auscultation Abdominal: soft, nontender to palpation, no guarding Ext: 1+ pitting edema in the bilateral lower extremities to above the knee Neuro: A&O x3 Psych: appropriate affect Assessment/Plan: 84 y.o female with PMHx of COPD (on home oxygen, however pt does not recall how many liters) and diastolic CHF (most recent EF 55-60% on 03/03/2025) who presents to the ED with shortness of breath and pulse ox reading in 70s. # Acute COPD exacerbation #acute on chronic hypoxic respiratory failure -DuoNebs every 2 hours as needed, 4 times daily scheduled and IV Solu-Medrol 60 every 6 hours for acute exacerbation - on NC currently 4L, wean as appropriate to maintain SpO2 88-92% - obtain VBG to determine compensation status #leukocytosis, steroid-induced versus reactive -Cepheid pending - monitor for any febrile temps - monitor WBC count #mild to moderate protein calorie malnurition - monitor albumin #metabolic alkalosis - obtain venous blood gas to determine compensation status - monitor BMP #new onset A fib (from previous admission) - on eliquis since last discharge, will complete med rec and order accordingly #Mild hyponatremia - Possibly in the setting of diuretic use - Continue to trend Chronic: Diastolic CHF, not in exacerbation Type 2 diabetes? Hypertension Anxiety/depression Resume home meds once reconciled by pharmacy DVT prophylaxis: SCDs The patient is admitted with an anticipated more than 2 midnight stay for evaluation of COPD exacerbation and acute on chronic hypoxic respiratory failure. CODE STATUS: full code Anticipated discharge place: pending clinical course Temi Dickson MD PGY1 FM I have seen and evaluated the patient today. Discussed with the resident and agree with the residents finding and plan as documented in the resident's note. Changes highlighted in blue font. 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, covid Last Myocardial Infarction Date:: 11/23 History of Any Multi-Drug Resistant Organisms: None Reported Past Surgical History: Heart Catheterization With Stent, Hysterectomy Past Anesthesia/Blood Transfusion Reactions: No Reported Reaction Date of Last Stent Placement:: 11/27/23 Past Psychological History: Anxiety, Depression Smoking Status: Current some day smoker Past Alcohol Use History: None Reported Past Drug Use History: None Reported - Past Family History Mother Family Medical History: Myocardial Infarction (PR) Father Family Medical History: CVA/TIA Medications and Allergies Home Medications Medication Instructions Recorded Confirmed Type Budesonide-Formot 160-4.5 Mcg 2 puff INHALATION RT-BID #1 each 12/07/23 03/04/25 Rx [Symbicort 160-4.5 Mcg Inhaler] Albuterol Nebulized [Ventolin 2.5 mg INHALATION RT-Q6H 12/24/23 03/04/25 History Nebulized] Nitroglycerin Sl Tabs [Nitrostat] 0.4 mg SL Q5M PRN 12/30/23 03/04/25 History Albuterol Inhaler [Ventolin Hfa 2 puff INHALATION RT-Q4H PRN 03/04/25 03/04/25 History Inhaler] Ascorbic Acid [Vitamin C] 1,000 mg PO HS 03/04/25 03/04/25 History Atorvastatin [Lipitor] 40 mg PO DAILY 03/04/25 03/04/25 History Cholecalciferol [Vitamin D3 (25 25 mcg PO DAILY 03/04/25 03/04/25 History Mcg = 1000 Iu)] Escitalopram [Lexapro] 20 mg PO DAILY 03/04/25 03/04/25 History L.acidoph,Paracasei, B.lactis 1 cap PO DAILY PRN 03/04/25 03/04/25 History [Probiotic] [place] 3-6-9 1200mg 2 cap PO DAILY 03/04/25 03/04/25 History ALPRAZolam [Xanax] 0.5 mg PO BID PRN #6 tab 03/10/25 Rx Acetaminophen Tab [Tylenol] 650 mg PO Q6HR PRN tab 03/10/25 Rx Apixaban [Eliquis] 2.5 mg PO BID tab 03/10/25 Rx Aspirin 81 mg PO DAILY tab 03/10/25 Rx Dapagliflozin Propanediol [Farxiga] 5 mg PO DAILY tab 03/10/25 Rx Ipratropium-Albuterol Nebulize 3 ml INHALATION RT-QID each 03/10/25 Rx [Duoneb 0.5 mg-3 mg/3 ml Soln] Loratadine [Claritin] 10 mg PO DAILY tab 03/10/25 Rx Metoprolol Succinate (ER) [Toprol 25 mg PO DAILY tab 03/10/25 Rx XL] Pantoprazole [Protonix] 40 mg PO AC-BRKFST tab 03/10/25 Rx Potassium Chloride ER [K-Dur 20] 20 meq PO DAILY tab 03/10/25 Rx Torsemide [Demadex] 20 mg PO DAILY tab 03/10/25 Rx guaiFENesin [Mucinex] 600 mg PO Q12HR PRN tab 03/10/25 Rx predniSONE [Deltasone] 40 mg PO DAILY tab 03/10/25 Rx traMADol HCL 50 mg PO BID PRN #6 tab 03/10/25 Rx traZODone HCL [Desyrel] 100 mg PO HS #3 tab 03/10/25 Rx Allergies Allergy/AdvReac Type Severity Reaction Status Date / Time codeine AdvReac Itching Verified 03/31/25 12:30 Physical Exam Vitals: Vital Signs Temp Pulse Resp BP Pulse Ox 03/31/25 15:20 98.1 F 81 20 113/58 93 L 03/31/25 13:29 84 22 93/61 98 03/31/25 13:17 22 03/31/25 13:08 82 03/31/25 13:00 83 03/31/25 12:24 86 18 120/63 89 L Intake and Output 03/31/25 03/31/25 03/31/25 06:59 14:59 22:59 Other: Weight 69.853 kg Results CBC & Chem 7: 03/31/25 12:59 03/31/25 12:59 Labs: Abnormal Lab Results - Last 24 Hours (Table) 03/31/25 03/31/25 Range/Units 12:59 12:59 WBC 14.11 H (4.50-10.00) 10*3/uL Hgb 11.5 L (12.0-15.0) g/dL Hct 35.6 L (37.2-46.3) % Immature Gran # 0.13 H (0.00-0.04) 10*3/uL Neutrophils # 9.45 H (1.80-7.70) 10*3/uL Monocytes # 1.39 H (0.20-1.00) 10*3/uL Sodium 133 L (137-145) mmol/L Chloride 91 L (98-107) mmol/L Carbon Dioxide 36 H (22-30) mmol/L BUN 22 H (7-17) mg/dL ALT 56 H (4-34) U/L Alkaline Phosphatase 197 H (38-126) U/L Total Protein 5.8 L (6.3-8.2) g/dL Albumin 2.7 L (3.5-5.0) g/dL
[2025-03-31] MEDS: methylPREDNISolone SOD SUCCI 125 MG/2 ML VIAL IV SCH (18:20)
[2025-03-31 19:29] LABS: RSV Not Detected (Not Detectd)
[2025-03-31] MEDS: IPRATROPIUM-ALBUTEROL 3 ML NEB INHALATION SCH (20:24)
--- NOTE | 2025-04-01 06:41 | P.CNPUL ---
History of Present Illness Consult date: 04/01/25 Requesting physician: Christopher Macdonald Reason for consult: COPD Chief complaint: Shortness of breath History of present illness: Patient is an 84-year-old female with past medical history significant for COPD, current tobacco smoker, coronary artery disease with previous PCI/stents, diastolic heart failure. Of note, patient hospitalized last month with acute COPD exacerbation and questionable left lower lobe pneumonia. Was found to be in new onset atrial fibrillation during this hospitalization. Discharged on March 10. Patient brought into the hospital by EMS yesterday afternoon. Chief complaint was shortness of breath. Apparently noted to be hypoxic at [facility] with a SpO2 in the 70s. Noted to have diffuse wheezing in the ED and her COPD was thought to be active. She was loaded with IV Solu-Medrol and given DuoNeb treatment. Chest x-ray showing a large cardiac silhouette, interstitial prominence, and atelectasis at the bases with platelike atelectasis in the right lower lobe.Labs including a CBC with a WBC count of 14.1, hemoglobin 11.5, platelets 370. CMP: Sodium 133, potassium 4.1, chloride 91, serum bicarb 36, BUN 22, creatinine 0.91, glucose 82. Lactic 1. Troponin less than 0.012. NT- proBNP 964. Echocardiogram performed during previous hospitalization in February, estimating left ventricular ejection fraction of 55 to 60% with mild LVH. Viral 4 Plex negative for influenza A/B, RSV, COVID. Patient currently being evaluated on the general medical floor. She is resting comfortably in bed. She is on 4 L/min nasal cannula. States her difficulty in breathing started 1 to 2 months ago. Associated lower extremity pitting edema over the same timeframe. She denies any coughing, sputum production, hemoptysis, fevers or chills. She denies any chest pain. She denies any heart palpitations, lightheadedness or syncopal events. States she was hallucinating previously while at the outside facility. VBG previously drawn with a pCO2 of 55 and pH of 7.42. Review of Systems REVIEW OF SYSTEMS: CONSTITUTIONAL: Denies any recent significant weight loss or weight gain. EYES: Denies change in vision. EARS, NOSE, MOUTH, THROAT: Denies headaches, denies sore throat. CARDIOVASCULAR: See HPI RESPIRATORY: see HPI GASTROINTESTINAL: Denies change in appetite, abdominal pain, nausea and vomiting, or diarrhea GENITOURINARY: Denies hematuria, denies infections. MUSKULOSKELETAL: Denies pain, denies swelling. INTEGUMENTARY: Denies rash, denies eczema. NEUROLOGICAL: Denies recent memory loss, no recent seizure activity. PSYCHIATRIC: Denies anxiety, denies depression. 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, covid Last Myocardial Infarction Date:: 11/23 History of Any Multi-Drug Resistant Organisms: None Reported Past Surgical History: Heart Catheterization With Stent, Hysterectomy Past Anesthesia/Blood Transfusion Reactions: No Reported Reaction Date of Last Stent Placement:: 11/27/23 Past Psychological History: Anxiety, Depression Smoking Status: Current some day smoker Past Alcohol Use History: None Reported Past Drug Use History: None Reported Additional Drug Use History / Comment(s): occasional smoker when home - Past Family History Mother Family Medical History: Myocardial Infarction ([place]) Father Family Medical History: CVA/TIA Medications and Allergies Home Medications Medication Instructions Recorded Confirmed Type Atorvastatin [Lipitor] 40 mg PO DAILY 03/04/25 03/31/25 History Escitalopram [Lexapro] 20 mg PO DAILY 03/04/25 03/31/25 History ALPRAZolam [Xanax] 0.5 mg PO BID PRN #6 tab 03/10/25 03/31/25 Rx Dapagliflozin Propanediol [Farxiga] 5 mg PO DAILY tab 03/10/25 03/31/25 Rx Metoprolol Succinate (ER) [Toprol 25 mg PO DAILY tab 03/10/25 03/31/25 Rx XL] Potassium Chloride ER [K-Dur 20] 20 meq PO DAILY tab 03/10/25 03/31/25 Rx Torsemide [Demadex] 20 mg PO DAILY tab 03/10/25 03/31/25 Rx traMADol HCL 50 mg PO BID PRN #6 tab 03/10/25 03/31/25 Rx traZODone HCL [Desyrel] 100 mg PO HS #3 tab 03/10/25 03/31/25 Rx Apixaban [Eliquis] 2.5 mg PO BID 03/31/25 03/31/25 History Allergies Allergy/AdvReac Type Severity Reaction Status Date / Time codeine AdvReac Itching Verified 03/31/25 18:34 Physical Exam Vitals: Vital Signs Temp Pulse Pulse Resp BP BP Pulse Ox 04/01/25 01:00 96.5 F L 82 16 128/71 91 L 03/31/25 20:34 76 18 03/31/25 20:24 76 18 03/31/25 19:25 97.3 F L 81 17 130/80 94 L 03/31/25 18:23 80 19 118/73 92 L 03/31/25 15:20 98.1 F 81 20 113/58 93 L 03/31/25 13:29 84 22 93/61 98 03/31/25 13:17 22 03/31/25 13:08 82 03/31/25 13:00 83 03/31/25 12:24 86 18 120/63 89 L Intake and Output 03/31/25 03/31/25 04/01/25 14:59 22:59 06:59 Intake Total 1320 Balance 1320 Intake: Oral 1320 Other: Voiding Method Bedside Commode # Voids 3 6 Weight 69.853 kg 69.853 kg GENERAL EXAM: Alert, 84-year-old obese female, comfortable in no apparent distress. HEAD: Normocephalic and atraumatic EYES: Normal reaction of pupils, equal size. NOSE: Clear with pink turbinates. THROAT: No erythema or exudates. NECK: No masses, no JVD. CHEST: No chest wall deformity. LUNGS: Equal air entry with bibasilar respiratory crackles. On 4 L/min nasal cannula. No conversational dyspnea or accessory muscle use.. CVS: S1 and S2 normal with no audible murmur, regular rhythm. No extra heart sounds ABDOMEN: No hepatosplenomegaly, active bowel sounds, no guarding or rigidity. SPINE: No scoliosis or deformity SKIN: No rashes CENTRAL NERVOUS SYSTEM: No focal deficits, tone is normal in all 4 extremities. EXTREMITIES: Bilateral lower extremity 2-3+ pitting edema. Clubbing or cyanosis. Peripheral pulses are intact. Results - Laboratory Findings CBC and BMP: 03/31/25 12:59 03/31/25 12:59 PT/INR, D-dimer PT 10.8 sec (10.0-12.5) 03/31/25 12:59 INR 1.0 (<1.2) 03/31/25 12:59 Abnormal lab findings: Abnormal Labs 03/31/25 03/31/25 03/31/25 12:59 12:59 17:46 WBC 14.11 H Hgb 11.5 L Hct 35.6 L Immature Gran # 0.13 H Neutrophils # 9.45 H Monocytes # 1.39 H VBG pH 7.42 H VBG pCO2 55 H VBG HCO3 35 H Sodium 133 L Chloride 91 L Carbon Dioxide 36 H BUN 22 H ALT 56 H Alkaline Phosphatase 197 H Total Protein 5.8 L Albumin 2.7 L - Diagnostic Findings Chest x-ray: image reviewed Assessment and Plan Assessment: Acute on chronic hypoxic respiratory failure, currently on 4 liters of oxygen by nasal cannula. Acute COPD exacerbation Suspect exacerbation of diastolic congestive heart failure Bilateral lower extremity edema History of paroxysmal atrial fibrillation, currently sinus mechanism, anticoa gulated on Eliquis Coronary artery disease with previous NE and PCI/stents History of hyperlipidemia Current ongoing tobacco dependence, smokes 2 to 3 cigarettes/day History of hypertension Chronic anxiety Plan: Patient's medications, labs, chest x-ray reviewed Chest x-ray showing an enlarged cardiac silhouette, interstitial prominence, and atelectasis at the bases with platelike atelectasis in the right lower lobe. NT-proBNP only 964 Viral 4 Plex negative for influenza A/B, SV, COVID Continue supplemental oxygen, wean as tolerated Continue DuoNebs [id number] Continue IV Solu-Medrol smoking cessation encouraged Resume oral diuretics Resume Eliquis Resume other cardiac medications once verified We will continue to follow I have personally seen and examined the patient, performed the documentation and the assessment and plan as written. Number of minutes spent on the visit:20 Time with Patient: Greater than 30
[2025-04-01 07:53] LABS: Basophils # (A) 0.07 X 10*3/uL (0.00-0.10); Basophils % (A) 0.6 %; Eosinophils # (A) 0 X 10*3/uL (0.04-0.35); Eosinophils % (A) 0 %; HCT 37.5 % (37.2-46.3); HGB 11.8 g/dL (12.0-15.0); Immature Grans, Automated 1.90 %; Lymphocytes # (A) 1.12 X 10*3/uL (0.90-5.00); Lymphocytes % (A) 8.9 %; MCH 27.6 pg (27.0-32.0); MCHC 31.5 g/dL (32.0-37.0); MCV 87.8 FL (80.0-97.0); Monocytes # (A) 0.48 X 10*3/uL (0.20-1.00); Monocytes % (A) 3.8 %; NRBC Per 100 WBC 0 X 10*3/uL (0.00-0.01); Neutrophils # (A) 10.67 X 10*3/uL (1.80-7.70); Neutrophils % (A) 84.8 %; Platelet Count 389 X 10*3/uL (140-440); RBC 4.27 X 10*6/uL (4.10-5.20); RDW 19.7 % (11.5-14.5); WBC 12.58 X 10*3/uL (4.50-10.00)
[2025-04-01] MEDS: METOPROLOL SUCCINATE (ER) 25 MG TAB.ER.24H PO SCH (07:55)
[2025-04-01] MEDS: ESCITALOPRAM 20 MG TAB PO SCH (07:55)
[2025-04-01] MEDS: TORSEMIDE 20 MG TAB PO SCH (07:55)
[2025-04-01] MEDS: ATORVASTATIN 40 MG TAB PO SCH (07:55)
[2025-04-01] MEDS: APIXABAN 2.5 MG TABLET PO SCH (07:55)
[2025-04-01 08:03] LABS: Anion Gap 14.70 mmol/L (4.00-12.00); BUN/Creat Ratio 32.89 Ratio (12.00-20.00); Blood Urea Nitrogen 29.6 mg/dL (9.0-27.0); Calcium 8.4 mg/dL (8.7-10.3); Carbon Dioxide 28.3 mmol/L (21.6-31.8); Chloride 91 mmol/L (96-109); Glucose 361 mg/dL (70-110); Potassium 4.4 mmol/L (3.5-5.5); Sodium 134 mmol/L (135-145)
[2025-04-01] MEDS ORDERED: DEXTROSE 50% SYRINGE 50 ML IVP PRN ×2 (08:57)
[2025-04-01 11:16] LABS: Glucose,Whole Blood 438 mg/dL (70-110)
--- NOTE | 2025-04-01 11:24 | US ---
EXAMINATION TYPE: US venous doppler duplex LE LT DATE OF EXAM: 04/01/2025 10:36 AM COMPARISON: Bilateral lower extremity venous ultrasound 03/03/2025 CLINICAL INDICATION: Female, 84 years old with history of unilateral swelling; lt leg swelling x 3 we eks, no hx of dvt TECHNIQUE: The lower extremity deep venous system is examined utilizing real time linear array sonog jean paul with graded compression, color doppler sonography, and spectral doppler. SIDE PERFORMED: Left FINDINGS: VESSELS IMAGED: Common Femoral Vein Deep Femoral Vein Greater Saphenous Vein * Femoral Vein Popliteal Vein Small Saphenous Vein * Proximal Calf Veins (* superficial vessels) limited exam due to edema Left Leg: appears negative for DVT, shows patency of the vessels. Spectral waveforms are within norm al limits. Calf veins limited due to edema. IMPRESSION: No visualized deep vein thrombosis of the left lower extremity. Limited evaluation of the calf veins due to edema. [facility], , 04/01/2025 11:22 AM
[2025-04-01] MEDS: INSULIN LISPRO (HumaLOG) 100 UNIT/ML 10 mL VL SQ SCH (12:05)
--- NOTE | 2025-04-01 13:15 | P.PN ---
Subjective Progress Note Date: 04/01/25 Principal diagnosis: 84 y.o female with PMHx of COPD (on home oxygen, however pt does not recall how many liters) and diastolic CHF (most recent EF 55-60% on 03/03/2025) who presented to the ED with shortness of breath and pulse ox reading in 70s. A/f COPD exacerbation and acute on chronic hypoxic respiratory failure. Hospital course: CXR and EKG obtained in ED, with CXR showing bibasilar airspace opacities representing atelectasis, and EKG showing normal sinus rhythm. Initial labs significant for WBC 14.1, Na 133, bicarb 36. Pt was started on bronchodilators and corticosteroids, and placed on 4L NC saturating ~92%. No acute events overnight. Hemodynamically stable and afebrile. On 3L NC sat 92%. No complaints at this time. Physical examination: Vital signs reviewed General: non toxic, no distress, appears at stated age, normal weight Derm: no unusual rashes/lesions, warm Head: atraumatic, normocephalic, symmetric Eyes: EOMI, anicteric sclera ENT: Nose and ears atraumatic Mouth: no lip lesion, mucus membranes moist Cardiovascular: S1S2 reg, no murmur Lungs: bibasilar rales, expiratory wheezing on auscultation, decreased from yesterday Abdominal: soft, nontender to palpation, no guarding Ext: slight pitting edema in the bilateral lower extremities to above the knee, more prominent on left Neuro: A&O x3 Psych: appropriate affect Assessment/Plan: 84 y.o female with PMHx of COPD (on home oxygen, however pt does not recall how many liters) and diastolic CHF (most recent EF 55-60% on 03/03/2025) who presents to the ED with shortness of breath and pulse ox reading in 70s. # Acute COPD exacerbation # Acute on chronic hypoxic respiratory failure - DuoNebs every 2 hours as needed, 4 times daily scheduled, on IV Solu-Medrol 60 every 6 hours will change to PO prednisone 40 daily - on NC currently 3L, wean as appropriate to maintain SpO2 88-92% - determine home oxygen requirements, setting of home care #leukocytosis, steroid-induced vs reactive - Cepheid negative - remains afebrile - WBC count 14.11 > 12.58, likely reactive #b/l lower extremity edema, L > R - prominent on left lower extremity - r/o DVT with LLE venous duplex #mild to moderate protein calorie malnurition - monitor albumin #metabolic alkalosis, resolved #Mild hyponatremia, resolved #hyperglycemia - glucose 361 - sliding scale insulin, FSG (monitor glucose levels), monitor for hypoglycemia - fu HgbA1c # Paroxysmal A-fib - in sinus rhythm, continue Eliquis 2.5 twice daily, metoprolol 25 daily Chronic: Diastolic CHF, not in exacerbation Type 2 diabetes? Hypertension Anxiety/depression DVT prophylaxis: SCDs CODE STATUS: full code Anticipated discharge place: likely tomorrow based on home O2 requirements, and glucose levels Temi Dickson MD PGY1 FM I have seen and evaluated the patient today. Discussed with the resident and agree with the residents finding and plan as documented in the resident's note. Changes highlighted in blue font. Objective - Vital Signs Vital signs: Vital Signs Temp 97.6 F 04/01/25 08:07 Pulse 89 04/01/25 08:07 Resp 19 04/01/25 08:07 BP 120/69 04/01/25 08:07 Pulse Ox 92 L 04/01/25 08:07 FiO2 Intake & Output 03/31/25 04/01/25 04/01/25 18:59 06:59 18:59 Intake Total 1320 Balance 1320 Weight 69.853 kg 69.853 kg Intake: Oral 1320 Other: Voiding Method Bedside Commode # Voids 6 1 # Bowel Movements 1 - Labs CBC & Chem 7: 04/01/25 04:24 04/01/25 04:24 Labs: Abnormal Lab Results - Last 24 Hours (Table) 03/31/25 03/31/25 03/31/25 Range/Units 12:59 12:59 17:46 WBC 14.11 H (4.50-10.00) 10*3/uL Hgb 11.5 L (12.0-15.0) g/dL Hct 35.6 L (37.2-46.3) % MCHC (32.0-37.0) g/dL RDW (11.5-14.5) % Immature Gran # 0.13 H (0.00-0.04) 10*3/uL Neutrophils # 9.45 H (1.80-7.70) 10*3/uL Monocytes # 1.39 H (0.20-1.00) 10*3/uL Eosinophils # (0.04-0.35) X 10*3/uL VBG pH 7.42 H (7.31-7.41) VBG pCO2 55 H (37-51) mmHg VBG HCO3 35 H (24-28) mmol/L Sodium 133 L (137-145) mmol/L Chloride 91 L (98-107) mmol/L Carbon Dioxide 36 H (22-30) mmol/L Anion Gap (4.00-12.00) mmol/L BUN 22 H (7-17) mg/dL BUN/Creatinine Ratio (12.00-20.00) Ratio Glucose (70-110) mg/dL Calcium (8.7-10.3) mg/dL ALT 56 H (4-34) U/L Alkaline Phosphatase 197 H (38-126) U/L Total Protein 5.8 L (6.3-8.2) g/dL Albumin 2.7 L (3.5-5.0) g/dL 04/01/25 04/01/25 Range/Units 04:24 04:24 WBC 12.58 H (4.50-10.00) 10*3/uL Hgb 11.8 L (12.0-15.0) g/dL Hct (37.2-46.3) % MCHC 31.5 L (32.0-37.0) g/dL RDW 19.7 H (11.5-14.5) % Immature Gran # 0.24 H (0.00-0.04) 10*3/uL Neutrophils # 10.67 H (1.80-7.70) 10*3/uL Monocytes # (0.20-1.00) 10*3/uL Eosinophils # 0 L (0.04-0.35) X 10*3/uL VBG pH (7.31-7.41) VBG pCO2 (37-51) mmHg VBG HCO3 (24-28) mmol/L Sodium 134 L (137-145) mmol/L Chloride 91 L (98-107) mmol/L Carbon Dioxide (22-30) mmol/L Anion Gap 14.70 H (4.00-12.00) mmol/L BUN 29.6 H (7-17) mg/dL BUN/Creatinine Ratio 32.89 H (12.00-20.00) Ratio Glucose 361 H (70-110) mg/dL Calcium 8.4 L (8.7-10.3) mg/dL ALT (4-34) U/L Alkaline Phosphatase (38-126) U/L Total Protein (6.3-8.2) g/dL Albumin (3.5-5.0) g/dL
[2025-04-01 16:54] LABS: Glucose,Whole Blood 281 mg/dL (70-110)
[2025-04-01 20:21] LABS: Glucose,Whole Blood 213 mg/dL (70-110)
[2025-04-02] MEDS: ACETAMINOPHEN TAB 500 MG TAB PO PRN (00:21)
[2025-04-02] MEDS: MELATONIN 3 MG TABLET PO PRN (01:19)
[2025-04-02] MEDS: ALPRAZolam 0.5 MG TAB PO PRN (01:19)
[2025-04-02 05:12] LABS: Basophils # (A) 0.04 10*3/uL (0.00-0.10); Basophils % (A) 0.2 %; Eosinophils # (A) 0.04 10*3/uL (0.04-0.35); Eosinophils % (A) 0.2 %; HCT 32.0 % (37.2-46.3); HGB 10.3 g/dL (12.0-15.0); Lymphocytes # (A) 2.06 10*3/uL (0.90-5.00); Lymphocytes % (A) 10.9 %; MCH 27.5 pg (27.0-32.0); MCHC 32.2 g/dL (32.0-37.0); MCV 85.3 fL (80.0-97.0); Monocytes # (A) 1.98 10*3/uL (0.20-1.00); Monocytes % (A) 10.5 %; Neutrophils # (A) 14.48 10*3/uL (1.80-7.70); Neutrophils % (A) 76.7 %; Platelet Count 399 10*3/uL (140-440); RBC 3.75 10*6/uL (4.10-5.20); RDW 18.9 % (11.5-14.5); WBC 18.89 10*3/uL (4.50-10.00)
[2025-04-02 05:34] LABS: African American GFR (CKD) 74 (>60 ml/min/1.73 sqM); Anion Gap 4 mmol/L; Blood Urea Nitrogen 30 mg/dL (7-17); Calcium 8.6 mg/dL (8.4-10.2); Carbon Dioxide 34 mmol/L (22-30); Chloride 91 mmol/L (98-107); Glucose 96 mg/dL (74-99); Magnesium 1.8 mg/dL (1.6-2.3); Non-African American GFR(CKD) 64 (>60 ml/min/1.73 sqM); Potassium 4.0 mmol/L (3.5-5.1); Sodium 129 mmol/L (137-145)
[2025-04-02 06:11] LABS: Glucose,Whole Blood 102 mg/dL (70-110)
[2025-04-02] MEDS: predniSONE 20 MG TAB PO SCH (09:27)
[2025-04-02 11:07] LABS: Glucose,Whole Blood 130 mg/dL (70-110)
--- NOTE | 2025-04-02 14:43 | P.PN ---
Subjective Progress Note Date: 04/02/25 Principal diagnosis: 84 y.o female with PMHx of COPD (on home oxygen, however pt does not recall how many liters) and diastolic CHF (most recent EF 55-60% on 03/03/2025) who presented to the ED with shortness of breath and pulse ox reading in 70s. A/f COPD exacerbation and acute on chronic hypoxic respiratory failure. Hospital course: CXR and EKG obtained in ED, with CXR showing bibasilar airspace opacities representing atelectasis, and EKG showing normal sinus rhythm. Initial labs significant for WBC 14.1, Na 133, bicarb 36. Pt was started on bronchodilators and corticosteroids, and placed on 4L NC saturating ~92%. Hyperglycemic to glucose 200-400s was started on sliding scale insulin, with HgbA1c 7.7. No acute events overnight. Hemodynamically stable and afebrile. On 4L NC sat 94%. No complaints at this time. Physical examination: Vital signs reviewed General: non toxic, no distress, appears at stated age, normal weight Derm: no unusual rashes/lesions, warm Head: atraumatic, normocephalic, symmetric Eyes: EOMI, anicteric sclera ENT: Nose and ears atraumatic Mouth: no lip lesion, mucus membranes moist Cardiovascular: S1S2 reg, no murmur Lungs: bibasilar rales, expiratory wheezing on auscultation, decreased from yesterday Abdominal: soft, nontender to palpation, no guarding Ext: slight pitting edema in the bilateral lower extremities to above the knee, more prominent on left (improving from yesterday) Neuro: A&O x3 Psych: appropriate affect Labs WBC 14.11 > 12.58 > 18.89 Na 133 > 134 > 129 HCO3 36 > 28.3 > 34 FSG 438 > 281 > 213 > 96 > 102 Pertinent Imagin04/01/2025 LLE Venous Duplex: negative for DVT, limited evaluation of calf veins due to edema. Assessment/Plan: 84 y.o female with PMHx of COPD (on home oxygen, however pt does not recall how many liters) and diastolic CHF (most recent EF 55-60% on 03/03/2025) who presents to the ED with shortness of breath and pulse ox reading in 70s. # Acute COPD exacerbation # Acute on chronic hypoxic respiratory failure - DuoNebs every 2 hours as needed, 4 times daily scheduled, on IV Solu-Medrol 60 every 6 hours will change to PO prednisone 40 daily - on NC currently 3L, wean as appropriate to maintain SpO2 88-92% - similar home requirements, as per granddaughter #leukocytosis, steroid-induced vs reactive - Cepheid negative - remains afebrile - WBC count 14.11 > 12.58 > 18.89, likely steroid induced #b/l lower extremity edema, L > R - prominent on left lower extremity - LLE venous duplex on 04/01/2025 was negative for DVT, however study limited #mild to moderate protein calorie malnurition - monitor albumin #metabolic alkalosis #Mild hyponatremia - HCO3 36 > 28.3 > 34 - Na 133 > 134 > 129 - c/w diuretics #hyperglycemia - FSG 438 > 281 > 213 > 96 > 102 - sliding scale insulin, FSG (monitor glucose levels), monitor for hypoglycemia - HgbA1c 7.7 # Paroxysmal A-fib - in sinus rhythm, continue Eliquis 2.5 twice daily, metoprolol 25 daily Chronic: Diastolic CHF, not in exacerbation Hypertension Anxiety/depression DVT prophylaxis: SCDs CODE STATUS: full code Anticipated discharge place: Likely tomorrow Temi Dickson MD PGY1 FM I have seen and evaluated the patient today. Discussed with the resident and agree with the residents finding and plan as documented in the resident's note. Changes highlighted in blue font. Objective - Vital Signs Vital signs: Vital Signs Temp 98.2 F 04/02/25 01:22 Pulse 79 04/02/25 01:22 Resp 20 04/02/25 01:22 BP 143/74 04/02/25 01:22 Pulse Ox 94 L 04/02/25 01:22 FiO2 Intake & Output 04/01/25 04/02/25 04/02/25 18:59 06:59 18:59 Other: Voiding Method Bedside Commode # Voids 2 1 # Bowel Movements 0 - Labs CBC & Chem 7: 04/02/25 05:01 04/02/25 05:01 Labs: Abnormal Lab Results - Last 24 Hours (Table) 04/01/25 04/01/25 04/01/25 Range/Units 04:24 04:24 11:15 WBC 12.58 H (4.50-10.00) X 10*3/uL RBC (4.10-5.20) 10*6/uL Hgb 11.8 L (12.0-15.0) g/dL Hct (37.2-46.3) % MCHC 31.5 L (32.0-37.0) g/dL RDW 19.7 H (11.5-14.5) % Immature Gran # 0.24 H (0.00-0.04) X 10*3/uL Neutrophils # 10.67 H (1.80-7.70) X 10*3/uL Monocytes # (0.20-1.00) 10*3/uL Eosinophils # 0 L (0.04-0.35) X 10*3/uL Sodium 134 L (135-145) mmol/L Chloride 91 L (96-109) mmol/L Carbon Dioxide (22-30) mmol/L Anion Gap 14.70 H (4.00-12.00) mmol/L BUN 29.6 H (9.0-27.0) mg/dL BUN/Creatinine Ratio 32.89 H (12.00-20.00) Ratio Glucose 361 H (70-110) mg/dL POC Glucose (mg/dL) 438 H (70-110) mg/dL Calcium 8.4 L (8.7-10.3) mg/dL 04/01/25 04/01/25 04/02/25 Range/Units 16:52 20:18 05:01 WBC 18.89 H (4.50-10.00) X 10*3/uL RBC 3.75 L (4.10-5.20) 10*6/uL Hgb 10.3 L (12.0-15.0) g/dL Hct 32.0 L (37.2-46.3) % MCHC (32.0-37.0) g/dL RDW 18.9 H (11.5-14.5) % Immature Gran # 0.29 H (0.00-0.04) X 10*3/uL Neutrophils # 14.48 H (1.80-7.70) X 10*3/uL Monocytes # 1.98 H (0.20-1.00) 10*3/uL Eosinophils # (0.04-0.35) X 10*3/uL Sodium (135-145) mmol/L Chloride (96-109) mmol/L Carbon Dioxide (22-30) mmol/L Anion Gap (4.00-12.00) mmol/L BUN (9.0-27.0) mg/dL BUN/Creatinine Ratio (12.00-20.00) Ratio Glucose (70-110) mg/dL POC Glucose (mg/dL) 281 H 213 H (70-110) mg/dL Calcium (8.7-10.3) mg/dL 04/02/25 Range/Units 05:01 WBC (4.50-10.00) X 10*3/uL RBC (4.10-5.20) 10*6/uL Hgb (12.0-15.0) g/dL Hct (37.2-46.3) % MCHC (32.0-37.0) g/dL RDW (11.5-14.5) % Immature Gran # (0.00-0.04) X 10*3/uL Neutrophils # (1.80-7.70) X 10*3/uL Monocytes # (0.20-1.00) 10*3/uL Eosinophils # (0.04-0.35) X 10*3/uL Sodium 129 L (135-145) mmol/L Chloride 91 L (96-109) mmol/L Carbon Dioxide 34 H (22-30) mmol/L Anion Gap (4.00-12.00) mmol/L BUN 30 H (9.0-27.0) mg/dL BUN/Creatinine Ratio (12.00-20.00) Ratio Glucose (70-110) mg/dL POC Glucose (mg/dL) (70-110) mg/dL Calcium (8.7-10.3) mg/dL
--- NOTE | 2025-04-02 15:05 | P.PN ---
Subjective Progress Note Date: 04/02/25 Patient is an 84-year-old female with past medical history significant for COPD, current tobacco smoker, coronary artery disease with previous PCI/stents, diastolic heart failure. Of note, patient hospitalized last month with acute COPD exacerbation and questionable left lower lobe pneumonia. Was found to be in new onset atrial fibrillation during this hospitalization. Discharged on March 10. Patient brought into the hospital by EMS yesterday afternoon. Chief complaint was shortness of breath. Apparently noted to be hypoxic at [facility] with a SpO2 in the 70s. Noted to have diffuse wheezing in the ED and her COPD was thought to be active. She was loaded with IV Solu-Medrol and given DuoNeb treatment. Chest x-ray showing a large cardiac silhouette, interstitial prominence, and atelectasis at the bases with platelike atelectasis in the right lower lobe.Labs including a CBC with a WBC count of 14.1, hemoglobin 11.5, platelets 370. CMP: Sodium 133, potassium 4.1, chloride 91, serum bicarb 36, BUN 22, creatinine 0.91, glucose 82. Lactic 1. Troponin less than 0.012. NT- proBNP 964. Echocardiogram performed during previous hospitalization in February, estimating left ventricular ejection fraction of 55 to 60% with mild LVH. Viral 4 Plex negative for influenza A/B, RSV, COVID. Patient currently being evaluated on the general medical floor. She is resting comfortably in bed. She is on 4 L/min nasal cannula. States her difficulty in breathing started 1 to 2 months ago. Associated lower extremity pitting edema over the same timeframe. She denies any coughing, sputum production, hemoptysis, fevers or chills. She denies any chest pain. She denies any heart palpitations, lightheadedness or syncopal events. States she was hallucinating previously while at the outside facility. VBG previously drawn with a pCO2 of 55 and pH of 7.42. The patient is seen today April 02, 2025 in follow-up on the regular medical floor. She is currently resting comfortably in bed. Awake and alert in no acute distress. Denies any worsening shortness of breath, cough or congestion. Maintaining O2 saturation in the 90s on 3 L/min per nasal cannula. Afebrile. Hemodynamically stable. White count 18.8. Hemoglobin 10.3. Platelets 399. Sodium 129. Potassium 4.0. Bicarb 34. BUN 30. Creatinine 0.85. Glucose 174. Hemoglobin A1c 7.7. She is continued on DuoNeb inhalations, prednisone taper. Remains on oral diuretics. Anticoagulated with Eliquis. Doppler of the left lower extremity ruled out DVT. Objective - Vital Signs Vital signs: Vital Signs Temp 98.2 F 04/02/25 01:22 Pulse 76 04/02/25 12:45 Resp 18 04/02/25 09:29 BP 143/73 04/02/25 07:55 Pulse Ox 92 L 04/02/25 09:30 FiO2 Intake & Output 04/01/25 04/02/25 04/02/25 18:59 06:59 18:59 Other: Voiding Method Bedside Commode Bedside Commode # Voids 2 1 # Bowel Movements 0 - Exam GENERAL EXAM: Alert, 84-year-old obese female, on 3 L nasal cannula, comfortable in no apparent distress. HEAD: Normocephalic and atraumatic EYES: Normal reaction of pupils, equal size. NOSE: Clear with pink turbinates. THROAT: No erythema or exudates. NECK: No masses, no JVD. CHEST: No chest wall deformity. LUNGS: Equal air entry with bibasilar respiratory crackles. No conversational dyspnea or accessory muscle use.. CVS: S1 and S2 normal with no audible murmur, regular rhythm. No extra heart sounds ABDOMEN: No hepatosplenomegaly, active bowel sounds, no guarding or rigidity. SPINE: No scoliosis or deformity SKIN: No rashes CENTRAL NERVOUS SYSTEM: No focal deficits, tone is normal in all 4 extremities. EXTREMITIES: Bilateral lower extremity 2-3+ pitting edema. Clubbing or cyanosis. Peripheral pulses are intact. - Labs CBC & Chem 7: 04/02/25 05:01 04/02/25 05:01 Labs: Abnormal Lab Results - Last 24 Hours (Table) 04/01/25 04/01/25 04/02/25 Range/Units 16:52 20:18 05:01 WBC (4.50-10.00) 10*3/uL RBC (4.10-5.20) 10*6/uL Hgb (12.0-15.0) g/dL Hct (37.2-46.3) % RDW (11.5-14.5) % Immature Gran # (0.00-0.04) 10*3/uL Neutrophils # (1.80-7.70) 10*3/uL Monocytes # (0.20-1.00) 10*3/uL Sodium (137-145) mmol/L Chloride (98-107) mmol/L Carbon Dioxide (22-30) mmol/L BUN (7-17) mg/dL POC Glucose (mg/dL) 281 H 213 H (70-110) mg/dL Hemoglobin A1c 7.7 H (<=6.0) % 04/02/25 04/02/25 04/02/25 Range/Units 05:01 05:01 11:05 WBC 18.89 H (4.50-10.00) 10*3/uL RBC 3.75 L (4.10-5.20) 10*6/uL Hgb 10.3 L (12.0-15.0) g/dL Hct 32.0 L (37.2-46.3) % RDW 18.9 H (11.5-14.5) % Immature Gran # 0.29 H (0.00-0.04) 10*3/uL Neutrophils # 14.48 H (1.80-7.70) 10*3/uL Monocytes # 1.98 H (0.20-1.00) 10*3/uL Sodium 129 L (137-145) mmol/L Chloride 91 L (98-107) mmol/L Carbon Dioxide 34 H (22-30) mmol/L BUN 30 H (7-17) mg/dL POC Glucose (mg/dL) 130 H (70-110) mg/dL Hemoglobin A1c (<=6.0) % Assessment and Plan Assessment: Acute on chronic hypoxic respiratory failure, currently on 4 liters of oxygen by nasal cannula. Acute COPD exacerbation Suspect exacerbation of diastolic congestive heart failure Bilateral lower extremity edema History of paroxysmal atrial fibrillation, currently sinus mechanism, anticoagulated on Eliquis Coronary artery disease with previous [place] and PCI/stents History of hyperlipidemia Current ongoing tobacco dependence, smokes 2 to 3 cigarettes/day History of hypertension Chronic anxiety Plan: The patient was seen and evaluated Labs and medications reviewed Remains on DuoNeb and elations Remains on IV Solu-Medrol This will be discontinued Initiated prednisone taper Anticoagulated with Eliquis Educated regarding smoking cessation NicoDerm patch will be offered Continue oral diuretics Titrate down the FiO2 as tolerated Increase her activity as tolerated We will continue to follow I have personally seen and examined the patient, performed the documentation and the assessment and plan as written. Number of minutes spent on the visit: 10 Dictation was produced using [employer] dictation software. Please excuse any g rammatical, word or spelling errors.
[2025-04-02 16:31] LABS: Glucose,Whole Blood 200 mg/dL (70-110)
[2025-04-02 20:35] LABS: Glucose,Whole Blood 167 mg/dL (70-110)
[2025-04-03 06:22] LABS: Glucose,Whole Blood 97 mg/dL (70-110)
--- NOTE | 2025-04-03 09:32 | P.DS ---
Providers Date of admission: 03/31/25 16:54 Expected date of discharge: 04/03/25 Attending physician: Kane Horvath Consults: 03/31/25 15:40 Consult Physician Routine Consulting Provider: Chucky Horne Consult Reason/Comments: COPD Do you want consulting provider notified?: Yes [facility] Course: Discharge Diagnosis: Acute on chronic hypoxic respiratory failure Acute COPD exacerbation Leukocytosis Hospital Course: 84 y.o female with PMHx of COPD (on home oxygen, however pt does not recall how many liters) and diastolic CHF (most recent EF 55-60% on 03/03/2025) who presented to the ED with shortness of breath and pulse ox reading in 70s. A/f COPD exacerbation and acute on chronic hypoxic respiratory failure. CXR and EKG obtained in ED, with CXR showing bibasilar airspace opacities representing atelectasis, and EKG showing normal sinus rhythm. Initial labs significant for WBC 14.1, Na 133, bicarb 36. Pt was started on bronchodilators and corticosteroids, and placed on 4L NC saturating ~92%. Hyperglycemic to glucose 200-400s was started on sliding scale insulin, with HgbA1c 7.7. Respiratory function stable and at baseline. Patient was evaluated by pulmonology as well. She does have oxygen at home, will be sent home with home care. Also being sent home with oral steroids. Patient also needs to follow-up with PCP to recheck BMP and 2 to 3 days. Patient is very noncompliant with her oxygen at home, and high risk for readmission. Patient seen and examined at bedside. Vital signs reviewed and stable. General: Nontoxic, no distress, appears at stated age, chronically ill-appearing Derm: Warm, dry Head: Atraumatic, normocephalic, symmetric Eyes: EOMI, no lid lag, anicteric sclera Mouth: No lip lesion, mucus membranes moist Cardiovascular: S1S2 reg, no murmur Lungs: bibasilar rales, no accessory muscle use, supplemental oxygen Abdominal: Soft, nontender to palpation, no guarding, no appreciable organomegaly Ext: No gross muscle atrophy, trace pitting edema, no contractures Neuro: CN II-XI grossly intact, no focal neuro deficits Psych: Alert, oriented, appropriate affect A total of 38 minutes of time were spent preparing this complex discharge summary. Patient was discharged on 04/03/2025 at 907. Patient Condition at Discharge: Stable Plan - Discharge Summary Discharge Rx Participant: No New Discharge Prescriptions: New predniSONE [Deltasone] 40 mg PO DAILY #6 tab Continue Escitalopram [Lexapro] 20 mg PO DAILY Atorvastatin [Lipitor] 40 mg PO DAILY Torsemide [Demadex] 20 mg PO DAILY tab Potassium Chloride ER [K-Dur 20] 20 meq PO DAILY tab traZODone HCL [Desyrel] 100 mg PO HS #3 tab Apixaban [Eliquis] 2.5 mg PO BID Dapagliflozin Propanediol [Farxiga] 5 mg PO DAILY tab Metoprolol Succinate (ER) [Toprol XL] 25 mg PO DAILY tab traMADol HCL 50 mg PO BID PRN #6 tab PRN Reason: Pain ALPRAZolam [Xanax] 0.5 mg PO BID PRN #6 tab PRN Reason: Anxiety Discharge Medication List Atorvastatin [Lipitor] 40 mg PO DAILY 03/04/25 [History] Escitalopram [Lexapro] 20 mg PO DAILY 03/04/25 [History] ALPRAZolam [Xanax] 0.5 mg PO BID PRN #6 tab 03/10/25 [Rx] Dapagliflozin Propanediol [Farxiga] 5 mg PO DAILY tab 03/10/25 [Rx] Metoprolol Succinate (ER) [Toprol XL] 25 mg PO DAILY tab 03/10/25 [Rx] Potassium Chloride ER [K-Dur 20] 20 meq PO DAILY tab 03/10/25 [Rx] Torsemide [Demadex] 20 mg PO DAILY tab 03/10/25 [Rx] traMADol HCL 50 mg PO BID PRN #6 tab 03/10/25 [Rx] traZODone HCL [Desyrel] 100 mg PO HS #3 tab 03/10/25 [Rx] Apixaban [Eliquis] 2.5 mg PO BID 03/31/25 [History] predniSONE [Deltasone] 40 mg PO DAILY #6 tab 04/02/25 [Rx] Follow up Appointment(s)/Referral(s): Residential Home,Health [NON-STAFF] - As Needed Christopher Wood DO [Primary Care Provider] - 1-2 days (Office is closed at time of discharge. please call for follow-up appointment.) Ambulatory/Diagnostic Orders: Basic Metabolic Panel [LAB.AMB] Time Frame: 3 Days, Location: None Selected Patient Instructions/Handouts: COPD (Chronic Obstructive Pulmonary Disease) (DC) Activity/Diet/Wound Care/Special Instructions: Please see PCP and repeat Sodium levels in 3 days. Discharge/Stand Alone Forms: [place] [facility] Pamphlet, Who Do I Call?, [facility] List, Assisted Living Facilities, Community Resources, Help In The Home, Personal [employer] Sp[employer]er Discharge Disposition: HOME WITH HOME HEALTH SERVICES
[2025-04-03 10:15] VITALS: BP 159/77; RESP 17; TEMP 97.8
[2025-04-03 11:11] LABS: Glucose,Whole Blood 154 mg/dL (70-110)
--- NOTE | 2025-04-03 11:20 | P.PN ---
Subjective Progress Note Date: 04/03/25 Patient is an 84-year-old female with past medical history significant for COPD, current tobacco smoker, coronary artery disease with previous PCI/stents, diastolic heart failure. Of note, patient hospitalized last month with acute COPD exacerbation and questionable left lower lobe pneumonia. Was found to be in new onset atrial fibrillation during this hospitalization. Discharged on March 10. Patient brought into the hospital by EMS yesterday afternoon. Chief complaint was shortness of breath. Apparently noted to be hypoxic at [facility] with a SpO2 in the 70s. Noted to have diffuse wheezing in the ED and her COPD was thought to be active. She was loaded with IV Solu-Medrol and given DuoNeb treatment. Chest x-ray showing a large cardiac silhouette, interstitial prominence, and atelectasis at the bases with platelike atelectasis in the right lower lobe.Labs including a CBC with a WBC count of 14.1, hemoglobin 11.5, platelets 370. CMP: Sodium 133, potassium 4.1, chloride 91, serum bicarb 36, BUN 22, creatinine 0.91, glucose 82. Lactic 1. Troponin less than 0.012. NT- proBNP 964. Echocardiogram performed during previous hospitalization in February, estimating left ventricular ejection fraction of 55 to 60% with mild LVH. Viral 4 Plex negative for influenza A/B, RSV, COVID. Patient currently being evaluated on the general medical floor. She is resting comfortably in bed. She is on 4 L/min nasal cannula. States her difficulty in breathing started 1 to 2 months ago. Associated lower extremity pitting edema over the same timeframe. She denies any coughing, sputum production, hemoptysis, fevers or chills. She denies any chest pain. She denies any heart palpitations, lightheadedness or syncopal events. States she was hallucinating previously while at the outside facility. VBG previously drawn with a pCO2 of 55 and pH of 7.42. The patient is seen today April 02, 2025 in follow-up on the regular medical floor. She is currently resting comfortably in bed. Awake and alert in no acute distress. Denies any worsening shortness of breath, cough or congestion. Maintaining O2 saturation in the 90s on 3 L/min per nasal cannula. Afebrile. Hemodynamically stable. White count 18.8. Hemoglobin 10.3. Platelets 399. Sodium 129. Potassium 4.0. Bicarb 34. BUN 30. Creatinine 0.85. Glucose 174. Hemoglobin A1c 7.7. She is continued on DuoNeb inhalations, prednisone taper. Remains on oral diuretics. Anticoagulated with Eliquis. Doppler of the left lower extremity ruled out DVT. The patient is seen today April 03, 2025 in follow-up on the regular medical f debbie. She is sitting up in a chair at the bedside. Awake and alert in no acute distress. Maintaining O2 saturations in the 90s on 3 L/min per nasal cannula. She denies any worsening shortness of breath, cough or congestion. She is continued on DuoNeb and elations. Continued on a prednisone taper. Anticoagulated with Eliquis. Glucose 154. Objective - Vital Signs Vital signs: Vital Signs Temp 97.8 F 04/03/25 07:28 Pulse 75 04/03/25 09:48 Resp 17 04/03/25 09:48 BP 159/77 04/03/25 07:28 Pulse Ox 95 04/03/25 07:28 FiO2 Intake & Output 04/02/25 04/03/25 04/03/25 18:59 06:59 18:59 Intake Total 1640 Balance 1640 Intake: Oral 1640 Other: Voiding Method Bedside Commode Bedside Commode Bedside Commode # Voids 4 3 # Bowel Movements 0 - Exam GENERAL EXAM: Alert, 84-year-old obese female, sitting up in a chair at the bedside, on 3 L nasal cannula, comfortable in no apparent distress. HEAD: Normocephalic and atraumatic EYES: Normal reaction of pupils, equal size. NOSE: Clear with pink turbinates. THROAT: No erythema or exudates. NECK: No masses, no JVD. CHEST: No chest wall deformity. LUNGS: Equal air entry with bibasilar respiratory crackles. No conversational dyspnea or accessory muscle use.. CVS: S1 and S2 normal with no audible murmur, regular rhythm. No extra heart sounds ABDOMEN: No hepatosplenomegaly, active bowel sounds, no guarding or rigidity. SPINE: No scoliosis or deformity SKIN: No rashes CENTRAL NERVOUS SYSTEM: No focal deficits, tone is normal in all 4 extremities. EXTREMITIES: Bilateral lower extremity 2-3+ pitting edema. Clubbing or cyanosis. Peripheral pulses are intact. - Labs CBC & Chem 7: 04/02/25 05:01 04/02/25 05:01 Labs: Abnormal Lab Results - Last 24 Hours (Table) 04/02/25 04/02/25 04/03/25 Range/Units 16:28 20:34 11:10 POC Glucose (mg/dL) 200 H 167 H 154 H (70-110) mg/dL Assessment and Plan Assessment: Acute on chronic hypoxic respiratory failure, currently on 3 liters of oxygen by nasal cannula Acute COPD exacerbation Suspect exacerbation of diastolic congestive heart failure Bilateral lower extremity edema History of paroxysmal atrial fibrillation, currently sinus mechanism, anticoagulated on Eliquis Coronary artery disease with previous [place] and PCI/stents History of hyperlipidemia Current ongoing tobacco dependence, smokes 2 to 3 cigarettes/day History of hypertension Chronic anxiety Plan: The patient was seen and evaluated Labs and medications reviewed Cleared for discharge Continue her home oxygen Continue a prednisone taper Continue Eliquis Continue diuretics Educated again regarding smoking cessation Follow-up in our office in 1 week I have personally seen and examined the patient, performed the documentation and the assessment and plan as written. Number of minutes spent on the visit: 10 Dictation was produced using [employer] dictation software. Please excuse any grammatical, word or spelling errors.
[2025-04-03 12:44] VITALS: PULSE 76
== END 2025-04-03 15:01 | disposition home health service (06) | DRG 189 ==
LOC: EC 12:20 → 4SSUR 16:54
PROVIDERS: ADMIT Student in an Organized Health Care Education/Training Program; ATTEND Student in an Organized Health Care Education/Training Program
DX: J96.21 Acute and chronic respiratory failure with hypoxia (principal); E44.0 Moderate protein-calorie malnutrition; E87.3 Alkalosis; E87.1 Hypo-osmolality and hyponatremia; I11.0 Hypertensive heart disease with heart failure; I48.0 Paroxysmal atrial fibrillation; J44.1 Chronic obstructive pulmonary disease with (acute) exacerbation; F32.A Depression, unspecified; Z68.31 Body mass index [BMI] 31.0-31.9, adult; I50.32 Chronic diastolic (congestive) heart failure; J98.11 Atelectasis; T38.0X5A Adverse effect of glucocorticoids and synthetic analogues, initial encounter; D72.829 Elevated white blood cell count, unspecified; E78.5 Hyperlipidemia, unspecified; F17.210 Nicotine dependence, cigarettes, uncomplicated; R73.9 Hyperglycemia, unspecified; F41.9 Anxiety disorder, unspecified; I25.10 Atherosclerotic heart disease of native coronary artery without angina pectoris; I25.2 Old myocardial infarction; Z99.81 Dependence on supplemental oxygen; Z79.01 Long term (current) use of anticoagulants; Z79.51 Long term (current) use of inhaled steroids; Z79.82 Long term (current) use of aspirin; Z79.84 Long term (current) use of oral hypoglycemic drugs; Z79.899 Other long term (current) drug therapy; Z91.199 Patient's noncompliance with other medical treatment and regimen due to unspecified reason; Z98.61 Coronary angioplasty status; Z11.52 Encounter for screening for COVID-19; Z85.828 Personal history of other malignant neoplasm of skin; Z88.5 Allergy status to narcotic agent
CPT/HCPCS: 36415; 71046; 80048; 80053; 82803; 83036; 83605; 83735; 83880; 84443; 84484; 85025; 85610; 85730; 87636; 93005; 94640; 94760; 96374; 96376; 99285

== ENCOUNTER 2025-04-04 11:45 | Inpatient (IN) | payer MEDICARE ==
[2025-04-04] MEDS: IPRATROPIUM 0.5 MG/2.5 ML NEBU INHALATION STA (12:20)
[2025-04-04] MEDS: ALBUTEROL NEBULIZED 2.5 MG/3 ML INHALATION STA (12:20)
--- NOTE | 2025-04-04 12:20 | ED ---
General Adult HPI - General Chief complaint: Shortness of Breath Stated complaint: DEJUAN,Weakness Time Seen by Provider: 04/04/25 11:55 Source: patient, EMS, RN notes reviewed, old records reviewed Mode of arrival: EMS Limitations: no limitations - History of Present Illness Initial comments: This is an 84-year-old female who presents to the emergency department complaining of difficulty breathing. Patient states has been ongoing she has COPD and congestive heart failure history. Patient states she was post go to rehab but she did not want to so they sent her home yesterday. Patient's family states that he cannot take care of her so they brought her back to the emergency department. Patient states she is now willing to go to rehab. Patient denies any fever chills patient states she has occasional dry cough. Patient states she has swelling in her legs but is no worse than normal. Patient denies any chest pain or palpitations. - Related Data Home Medications Medication Instructions Recorded Confirmed Atorvastatin [Lipitor] 40 mg PO DAILY 03/04/25 03/31/25 Escitalopram [Lexapro] 20 mg PO DAILY 03/04/25 03/31/25 Apixaban [Eliquis] 2.5 mg PO BID 03/31/25 03/31/25 Previous Rx's Medication Instructions Recorded ALPRAZolam [Xanax] 0.5 mg PO BID PRN #6 tab 03/10/25 Dapagliflozin Propanediol [Farxiga] 5 mg PO DAILY tab 03/10/25 Metoprolol Succinate (ER) [Toprol 25 mg PO DAILY tab 03/10/25 XL] Potassium Chloride ER [K-Dur 20] 20 meq PO DAILY tab 03/10/25 Torsemide [Demadex] 20 mg PO DAILY tab 03/10/25 traMADol HCL 50 mg PO BID PRN #6 tab 03/10/25 traZODone HCL [Desyrel] 100 mg PO HS #3 tab 03/10/25 predniSONE [Deltasone] 40 mg PO DAILY #6 tab 04/02/25 Allergies Allergy/AdvReac Type Severity Reaction Status Date / Time codeine AdvReac Itching Verified 04/04/25 11:53 Review of Systems ROS Statement: Those systems with pertinent positive or pertinent negative responses have been documented in the HPI. ROS Other: All systems not noted in ROS Statement are negative. 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, covid Last Myocardial Infarction Date:: 11/23 History of Any Multi-Drug Resistant Organisms: None Reported Past Surgical History: Heart Catheterization With Stent, Hysterectomy Past Anesthesia/Blood Transfusion Reactions: No Reported Reaction Date of Last Stent Placement:: 11/27/23 Past Psychological History: Anxiety, Depression Smoking Status: Current some day smoker Past Alcohol Use History: None Reported Past Drug Use History: None Reported - Past Family History Mother Family Medical History: Myocardial Infarction ([place]) Father Family Medical History: CVA/TIA General Exam - General Exam Comments Initial Comments: GENERAL: Patient is well-developed and well-nourished. Patient is nontoxic and well-hydr ated and is in mild distress. ENT: Neck is soft and supple. No significant lymphadenopathy is noted. Oropharynx is clear. Moist mucous membranes. Neck has full range of motion without eliciting any pain. Is yet EYES: The sclera were anicteric and conjunctiva were pink and moist. Extraocular movements were intact and pupils were equal round and reactive to light. Eyelids were unremarkable. PULMONARY: Patient has slight crackles in the bilateral bases with expiratory wheezing CARDIOVASCULAR: There is a regular rate and rhythm without any murmurs gallops or rubs. ABDOMEN: Soft and nontender with normal bowel sounds. SKIN: Skin is clear with no lesions or rashes and otherwise unremarkable. NEUROLOGIC: Patient is alert and oriented x3. Cranial nerves II through XII are grossly intact. Motor and sensory are also intact. Normal speech, volume and content. Symmetrical smile. MUSCULOSKELETAL: Normal extremities with adequate strength and full range of motion. Chronic cellulitis bilaterally 1+ edema bilaterally LYMPHATICS: No significant lymphadenopathy is noted PSYCHIATRIC: Normal psychiatric evaluation. Limitations: no limitations Course Vital Signs 04/04/25 04/04/25 04/04/25 11:48 12:20 12:36 Temperature 98.8 F Pulse Rate 80 80 83 Respiratory 18 Rate Blood Pressure 143/86 O2 Sat by Pulse 100 Oximetry 04/04/25 13:06 Temperature Pulse Rate 89 Respiratory 18 Rate Blood Pressure 129/67 O2 Sat by Pulse 91 L Oximetry Medical Decision Making - Medical Decision Making EKG is interpreted by myself and EKG shows a sinus rhythm at 81 bpm CA 157 QRS is 86 QT interval 394 QTc is 432. Patient's EKG shows no ST segment elevation or depression. Was pt. sent in by a medical professional or institution ([facility] [employer], COAT AGENT, urgent care, hospital, or intermediate...) When possible be specific @ -No Did you speak to anyone other than the patient for history (EMS, parent, family, police, friend...)? What history was obtained from this source @ -No Did you review nursing and triage notes (agree or disagree)? Why? @ -I reviewed and agree with nursing and triage notes Were old charts reviewed (outside hosp., previous admission, EMS record, old EKG, old radiological studies, urgent care reports/EKG's, intermediate records)? Report findings @ -No old charts were reviewed Differential Diagnosis? @ -Differential Dyspnea: Coronary syndrome, arrhythmia, tamponade, asthma, COPD, pulmonary embolism, pneumonia, pneumothorax, pulmonary effusion, anaphylaxis, diabetic ketoacidosis, flailed chest, pulmonary contusion, diaphragmatic rupture, anemia, neuromuscular, this is not meant to be an all-inclusive list. EKG interpreted by me (3pts min.). @ -As above X-rays interpreted by me (1pt min.). @ -Chest x-ray shows no acute abnormality CT interpreted by me (1pt min.). @ -None done U/S interpreted by me (1pt. min.). @ -None done What testing was considered but not performed or refused? (CT, X-rays, U/S, labs)? Why? @ -None What meds were considered but not given or refused? Why? @ -None Did you discuss the management of the patient with other professionals (professionals i.e. [employer], COAT AGENT, lab, RT, psych nurse, manager social, presser hand, teacher, consular officer, piano case and bench assembler)? Give summary @ -Spoke with sound physicians agreed to admit the patient Was smoking cessation discussed for >3mins.? @ -No Was critical care preformed (if so, how long)? @ -No Were there social determinants of health that impacted care today? How? (Homelessness, low income, unemployed, alcoholism, drug addiction, transportation, low edu. Level, literacy, decrease access to med. care, [facility], rehab)? @ -No Was there de-escalation of care discussed even if they declined (Discuss DNR or withdrawal of care, Hospice)? DNR status @ -No What co-morbidities impacted this encounter? (DM, HTN, Smoking, COPD, CAD, Cancer, CVA, ARF, Chemo, Hep., AIDS, mental health diagnosis, sleep apnea, morbid obesity)? @ -None Was patient admitted / discharged? Hospital course, mention meds given and route, prescriptions, significant lab abnormalities, going to OR and other pertinent info. @ -Patient was given a breathing treatment and steroids in the emergency department was antibiotics. Patient will be admitted for COPD exacerbation. And hopefully intermediate placement. Undiagnosed new problem with uncertain prognosis? @ -No Drug Therapy requiring intensive monitoring for toxicity (Heparin, Nitro, Insulin, Cardizem)? @ -No Were any procedures done? @ -No Diagnosis/symptom? @ -COPD exacerbation Acute, or Chronic, or Acute on Chronic? @ -Acute Uncomplicated (without systemic symptoms) or Complicated (systemic symptoms)? @ -Complicated Side effects of treatment? @ -No Exacerbation, Progression, or Severe Exacerbation? @ -No Poses a threat to life or bodily function? How? (Chest pain, [place], HI, pneumonia, PE, COPD, DKA, ARF, appy, cholecystitis, CVA, Diverticulitis, Homicidal, Suicidal, threat to staff... and all critical care pts) @ -Yes this can lead to hypoxia and endorgan dysfunction - Lab Data Result diagrams: 04/04/25 12:19 04/04/25 12:19 Lab Results 04/04/25 04/04/25 04/04/25 Range/Units 12:19 12:19 12:19 WBC 24.40 H (4.50-10.00) 10*3/uL RBC 4.56 (4.10-5.20) 10*6/uL Hgb 12.9 (12.0-15.0) g/dL Hct 39.7 (37.2-46.3) % MCV 87.1 (80.0-97.0) fL MCH 28.3 (27.0-32.0) pg MCHC 32.5 (32.0-37.0) g/dL Plt Count 409 (140-440) 10*3/uL MPV 9.6 (9.5-12.2) fL Immature Gran % (Auto) 1.6 % Neutrophils % 78.9 % Lymphocytes % 9.6 % Monocytes % 9.2 % Eosinophils % 0.3 % Basophils % 0.4 % Immature Gran # 0.40 H (0.00-0.04) 10*3/uL Neutrophils # 19.24 H (1.80-7.70) 10*3/uL Lymphocytes # 2.35 (0.90-5.00) 10*3/uL Monocytes # 2.24 H (0.20-1.00) 10*3/uL Eosinophils # 0.07 (0.04-0.35) 10*3/uL Basophils # 0.10 (0.00-0.10) 10*3/uL PT 10.5 (10.0-12.5) sec INR 0.9 (<1.2) APTT 20.8 L (22.0-30.0) sec Sodium 134 L (137-145) mmol/L Potassium 3.9 (3.5-5.1) mmol/L Chloride 90 L (98-107) mmol/L Carbon Dioxide 38 H (22-30) mmol/L Anion Gap 6 mmol/L BUN 23 H (7-17) mg/dL Creatinine 0.72 (0.52-1.04) mg/dL Est GFR (CKD-EPI)AfAm >90 (>60 ml/min/1.73 sqM) Est GFR (CKD-EPI)NonAf 79 (>60 ml/min/1.73 sqM) Glucose 102 H (74-99) mg/dL Plasma Lactic Acid Bryan (0.7-2.0) mmol/L Calcium 8.9 (8.4-10.2) mg/dL Magnesium 1.8 (1.6-2.3) mg/dL Total Bilirubin 1.1 (0.2-1.3) mg/dL AST 20 (14-36) U/L ALT 28 (4-34) U/L Alkaline Phosphatase 148 H (38-126) U/L Troponin I (0.000-0.034) ng/mL NT-Pro-B Natriuret Pep 1270 pg/mL Total Protein 5.8 L (6.3-8.2) g/dL Albumin 2.9 L (3.5-5.0) g/dL 04/04/25 04/04/25 Range/Units 12:19 12:19 WBC (4.50-10.00) 10*3/uL RBC (4.10-5.20) 10*6/uL Hgb (12.0-15.0) g/dL Hct (37.2-46.3) % MCV (80.0-97.0) fL MCH (27.0-32.0) pg MCHC (32.0-37.0) g/dL Plt Count (140-440) 10*3/uL MPV (9.5-12.2) fL Immature Gran % (Auto) % Neutrophils % % Lymphocytes % % Monocytes % % Eosinophils % % Basophils % % Immature Gran # (0.00-0.04) 10*3/uL Neutrophils # (1.80-7.70) 10*3/uL Lymphocytes # (0.90-5.00) 10*3/uL Monocytes # (0.20-1.00) 10*3/uL Eosinophils # (0.04-0.35) 10*3/uL Basophils # (0.00-0.10) 10*3/uL PT (10.0-12.5) sec INR (<1.2) APTT (22.0-30.0) sec Sodium (137-145) mmol/L Potassium (3.5-5.1) mmol/L Chloride (98-107) mmol/L Carbon Dioxide (22-30) mmol/L Anion Gap mmol/L BUN (7-17) mg/dL Creatinine (0.52-1.04) mg/dL Est GFR (CKD-EPI)AfAm (>60 ml/min/1.73 sqM) Est GFR (CKD-EPI)NonAf (>60 ml/min/1.73 sqM) Glucose (74-99) mg/dL Plasma Lactic Acid Bryan 1.5 (0.7-2.0) mmol/L Calcium (8.4-10.2) mg/dL Magnesium (1.6-2.3) mg/dL Total Bilirubin (0.2-1.3) mg/dL AST (14-36) U/L ALT (4-34) U/L Alkaline Phosphatase (38-126) U/L Troponin I <0.012 (0.000-0.034) ng/mL NT-Pro-B Natriuret Pep pg/mL Total Protein (6.3-8.2) g/dL Albumin (3.5-5.0) g/dL Disposition Clinical Impression: COPD exacerbation Disposition: ADMITTED IP TO THIS HOSP Referrals: Christopher Wood DO [Primary Care Provider] - 1-2 days Time of Disposition: 13:19
[2025-04-04] MEDS: methylPREDNISolone SOD SUCCI 125 MG/2 ML VIAL IV STA (12:29)
[2025-04-04] MEDS: cefTRIAXone IN SWFI 1,000 MG/10 ML SYRINGE IVP STA (12:30)
[2025-04-04 12:37] LABS: Basophils # (A) 0.10 10*3/uL (0.00-0.10); Basophils % (A) 0.4 %; Eosinophils # (A) 0.07 10*3/uL (0.04-0.35); Eosinophils % (A) 0.3 %; HCT 39.7 % (37.2-46.3); HGB 12.9 g/dL (12.0-15.0); Lymphocytes # (A) 2.35 10*3/uL (0.90-5.00); Lymphocytes % (A) 9.6 %; MCH 28.3 pg (27.0-32.0); MCHC 32.5 g/dL (32.0-37.0); MCV 87.1 fL (80.0-97.0); Monocytes # (A) 2.24 10*3/uL (0.20-1.00); Monocytes % (A) 9.2 %; Neutrophils # (A) 19.24 10*3/uL (1.80-7.70); Neutrophils % (A) 78.9 %; Platelet Count 409 10*3/uL (140-440); RBC 4.56 10*6/uL (4.10-5.20); RDW 19.7 % (11.5-14.5); WBC 24.40 10*3/uL (4.50-10.00)
[2025-04-04 12:51] LABS: ALT 28 U/L (4-34); AST 20 U/L (14-36); African American GFR (CKD) >90 (>60 ml/min/1.73 sqM); Albumin 2.9 g/dL (3.5-5.0); Alkaline Phosphatase 148 U/L (38-126); Anion Gap 6 mmol/L; Blood Urea Nitrogen 23 mg/dL (7-17); Calcium 8.9 mg/dL (8.4-10.2); Carbon Dioxide 38 mmol/L (22-30); Chloride 90 mmol/L (98-107); Glucose 102 mg/dL (74-99); Magnesium 1.8 mg/dL (1.6-2.3); Non-African American GFR(CKD) 79 (>60 ml/min/1.73 sqM); Potassium 3.9 mmol/L (3.5-5.1); Sodium 134 mmol/L (137-145); Total Protein 5.8 g/dL (6.3-8.2)
[2025-04-04 12:53] LABS: INR 0.9 (<1.2); Partial Thromboplastin Time 20.8 sec (22.0-30.0); Prothrombin Time 10.5 sec (10.0-12.5)
--- NOTE | 2025-04-04 12:56 | XR ---
EXAMINATION TYPE: XR chest 2V DATE OF EXAM: 04/04/2025 12:45 PM COMPARISON: Chest radiographs from 03/31/2025. CLINICAL INDICATION: Female, 84 years old with history of difficulty breathing; [facility] TECHNIQUE: XR chest 2V Frontal and lateral views of the chest. FINDINGS: Lungs/Pleura: No evidence of focal consolidation or pneumothorax. Blunting of the costophrenic angles is present. Pulmonary vascularity: Pulmonary vascular congestion. Heart/mediastinum: Cardiomediastinal silhouette is enlarged. Musculoskeletal: No acute osseous pathology. IMPRESSION: Cardiomegaly, pulmonary vascular congestion and bilateral pleural effusions. Correlate with BNP for c ongestive heart failure. [facility], , 04/04/2025 12:53 PM
[2025-04-04 12:59] LABS: NT-Pro-B-Type Natriuretic Pept 1270 pg/mL
[2025-04-04] MEDS ORDERED: IPRATROPIUM-ALBUTEROL 3 ML NEB INHALATION PRN (13:19)
[2025-04-04] MEDS ORDERED: NALOXONE 0.4 MG/ML 1 ML VIAL IVP PRN (13:19)
--- NOTE | 2025-04-04 14:52 | P.HPIM ---
History of Present Illness H&P Date: 04/04/25 Chief Complaint: Shortness of breath 84 y.o female with PMHx of COPD (on home oxygen, however pt does not recall how many liters) and diastolic CHF (most recent EF 55-60% on 03/03/2025) who presents to the ED with shortness of breath. Pt was found on the toilet, for what appears to be hours, by an individual from the [place], who then called EMS to bring pt to the ED. Per pt she was too weak to get up from the toilet. Of note pt was discharged from [facility] yesterday (04/03/2025) after being treated for an acute COPD exacerbation, she was discharged with 7 days of steroids and home oxygen. At the time pt's family "granddaughter" did not want her to go home as she did not think the pt would be able to independently take care of herself, however pt was determined to have capacity to return home, and as such was discharged. Today the pt is in agreement with her granddaughter and is willing to go to rehab to "get stronger/regain her strength." Pt states she feels "tired," otherwise denies any headache, or chest pain, fevers or chills. PMHx and PSHx: as above, hypertension, NSTEMI s/p 2 stent placement (11/2023) SHx: smoker for >45 years (unable to account number of cigarettes but < 1 pack per week) CXR and EKG obtained in ED, with CXR showing pulmonary vascular congestion and b/l pleural effusion, and EKG showing normal sinus rhythm. Initial labs significant for WBC 24.40, Na 134, bicarb 38. Vitals: - on arrival: BP 143/86, HR 80, RR 18, 100% on 3L NC, temp afebrile - most recent: BP 129/67, HR 89, RR 18, 91% on 3L NC, temp afebrile Review of systems: Pertinent positives and negatives as discussed in HPI, a complete review of systems was performed and all other systems are negative. Physical examination: Vital signs reviewed General: non toxic, no distress, appears at stated age, normal weight Derm: no unusual rashes/lesions, warm Head: atraumatic, normocephalic, symmetric Eyes: EOMI, anicteric sclera ENT: Nose and ears atraumatic Mouth: no lip lesion, mucus membranes moist Cardiovascular: S1S2 reg, no murmur Lungs: bilateral expiratory wheezing on auscultation Abdominal: soft, nontender to palpation, no guarding Ext: 1+ pitting edema in the bilateral lower extremities to above the knee Neuro: A&O x3 Psych: appropriate affect Assessment/Plan: 84 y.o female with PMHx of COPD (on home oxygen, however pt does not recall how many liters) and diastolic CHF (most recent EF 55-60% on 03/03/2025) who presents to the ED with shortness of breath. Acute #Acute COPD exacerbation #Acute on chronic hypoxic respiratory failure - DuoNebs every 2 hours as needed, 4 times daily scheduled and PO prednisone 40mg daily for acute exacerbation - on NC currently 4L, wean as appropriate to maintain SpO2 88-92% #leukocytosis, likely steroid-induced - monitor for any febrile temps - monitor WBC count #mild to moderate protein calorie malnurition - monitor albumin #metabolic alkalosis - monitor BMP #Mild hyponatremia - Possibly in the setting of diuretic use - Continue to trend #Deability - rn case manager to set up sub-acute rehab pending dispo - PT/OT eval Chronic: Diastolic CHF Type 2 diabetes - monitor FSG, resume Dapagliflozin Hypertension Anxiety/depression Paroxysmal A fib - c/w home eliquis DVT prophylaxis: Eliquis The patient is admitted with an anticipated more than 2 midnight stay for evaluation of COPD exacerbation and acute on chronic hypoxic respiratory failure. CODE STATUS: full code Anticipated discharge place: pending clinical course Temi Dickson MD PGY1 FM I have seen and evaluated the patient today. Discussed with the resident and agree with the residents finding and plan as documented in the resident's note. Changes highlighted in blue font. 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, covid Last Myocardial Infarction Date:: 11/23 History of Any Multi-Drug Resistant Organisms: None Reported Past Surgical History: Heart Catheterization With Stent, Hysterectomy Past Anesthesia/Blood Transfusion Reactions: No Reported Reaction Date of Last Stent Placement:: 11/27/23 Past Psychological History: Anxiety, Depression Smoking Status: Current some day smoker Past Alcohol Use History: None Reported Past Drug Use History: None Reported - Past Family History Mother Family Medical History: Myocardial Infarction (NM) Father Family Medical History: CVA/TIA Medications and Allergies Home Medications Medication Instructions Recorded Confirmed Type Atorvastatin [Lipitor] 40 mg PO DAILY 03/04/25 04/04/25 History Escitalopram [Lexapro] 20 mg PO DAILY 03/04/25 04/04/25 History ALPRAZolam [Xanax] 0.5 mg PO BID PRN #6 tab 03/10/25 04/04/25 Rx Dapagliflozin Propanediol [Farxiga] 5 mg PO DAILY tab 03/10/25 04/04/25 Rx Metoprolol Succinate (ER) [Toprol 25 mg PO DAILY tab 03/10/25 04/04/25 Rx XL] Potassium Chloride ER [K-Dur 20] 20 meq PO DAILY tab 03/10/25 04/04/25 Rx Torsemide [Demadex] 20 mg PO DAILY tab 03/10/25 04/04/25 Rx traMADol HCL 50 mg PO BID PRN #6 tab 03/10/25 04/04/25 Rx traZODone HCL [Desyrel] 100 mg PO HS #3 tab 03/10/25 04/04/25 Rx Apixaban [Eliquis] 2.5 mg PO BID 03/31/25 04/04/25 History predniSONE [Deltasone] 40 mg PO DAILY #6 tab 04/02/25 04/04/25 Rx Allergies Allergy/AdvReac Type Severity Reaction Status Date / Time codeine AdvReac Itching Verified 04/04/25 13:24 Physical Exam Vitals: Vital Signs Temp Pulse Resp BP Pulse Ox 04/04/25 13:06 89 18 129/67 91 L 04/04/25 12:36 83 04/04/25 12:20 80 04/04/25 11:48 98.8 F 80 18 143/86 100 Intake and Output 04/03/25 04/04/25 04/04/25 22:59 06:59 14:59 Other: Weight 64.41 kg Results CBC & Chem 7: 04/04/25 12:19 04/04/25 12:19 Labs: Abnormal Lab Results - Last 24 Hours (Table) 04/04/25 04/04/25 04/04/25 Range/Units 12:19 12:19 12:19 WBC 24.40 H (4.50-10.00) 10*3/uL Immature Gran # 0.40 H (0.00-0.04) 10*3/uL Neutrophils # 19.24 H (1.80-7.70) 10*3/uL Monocytes # 2.24 H (0.20-1.00) 10*3/uL APTT 20.8 L (22.0-30.0) sec Sodium 134 L (137-145) mmol/L Chloride 90 L (98-107) mmol/L Carbon Dioxide 38 H (22-30) mmol/L BUN 23 H (7-17) mg/dL Glucose 102 H (74-99) mg/dL Alkaline Phosphatase 148 H (38-126) U/L Total Protein 5.8 L (6.3-8.2) g/dL Albumin 2.9 L (3.5-5.0) g/dL
[2025-04-04] MEDS: AMOXIC-POT CLAV 875-125MG 1 EACH TAB PO STA (15:08)
[2025-04-04] MEDS ORDERED: DEXTROSE 50% SYRINGE 50 ML IVP PRN ×2 (16:07)
[2025-04-04] MEDS: IPRATROPIUM-ALBUTEROL 3 ML NEB INHALATION SCH (16:34)
[2025-04-04 17:09] LABS: Glucose,Whole Blood 285 mg/dL (70-110)
[2025-04-04] MEDS: INSULIN LISPRO (HumaLOG) 100 UNIT/ML 10 mL VL SQ SCH (17:17)
[2025-04-04] MEDS ORDERED: methylPREDNISolone SOD SUCCI 125 MG/2 ML VIAL IV SCH (18:00)
[2025-04-04 20:09] LABS: Glucose,Whole Blood 261 mg/dL (70-110)
[2025-04-04] MEDS: APIXABAN 2.5 MG TABLET PO SCH (20:27)
[2025-04-05] MEDS: ALPRAZolam 0.5 MG TAB PO PRN (00:30)
[2025-04-05 04:08] LABS: Basophils # (A) 0.07 10*3/uL (0.00-0.10); Basophils % (A) 0.4 %; Eosinophils # (A) 0.00 10*3/uL (0.04-0.35); Eosinophils % (A) 0.0 %; HCT 36.8 % (37.2-46.3); HGB 12.0 g/dL (12.0-15.0); Lymphocytes # (A) 1.67 10*3/uL (0.90-5.00); Lymphocytes % (A) 8.4 %; MCH 28.2 pg (27.0-32.0); MCHC 32.6 g/dL (32.0-37.0); MCV 86.6 fL (80.0-97.0); Monocytes # (A) 1.20 10*3/uL (0.20-1.00); Monocytes % (A) 6.1 %; Neutrophils # (A) 16.47 10*3/uL (1.80-7.70); Neutrophils % (A) 83.1 %; Platelet Count 353 10*3/uL (140-440); RBC 4.25 10*6/uL (4.10-5.20); RDW 19.5 % (11.5-14.5); WBC 19.81 10*3/uL (4.50-10.00)
[2025-04-05 04:24] LABS: African American GFR (CKD) >90 (>60 ml/min/1.73 sqM); Anion Gap 7 mmol/L; Blood Urea Nitrogen 25 mg/dL (7-17); Calcium 8.9 mg/dL (8.4-10.2); Carbon Dioxide 34 mmol/L (22-30); Chloride 90 mmol/L (98-107); Glucose 150 mg/dL (74-99); Non-African American GFR(CKD) 82 (>60 ml/min/1.73 sqM); Potassium 4.2 mmol/L (3.5-5.1); Sodium 131 mmol/L (137-145)
[2025-04-05 06:14] LABS: Glucose,Whole Blood 181 mg/dL (70-110)
[2025-04-05] MEDS: ATORVASTATIN 40 MG TAB PO SCH (08:12)
[2025-04-05] MEDS: POTASSIUM CHLORIDE ER 20 MEQ TAB.ER PO SCH (08:12)
[2025-04-05] MEDS: DAPAGLIFLOZIN PROPANEDIOL 5 MG TABLET PO SCH (08:12)
[2025-04-05] MEDS: predniSONE 20 MG TAB PO SCH (08:12)
[2025-04-05] MEDS: TORSEMIDE 20 MG TAB PO SCH (08:12)
[2025-04-05] MEDS: METOPROLOL SUCCINATE (ER) 25 MG TAB.ER.24H PO SCH (08:12)
[2025-04-05] MEDS: ESCITALOPRAM 20 MG TAB PO SCH (08:12)
[2025-04-05] MEDS: traMADol 50 MG TAB PO PRN (08:20)
[2025-04-05 11:23] LABS: Glucose,Whole Blood 193 mg/dL (70-110)
--- NOTE | 2025-04-05 14:44 | P.PN ---
Subjective Progress Note Date: 04/05/25 HPI: 84 y.o female with PMHx of COPD on home oxygen, and diastolic CHF (most recent EF 55-60% on 03/03/2025) who presents to the ED with shortness of breath. Pt was found on the toilet, for what appears to be hours, by an individual from the [facility], who then called EMS to bring pt to the ED. Per pt she was too weak to get up from the toilet. Of note pt was discharged from [facility] yesterday (04/03/2025) after being treated for an acute COPD exacerbation, she was discharged with 7 days of steroids and home oxygen. At the time pt's family "granddaughter" did not want her to go home as she did not think the pt would be able to independently take care of herself, however pt was determined to have capacity to return home, and as such was discharged. Today the pt is in agreement with her granddaughter. Pt states she feels tired and wants to leave. otherwise denies any headache, or chest pain, fevers or chills. PMHx and PSHx: as above, hypertension, NSTEMI, 3 stent placement (11/2023) SHx: smoker for >45 years CXR and EKG obtained in ED, with CXR showing pulmonary vascular congestion and b/l pleural effusion, and EKG showing normal sinus rhythm. imaging: [Laboratory evaluation]. WBC: 24.40 > 19.81 Sodium 134 >131 K 3.9 > 4.2 BUN 23 > 25 Cr 0.68 > 0.72 [Vitals] O2 96% 4L NC ED documentation reviewed and case discussed with ED provider. Review of systems: Pertinent positives and negatives as discussed in HPI, a complete review of systems was performed and all other systems are negative. Physical examination: Vital signs reviewed General: non toxic, no distress, appears at stated age, normal weight Head: atraumatic, normocephalic, symmetric Eyes: EOMI, anicteric sclera, pupils equal round reactive to light ENT: Nose and ears atraumatic Neck: No cervical lymphadenopathy, trachea midline, supple Mouth: no lip lesion, mucus membranes moist Cardiovascular: S1S2 reg, no murmur, positive dorsalis pedis pulse bilateral, no edema Lungs: bilateral expiratory wheezing on auscultation Abdominal: soft, nontender to palpation, no guarding Ext: muscle strength 5 out of 5 in all 4 extremities grossly, no gross muscle atrophy, 1+ pitting edema bilateral lower extremities Neuro: CN II-XI grossly intact, no gross focal neuro deficits Psych: Alert, oriented to person, place, and time Assessment/Plan: 84 y.o female with PMHx of COPD on 4L NC and diastolic CHF. COPD / Acute on chronic hypoxic respiratory insufficiency - continue resp therapy, duoneb every 2 hours as needed, 4 times daily scheduled, prednisone 40 mg p.o. 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 please excuse any grammatical, word or spelling errors. [facility] confidentiality statement: "The information contained in this communication, including attachments, is confidential, may be privileged, and is intended only for the use of the named recipient(s). Unauthorized use, disc losure, forwarding or copying is strictly prohibited and may be unlawful. If you have received this communication in error, please notify me IMMEDIATELY at the phone number or pager listed above." I have seen and evaluated the patient today. Discussed with the resident and agree with the residents finding and plan as documented in the resident's note. Changes highlighted in blue font. Objective - Vital Signs Vital signs: Vital Signs Temp 97.4 F L 04/05/25 07:28 Pulse 80 04/05/25 12:51 Resp 19 04/05/25 07:28 BP 161/80 04/05/25 07:28 Pulse Ox 96 04/05/25 07:28 FiO2 Intake & Output 04/04/25 04/05/25 04/05/25 18:59 06:59 18:59 Intake Total 1320 Balance 1320 Weight 64.41 kg 77.5 kg Intake: Oral 1320 Other: Voiding Method Toilet # Voids 4 1 - Labs CBC & Chem 7: 04/05/25 03:31 04/05/25 03:31 Labs: Abnormal Lab Results - Last 24 Hours (Table) 04/04/25 04/04/25 04/05/25 Range/Units 17:07 20:07 03:31 WBC 19.81 H (4.50-10.00) 10*3/uL Hct 36.8 L (37.2-46.3) % RDW 19.5 H (11.5-14.5) % Immature Gran # 0.40 H (0.00-0.04) 10*3/uL Neutrophils # 16.47 H (1.80-7.70) 10*3/uL Monocytes # 1.20 H (0.20-1.00) 10*3/uL Eosinophils # 0.00 L (0.04-0.35) 10*3/uL Sodium (137-145) mmol/L Chloride (98-107) mmol/L Carbon Dioxide (22-30) mmol/L BUN (7-17) mg/dL Glucose (74-99) mg/dL POC Glucose (mg/dL) 285 H 261 H (70-110) mg/dL 04/05/25 04/05/25 04/05/25 Range/Units 03:31 06:12 11:19 WBC (4.50-10.00) 10*3/uL Hct (37.2-46.3) % RDW (11.5-14.5) % Immature Gran # (0.00-0.04) 10*3/uL Neutrophils # (1.80-7.70) 10*3/uL Monocytes # (0.20-1.00) 10*3/uL Eosinophils # (0.04-0.35) 10*3/uL Sodium 131 L (137-145) mmol/L Chloride 90 L (98-107) mmol/L Carbon Dioxide 34 H (22-30) mmol/L BUN 25 H (7-17) mg/dL Glucose 150 H (74-99) mg/dL POC Glucose (mg/dL) 181 H 193 H (70-110) mg/dL
[2025-04-05 17:13] LABS: Glucose,Whole Blood 260 mg/dL (70-110)
[2025-04-05 21:05] LABS: Glucose,Whole Blood 236 mg/dL (70-110)
[2025-04-06 04:10] LABS: Basophils # (A) 0.12 10*3/uL (0.00-0.10); Basophils % (A) 0.5 %; Eosinophils # (A) 0.06 10*3/uL (0.04-0.35); Eosinophils % (A) 0.3 %; HCT 33.3 % (37.2-46.3); HGB 10.8 g/dL (12.0-15.0); Lymphocytes # (A) 2.84 10*3/uL (0.90-5.00); Lymphocytes % (A) 12.3 %; MCH 28.3 pg (27.0-32.0); MCHC 32.4 g/dL (32.0-37.0); MCV 87.2 fL (80.0-97.0); Monocytes # (A) 2.10 10*3/uL (0.20-1.00); Monocytes % (A) 9.1 %; Neutrophils # (A) 17.17 10*3/uL (1.80-7.70); Neutrophils % (A) 74.0 %; Platelet Count 365 10*3/uL (140-440); RBC 3.82 10*6/uL (4.10-5.20); RDW 19.7 % (11.5-14.5); WBC 23.16 10*3/uL (4.50-10.00)
[2025-04-06 04:29] LABS: African American GFR (CKD) 51 (>60 ml/min/1.73 sqM); Anion Gap 3 mmol/L; Blood Urea Nitrogen 35 mg/dL (7-17); Calcium 8.7 mg/dL (8.4-10.2); Carbon Dioxide 38 mmol/L (22-30); Chloride 89 mmol/L (98-107); Glucose 96 mg/dL (74-99); Non-African American GFR(CKD) 44 (>60 ml/min/1.73 sqM); Potassium 4.5 mmol/L (3.5-5.1); Sodium 130 mmol/L (137-145)
[2025-04-06 06:12] LABS: Glucose,Whole Blood 101 mg/dL (70-110)
--- NOTE | 2025-04-06 08:32 | XR ---
EXAMINATION TYPE: XR chest 1V portable DATE OF EXAM: 04/06/2025 8:28 AM COMPARISON: Chest radiographs from 04/04/2025 TECHNIQUE: XR chest 1V portable Portable AP radiograph of the chest. CLINICAL INDICATION:Female, 84 years old with history of copd; FINDINGS: Lungs/Pleura: There is no evidence of pleural effusion or pneumothorax. Bibasilar linear atelectasis. Pulmonary vascularity: Unremarkable. Heart/mediastinum: Cardiomediastinal silhouette is unremarkable. Atherosclerotic calcifications are seen in the aorta. Musculoskeletal: No acute osseous pathology. IMPRESSION: Bibasilar linear atelectasis. [facility], , 04/06/2025 8:29 AM
[2025-04-06 08:50] LABS: Basophils # (A) 0.09 10*3/uL (0.00-0.10); Basophils % (A) 0.4 %; Eosinophils # (A) 0.14 10*3/uL (0.04-0.35); Eosinophils % (A) 0.6 %; HCT 38.5 % (37.2-46.3); HGB 12.1 g/dL (12.0-15.0); Lymphocytes # (A) 3.29 10*3/uL (0.90-5.00); Lymphocytes % (A) 14.2 %; MCH 27.8 pg (27.0-32.0); MCHC 31.4 g/dL (32.0-37.0); MCV 88.5 fL (80.0-97.0); Monocytes # (A) 1.88 10*3/uL (0.20-1.00); Monocytes % (A) 8.1 %; Neutrophils # (A) 16.85 10*3/uL (1.80-7.70); Neutrophils % (A) 72.7 %; Platelet Count 389 10*3/uL (140-440); RBC 4.35 10*6/uL (4.10-5.20); RDW 20.1 % (11.5-14.5); WBC 23.17 10*3/uL (4.50-10.00)
[2025-04-06 09:04] LABS: ALT 21 U/L (4-34); AST 18 U/L (14-36); African American GFR (CKD) 57 (>60 ml/min/1.73 sqM); Albumin 2.8 g/dL (3.5-5.0); Albumin/Globulin Ratio 1.0; Alkaline Phosphatase 119 U/L (38-126); Blood Urea Nitrogen 33 mg/dL (7-17); Calcium 8.8 mg/dL (8.4-10.2); Chloride 90 mmol/L (98-107); Globulin 2.8 g/dL; Glucose 107 mg/dL (74-99); Non-African American GFR(CKD) 50 (>60 ml/min/1.73 sqM); Potassium 4.6 mmol/L (3.5-5.1); Sodium 133 mmol/L (137-145); Total Protein 5.6 g/dL (6.3-8.2)
[2025-04-06 09:10] LABS: Anion Gap 10 mmol/L; NT-Pro-B-Type Natriuretic Pept 458 pg/mL
[2025-04-06 09:15] LABS: Carbon Dioxide 33 mmol/L (22-30)
[2025-04-06 11:27] LABS: Glucose,Whole Blood 140 mg/dL (70-110)
--- NOTE | 2025-04-06 15:41 | P.PN ---
Subjective Progress Note Date: 04/06/25 Hospital Course: 84 y.o female with PMHx of COPD on home oxygen, and diastolic CHF (most recent EF 55-60% on 03/03/2025) who presents to the ED with shortness of breath. Pt was found on the toilet, for what appears to be hours, by an individual from the [facility], who then called EMS to bring pt to the ED. Per pt she was too weak to get up from the toilet. Of note pt was discharged from [facility] yesterday (04/03/2025) after being treated for an acute COPD exacerbation, she was discharged with 7 days of steroids and home oxygen. At the time pt's family "granddaughter" did not want her to go home as she did not think the pt would be able to independently take care of herself, however pt was determined to have capacity to return home, and as such was discharged. pt is in agreement with her granddaughter. Pt states she feels tired and wants to leave. otherwise denies any headache, or chest pain, fevers or chills. Patient has been decreaed to 3L nasal canula, 94%, patient has bilateral expiratory wheezing, troponins and por- bnp, and chest xray were ordered to rule out CHF exacerbation, troponins and pro-bnp within normal limits, xray remarkable for bilateral atelactasis. Pt has had worsening kidney function since 04/05/2025, 25 > 35 > 33, Creatinine 0.68 > 1.16 > 1.05, BMP needed for tomorrow to reassess. Subjective: Patient seen and examined at bedside. No acute events overnight. Pertinent positives and negatives as discussed above, a complete review of systems was performed and all other systems are negative. Vitals: Signs Reviewed Physical Exam: Vital signs reviewed General: non toxic, no distress, appears at stated age, normal weight Head: atraumatic, normocephalic, symmetric Eyes: EOMI, anicteric sclera, pupils equal round reactive to light ENT: Nose and ears atraumatic Neck: No cervical lymphadenopathy, trachea midline, supple Mouth: no lip lesion, mucus membranes moist Cardiovascular: S1S2 reg, no murmur, positive dorsalis pedis pulse bilateral, no edema Lungs: bilateral expiratory wheezing on auscultation Abdominal: soft, nontender to palpation, no guarding Ext: muscle strength 5 out of 5 in all 4 extremities grossly, no gross muscle atrophy, 1+ pitting edema bilateral lower extremities Neuro: CN II-XI grossly intact, no gross focal neuro deficits Psych: Alert, oriented to person, place, and time Data Received Today: Pertinent Labs: BUN: 25 > 35 > 33 Creatinine: 0.68 > 1.16 > 1.05 WBC: 19.81 > 23.16 > 23.17 Na: 131 > 130 > 133 Chloride: 90 > 89 > 90 POC: 236 > 101 > 140 Imaging: Chest x-ray: Upon review; bibasilar linear atelectasis Assessment and Plan: 84 y.o female with PMHx of COPD on 4L NC and diastolic CHF, with new onset of VINCENZO Mild nonoliguric VINCENZO - worsening kidney function - BMP ordered, Strict I's&O's in effect and reassess following day COPD / Acute on chronic hypoxic respiratory insufficiency - continue resp therapy, duoneb every 2 hours as needed, 4 times daily scheduled, prednisone 40 mg p.o. daily, 3L NC Mobility - PT/OT eval, Case management for costumer assistant living diastolic CHF, not in exacerbation/ HTN - continue torsemide 20 daily, potassium 20 daily T2D - continue sliding scale insulin, continue dapagliflozin 5 daily, monitor hypoglycemia A.fib - cont apixiban, atorvastain, metoprolol, Anxeity/depression - continue xanax, lexapro, trazodone, DVT ppx: Eliquis Code status: Full code Anticipated discharge place: pending clinical course and case management Jesusita Tinoco MD PGY-1 FM Dictation was produced using [email or web address] dictation software. please excuse any grammatical, word or spelling errors. I have seen and evaluated the patient today. Discussed with the resident and agree with the residents finding and plan as documented in the resident's note. Changes highlighted in blue font. Objective - Vital Signs Vital signs: Vital Signs Temp 97.1 F L 04/06/25 13:26 Pulse 80 04/06/25 15:19 Resp 18 04/06/25 13:27 BP 103/61 04/06/25 13:26 Pulse Ox 94 L 04/06/25 13:26 FiO2 Intake & Output 04/05/25 04/06/25 04/06/25 18:59 06:59 18:59 Weight 77 kg Other: Voiding Method Toilet # Voids 2 3 - Labs CBC & Chem 7: 04/06/25 08:05 04/06/25 08:05 Labs: Abnormal Lab Results - Last 24 Hours (Table) 04/05/25 04/05/25 04/06/25 Range/Units 17:07 21:03 03:14 WBC 23.16 H (4.50-10.00) 10*3/uL RBC 3.82 L (4.10-5.20) 10*6/uL Hgb 10.8 L (12.0-15.0) g/dL Hct 33.3 L (37.2-46.3) % MCHC (32.0-37.0) g/dL RDW 19.7 H (11.5-14.5) % MPV (9.5-12.2) fL Immature Gran # 0.87 H (0.00-0.04) 10*3/uL Neutrophils # 17.17 H (1.80-7.70) 10*3/uL Monocytes # 2.10 H (0.20-1.00) 10*3/uL Basophils # 0.12 H (0.00-0.10) 10*3/uL Sodium (137-145) mmol/L Chloride (98-107) mmol/L Carbon Dioxide (22-30) mmol/L BUN (7-17) mg/dL Creatinine (0.52-1.04) mg/dL Glucose (74-99) mg/dL POC Glucose (mg/dL) 260 H 236 H (70-110) mg/dL Total Protein (6.3-8.2) g/dL Albumin (3.5-5.0) g/dL 04/06/25 04/06/25 04/06/25 Range/Units 03:14 08:05 08:05 WBC 23.17 H (4.50-10.00) 10*3/uL RBC (4.10-5.20) 10*6/uL Hgb (12.0-15.0) g/dL Hct (37.2-46.3) % MCHC 31.4 L (32.0-37.0) g/dL RDW 20.1 H (11.5-14.5) % MPV 9.3 L (9.5-12.2) fL Immature Gran # 0.92 H (0.00-0.04) 10*3/uL Neutrophils # 16.85 H (1.80-7.70) 10*3/uL Monocytes # 1.88 H (0.20-1.00) 10*3/uL Basophils # (0.00-0.10) 10*3/uL Sodium 130 L 133 L (137-145) mmol/L Chloride 89 L 90 L (98-107) mmol/L Carbon Dioxide 38 H 33 H (22-30) mmol/L BUN 35 H 33 H (7-17) mg/dL Creatinine 1.16 H 1.05 H (0.52-1.04) mg/dL Glucose 107 H (74-99) mg/dL POC Glucose (mg/dL) (70-110) mg/dL Total Protein 5.6 L (6.3-8.2) g/dL Albumin 2.8 L (3.5-5.0) g/dL 04/06/25 Range/Units 11:26 WBC (4.50-10.00) 10*3/uL RBC (4.10-5.20) 10*6/uL Hgb (12.0-15.0) g/dL Hct (37.2-46.3) % MCHC (32.0-37.0) g/dL RDW (11.5-14.5) % MPV (9.5-12.2) fL Immature Gran # (0.00-0.04) 10*3/uL Neutrophils # (1.80-7.70) 10*3/uL Monocytes # (0.20-1.00) 10*3/uL Basophils # (0.00-0.10) 10*3/uL Sodium (137-145) mmol/L Chloride (98-107) mmol/L Carbon Dioxide (22-30) mmol/L BUN (7-17) mg/dL Creatinine (0.52-1.04) mg/dL Glucose (74-99) mg/dL POC Glucose (mg/dL) 140 H (70-110) mg/dL Total Protein (6.3-8.2) g/dL Albumin (3.5-5.0) g/dL
[2025-04-06 16:25] LABS: Glucose,Whole Blood 180 mg/dL (70-110)
[2025-04-06 20:06] LABS: Glucose,Whole Blood 186 mg/dL (70-110)
[2025-04-07 04:30] LABS: African American GFR (CKD) 66 (>60 ml/min/1.73 sqM); Anion Gap 4 mmol/L; Blood Urea Nitrogen 36 mg/dL (7-17); Calcium 8.6 mg/dL (8.4-10.2); Carbon Dioxide 38 mmol/L (22-30); Chloride 89 mmol/L (98-107); Glucose 117 mg/dL (74-99); Non-African American GFR(CKD) 57 (>60 ml/min/1.73 sqM); Potassium 4.5 mmol/L (3.5-5.1); Sodium 131 mmol/L (137-145)
[2025-04-07 06:08] LABS: Glucose,Whole Blood 124 mg/dL (70-110)
[2025-04-07 08:42] LABS: Basophils # (A) 0.12 10*3/uL (0.00-0.10); Basophils % (A) 0.5 %; Eosinophils # (A) 0.04 10*3/uL (0.04-0.35); Eosinophils % (A) 0.2 %; HCT 34.1 % (37.2-46.3); HGB 11.0 g/dL (12.0-15.0); Lymphocytes # (A) 3.15 10*3/uL (0.90-5.00); Lymphocytes % (A) 13.2 %; MCH 28.6 pg (27.0-32.0); MCHC 32.3 g/dL (32.0-37.0); MCV 88.6 fL (80.0-97.0); Monocytes # (A) 1.63 10*3/uL (0.20-1.00); Monocytes % (A) 6.9 %; Neutrophils # (A) 18.01 10*3/uL (1.80-7.70); Neutrophils % (A) 75.7 %; Platelet Count 361 10*3/uL (140-440); RBC 3.85 10*6/uL (4.10-5.20); RDW 20.2 % (11.5-14.5); WBC 23.79 10*3/uL (4.50-10.00)
[2025-04-07 11:18] LABS: Glucose,Whole Blood 143 mg/dL (70-110)
--- NOTE | 2025-04-07 12:00 | P.PN ---
Subjective Progress Note Date: 04/07/25 Subjective: Patient seen and examined at bedside. No acute events overnight. Pertinent positives and negatives as discussed above, a complete review of systems was performed and all other systems are negative. Vitals Signs Reviewed. General: Nontoxic, no distress, appears at stated age, chronically ill- appearing, Derm: Warm, dry Head: Atraumatic, normocephalic, symmetric Eyes: EOMI, no lid lag, anicteric sclera Mouth: No lip lesion, mucus membranes moist Cardiovascular: S1S2 reg, no murmur Lungs: CTA bilateral, no rhonchi, no rales, no accessory muscle use, supplemental oxygen Abdominal: Soft, nontender to palpation, no guarding, no appreciable organomegaly Ext: No gross muscle atrophy, no edema, no contractures Neuro: CN II-XI grossly intact, no focal neuro deficits Psych: Alert, oriented, appropriate affect Data Reviewed Today: Pertinent Labs: WBC 23.79, hemoglobin 11, sodium 131, creatinine 0.94, blood sugars range between 117-143 Imaging: No new imaging Assessment and Plan: Active: Chronic hypoxic respiratory failure Mild COPD exacerbation - Continue DuoNebs every 2 hours as needed, 4 times daily scheduled, completed course of oral prednisone Leukocytosis, likely steroid-induced - Continue monitor Debility - PT OT recommending subacute rehab Type 2 diabetes - Sliding scale insulin, monitor for hypoglycemia - Continue Farxiga 5 mg daily Chronic: Atrial fibrillation Dyslipidemia CHF, not in exacerbation Depression/anxiety DVT ppx: Eliquis Code status: Full code Anticipated discharge place: Subacute rehab Anticipated discharge time: Pending insurance Auth Objective - Vital Signs Vital signs: Vital Signs Temp 97.8 F 04/07/25 07:46 Pulse 78 04/07/25 11:16 Resp 15 04/07/25 07:46 BP 143/76 04/07/25 07:46 Pulse Ox 9 L 04/07/25 08:11 FiO2 Intake & Output 04/06/25 04/07/25 04/07/25 18:59 06:59 18:59 Other: Voiding Method Toilet # Voids 4 3 - Labs CBC & Chem 7: 04/07/25 08:12 04/07/25 03:32 Labs: Abnormal Lab Results - Last 24 Hours (Table) 04/06/25 04/06/25 04/07/25 Range/Units 16:24 20:05 03:32 WBC (4.50-10.00) 10*3/uL RBC (4.10-5.20) 10*6/uL Hgb (12.0-15.0) g/dL Hct (37.2-46.3) % RDW (11.5-14.5) % Immature Gran # (0.00-0.04) 10*3/uL Neutrophils # (1.80-7.70) 10*3/uL Monocytes # (0.20-1.00) 10*3/uL Basophils # (0.00-0.10) 10*3/uL Sodium 131 L (137-145) mmol/L Chloride 89 L (98-107) mmol/L Carbon Dioxide 38 H (22-30) mmol/L BUN 36 H (7-17) mg/dL Glucose 117 H (74-99) mg/dL POC Glucose (mg/dL) 180 H 186 H (70-110) mg/dL 04/07/25 04/07/25 04/07/25 Range/Units 06:04 08:12 11:17 WBC 23.79 H (4.50-10.00) 10*3/uL RBC 3.85 L (4.10-5.20) 10*6/uL Hgb 11.0 L (12.0-15.0) g/dL Hct 34.1 L (37.2-46.3) % RDW 20.2 H (11.5-14.5) % Immature Gran # 0.84 H (0.00-0.04) 10*3/uL Neutrophils # 18.01 H (1.80-7.70) 10*3/uL Monocytes # 1.63 H (0.20-1.00) 10*3/uL Basophils # 0.12 H (0.00-0.10) 10*3/uL Sodium (137-145) mmol/L Chloride (98-107) mmol/L Carbon Dioxide (22-30) mmol/L BUN (7-17) mg/dL Glucose (74-99) mg/dL POC Glucose (mg/dL) 124 H 143 H (70-110) mg/dL
[2025-04-07 14:25] VITALS: RESP 17; TEMP 97.9
[2025-04-07 14:26] VITALS: BP 97/58
[2025-04-07 15:02] VITALS: PULSE 78
--- NOTE | 2025-04-07 15:30 | P.DS ---
Providers Date of admission: 04/04/25 13:21 Expected date of discharge: 04/07/25 Attending physician: Kane Horvath [facility] Course: Discharge Diagnosis: Chronic hypoxic respiratory failure Mild COPD exacerbation Leukocytosis, likely steroid-induced Debility Type 2 diabetes Hospital Course: 84 y.o female with PMHx of COPD (on home oxygen, however pt does not recall how many liters) and diastolic CHF (most recent EF 55-60% on 03/03/2025) who presents to the ED with shortness of breath. Pt was found on the toilet, for what appears to be hours, by an individual from the [facility], who then called EMS to bring pt to the ED. Per pt she was too weak to get up from the toilet. Of note pt was discharged from [facility] yesterday (04/03/2025) after being treated for an acute COPD exacerbation, she was discharged with 7 days of steroids and home oxygen. At the time pt's family "granddaughter" did not want her to go home as she did not think the pt would be able to independently take care of herself, however pt was determined to have capacity to return home, and as such was discharged. Today the pt is in agreement with her granddaughter and is willing to go to rehab to "get stronger/regain her strength." Pt states she feels "tired," otherwise denies any headache, or chest pain, fevers or chills. CXR and EKG obtained in ED, with CXR showing pulmonary vascular congestion and b/l pleural effusion, and EKG showing normal sinus rhythm. Initial labs significant for WBC 24.40, Na 134, bicarb 38. Vitals: - on arrival: BP 143/86, HR 80, RR 18, 100% on 3L NC, temp afebrile Patient completed her oral prednisone while inpatient. She did develop VINCENZO which has now resolved. Patient being discharged to rehab facility. Patient seen and examined at bedside. Vital signs reviewed and stable. General: Nontoxic, no distress, appears at stated age, chronically ill- appearing, Derm: Warm, dry Head: Atraumatic, normocephalic, symmetric Eyes: EOMI, no lid lag, anicteric sclera Mouth: No lip lesion, mucus membranes moist Cardiovascular: S1S2 reg, no murmur Lungs: CTA bilateral, no rhonchi, no rales, no accessory muscle use, supplemental oxygen Abdominal: Soft, nontender to palpation, no guarding, no appreciable organomegaly Ext: No gross muscle atrophy, no edema, no contractures Neuro: CN II-XI grossly intact, no focal neuro deficits Psych: Alert, oriented, appropriate affect A total of 36 minutes of time were spent preparing this complex discharge summary. Patient was discharged on 04/07/2025 at 1515. Plan - Discharge Summary Discharge Rx Participant: No New Discharge Prescriptions: New Ipratropium-Albuterol Nebulize [Duoneb 0.5 mg-3 mg/3 ml Soln] 3 ml INHALATION RT-Q2H PRN each PRN Reason: Shortness Of Breath Or Wheezing Continue Escitalopram [Lexapro] 20 mg PO DAILY Atorvastatin [Lipitor] 40 mg PO DAILY Torsemide [Demadex] 20 mg PO DAILY tab Potassium Chloride ER [K-Dur 20] 20 meq PO DAILY tab traZODone HCL [Desyrel] 100 mg PO HS #3 tab Apixaban [Eliquis] 2.5 mg PO BID Dapagliflozin Propanediol [Farxiga] 5 mg PO DAILY tab Metoprolol Succinate (ER) [Toprol XL] 25 mg PO DAILY tab traMADol HCL 50 mg PO BID PRN #6 tab PRN Reason: Pain ALPRAZolam [Xanax] 0.5 mg PO BID PRN #6 tab PRN Reason: Anxiety Discontinued predniSONE [Deltasone] 40 mg PO DAILY #6 tab Discharge Medication List Atorvastatin [Lipitor] 40 mg PO DAILY 03/04/25 [History] Escitalopram [Lexapro] 20 mg PO DAILY 03/04/25 [History] ALPRAZolam [Xanax] 0.5 mg PO BID PRN #6 tab 03/10/25 [Rx] Dapagliflozin Propanediol [Farxiga] 5 mg PO DAILY tab 03/10/25 [Rx] Metoprolol Succinate (ER) [Toprol XL] 25 mg PO DAILY tab 03/10/25 [Rx] Potassium Chloride ER [K-Dur 20] 20 meq PO DAILY tab 03/10/25 [Rx] Torsemide [Demadex] 20 mg PO DAILY tab 03/10/25 [Rx] traMADol HCL 50 mg PO BID PRN #6 tab 03/10/25 [Rx] traZODone HCL [Desyrel] 100 mg PO HS #3 tab 03/10/25 [Rx] Apixaban [Eliquis] 2.5 mg PO BID 03/31/25 [History] Ipratropium-Albuterol Nebulize [Duoneb 0.5 mg-3 mg/3 ml Soln] 3 ml INHALATION RT-Q2H PRN each 04/07/25 [Rx] Follow up Appointment(s)/Referral(s): Christopher Wood DO [Primary Care Provider] - 1-2 days Patient Instructions/Handouts: COPD (Chronic Obstructive Pulmonary Disease) (DC) Activity/Diet/Wound Care/Special Instructions: Please see your PCP. Discharge Disposition: TRANSFER TO SNF/ECF
== END 2025-04-07 16:41 | DRG 190 ==
LOC: EC 11:45 → 4SSUR 13:21
PROVIDERS: ADMIT Student in an Organized Health Care Education/Training Program; ATTEND Student in an Organized Health Care Education/Training Program
DX: J44.1 Chronic obstructive pulmonary disease with (acute) exacerbation (principal); J96.21 Acute and chronic respiratory failure with hypoxia; E87.3 Alkalosis; E87.1 Hypo-osmolality and hyponatremia; N17.9 Acute kidney failure, unspecified; I11.0 Hypertensive heart disease with heart failure; E11.9 Type 2 diabetes mellitus without complications; E78.5 Hyperlipidemia, unspecified; D72.829 Elevated white blood cell count, unspecified; F32.A Depression, unspecified; I50.32 Chronic diastolic (congestive) heart failure; I48.0 Paroxysmal atrial fibrillation; I25.10 Atherosclerotic heart disease of native coronary artery without angina pectoris; Z99.81 Dependence on supplemental oxygen; F41.9 Anxiety disorder, unspecified; F17.210 Nicotine dependence, cigarettes, uncomplicated; I25.2 Old myocardial infarction; T38.0X5A Adverse effect of glucocorticoids and synthetic analogues, initial encounter; Z95.5 Presence of coronary angioplasty implant and graft; Z79.01 Long term (current) use of anticoagulants; Z79.84 Long term (current) use of oral hypoglycemic drugs; Z79.899 Other long term (current) drug therapy; Z88.5 Allergy status to narcotic agent; Z82.49 Family history of ischemic heart disease and other diseases of the circulatory system
CPT/HCPCS: 36415; 71045; 71046; 80048; 80053; 83605; 83735; 83880; 84484; 85025; 85610; 85730; 93005; 94640; 94760; 96374; 96375; 99285